=== PATIENT | female | born 1970 | race American Indian/Alaskan Native ===

== ENCOUNTER 2017-12-25 11:50 | Emergency (ER) | payer SELFPAY ==
--- NOTE | 2017-12-25 14:33 | Emergency Department Report ---
Chief Complaint: Extremity Injury, Lower Stated Complaint: BACK PAIN/SWOLLEN ANKLES Time Seen by Provider: 12/25/17 14:18 - HPI History of Present Illness: 47-year-old -[place] female presents to the emergency department with complaint of lower extremity swelling, especially in the feet and ankles, as well as some mid back pain, that has been going on for the past 4-5 days. Patient presents with some elevated blood pressure and says that she has a history of hypertension but has not been taking any medication. The patient says that she is homeless and does not have any primary care physician. She has not taken anything for her symptoms prior to presentation. She denies any problems with bowel or bladder, numbness or paresthesias or any neurological deficits. - ROS Review of Systems: Positive for bilateral lower extremity edema, back pain Negative for numbness, paresthesias, dysuria - Exam Vital Signs: Vital Signs 12/25/17 12:00 Temperature 98.3 F Pulse Rate 87 Respiratory 16 Rate Blood Pressure 176/99 O2 Sat by Pulse 100 Oximetry Physical Exam: There is some mild pitting swelling of the bilateral lower extremities, mostly to the feet, ankles and distal tib-fib. There is some reproducible tenderness to palpation to the left paraspinal mid back but no step-off or deformity. Heart and lungs sounds are normal to auscultation. MSE screening note: Focused history and physical exam performed. Due to findings the following was ordered: I've ordered a CBC, BMP, BNP, urinalysis and urine . X-ray of the thoracic spine. ED Disposition for MSE Condition: Stable Referrals: PRIMARY CARE [Primary Care Provider] - 3-5 Days
[2017-12-25 15:45] LABS: Basophils % (Auto) 0.9 % (0.0-1.8); Eosinophils % (Auto) 0.1 % (0.0-4.3); Lymphocytes % (Auto) 43.2 % (13.4-35.0); Mean Corpuscular HGB Conc 30 % (30-34); Monocytes # (Auto) 0.6 K/mm3 (0.0-0.8); Monocytes % (Auto) 12.3 % (0.0-7.3); Platelet Count 350 K/mm3 (140-440); Red Blood Count 5.06 M/mm3 (3.65-5.03)
[2017-12-25 15:48] LABS: Hematocrit 34.7 % (30.3-42.9); Hemoglobin 10.4 gm/dl (10.1-14.3); Mean Corpuscular Hemoglobin 21 pg (28-32); Mean Corpuscular Volume 69 fl (79-97); Red Cell Distribution Width 21.8 % (13.2-15.2)
[2017-12-25 15:59] LABS: BUN/Creatinine Ratio 16; Blood Urea Nitrogen 11 mg/dL (7-17); Calcium 8.9 mg/dL (8.4-10.2); Hemolysis Index 68
[2017-12-25 17:14] LABS: Amorphous Crystals,Urine 1+; Bilirubin,Urine NEG (Negative); Blood,Urine NEG (Negative); Color,Urine Yellow (Yellow); HCG Qualitative,Urine Negative (Negative); Mucus,Urine FEW /HPF; Protein,Urine <15 mg/dL mg/dL (Negative); Urobilinogen,Urine < 2.0 mg/dL (<2.0)
[2017-12-25 18:15] LABS: WBC,Urine < 1.0 /HPF (0.0-6.0)
--- NOTE | 2017-12-25 19:37 | XRay Report ---
FINAL REPORT EXAM: XR CHEST ROUTINE 2V HISTORY: LE swelling TECHNIQUE: Two view chest PA and lateral PRIORS: None. FINDINGS: Cardiac and mediastinal contours are unremarkable. No focal pulmonary infiltrate is identified. No pleural fluid collection seen. Pulmonary vasculature is unremarkable. IMPRESSION: Negative two-view chest
--- NOTE | 2017-12-25 19:39 | XRay Report ---
FINAL REPORT EXAM: XR SPINE THORACIC 2V HISTORY: back pain TECHNIQUE: Two views thoracic spine PRIORS: None. FINDINGS: The vertebral bodies demonstrate normal height and alignment. The disk spaces are within normal limits. The posterior elements appear intact. Perivertebral soft tissues are unremarkable. IMPRESSION: Negative thoracic spine series
--- NOTE | 2017-12-25 21:00 | Emergency Department Report ---
ED Lower Extremity HPI - General Chief Complaint: Extremity Injury, Lower Stated Complaint: BACK PAIN/SWOLLEN ANKLES Time Seen by Provider: 12/25/17 14:18 Source: patient Mode of arrival: Ambulatory Limitations: No Limitations - History of Present Illness Initial Comments: 47-year-old -[place] female presents with bilateral lower extremity swelling and low back pain for 4-5 days. Patient is homeless with past medical history of hypertension and arthritis. Patient states she is currently off of blood pressure medication at this time. Patient states she noticed swelling to lower extremity, about 5 days ago from ankles to feet. Pain and back his mid section, and nonradiating. Patient denies taking anything for symptom relief prior to presentation. Denies numbness or tingling, chest pain, shortness of breath, wheezing, and fever. MD Complaint: ankle injury (bilateral ankle swelling), foot injury (bilateral feet swelling) Onset/Timin -: days(s) Injury: Ankle: Right, Left, Foot: Right, Left Type of Injury: unknown Place: home Severity: moderate Severity scale (0 -10): 4 Worsens With: nothing Associated Symptoms: swelling, ambulatory. denies: snap/pop sensation, numbness , tingling, unable to bear weight, able to partially bear weight - Related Data Previous Rx's Medication Instructions Recorded Last Taken Type Amoxicillin/K Clav Tab [Augmentin 1 tab PO Q12HR #10 tab 04/10/16 Unknown Rx 875 mg] Benzonatate [Tessalon Perles] 100 mg PO Q8HR #14 capsule 04/10/16 Unknown Rx HYDROcodone/APAP 7.5-325 [[place]] 15 ml PO Q4HR PRN #90 ml 04/10/16 Unknown Rx Ibuprofen [Motrin] 800 mg PO Q8HR PRN #14 tablet 04/10/16 Unknown Rx Hydrochlorothiazide 12.5 mg PO DAILY #14 tablet 12/25/17 Unknown Rx amLODIPine [Norvasc] 5 mg PO DAILY #14 tab 12/25/17 Unknown Rx Allergies Allergy/AdvReac Type Severity Reaction Status Date / Time No Known Allergies Allergy Unverified 04/10/16 07:54 ED Review of Systems ROS: Stated complaint: BACK PAIN/SWOLLEN ANKLES Other details as noted in HPI Constitutional: denies: chills, fever Respiratory: denies: cough, shortness of breath, wheezing Cardiovascular: denies: chest pain, palpitations Gastrointestinal: denies: abdominal pain, nausea, diarrhea Musculoskeletal: back pain (mid-back pain), joint swelling (bilateral lower extremity swelling). denies: arthralgia Skin: denies: rash, lesions Neurological: denies: headache, weakness, paresthesias Psychiatric: denies: anxiety, depression ED Past Medical Hx - Past Medical History Previous Medical History?: Yes Hx Hypertension: Yes Hx Arthritis: Yes - Surgical History Past Surgical History?: Yes Additional Surgical History: x 2. wrist surgery - Social History Smoking Status: Current Some Day Smoker Substance Use Type: None - Medications Home Medications: Home Medications Medication Instructions Recorded Confirmed Last Taken Type Amoxicillin/K Clav Tab [Augmentin 1 tab PO Q12HR #10 tab 04/10/16 Unknown Rx 875 mg] Benzonatate [Tessalon Perles] 100 mg PO Q8HR #14 capsule 04/10/16 Unknown Rx HYDROcodone/APAP 7.5-325 [[place]] 15 ml PO Q4HR PRN #90 ml 04/10/16 Unknown Rx Ibuprofen [Motrin] 800 mg PO Q8HR PRN #14 tablet 04/10/16 Unknown Rx Hydrochlorothiazide 12.5 mg PO DAILY #14 tablet 12/25/17 Unknown Rx amLODIPine [Norvasc] 5 mg PO DAILY #14 tab 12/25/17 Unknown Rx ED Physical Exam - General Limitations: No Limitations General appearance: alert, in no apparent distress - Respiratory Respiratory exam: Present: normal lung sounds bilaterally. Absent: respiratory distress, wheezes, rales, rhonchi, stridor - Cardiovascular Cardiovascular Exam: Present: regular rate, normal rhythm. Absent: systolic murmur, diastolic murmur, rubs, gallop - GI/Abdominal GI/Abdominal exam: Present: soft, normal bowel sounds. Absent: organomegaly, mass - Extremities Exam Extremities exam: Present: full ROM, normal capillary refill, pedal edema (+2 pitting edema bilaterally distal tibial and fibula and feet). Absent: tenderness, calf tenderness - Back Exam Back exam: Present: full ROM, paraspinal tenderness (mid back on the left). Absent: CVA tenderness (R), CVA tenderness (L), rash noted - Neurological Exam Neurological exam: Present: alert, oriented X3 - Psychiatric Psychiatric exam: Present: normal affect, normal mood - Skin Skin exam: Present: warm, dry, intact, normal color. Absent: rash ED Course Vital Signs 12/25/17 12:00 Temperature 98.3 F Pulse Rate 87 Respiratory 16 Rate Blood Pressure 176/99 O2 Sat by Pulse 100 Oximetry ED Lower Extremity MDM - Lab Data Result diagrams: 12/25/17 15:27 12/25/17 15:27 - Radiology Data Radiology results: report reviewed VASCULAR LAB.PRELIMINARY REPORT. BLE VENOUS DUPLEX DONE. NO EVIDENCE OF DVT/SVT IN VESSELS VISUALIZED. SOFT TISSUE CHANGES SEEN IN BOTH KNEES. EXAM: XR CHEST ROUTINE 2V HISTORY: LE swelling TECHNIQUE: Two view chest PA and lateral PRIORS: None. FINDINGS: Cardiac and mediastinal contours are unremarkable. No focal pulmonary infiltrate is identified. No pleural fluid collection seen. Pulmonary vasculature is unremarkable. IMPRESSION: Negative two-view chest. EXAM: XR SPINE THORACIC 2V HISTORY: back pain TECHNIQUE: Two views thoracic spine PRIORS: None. FINDINGS: The vertebral bodies demonstrate normal height and alignment. The disk spaces are within normal limits. The posterior elements appear intact. Perivertebral soft tissues are unremarkable. IMPRESSION: Negative thoracic spine series - Medical Decision Making This is a 47 y.o. female that presents with bilateral lower extremity edema and low back pain for 4-5 days. Patient is stable and was examined by me. History of HTN and arthritis. Patient is homeless and off blood pressure medication. Patient does not have primary care provider to follow-up with. Obtain CBC, CMP , BMP, a urinalysis, urine hCG, duplex Doppler bilateral lower extremities, chest x-ray, and x-ray of thoracic spine. VASCULAR LAB.PRELIMINARY REPORT. BLE VENOUS DUPLEX DONE. NO EVIDENCE OF DVT/SVT IN VESSELS VISUALIZED. SOFT TISSUE CHANGES SEEN IN BOTH KNEES. Negative two-view chest. Negative thoracic spine series. BNP is 2726, all of the labs unremarkable. Given Lasix 20 mg by mouth once in ER. On physical assessment lungs are clear to auscultation. Start amlodipine 5 mg by mouth daily and hydrochlorothiazide 12.5 mg po daily and follow up with PCP in 24-48 hours. Referral to director strategic planning and [facility] for further management. Discussed plan with patient and agreed to plan. No further questions noted by the patient. Discharged in stable condition. Critical care attestation.: If time is entered above; I have spent that time in minutes in the direct care of this critically ill patient, excluding procedure time. ED Disposition Clinical Impression: Bilateral lower extremity edema, Dependent edema Hypertension Qualifiers: Hypertension type: essential hypertension Qualified Code(s): I10 - Essential ( primary) hypertension Disposition: TO HOME OR SELFCARE Is pt being admited?: No Does the pt Need Aspirin: No Condition: Stable Instructions: Leg Edema (ED), Hypertension (ED) Additional Instructions: Encourage stop smoking to reduce cardiovascular risk. Moderate caffeine consumption is acceptable. Begin and maintain aerobic exercise, with a goal of at least 30 minutes of moderate intensity, dynamic aerobic exercise (walking, jogging, cycling, or swimming) 5 days per week to total 150 minutes as tolerated or recommended by a physician. Take medication daily as prescribed. Follow up with Primary Care Provider in 1 week. Prescriptions: amLODIPine [Norvasc] 5 mg PO DAILY #14 tab Hydrochlorothiazide 12.5 mg PO DAILY #14 tablet Referrals: [facility] [Outside] - 3-5 Days [facility] [Outside] - 3-5 Days [facility] [Outside] - 3-5 Days ALEXIA CUEVA MD [Staff Physician] - 3-5 Days Time of Disposition: 21:15 Print Language: SINHALA
[2017-12-25] MEDS ORDERED: LASIX PO ONE (21:11)
[2017-12-25 21:36] VITALS: BP 154/100
--- NOTE | 2017-12-27 13:33 | Vascular Lab Report ---
LOWER EXTREMITY VENOUS DUPLEX: REASON FOR EXAM: Pain and swelling of the lower extremities. COMMENTS ON THE RIGHT: All veins visualized are freely compressible without evidence of internal echogenicity. Flow is spontaneous and phasic throughout. 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 COMMENTS ON THE LEFT: All veins visualized are freely compressible without evidence of internal echogenicity. Flow is spontaneous and phasic throughout. A soft tissue change in the left knee area is consistent with a Briceño's cyst. IMPRESSION: No evidence of acute or chronic deep venous thrombosis in either lower extremity. 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 A soft tissue change in the left knee area is consistent with a Briceño's cyst.
== END 2017-12-25 21:36 | disposition home or self-care (01) ==
LOC: ED 11:50
DX: R60.0 Localized edema (principal); I10 Essential (primary) hypertension; M54.5 Low back pain; M19.90 Unspecified osteoarthritis, unspecified site; F17.200 Nicotine dependence, unspecified, uncomplicated
CPT/HCPCS: 36415; 71046; 72070; 80048; 81001; 81025; 83880; 85025; 93970

== ENCOUNTER 2018-07-21 04:44 | Inpatient (IN) | payer OTHER, SELFPAY ==
[2018-07-21] MEDS ORDERED: ASPIRIN ONE ×2 (05:19→11:05)
[2018-07-21] MEDS ORDERED: ASPIRIN PO ONE (05:22)
[2018-07-21] MEDS ORDERED: NITROSTAT SL ONE (05:34)
[2018-07-21] MEDS: NITROSTAT SL PRN ×3 (05:41→06:14)
[2018-07-21 05:56] LABS: Basophils % (Auto) 0.7 % (0.0-1.8); Eosinophils % (Auto) 0.1 % (0.0-4.3); Hematocrit 33.5 % (30.3-42.9); Hemoglobin 10.2 gm/dl (10.1-14.3); Lymphocytes # (Auto) 1.4 K/mm3 (1.2-5.4); Lymphocytes % (Auto) 35.2 % (13.4-35.0); Mean Corpuscular HGB Conc 31 % (30-34); Mean Corpuscular Volume 74 fl (79-97); Monocytes # (Auto) 0.3 K/mm3 (0.0-0.8); Monocytes % (Auto) 8.1 % (0.0-7.3); Platelet Count 296 K/mm3 (140-440); Red Blood Count 4.56 M/mm3 (3.65-5.03)
[2018-07-21 06:00] LABS: Red Cell Distribution Width 22.5 % (13.2-15.2)
[2018-07-21] MEDS ORDERED: TYLENOL ONE (06:12)
[2018-07-21] MEDS ORDERED: TYLENOL PO ONE (06:17)
[2018-07-21 06:27] LABS: BUN/Creatinine Ratio 21; Blood Urea Nitrogen 17 mg/dL (7-17); Calcium 8.6 mg/dL (8.4-10.2); Hemolysis Index 5
--- NOTE | 2018-07-21 07:35 | Emergency Department Report ---
HPI - General Chief Complaint: Chest Pain Time Seen by Provider: 07/21/18 07:16 - [facility] HPI: Room 1 The patient is a 47-year-old female presented with a chief complaint of chest pain. Patient states she's had intermittent chest pain since yesterday. The patient admits to shortness of breath but denies nausea/vomiting or diaphoresis. The patient appears groggy and requires frequent reawakening to complete the history. Patient states she's never had a stress test or cardiac catheterization Location: Chest Duration: Intermittent since yesterday Quality: Pain Severity: Currently 0/10 Modifying factors: [see above] Context: [see above] Mode of transportation: [not driving] ED Past Medical Hx - Past Medical History Hx Hypertension: Yes Hx Arthritis: Yes Additional medical history: Heart Murmur, Fibroids - Surgical History Past Surgical History?: Yes Additional Surgical History: x 2. wrist surgery - Family History Family history: no significant - Social History Smoking Status: Current Every Day Smoker (1/2 pack per day) Substance Use Type: None (denies illicit drug use) - Medications Home Medications: Home Medications Medication Instructions Recorded Confirmed Last Taken Type Famotidine [Pepcid] 20 mg PO BID #30 tablet 05/06/18 Unknown Rx Lisinopril [Zestril TAB] 10 mg PO QDAY #60 tablet 05/06/18 Unknown Rx amLODIPine [Norvasc] 10 mg PO QDAY #30 tablet 05/06/18 Unknown Rx hydrALAZINE [Apresoline TAB] 25 mg PO Q8HR #90 tab 05/06/18 Unknown Rx ED Review of Systems ROS: Stated complaint: CHEST PAIN Other details as noted in HPI Constitutional: denies: diaphoresis Eyes: denies: eye pain Respiratory: shortness of breath Cardiovascular: chest pain Endocrine: no symptoms reported Gastrointestinal: denies: nausea, vomiting Genitourinary: denies: dysuria Musculoskeletal: denies: back pain Neurological: denies: headache Physical Exam - Physical Exam Vital Signs: Vital Signs 07/21/18 07/21/18 07/21/18 05:04 05:12 05:21 Temperature 97.8 F 98.7 F Pulse Rate 104 H 104 H 91 H Respiratory 18 20 20 Rate Blood Pressure 184/128 172/117 Blood Pressure 172/117 [Left] O2 Sat by Pulse 93 98 100 Oximetry 07/21/18 07/21/18 07/21/18 05:22 05:41 05:50 Temperature Pulse Rate 93 H 93 H 92 H Respiratory 20 18 Rate Blood Pressure 172/117 171/115 Blood Pressure 172/117 155/102 [Left] O2 Sat by Pulse 100 100 Oximetry 07/21/18 06:14 Temperature Pulse Rate 96 H Respiratory Rate Blood Pressure 178/106 Blood Pressure [Left] O2 Sat by Pulse Oximetry Physical Exam: GENERAL: The patient is well-developed well-nourished female sleeping on stretcher not appearing to be in acute distress. [] HEENT: Normocephalic. Atraumatic. Extraocular motions are intact. Patient has moist mucous membranes. NECK: Supple. Trachea midline CHEST/LUNGS: Clear to auscultation. There is no respiratory distress noted. HEART/CARDIOVASCULAR: Regular. There is no tachycardia. There is no gallop rub or murmur. ABDOMEN: Abdomen is soft, nontender. Patient has normal bowel sounds. There is no abdominal distention. SKIN: There is no edema. There is no diaphoresis. NEURO: The patient is sleepy and requires frequent stimulation to complete the history. The patient is cooperative. The patient has no focal neurologic deficits. The patient has normal speech MUSCULOSKELETAL: There is no evidence of acute injury. ED Course Vital Signs 07/21/18 07/21/18 07/21/18 05:04 05:12 05:21 Temperature 97.8 F 98.7 F Pulse Rate 104 H 104 H 91 H Respiratory 18 20 20 Rate Blood Pressure 184/128 172/117 Blood Pressure 172/117 [Left] O2 Sat by Pulse 93 98 100 Oximetry 07/21/18 07/21/18 07/21/18 05:22 05:41 05:50 Temperature Pulse Rate 93 H 93 H 92 H Respiratory 20 18 Rate Blood Pressure 172/117 171/115 Blood Pressure 172/117 155/102 [Left] O2 Sat by Pulse 100 100 Oximetry 07/21/18 06:14 Temperature Pulse Rate 96 H Respiratory Rate Blood Pressure 178/106 Blood Pressure [Left] O2 Sat by Pulse Oximetry ED Medical Decision Making - Lab Data Result diagrams: 07/21/18 05:40 07/21/18 05:40 Laboratory Tests 07/21/18 07/21/18 07/21/18 05:40 05:40 05:40 WBC 4.1 L RBC 4.56 Hgb 10.2 Hct 33.5 MCV 74 L MCH 23 L MCHC 31 RDW 22.5 H Plt Count 296 Lymph % (Auto) 35.2 H [place] % (Auto) 8.1 H Eos % (Auto) 0.1 Baso % (Auto) 0.7 Lymph # 1.4 [place] # 0.3 Eos # 0.0 Baso # 0.0 Seg Neutrophils % 55.9 Seg Neutrophils # 2.3 Sodium 140 Potassium 4.2 Chloride 106.5 Carbon Dioxide 24 Anion Gap 14 BUN 17 Creatinine 0.8 Estimated GFR > 60 BUN/Creatinine Ratio 21 Glucose 99 Calcium 8.6 Total Creatine Kinase CK-MB (CK-2) CK-MB (CK-2) Rel Index Troponin T < 0.010 HCG, Qual Negative 07/21/18 05:40 WBC RBC Hgb Hct MCV MCH MCHC RDW Plt Count Lymph % (Auto) [place] % (Auto) Eos % (Auto) Baso % (Auto) Lymph # Fre[place] # Eos # Baso # Seg Neutrophils % Seg Neutrophils # Sodium Potassium Chloride Carbon Dioxide Anion Gap BUN Creatinine Estimated GFR BUN/Creatinine Ratio Glucose Calcium Total Creatine Kinase 222 H CK-MB (CK-2) 8.1 H CK-MB (CK-2) Rel Index 3.6 Troponin T HCG, Qual - EKG Data -: EKG Interpreted by Me EKG shows normal: sinus rhythm Rate: tachycardia (104 bpm) - EKG Data When compared to previous EKG there are: no significant change Interpretation: unchanged when compared t (05/05/2018) - Radiology Data Radiology results: report reviewed (CT head), image reviewed (CT head, chest x- ray) interpreted by me: Chest x-ray-right hilar fullness. No pneumothorax [facility] [address] [place] [address] Cat Scan Report Signed Patient: KAREN ASTUDILLO MR#: [id number] : 1970 Acct:[id number] Age/Sex: 47 / F ADM Date: 07/21/18 Loc: ED Attending Dr: Ordering Physician: DAMEON PRIETO MD Date of Service: 07/21/18 Procedure(s): CT head/brain wo con Accession Number(s): [id number] cc: DAMEON PRIETO MD FINAL REPORT EXAM: CT HEAD/BRAIN WO CON HISTORY: headache TECHNIQUE: CT imaging acquired through the head without intravenous contrast. Transaxial reformations are provided. PRIORS: None. FINDINGS: The ventricles, cisterns and sulci are normal. No intraparenchymal or extra- axial mass, hemorrhage, or mass effect. Sullivan and white-matter differentiation is normal. Normal spherical shape of the globes. Paranasal sinuses and mastoid air cells are clear. No skull or facial fracture visualized. IMPRESSION: No acute intracranial abnormality. Transcribed By: MB Dictated By: HARIKA PATEL MD Electronically Authenticated By: HARIKA PATEL MD Signed Date/Time: 07/21/18736 DD/ 4 TD/TT: 07/21/18734 - Differential Diagnosis ACS, pericarditis, GERD Critical care attestation.: If time is entered above; I have spent that time in minutes in the direct care of this critically ill patient, excluding procedure time. ED Disposition Clinical Impression: Chest pain Disposition: 09 OP ADMIT IP TO THIS HOSP Is pt being admited?: Yes Does the pt Need Aspirin: Yes Condition: Fair Instructions: Chest Pain (ED) Time of Disposition: 08:21 (hospitalist paged)
--- NOTE | 2018-07-21 07:37 | Cat Scan Report ---
FINAL REPORT EXAM: CT HEAD/BRAIN WO CON HISTORY: headache TECHNIQUE: CT imaging acquired through the head without intravenous contrast. Transaxial reformatio ns are provided. PRIORS: None. FINDINGS: The ventricles, cisterns and sulci are normal. No intraparenchymal or extra-axial mass, hemorrhage, o r mass effect. Sullivan and white-matter differentiation is normal. Normal spherical shape of the globes. Paranasal sinuses and mastoid air cells are clear. No skull or facial fracture visualized. IMPRESSION: No acute intracranial abnormality.
[2018-07-21 07:51] LABS: Creatine Kinase MB 8.1 ng/mL (0.0-4.0)
--- NOTE | 2018-07-21 09:35 | XRay Report ---
AP CHEST: HISTORY: chest pain Moderate cardiomegaly and moderate pulmonary venous congestion are identified which have increased slightly since 05/03/18. The lungs are generally clear. No consolidation, large pleural effusion or pneumothorax is identified. The bony thorax is personally intact. IMPRESSION: Cardiomegaly and pulmonary venous congestion.
--- NOTE | 2018-07-21 10:14 | History and Physical Report ---
History of Present Illness Date of examination: 07/21/18 Date of admission: 07/21/18 08:27 Chief complaint: Chest pains History of present illness: Patient is a 47 yo woman with a history of hypertension, cocaine abuse, CHF, EF 40-45%, NSTEMI in 2017 with normal Coronaries LHC (05/04/2018 LHC: EDP 45mmhg, normal coronary anatomy) most likely from Cocaine induced vasospasm and Echodense circular mass in the area of anterolateral papillary muscle, ?Calcified papillary muscle versus tumor, recommend RIGO for further evaluation; RIGO attempted during the May 2018 admission but unable to pass probe, so Cardiac MRI was recommended who presents with substernal radiating to back moderate intermittent chest pains described as pressure like that started today without aggravating or relieving factors associated with SOB. She is a poor historian, she falls asleep with questioning and doesn't any some questions. She will be admitted for malignant hypertension causing CHF. PMH: as hpi PSH: x 2, wrist surgey SH: +tob/ETOH/crack cocaine FH: Mother of stroke, father had cancer, HTN ROS: Constitutional: denies: fever ENT: denies: throat or neck pain Respiratory: denies: cough, +shortness of breath Cardiovascular: + chest pain Endocrine: denies unexplained weight loss or gain Gastrointestinal: denies: abdominal pain, nausea Genitourinary: denies: dysuria Rectal: denies no incontinence, no bleeding, no itching, no discharge Musculoskeletal: denies swelling, myaglia, muscle weakness Skin: denies: rash Neurological: denies: headache Hematological/Lymphatic: denies: easy bleeding or easy bruising Allergic/Immunologic: no urticaria, no allergic rhinitis, no anaphylaxis Psych: denies sadness or hopelessness, SI/HI Medications and Allergies Allergies Allergy/AdvReac Type Severity Reaction Status Date / Time No Known Allergies Allergy Unverified 04/10/16 07:54 Home Medications Medication Instructions Recorded Confirmed Last Taken Type Famotidine [Pepcid] 20 mg PO BID #30 tablet 05/06/18 Unknown Rx Lisinopril [Zestril TAB] 10 mg PO QDAY #60 tablet 05/06/18 Unknown Rx amLODIPine [Norvasc] 10 mg PO QDAY #30 tablet 05/06/18 Unknown Rx hydrALAZINE [Apresoline TAB] 25 mg PO Q8HR #90 tab 05/06/18 Unknown Rx Active Meds: Active Medications Nitroglycerin (Nitrostat) 0.4 mg SL .Q5MIN PRN PRN Reason: Chest Pain Last Admin: 07/21/18 06:14 Dose: 0.4 mg Documented by: Exam - Physical Exam Narrative exam: Gen: thin, NAD, lethargic, goggy, one word answers and falls back to sleep, Orientated to place though HEENT: NCAT, EOMI, PERRL, OP Clear Neck: supple, no adenopathy, no thyromegaly, equiv JVD CVS/Heart: RRR, normal S1S2, pulses present bilaterally Chest/Lungs: diminished bs bilateral, Symmetrical chest expansion, good air entry bilaterally GI/Abdomen: soft, NTND, good bowel sounds, no guarding or rebound /Bladder: no suprapubic tenderness, no CVA or paraspinal tenderness Extermity/Skin: no c/c/e, no obvious rash MSK: FROM x 4 Neuro: CN 2-12 grossly intact, no new focal deficits Psych: calm - Constitutional Vitals: Temp Pulse Resp BP Pulse Ox 98.7 F 90 18 192/124 95 07/21/18 05:12 07/21/18 08:01 07/21/18 08:01 07/21/18 07:01 07/21/18 08:01 Results - Labs CBC & Chem 7: 07/21/18 05:40 07/21/18 05:40 Labs: Abnormal lab results 07/21/18 07/21/18 Range/Units 05:40 05:40 WBC 4.1 L (4.5-11.0) K/mm3 MCV 74 L (79-97) fl MCH 23 L (28-32) pg RDW 22.5 H (13.2-15.2) % Lymph % (Auto) 35.2 H (13.4-35.0) % [place] % (Auto) 8.1 H (0.0-7.3) % Total Creatine Kinase 222 H (30-135) units/L CK-MB (CK-2) 8.1 H (0.0-4.0) ng/mL Assessment and Plan Patient is a 47 yo woman with a history of hypertension, cocaine abuse, CHF, EF 40-45%, NSTEMI in 2017 with normal Coronaries LHC (05/04/2018 LHC: EDP 45mmhg, normal coronary anatomy) most likely from Cocaine induced vasospasm and Echodense circular mass in the area of anterolateral papillary muscle, ?Calcifie d papillary muscle versus tumor, recommend RIGO for further evaluation; RIGO attempted during the May 2018 admission but unable to pass probe, so Cardiac MRI was recommended who presents with substernal radiating to back moderate intermittent chest pains described as pressure like that started today without aggravating or relieving factors associated with SOB. She is a poor historian, she falls asleep with questioning and doesn't any some questions. She will be admitted for malignant hypertension causing CHF. * pCXR Impression: Cardiomegaly and pulmonary vascular congestion * CT head: no acute findings * UDS and BAL ordered but not done -Chest pains, atypical: treat medically, control bp -Malignant hypertension: treat with iv antihypertensives -Acute on chronic systolic heart failure: consult Cardiology, treat with iv lasix -Left Ventricular Cardiac mass: consult Cardiology to follow -Tobacco dependency: counseling department chair on stopping -H/o cocaine abuse: await uds and BAL -Acute metabolic encephalopathy due to the above
[2018-07-21] MEDS ORDERED: TYLENOL PO PRN (10:32)
[2018-07-21] MEDS ORDERED: APRESOLINE IV PRN (10:32)
[2018-07-21] MEDS ORDERED: NORMODYNE IV PRN (10:32)
[2018-07-21] MEDS ORDERED: NORCO 10/325 PO PRN (10:32)
[2018-07-21] MEDS ORDERED: ZOFRAN IV PRN (10:32)
[2018-07-21] MEDS ORDERED: MORPHINE IV PRN (10:32)
[2018-07-21] MEDS ORDERED: ZESTRIL PO SCH (11:00)
[2018-07-21] MEDS ORDERED: APRESOLINE ONE (11:06)
[2018-07-21] MEDS ORDERED: ZESTRIL ONE (11:06)
[2018-07-21] MEDS ORDERED: HEPARIN ONE (11:06)
[2018-07-21] MEDS: ZESTRIL PO SCH (11:12)
[2018-07-21] MEDS: APRESOLINE PO SCH ×3 (11:12→21:41)
--- NOTE | 2018-07-21 13:31 | Event Note ---
Date: 07/21/18 Patient seen and consult dictated.
--- NOTE | 2018-07-22 00:49 | Consultation ---
ROOM NUMBER: The patient's room 475. CONSULTATION REQUESTED BY: Lucien Obrien MD CONSULTING PHYSICIAN: Sukumar Sloan MD HISTORY OF PRESENT ILLNESS: This is a 47-year-old -Filipino female with hypertension, who now presents in the Emergency Room with complaints of chest pain, which is located over the retrosternal area with radiation to the back of at least moderate intensity. The patient stated that the pain started this morning and she came to the Emergency Room. She described it as a pressure type of pain. Not aggravated by any deep breathing, coughing or movements. She has noticed some shortness of breath with the pain, but no nausea, vomiting, etc. At this time, I am unable to get any history from the patient. She will open her eyes and look at me, but will not answer any of my questions. She falls asleep. So, the history is primarily obtained from the review of records. The patient was recently admitted to [facility] in 05/2018. At that time, the patient was in congestive heart failure. She has history of hypertension and cocaine abuse. The patient then sustained a non-ST elevation myocardial infarction and so underwent cardiac catheterization and coronary arteriography, which revealed normal coronaries with mild LV systolic dysfunction with ejection fraction of 40-45%. The patient at that time was noted to have a circular mass attached to the anterolateral part of the papillary muscle. There was a question of calcified papillary muscle versus tumor. RIGO was attempted, but unsuccessful, as they could not pass the probe. So, the patient was advised to have an MRI of the heart, but has not been done yet. At the time of my admission, the patient was noted to have markedly elevated blood pressure and some suggestion of congestive heart failure. PAST MEDICAL HISTORY: Positive for hypertension, congestive heart failure, cocaine and alcohol abuse. FAMILY HISTORY: Positive for hypertension and cerebrovascular accident. REVIEW OF SYSTEMS: CARDIOVASCULAR: As described above. RESPIRATORY: The patient denied any history of wheezing or asthma. No GI or complaints at the present time. MEDICATIONS: The patient was supposed to be on lisinopril 10 mg once daily, amlodipine 10 mg daily, hydralazine 25 mg 3 times daily, also Pepcid 20 mg. We are not sure whether the patient was taking any of this medication or not. PHYSICAL EXAMINATION: GENERAL: This is a 47-year-old female, well-built, well-nourished, in no acute distress at the present time. The patient is very drowsy and poorly responsive to questions. Appears comfortable. No acute distress. SKIN: Warm and dry. HEENT: Pupils reactive. NECK: Supple. Both carotids well palpable. No definite bruit, no JVD. CHEST: Lungs are clear. HEART: S1, S2 heard with a grade 1/6 systolic murmur noted at the aortic area and left sternal border. No diastolic murmur or gallop. ABDOMEN: Soft and nontender. EXTREMITIES: No edema, no calf tenderness. Good pedal pulses. NEUROLOGIC: Evaluation grossly within normal limits. RECTAL AND PELVIC: Examination was not done at this time. EKG done showed evidence of sinus tachycardia, biatrial enlargement, septal hypertrophy with ST-T abnormalities, abnormal ECG. LABORATORY DATA: Showed a hemoglobin of 10.2, hematocrit 33.5, WBC count also was low at 4100. Platelet count was normal. The patient's BMP was within normal limits. Glucose 99, potassium 4.2, creatinine 0.8. However, the patient's total CK was elevated at 222 with CK-MB of 8.1. IMPRESSION: 1. Chest pain, question cause, probably noncardiac in etiology. 2. Uncontrolled hypertension, on medication. Blood pressure is still elevated, but better than on admission. We will observe the response to further treatment. 3. Acute on chronic systolic heart failure. Probably secondary to uncontrolled hypertension. Currently, the patient is on IV Lasix. We will observe the response. 4. ? left ventricular cardiac mass. Needs further workup as outpatient. 5. Tobacco abuse. 6. History of cocaine abuse. 7. ? metabolic encephalopathy. This is a 47-year-old female with a history of hypertension and tobacco and cocaine abuse, who is now admitted to the hospital with complaints of chest pain. The patient just had cardiac catheterization and coronary arteriography done, which showed no evidence of coronary artery disease. So, this is most likely atypical noncardiac chest pain. May be related to drug abuse. We are awaiting the urinary drug screen and blood alcohol level, etc. The patient is poorly responsive. May be related to her beers. We will monitor this closely. At the present time, from cardiovascular standpoint, she appears stable otherwise. Our goal is to get the blood pressure under control. Monitor for signs of congestive heart failure. Rest of the plan as per orders. Thank you very much for this consultation. We will follow the patient along with you. JOB# [id number] CYNDEE/BIANCA
[2018-07-22 03:35] LABS: Amphetamine Screen,Urine PRESUMPTIVE NEGATIVE; Benzodiazepines Screen,Urine PRESUMPTIVE NEGATIVE; Cannabinoid Screen,Urine PRESUMPTIVE NEGATIVE; Methadone Screen,Urine PRESUMPTIVE NEGATIVE; Opiate Screen,Urine PRESUMPTIVE NEGATIVE
[2018-07-22 03:53] LABS: Cocaine Screen,Urine PRESUMPTIVE POSITIVE
[2018-07-22] MEDS: APRESOLINE PO SCH ×2 (05:28→14:12)
[2018-07-22 07:47] LABS: Hematocrit 30.5 % (30.3-42.9); Hemoglobin 9.4 gm/dl (10.1-14.3); Mean Corpuscular HGB Conc 31 % (30-34); Mean Corpuscular Volume 72 fl (79-97); Platelet Count 286 K/mm3 (140-440); Red Blood Count 4.23 M/mm3 (3.65-5.03)
[2018-07-22 07:52] LABS: Red Cell Distribution Width 22.5 % (13.2-15.2)
[2018-07-22 08:08] LABS: BUN/Creatinine Ratio 17; Blood Urea Nitrogen 12 mg/dL (7-17); Calcium 8.4 mg/dL (8.4-10.2); Hemolysis Index 45
[2018-07-22 08:32] VITALS: BP 147/86
[2018-07-22] MEDS: ZESTRIL PO SCH (09:28)
[2018-07-22] MEDS ORDERED: PROTONIX PO SCH (10:00)
[2018-07-22] MEDS ORDERED: HEPARIN SUB-Q SCH (10:33)
--- NOTE | 2018-07-22 10:54 | Progress Note ---
Assessment and Plan Chest pain currently resolved. AMI ruled out. BPs improved. S/p LHC 05/2018 which showed normal coronaries. Pt with known LV mass, unable to pass RIGO probe in 05/2018 and OP cardiac MR was recommended at that time. This can be arranged in our office. Pt has yet to f/u in our office but states she will follow up after this discharge. Will plan for cardiac MR as OP. Currently stable cardiac status. Pt may discharge from cardiology standpoint. Recommend follow up in our office with Dr. Sloan within 1-2 weeks of hospital discharge ([phone]). Pt verbalizes understanding. The patient has been seen in conjunction with Dr. Sloan who agrees with the assessment and plan of care. - Patient Problems (1) Chest pain Current Visit: Yes Status: Acute (2) Uncontrolled hypertension Current Visit: Yes Status: Acute (3) Mass of left cardiac ventricle Current Visit: Yes Status: Chronic (4) Cocaine abuse Current Visit: Yes Status: Chronic (5) Tobacco use Current Visit: Yes Status: Chronic (6) Noncompliance Current Visit: Yes Status: Chronic Subjective Date of service: 07/22/18 Principal diagnosis: cp; ams Interval history: pt resting in bed, no current cardiac complaints. Objective Last Vital Signs Temp 98.1 F 07/22/18 08:30 Pulse 85 07/22/18 08:30 Resp 18 07/22/18 08:46 BP 147/86 07/22/18 08:30 Pulse Ox 99 07/22/18 08:30 - Physical Examination General: No Apparent Distress HEENT: Positive: PERRL, Normocephaly, Mucus Membranes Moist Neck: Positive: neck supple, trachea midline Cardiac: Positive: Reg Rate and Rhythm, S1/S2 Lungs: Positive: clear to auscultation Neuro: Positive: Grossly Intact Abdomen: Negative: Tender Skin: Negative: Rash, Wound Musculoskeletal: No Pain Extremities: Absent: edema - Labs and Meds CBC 07/22/18 Range/Units 06:32 WBC 3.7 L (4.5-11.0) K/mm3 RBC 4.23 (3.65-5.03) M/mm3 Hgb 9.4 L (10.1-14.3) gm/dl Hct 30.5 (30.3-42.9) % Plt Count 286 (140-440) K/mm3 Comprehensive Metabolic Panel 07/22/18 Range/Units 06:32 Sodium 140 (137-145) mmol/L Potassium 4.5 (3.6-5.0) mmol/L Chloride 104.6 (98-107) mmol/L Carbon Dioxide 23 (22-30) mmol/L BUN 12 (7-17) mg/dL Creatinine 0.7 (0.7-1.2) mg/dL Glucose 86 (65-100) mg/dL Calcium 8.4 (8.4-10.2) mg/dL - Telemetry EKG Rhythm: Sinus Rhythm
--- NOTE | 2018-07-22 14:17 | Discharge Summary ---
Providers - Providers Date of Admission: 07/21/18 08:27 Date of discharge: 07/22/18 Attending physician: CHYNA CURIEL 07/21/18 10:00 Consult to Physician [CONS] Routine Comment: Consulting Provider: CLINT MANE Physician Instructions: Reason For Exam: Chest pains, heart mass, pt known to you 07/21/18 10:29 Consult to Physician [CONS] Routine Comment: Consulting Provider: CLINT MANE Physician Instructions: Reason For Exam: Recurrent CP, pt known to you, LV mass Primary care physician: [facility], MD Hospitalization Reason for admission: chest pain Condition: Fair Pertinent studies: * pCXR Impression: Cardiomegaly and pulmonary vascular congestion * CT head: no acute findings * UDS positive for cocaine Hospital course: Patient is a 47 yo woman with a history of hypertension, cocaine abuse, CHF with EF 40-45%, cardiac cath on 2017 with normal Coronaries [facility] (05/04/2018 [facility]) h/o Echodense circular mass in the area of anterolateral papillary muscle, ?Calcified papillary muscle versus tumor, recommend RIGO for further evaluation; RIGO attempted during the May 2018 admission but unable to pass probe, so Cardiac MRI was recommended as outpt and that is still pending. Patient came in this time with c/p chest pain located substernal radiating to back described as pressure like without aggravating or relieving factors associated with SOB. She also noted to be poor historian, was falling asleep with questioning during admission encounter. Her BP was 184/128 on admission, UDS positive for cocaine. She was admitted for malignant hypertension causing CHF. Cardiology was consulted. Her Chest pain resolved with medical Mx. AMI ruled out by negative troponin. BPs improved after resuming home meds. Patient with known LV mass, unable to pass RIGO probe in 05/2018 and OP cardiac MR was recommended at that time which will be arranged in cardiology office outpt. Per cardiology Currently stable cardiac status and Pt may discharge home from cardiology standpoint. Recommend follow up @ cardiology office with Dr. Sloan within 1-2 weeks of hospital discharge ([phone]). Pt verbalizes understanding. She was discharged home in stable condition. Discharge diagnosis and management: -Chest pains, atypical: likely cocaine induced vasospasm, plan to treat medically, cardiology recommended outpt follow up -Malignant hypertension: likely from noncompliance and drug abuse. BP improved o n discharge and counseled for compliance -Acute on chronic systolic heart failure, Ef 40-45%: consulted Cardiology, recommended to continue current meds and outpt followup -Left Ventricular Cardiac mass: outpt f/u -Tobacco dependency: curriculum counselor on stopping -H/o cocaine abuse: + uds, counseled -Acute metabolic/hypertensive encephalopathy due to uncontrolled HTN and cocaine abuse, resolved Disposition: DC-01 TO HOME OR SELFCARE Time spent for discharge: 34 minutes Core Measure Documentation - Palliative Care Palliative Care/ Comfort Measures: Not Applicable - Core Measures Any of the following diagnoses?: heart failure - Heart Failure Discharge Requirements ARTURO/ARB for LVSD if EF <40%: Yes Beta vernon at discharge: Yes Exam - Constitutional Vitals: Temp Pulse Resp BP Pulse Ox 98.1 F 85 18 147/86 99 07/22/18 08:30 07/22/18 08:30 07/22/18 08:46 07/22/18 08:30 07/22/18 08:30 General appearance: Present: no acute distress, well-nourished - EENT Eyes: Present: PERRL ENT: hearing intact, clear oral mucosa - Neck Neck: Present: supple, normal ROM - Respiratory Respiratory effort: normal Respiratory: bilateral: CTA - Cardiovascular Heart Sounds: Present: S1 & S2. Absent: rub, click - Extremities Extremities: pulses symmetrical, No edema Peripheral Pulses: within normal limits - Abdominal General gastrointestinal: Present: soft, non-tender, non-distended, normal bowel sounds - Integumentary Integumentary: Present: clear, warm, dry - Musculoskeletal Musculoskeletal: gait normal, strength equal bilaterally - Psychiatric Psychiatric: appropriate mood/affect, intact judgment & insight - Neurologic Neurologic: CNII-XII intact, moves all extremities Plan Activity: advance as tolerated Weight Bearing Status: Weight Bear as Tolerated Diet: low fat, low salt, diabetic Additional Instructions: f/u at cardiology office for outpt cardiac MRI Follow up with: SHIRLENE SPARKS MD [Primary Care Provider] - 7 Days
== END 2018-07-22 18:32 | disposition home or self-care (01) | DRG 917 ==
LOC: ED 04:44 → 4A 08:27
PROVIDERS: ADMIT Internal Medicine; ATTEND Internal Medicine
DX: T40.5X1A Poisoning by cocaine, accidental (unintentional), initial encounter (principal); I50.23 Acute on chronic systolic (congestive) heart failure; G93.41 Metabolic encephalopathy; Y92.89 Other specified places as the place of occurrence of the external cause; M19.90 Unspecified osteoarthritis, unspecified site; F17.210 Nicotine dependence, cigarettes, uncomplicated; R07.89 Other chest pain; I25.2 Old myocardial infarction; I11.0 Hypertensive heart disease with heart failure; F14.10 Cocaine abuse, uncomplicated; R09.89 Other specified symptoms and signs involving the circulatory and respiratory systems; Z91.14 Patient's other noncompliance with medication regimen
CPT/HCPCS: 36415; 70450; 71045; 80048; 80307; 80320; 82550; 82553; 84484; 84703; 85025; 85027; 93005; 93010; 99285; G0378; G0480; J1644

== ENCOUNTER 2018-08-04 02:47 | Emergency (ER) | payer OTHER ==
--- NOTE | 2018-08-04 03:47 | XRay Report ---
PROCEDURE: XR CHEST ROUTINE 2V TECHNIQUE: Chest radiograph single view. HISTORY: cp with cough COMPARISONS: None . FINDINGS: Heart: Normal. Mediastinum/Vessels: Normal. Lungs/Pleural space: Mild infiltrate/atelectasis left lower lung. No effusion or pneumothorax. Bony thorax: No acute osseous abnormality. Life support devices: None. IMPRESSION: Mild infiltrate and atelectasis left lower lung. . This document is electronically signed by Val Gonzáles DO., August 04 2018 03:45:07 AM ET
[2018-08-04] MEDS ORDERED: ROCEPHIN/NS 1 GM/50 ML 1 GM/50 ML BAG IV ONE (07:09)
[2018-08-04] MEDS ORDERED: TORADOL IV ONE (07:17)
[2018-08-04] MEDS ORDERED: CATAPRES PO ONE (07:17)
[2018-08-04] MEDS ORDERED: TESSALON PERLES PO ONE ×2 (07:17→11:17)
[2018-08-04 07:25] LABS: Basophils % (Auto) 0.7 % (0.0-1.8); Hematocrit 27.8 % (30.3-42.9); Hemoglobin 8.6 gm/dl (10.1-14.3); Lymphocytes # (Auto) 1.4 K/mm3 (1.2-5.4); Lymphocytes % (Auto) 25.3 % (13.4-35.0); Mean Corpuscular HGB Conc 31 % (30-34); Mean Corpuscular Volume 71 fl (79-97); Monocytes # (Auto) 0.6 K/mm3 (0.0-0.8); Monocytes % (Auto) 10.9 % (0.0-7.3); Platelet Count 324 K/mm3 (140-440); Red Blood Count 3.92 M/mm3 (3.65-5.03)
[2018-08-04 07:40] LABS: INR 0.95 (0.87-1.13); Partial Thromboplastin Time 21.1 Sec. (24.2-36.6)
[2018-08-04 07:42] LABS: Creatine Kinase MB 6.9 ng/mL (0.0-4.0)
[2018-08-04 07:43] LABS: Alanine Aminotransferase 39 units/L (7-56); Albumin 2.9 g/dL (3.9-5); BUN/Creatinine Ratio 17; Blood Urea Nitrogen 10 mg/dL (7-17); Calcium 8.1 mg/dL (8.4-10.2); Hemolysis Index 7
[2018-08-04] MEDS ORDERED: ZITHROMAX 500 MG in NACL 0.9% 250ML 250 ML IV ONE (08:00)
[2018-08-04 08:05] LABS: Red Cell Distribution Width 22.1 % (13.2-15.2)
--- NOTE | 2018-08-04 08:16 | Emergency Department Report ---
- General Chief Complaint: Chest Pain Stated Complaint: HTN/COUGH Time Seen by Provider: 08/04/18 06:48 Source: patient, EMS, old records reviewed Mode of arrival: Ambulatory Limitations: No Limitations - History of Present Illness Initial Comments: 47-year-old female with a past medical history of arthritis, hypertension, cocaine abuse, CHF EF 40%, left ventricular cardiac mass, and medication noncompliance versus the hospital complaining of cough, chest pain, shortness of breath. The last 3-4 days patient has had cough productive of yellow sputum with hot and cold flashes. He did not receive a flu shot this season. She complains of 8/10 squeezing chest pain radiating to the back as worse with palpation, movement, and cough. Patient presents with elevated blood pressure and states she has not taken any blood pressure medications since her discharge in 07/22/2018 due to lack of money. She claims not to have used cocaine since this last discharge. As per previous medical record review patient had a cardiac catheterization May 2018 with normal coronary arteries and had a failed RIGO attempt to characterize cardiac mass. D/c at that time was to follow-up as outpatient for cardiac MRI. Patient was more recently admitted here and discharged in July 22, 2018 for atypical chest pain thought to be secondary to vasospasm and hypertension secondary to medication compliance and cocaine abuse. - Related Data Previous Rx's Medication Instructions Recorded Last Taken Type Aspirin EC [Aspirin Enteric Coated 81 mg PO QDAY #30 tablet. 08/04/18 Unknown Rx TAB] Benzonatate [Tessalon Perles] 100 mg PO Q8HR PRN #20 capsule 08/04/18 Unknown Rx Carvedilol [Coreg] 3.125 mg PO BID #60 tablet 08/04/18 Unknown Rx Lisinopril [Zestril TAB] 20 mg PO QDAY #30 tablet 08/04/18 Unknown Rx Pantoprazole [Protonix TAB] 40 mg PO QDAY #30 tablet 08/04/18 Unknown Rx hydrALAZINE [Apresoline TAB] 25 mg PO Q8HR #90 tablet 08/04/18 Unknown Rx levoFLOXacin [Levaquin] 750 mg PO QDAY #5 tablet 08/04/18 Unknown Rx Allergies Allergy/AdvReac Type Severity Reaction Status Date / Time No Known Allergies Allergy Unverified 04/10/16 07:54 ED Review of Systems ROS: Stated complaint: HTN/COUGH Other details as noted in HPI Comment: All other systems reviewed and negative ED Past Medical Hx - Past Medical History Previous Medical History?: Yes Hx Hypertension: Yes Hx Arthritis: Yes Additional medical history: Heart Murmur, Fibroids. venticular mass. Cocaine abuse - Surgical History Past Surgical History?: Yes Additional Surgical History: x 2. wrist surgery - Social History Smoking Status: Former Smoker Substance Use Type: None - Medications Home Medications: Home Medications Medication Instructions Recorded Confirmed Last Taken Type Aspirin EC [Aspirin Enteric Coated 81 mg PO QDAY #30 tablet.dr 08/04/18 Unknown Rx TAB] Benzonatate [Tessalon Perles] 100 mg PO Q8HR PRN #20 capsule 08/04/18 Unknown Rx Carvedilol [Coreg] 3.125 mg PO BID #60 tablet 08/04/18 Unknown Rx Lisinopril [Zestril TAB] 20 mg PO QDAY #30 tablet 08/04/18 Unknown Rx Pantoprazole [Protonix TAB] 40 mg PO QDAY #30 tablet 08/04/18 Unknown Rx hydrALAZINE [Apresoline TAB] 25 mg PO Q8HR #90 tablet 08/04/18 Unknown Rx levoFLOXacin [Levaquin] 750 mg PO QDAY #5 tablet 08/04/18 Unknown Rx ED Physical Exam - General Limitations: No Limitations - Other Other exam information: General: No limitations, patient is alert in no acute distress Head exam: Atraumatic, normocephalic Eyes exam: Normal appearance, ENT: Moist mucous membrane, normal oropharynx Neck exam: Normal inspection, full range of motion, no meningismus nontender Respiratory exam: Clear to auscultation bilateral, no wheezes, rales, crackles, frequent coughing during examination Cardiovascular: Normal rate and rhythm, normal heart sounds, reproducible sternal chest wall tenderness and mid back tenderness on palpation Abdomen: Soft, nondistended, and nontender, with normal bowel sounds, no rebo und, or guarding Extremity: Full range of motion normal inspection no deformity, no calf tenderness or edema Back: Normal Inspection, full range of motion, no tenderness Neurologic: Alert, oriented x3, cranial nerves intact, no motor or sensory deficit Psychiatric: normal affect, normal mood Skin: Warm ED Course Vital Signs 08/04/18 08/04/18 08/04/18 03:05 05:39 05:43 Temperature 98.6 F Pulse Rate 95 H Respiratory 18 20 Rate Blood Pressure Blood Pressure [Left] O2 Sat by Pulse 99 100 100 Oximetry 08/04/18 08/04/18 08/04/18 05:45 06:00 06:15 Temperature Pulse Rate 89 86 82 Respiratory 23 22 19 Rate Blood Pressure 178/114 181/105 Blood Pressure [Left] O2 Sat by Pulse 99 100 Oximetry 08/04/18 08/04/18 08/04/18 06:30 06:45 07:15 Temperature Pulse Rate 92 H 90 98 H Respiratory 16 20 19 Rate Blood Pressure 174/111 177/119 Blood Pressure [Left] O2 Sat by Pulse 99 100 99 Oximetry 08/04/18 08/04/18 08/04/18 08:00 08:01 08:30 Temperature Pulse Rate 95 H Respiratory Rate Blood Pressure 171/111 174/111 148/100 Blood Pressure [Left] O2 Sat by Pulse 100 91 Oximetry 08/04/18 08/04/18 08/04/18 09:31 10:00 10:30 Temperature Pulse Rate Respiratory Rate Blood Pressure 159/115 Blood Pressure [Left] O2 Sat by Pulse 97 97 94 Oximetry 08/04/18 08/04/18 11:01 11:05 Temperature Pulse Rate 96 H Respiratory 22 Rate Blood Pressure 130/86 Blood Pressure 138/86 [Left] O2 Sat by Pulse 98 Oximetry ED Medical Decision Making - Lab Data Result diagrams: 08/04/18 07:10 08/04/18 07:10 Lab Results 08/04/18 08/04/18 08/04/18 Range/Units 07:10 07:10 07:10 WBC 5.4 (4.5-11.0) K/mm3 RBC 3.92 (3.65-5.03) M/mm3 Hgb 8.6 L (10.1-14.3) gm/dl Hct 27.8 L (30.3-42.9) % MCV 71 L (79-97) fl MCH 22 L (28-32) pg MCHC 31 (30-34) % RDW 22.1 H (13.2-15.2) % Plt Count 324 (140-440) K/mm3 Lymph % (Auto) 25.3 (13.4-35.0) % [place] % (Auto) 10.9 H (0.0-7.3) % Eos % (Auto) 0.0 (0.0-4.3) % Baso % (Auto) 0.7 (0.0-1.8) % Lymph # 1.4 (1.2-5.4) K/mm3 [place] # 0.6 (0.0-0.8) K/mm3 Eos # 0.0 (0.0-0.4) K/mm3 Baso # 0.0 (0.0-0.1) K/mm3 Seg Neutrophils % 63.1 (40.0-70.0) % Seg Neutrophils # 3.4 (1.8-7.7) K/mm3 PT 13.2 (12.2-14.9) Sec. INR 0.95 (0.87-1.13) APTT 21.1 L (24.2-36.6) Sec. Sodium 136 L (137-145) mmol/L Potassium 4.0 (3.6-5.0) mmol/L Chloride 103.7 (98-107) mmol/L Carbon Dioxide 22 (22-30) mmol/L Anion Gap 14 mmol/L BUN 10 (7-17) mg/dL Creatinine 0.6 L (0.7-1.2) mg/dL Estimated GFR > 60 ml/min BUN/Creatinine Ratio 17 % Glucose 96 (65-100) mg/dL Calcium 8.1 L (8.4-10.2) mg/dL Total Bilirubin 0.30 (0.1-1.2) mg/dL AST 37 (5-40) units/L ALT 39 (7-56) units/L Alkaline Phosphatase 100 (35-129) units/L Total Creatine Kinase (30-135) units/L CK-MB (CK-2) (0.0-4.0) ng/mL CK-MB (CK-2) Rel Index (0-4) Troponin T < 0.010 (0.00-0.029) ng/mL NT-Pro-B Natriuret Pep (0-450) pg/mL Total Protein 5.6 L (6.3-8.2) g/dL Albumin 2.9 L (3.9-5) g/dL Albumin/Globulin Ratio 1.1 % HCG, Qual (Negative) Urine Opiates Screen Urine Methadone Screen Ur Barbiturates Screen Ur Phencyclidine Scrn Ur Amphetamines Screen U Benzodiazepines Scrn Urine Cocaine Screen U Marijuana (THC) Screen Drugs of Abuse Note 08/04/18 08/04/18 08/04/18 Range/Units 07:10 07:10 09:54 WBC (4.5-11.0) K/mm3 RBC (3.65-5.03) M/mm3 Hgb (10.1-14.3) gm/dl Hct (30.3-42.9) % MCV (79-97) fl MCH (28-32) pg MCHC (30-34) % RDW (13.2-15.2) % Plt Count (140-440) K/mm3 Lymph % (Auto) (13.4-35.0) % [place] % (Auto) (0.0-7.3) % Eos % (Auto) (0.0-4.3) % Baso % (Auto) (0.0-1.8) % Lymph # (1.2-5.4) K/mm3 [place] # (0.0-0.8) K/mm3 Eos # (0.0-0.4) K/mm3 Baso # (0.0-0.1) K/mm3 Seg Neutrophils % (40.0-70.0) % Seg Neutrophils # (1.8-7.7) K/mm3 PT (12.2-14.9) Sec. INR (0.87-1.13) APTT (24.2-36.6) Sec. Sodium (137-145) mmol/L Potassium (3.6-5.0) mmol/L Chloride (98-107) mmol/L Carbon Dioxide (22-30) mmol/L Anion Gap mmol/L BUN (7-17) mg/dL Creatinine (0.7-1.2) mg/dL Estimated GFR ml/min BUN/Creatinine Ratio % Glucose (65-100) mg/dL Calcium (8.4-10.2) mg/dL Total Bilirubin (0.1-1.2) mg/dL AST (5-40) units/L ALT (7-56) units/L Alkaline Phosphatase (35-129) units/L Total Creatine Kinase 227 H (30-135) units/L CK-MB (CK-2) 6.9 H (0.0-4.0) ng/mL CK-MB (CK-2) Rel Index 3.0 (0-4) Troponin T < 0.010 (0.00-0.029) ng/mL NT-Pro-B Natriuret Pep 6069 H (0-450) pg/mL Total Protein (6.3-8.2) g/dL Albumin (3.9-5) g/dL Albumin/Globulin Ratio % HCG, Qual Negative (Negative) Urine Opiates Screen Urine Methadone Screen Ur Barbiturates Screen Ur Phencyclidine Scrn Ur Amphetamines Screen U Benzodiazepines Scrn Urine Cocaine Screen U Marijuana (THC) Screen Drugs of Abuse Note 08/04/18 Range/Units 11:10 WBC (4.5-11.0) K/mm3 RBC (3.65-5.03) M/mm3 Hgb (10.1-14.3) gm/dl Hct (30.3-42.9) % MCV (79-97) fl MCH (28-32) pg MCHC (30-34) % RDW (13.2-15.2) % Plt Count (140-440) K/mm3 Lymph % (Auto) (13.4-35.0) % [place] % (Auto) (0.0-7.3) % Eos % (Auto) (0.0-4.3) % Baso % (Auto) (0.0-1.8) % Lymph # (1.2-5.4) K/mm3 [place] # (0.0-0.8) K/mm3 Eos # (0.0-0.4) K/mm3 Baso # (0.0-0.1) K/mm3 Seg Neutrophils % (40.0-70.0) % Seg Neutrophils # (1.8-7.7) K/mm3 PT (12.2-14.9) Sec. INR (0.87-1.13) APTT (24.2-36.6) Sec. Sodium (137-145) mmol/L Potassium (3.6-5.0) mmol/L Chloride (98-107) mmol/L Carbon Dioxide (22-30) mmol/L Anion Gap mmol/L BUN (7-17) mg/dL Creatinine (0.7-1.2) mg/dL Estimated GFR ml/min BUN/Creatinine Ratio % Glucose (65-100) mg/dL Calcium (8.4-10.2) mg/dL Total Bilirubin (0.1-1.2) mg/dL AST (5-40) units/L ALT (7-56) units/L Alkaline Phosphatase (35-129) units/L Total Creatine Kinase (30-135) units/L CK-MB (CK-2) (0.0-4.0) ng/mL CK-MB (CK-2) Rel Index (0-4) Troponin T (0.00-0.029) ng/mL NT-Pro-B Natriuret Pep (0-450) pg/mL Total Protein (6.3-8.2) g/dL Albumin (3.9-5) g/dL Albumin/Globulin Ratio % HCG, Qual (Negative) Urine Opiates Screen Presumptive negative Urine Methadone Screen Presumptive negative Ur Barbiturates Screen Presumptive negative Ur Phencyclidine Scrn Presumptive negative Ur Amphetamines Screen Presumptive negative U Benzodiazepines Scrn Presumptive negative Urine Cocaine Screen Presumptive positive U Marijuana (THC) Screen Presumptive negative Drugs of Abuse Note Disclamer - EKG Data -: EKG Interpreted by Sc EKG shows normal: sinus rhythm, axis (qrs 54), QRS complexes (qrsd 103), ST-T waves (lvh, lat t inv, repol) Rate: normal (96) - EKG Data When compared to previous EKG there are: no significant change - Radiology Data Radiology results: report reviewed PROCEDURE: XR CHEST ROUTINE 2V TECHNIQUE: Chest radiograph single view. HISTORY: cp with cough COMPARISONS: None . FINDINGS: Heart: Normal. Mediastinum/Vessels: Normal. Lungs/Pleural space: Mild infiltrate/atelectasis left lower lung. No effusion or pneumothorax. Bony thorax: No acute osseous abnormality. Life support devices: None. IMPRESSION: Mild infiltrate and atelectasis left lower lung. . - Medical Decision Making She presented with infection symptoms and chest pain related to coughing. Patient's EKG is unchanged and she has had 2 negative cardiac enzymes and ED. Pain is reproducible with palpation. Patient had a recent cardiac cath May 2018 with normal coronary arteries. Patient continues to abuse cocaine as evident by positive UDS. No signs of clinical CHF despite elevated BNP and p atient is lying supine in bed without breathing difficulty. X-ray does not show any pulmonary edema as per radiologist reading. She'll be treated with antibiotic for pneumonia. I will refill her last documented medication, patient is unlikely to be compliant. Follow-up will be encouraged. Patient did receive a dose of Rocephin and azithromycin in the ED. Blood pressure improved after clonidine 0.1 mg. Pt will be d/armando on levaquin Patient scores a 0 on a curb 65 and therefore is a candidate for outpatient treatment - Differential Diagnosis OH, costochondritis, pneumonia, CHF, viral syndrome Critical Care Time: No Critical care attestation.: If time is entered above; I have spent that time in minutes in the direct care of this critically ill patient, excluding procedure time. ED Disposition Clinical Impression: Noncompliance, Cocaine abuse, Pneumonia, Uncontrolled hypertension, Anemia Disposition: - TO HOME OR SELFCARE Is pt being admited?: No Does the pt Need Aspirin: No Condition: Stable Instructions: Cocaine Abuse (ED), Bacterial Pneumonia (ED), Hypertension (ED) Additional Instructions: Take the medication as prescribed. Take Motrin or Tylenol as needed for pain. Follow up with your doctor or the clinic/doctor provided. Return if symptoms worsen as indicated by your discharge instructions. Use the good RX Card provided to make your medications more affordable. Prescriptions: Aspirin EC [Aspirin Enteric Coated TAB] 81 mg PO QDAY #30 tablet. Benzonatate [Tessalon Perles] 100 mg PO Q8HR PRN #20 capsule PRN Reason: Cough Carvedilol [Coreg] 3.125 mg PO BID #60 tablet hydrALAZINE [Apresoline TAB] 25 mg PO Q8HR #90 tablet levoFLOXacin [Levaquin] 750 mg PO QDAY #5 tablet Lisinopril [Zestril TAB] 20 mg PO QDAY #30 tablet Pantoprazole [Protonix TAB] 40 mg PO QDAY #30 tablet Referrals: SHIRLENE SPARKS MD [Primary Care Provider] - 3-5 Days Time of Disposition: 12:22
[2018-08-04 11:29] LABS: Amphetamine Screen,Urine PRESUMPTIVE NEGATIVE; Benzodiazepines Screen,Urine PRESUMPTIVE NEGATIVE; Cannabinoid Screen,Urine PRESUMPTIVE NEGATIVE; Methadone Screen,Urine PRESUMPTIVE NEGATIVE; Opiate Screen,Urine PRESUMPTIVE NEGATIVE
[2018-08-04 11:42] LABS: Cocaine Screen,Urine PRESUMPTIVE POSITIVE
[2018-08-04 13:26] VITALS: BP 140/95
== END 2018-08-04 13:25 | disposition home or self-care (01) ==
LOC: ED 02:47
DX: J18.9 Pneumonia, unspecified organism (principal); I10 Essential (primary) hypertension; D64.9 Anemia, unspecified; F14.10 Cocaine abuse, uncomplicated; Z91.19 Patient's noncompliance with other medical treatment and regimen; M19.90 Unspecified osteoarthritis, unspecified site
CPT/HCPCS: 36415; 71046; 80053; 80307; 82550; 82553; 83880; 84484; 84703; 85025; 85610; 85730; 87040; 93005; 93010; 96365; 96366; 96368; 96375; 99285; J0456; J0696; J1885; J7050

== ENCOUNTER 2018-10-12 20:35 | Emergency (ER) | payer OTHER ==
--- NOTE | 2018-10-12 21:24 | Emergency Department Report ---
Chief Complaint: Back Pain/Injury Stated Complaint: BACK PAIN Time Seen by Provider: 10/12/18 21:21 - HPI History of Present Illness: pt presents with middle back pain that began two months ago states she has been seen for this previously no fall or injury denies any numbness or weakness +smoker non drinker denies drug use - Exam Vital Signs: Vital Signs 10/12/18 20:50 Temperature 98.2 F Pulse Rate 87 Respiratory 18 Rate Blood Pressure 170/109 O2 Sat by Pulse 98 Oximetry MSE screening note: Focused history performed. ED Disposition for MSE Condition: Stable
--- NOTE | 2018-10-12 23:14 | Emergency Department Report ---
ED Back Pain/Injury HPI - General Chief Complaint: Back Pain/Injury Stated Complaint: BACK PAIN Time Seen by Provider: 10/12/18 21:21 Source: patient, EMS Limitations: No Limitations - History of Present Illness MD Complaint: back pain -: Gradual, month(s) (2) Similar Symptoms Previously: No Place: home Radiation: none Severity: severe Severity scale (0 -10): 7 Quality: sharp, aching Consistency: constant Improves With: none Worsens With: movement Context: other (Spontaneous) Associated Symptoms: denies other symptoms. denies: confusion, weakness, chest pain, numbness, difficulty walking, cough, difficulty urinating, diaphoresis, incontinence, fever/chills, constipation, headaches, abdominal pain, loss of appetite, nausea/vomiting, rash, seizure, shortness of breath - Related Data Previous Rx's Medication Instructions Recorded Last Taken Type Aspirin EC [Aspirin Enteric Coated 81 mg PO QDAY #30 tablet. 08/04/18 Unknown Rx TAB] Benzonatate [Tessalon Perles] 100 mg PO Q8HR PRN #20 capsule 08/04/18 Unknown Rx Carvedilol [Coreg] 3.125 mg PO BID #60 tablet 08/04/18 Unknown Rx Lisinopril [Zestril TAB] 20 mg PO QDAY #30 tablet 08/04/18 Unknown Rx Pantoprazole [Protonix TAB] 40 mg PO QDAY #30 tablet 08/04/18 Unknown Rx hydrALAZINE [Apresoline TAB] 25 mg PO Q8HR #90 tablet 08/04/18 Unknown Rx levoFLOXacin [Levaquin] 750 mg PO QDAY #5 tablet 08/04/18 Unknown Rx Cyclobenzaprine [Flexeril] 10 mg PO Q8H PRN #21 tablet 10/12/18 Unknown Rx Naproxen 500 mg PO Q12H #20 tablet 10/12/18 Unknown Rx predniSONE [Deltasone] 60 mg PO QDAY #15 tab 10/12/18 Unknown Rx Allergies Allergy/AdvReac Type Severity Reaction Status Date / Time No Known Allergies Allergy Unverified 04/10/16 07:54 ED Review of Systems ROS: Stated complaint: BACK PAIN Other details as noted in HPI Comment: All other systems reviewed and negative Constitutional: no symptoms reported, see HPI. denies: chills, diaphoresis, fever, malaise, weakness Eyes: as per HPI. denies: eye pain, eye discharge, vision change ENT: as per HPI. denies: ear pain, throat pain, dental pain, hearing loss Respiratory: no symptoms reported, see HPI. denies: cough, orthopnea, shortness of breath, SOB with exertion Cardiovascular: as per HPI. denies: chest pain, palpitations, dyspnea on exertion, edema, syncope, paroxysmal nocturnal dyspnea Endocrine: no symptoms reported, see HPI. denies: excessive sweating, flushing, intolerance to cold, intolerance to heat, increased hunger, increased urine, unexplained weight gain Gastrointestinal: as per HPI. denies: abdominal pain, nausea, vomiting, diarrhea, constipation, hematemesis Genitourinary: as per HPI. denies: urgency, dysuria, frequency, hematuria, abnormal menses, dyspareunia Musculoskeletal: as per HPI, back pain (Posterior mid thoracic), arthralgia. denies: joint swelling, myalgia, other Skin: as per HPI. denies: rash, lesions, change in color, change in hair/nails Neurological: as per HPI. denies: headache, weakness, numbness, paresthesias, confusion, abnormal gait, vertigo Psychiatric: as per HPI Hematological/Lymphatic: as per HPI ED Past Medical Hx - Past Medical History Previous Medical History?: Yes Hx Hypertension: Yes Hx Arthritis: Yes Additional medical history: Heart Murmur, Fibroids. venticular mass. Cocaine abuse - Surgical History Past Surgical History?: Yes Additional Surgical History: x 2. wrist surgery - Social History Smoking Status: Current Every Day Smoker Substance Use Type: None - Medications Home Medications: Home Medications Medication Instructions Recorded Confirmed Last Taken Type Aspirin EC [Aspirin Enteric Coated 81 mg PO QDAY #30 tablet. 08/04/18 Unknown Rx TAB] Benzonatate [Tessalon Perles] 100 mg PO Q8HR PRN #20 capsule 08/04/18 Unknown Rx Carvedilol [Coreg] 3.125 mg PO BID #60 tablet 08/04/18 Unknown Rx Lisinopril [Zestril TAB] 20 mg PO QDAY #30 tablet 08/04/18 Unknown Rx Pantoprazole [Protonix TAB] 40 mg PO QDAY #30 tablet 08/04/18 Unknown Rx hydrALAZINE [Apresoline TAB] 25 mg PO Q8HR #90 tablet 08/04/18 Unknown Rx levoFLOXacin [Levaquin] 750 mg PO QDAY #5 tablet 08/04/18 Unknown Rx Cyclobenzaprine [Flexeril] 10 mg PO Q8H PRN #21 tablet 10/12/18 Unknown Rx Naproxen 500 mg PO Q12H #20 tablet 10/12/18 Unknown Rx predniSONE [Deltasone] 60 mg PO QDAY #15 tab 10/12/18 Unknown Rx ED Physical Exam - General Limitations: No Limitations General appearance: alert, in no apparent distress - Head Head exam: Present: atraumatic, normocephalic, normal inspection - Eye Eye exam: Present: normal appearance, PERRL, EOMI. Absent: scleral icterus, conjunctival injection, nystagmus, periorbital swelling, periorbital tenderness Pupils: Present: normal accommodation - ENT ENT exam: Present: normal exam, normal orophraynx, mucous membranes moist, TM's normal bilaterally, normal external ear exam - Neck Neck exam: Present: normal inspection, full ROM. Absent: meningismus, lymphadenopathy, thyromegaly - Respiratory Respiratory exam: Present: normal lung sounds bilaterally. Absent: respiratory distress, wheezes, rales, rhonchi, chest wall tenderness, accessory muscle use, decreased breath sounds, prolonged expiratory - Cardiovascular Cardiovascular Exam: Present: regular rate, normal rhythm, normal heart sounds. Absent: bradycardia, tachycardia, systolic murmur, diastolic murmur - GI/Abdominal GI/Abdominal exam: Present: soft, normal bowel sounds. Absent: distended, tenderness, guarding, rebound, hyperactive bowel sounds, hypoactive bowel sounds, organomegaly - Rectal Rectal exam: Present: deferred - Extremities Exam Extremities exam: Present: normal inspection, full ROM, normal capillary refill - Back Exam Back exam: Present: tenderness (Palpable paraspinal posterior mid thoracic tenderness), muscle spasm, paraspinal tenderness. Absent: vertebral tenderness - Neurological Exam Neurological exam: Present: alert, oriented X3, CN II-XII intact, normal gait, reflexes normal - Psychiatric Psychiatric exam: Present: normal affect, anxious - Skin Skin exam: Present: warm, dry, intact, normal color ED Course Vital Signs 10/12/18 20:50 Temperature 98.2 F Pulse Rate 87 Respiratory 18 Rate Blood Pressure 170/109 O2 Sat by Pulse 98 Oximetry - Reevaluation(s) Reevaluation #1: 10/12/18 23:19 Patient is alert and oriented 3 and is not in distress but anxious. Patient was treated for pain in the ED and discharged home on pain medications and muscle relaxants and advised to follow-up with her primary care physician in 5-7 days for reevaluation. ED Medical Decision Making - Medical Decision Making Patient is alert and oriented 3 and is not in distress. Patient was hypertensive in triage. The vital signs were rechecked prior to discharge. Patient advised to take her blood pressure medicines at home as instructed by her primary care physician. Patient was treated for pain in the ED and be sent home on pain medications and muscle relaxants and advised to follow up with her primary care physician in 5-7 days for reevaluation, or return to the ED immediately if symptoms get worse. - Differential Diagnosis Muscle spasm of back, Chronic osteoarthritis Critical care attestation.: If time is entered above; I have spent that time in minutes in the direct care of this critically ill patient, excluding procedure time. ED Disposition Clinical Impression: Spasm of thoracic back muscle, Chronic osteoarthritis Muscle strain of left upper back Qualifiers: Encounter type: initial encounter Qualified Code(s): S29.012A - Strain of muscle and tendon of back wall of thorax, initial encounter Disposition: DC-01 TO HOME OR SELFCARE Is pt being admited?: No Does the pt Need Aspirin: No Condition: Stable Instructions: Muscle Strain (ED), Muscle Spasm (ED), Back Pain (ED) Additional Instructions: Take medications with food, drink plenty of fluids and follow-up with your primary care physician in 5-7 days for reevaluation. Return to the ED immediately if symptoms get worse. Prescriptions: predniSONE [Deltasone] 60 mg PO QDAY #15 tab Cyclobenzaprine [Flexeril] 10 mg PO Q8H PRN #21 tablet PRN Reason: Spasms Naproxen 500 mg PO Q12H #20 tablet Referrals: [facility] [Outside] - 3-5 Days Time of Disposition: 23:28 Print Language: [id number]
[2018-10-12] MEDS ORDERED: IBUPROFEN PO ONE ×2 (23:36→23:39)
[2018-10-12] MEDS ORDERED: TYLENOL PO ONE (23:36)
[2018-10-12] MEDS ORDERED: TYLENOL ONE (23:39)
[2018-10-12 23:43] VITALS: BP 174/64
== END 2018-10-12 23:59 | disposition home or self-care (01) ==
LOC: ED 20:35
DX: S29.012A Strain of muscle and tendon of back wall of thorax, initial encounter (principal); M19.90 Unspecified osteoarthritis, unspecified site; M62.830 Muscle spasm of back; X58.XXXA Exposure to other specified factors, initial encounter; Y93.89 Activity, other specified; Y92.89 Other specified places as the place of occurrence of the external cause; Y99.8 Other external cause status
CPT/HCPCS: 99283

== ENCOUNTER 2018-12-01 08:49 | Emergency (ER) | payer OTHER ==
[2018-12-01] MEDS ORDERED: NITROSTAT SL PRN (10:24)
[2018-12-01] MEDS ORDERED: TYLENOL PO ONE (10:24)
[2018-12-01] MEDS ORDERED: CARAFATE PO ONE (10:24)
[2018-12-01] MEDS ORDERED: PEPCID IV ONE (10:24)
[2018-12-01] MEDS ORDERED: ZESTRIL PO STA (10:25)
[2018-12-01] MEDS ORDERED: APRESOLINE PO STA (10:25)
--- NOTE | 2018-12-01 10:26 | Emergency Department Report ---
ED General Adult HPI - General Chief complaint: Dyspnea/Respdistress Stated complaint: BODY PAIN Time Seen by Provider: 12/01/18 10:00 Source: patient, RN notes reviewed, old records reviewed Mode of arrival: Ambulatory Limitations: No Limitations - History of Present Illness Initial comments: This is a 48-year-old female. Past medical history includes hypertension, reported congestive heart failure, cocaine, alcohol abuse, stroke. Had a recent cardiac catheterization at this hospital, demonstrating normal coronary arteries, ejection fraction 45%. 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 Patient was advised to have an outpatient MRI of the heart. She has not had this performed. Patient presents to the emergency room today with a complaint of nontraumatic bilateral lower extremity swelling, and nontraumatic midthoracic back pain. She reports both of these symptoms have been present for the past 2-3 hours. The patient states no headache, neck pain, chest pain, abdominal pain or shortness of breath. She is not homicidal or suicidal. She refuses to comment on recent consumption of cocaine. She denies irritative/obstructive urinary symptoms. Of note, patient has been seen at this hospital in the past, for similar symptoms, and is known to have chronic lower extremity edema. -: hour(s) Location: back, left, right Quality: aching Consistency: constant Improves with: none Worsens with: none - Related Data Previous Rx's Medication Instructions Recorded Last Taken Type Aspirin EC 81 mg PO QDAY #30 tablet. 08/04/18 Unknown Rx Benzonatate [Tessalon Perles] 100 mg PO Q8HR PRN #20 capsule 08/04/18 Unknown Rx levoFLOXacin [Levaquin] 750 mg PO QDAY #5 tablet 08/04/18 Unknown Rx Cyclobenzaprine [Flexeril] 10 mg PO Q8H PRN #21 tablet 10/12/18 Unknown Rx Naproxen 500 mg PO Q12H #20 tablet 10/12/18 Unknown Rx predniSONE [Deltasone] 60 mg PO QDAY #15 tab 10/12/18 Unknown Rx Aspirin [Aspirin BABY CHEW TAB] 81 mg PO QDAY #30 tab.chew 12/01/18 Unknown Rx Carvedilol [Coreg] 3.125 mg PO BID #60 tablet 12/01/18 Unknown Rx Lisinopril [Zestril TAB] 20 mg PO QDAY #30 tablet 12/01/18 Unknown Rx Pantoprazole [Protonix TAB] 40 mg PO QDAY #30 tablet 12/01/18 Unknown Rx hydrALAZINE [Apresoline TAB] 25 mg PO Q8HR #90 tablet 12/01/18 Unknown Rx Allergies Allergy/AdvReac Type Severity Reaction Status Date / Time No Known Allergies Allergy Unverified 04/10/16 07:54 ED Review of Systems ROS: Stated complaint: BODY PAIN Other details as noted in HPI Constitutional: denies: fever Eyes: denies: eye discharge ENT: denies: epistaxis Respiratory: denies: cough Cardiovascular: edema. denies: chest pain Gastrointestinal: denies: abdominal pain Genitourinary: denies: dysuria Musculoskeletal: back pain, arthralgia, myalgia Skin: denies: lesions Neurological: denies: headache, weakness Psychiatric: denies: homicidal thoughts, suicidal thoughts ED Past Medical Hx - Past Medical History Previous Medical History?: Yes Hx Hypertension: Yes Hx Arthritis: Yes Additional medical history: Heart Murmur, Fibroids. venticular mass. Cocaine abuse - Surgical History Past Surgical History?: Yes Additional Surgical History: x 2. wrist surgery - Social History Smoking Status: Current Every Day Smoker Substance Use Type: None - Medications Home Medications: Home Medications Medication Instructions Recorded Confirmed Last Taken Type Aspirin EC 81 mg PO QDAY #30 tablet. 08/04/18 Unknown Rx Benzonatate [Tessalon Perles] 100 mg PO Q8HR PRN #20 capsule 08/04/18 Unknown Rx levoFLOXacin [Levaquin] 750 mg PO QDAY #5 tablet 08/04/18 Unknown Rx Cyclobenzaprine [Flexeril] 10 mg PO Q8H PRN #21 tablet 10/12/18 Unknown Rx Naproxen 500 mg PO Q12H #20 tablet 10/12/18 Unknown Rx predniSONE [Deltasone] 60 mg PO QDAY #15 tab 10/12/18 Unknown Rx Aspirin [Aspirin BABY CHEW TAB] 81 mg PO QDAY #30 tab.chew 12/01/18 Unknown Rx Carvedilol [Coreg] 3.125 mg PO BID #60 tablet 12/01/18 Unknown Rx Lisinopril [Zestril TAB] 20 mg PO QDAY #30 tablet 12/01/18 Unknown Rx Pantoprazole [Protonix TAB] 40 mg PO QDAY #30 tablet 12/01/18 Unknown Rx hydrALAZINE [Apresoline TAB] 25 mg PO Q8HR #90 tablet 12/01/18 Unknown Rx ED Physical Exam - General Limitations: No Limitations General appearance: alert, in no apparent distress - Head Head exam: Present: atraumatic, normocephalic - Eye Eye exam: Present: normal appearance, EOMI. Absent: nystagmus - ENT ENT exam: Present: normal exam, normal orophraynx, mucous membranes moist, normal external ear exam - Neck Neck exam: Present: normal inspection, full ROM. Absent: tenderness, meningismus - Respiratory Respiratory exam: Present: normal lung sounds bilaterally. Absent: respiratory distress - Cardiovascular Cardiovascular Exam: Present: regular rate, normal rhythm, normal heart sounds. Absent: bradycardia, tachycardia, irregular rhythm, systolic murmur, diastolic murmur, rubs, gallop - GI/Abdominal GI/Abdominal exam: Present: soft. Absent: distended, tenderness, guarding, rebound, rigid, pulsatile mass - Extremities Exam Extremities exam: Present: normal inspection, full ROM, pedal edema, other (2+ pulses noted in the bilateral upper, lower extremities. Compartments soft. No long bony tenderness. The pelvis is stable.). Absent: calf tenderness - Back Exam Back exam: Present: normal inspection, full ROM. Absent: tenderness, CVA tenderness (R), CVA tenderness (L), paraspinal tenderness, vertebral tenderness - Neurological Exam Neurological exam: Present: alert (sleepy, but subsequently quite arousable), oriented X3, normal gait, other (Extraocular movements intact. Tongue midline. No facial droop. Facial sensation intact to light touch in the V1, V2, V3 distribution bilaterally. 5 and 5 strength in 4 extremities.. Sensation is intact to light touch in 4 extremities.). Absent: motor sensory deficit - Psychiatric Psychiatric exam: Present: anxious - Skin Skin exam: Present: warm ED Course Vital Signs 12/01/18 12/01/18 12/01/18 08:57 10:09 10:54 Temperature 97.5 F L 98.8 F Pulse Rate 92 H 90 90 Respiratory 16 16 Rate Blood Pressure 157/113 178/110 Blood Pressure 181/114 [Left] O2 Sat by Pulse 98 100 Oximetry 12/01/18 12/01/18 12/01/18 11:47 13:00 15:53 Temperature 98 F Pulse Rate 97 H 84 80 Respiratory 16 16 Rate Blood Pressure 182/133 Blood Pressure 164/114 170/99 [Left] O2 Sat by Pulse 96 100 Oximetry - Reevaluation(s) Reevaluation #1: 12/01/18 11:10 Differential diagnosis, including not limited to: Secondary gain, dependent edema, atypical presentation of acute coronary syndrome, pulmonary embolism, aortic disease, homelessness Assessment and plan: 58-year-old female who has indicated that she is undomiciled, with nontraumatic back pain, hypertension, and lower extremity edema. Her history is appreciated, however, her lower extremities appear to have chronic venous stasis changes, and he appeared to be chronically edematous. Patient has been seen at this hospital in the past for edema as well. Initially upon entering the room, patient is sleeping, but the patient does wake up quite nicely. The patient provides verbal consent for treatment to this provider. During the history and physical, nurse Lesia Velez is present. We will continue the patient's outpatient medications, obtain screening laboratory studies, CT scan of the chest, and bilateral lower extremity DVT study. Patient saturating well on room air, does not have crackles or rales, and does not have significant JVD. She walks without significant difficulty. Case management consult is obtained to assist with outpatient resources, as I do not suspect the patient will meet criteria for hospitalization. The patient is not homicidal or suicidal, she is clinically sober at this time, and she does not meet 1013 criteria. Reevaluation #2: 12/01/18 12:54 Repeat EKG unchanged from prior. DVT study negative. Objective laboratory testing unremarkable so far. Patient seen by case management. As per verbal report from case management, patient indicated that she really didn't want to talk. Nevertheless, patient was given outpatient resources. Reevaluation #3: 12/01/18 15:31 CT scan of the chest negative for acute disease. Patient resting comfortably in stretcher, sleeping, and in no acute distress. Vital signs improved. ED Medical Decision Making - Lab Data Result diagrams: 12/01/18 12:46 12/01/18 10:30 Vital Signs 12/01/18 12/01/18 12/01/18 08:57 10:09 10:54 Temperature 97.5 F L 98.8 F Pulse Rate 92 H 90 90 Respiratory 16 16 Rate Blood Pressure 157/113 178/110 Blood Pressure 181/114 [Left] O2 Sat by Pulse 98 100 Oximetry - EKG Data -: EKG Interpreted by Nm EKG shows normal: sinus rhythm Rate: normal - EKG Data 12/01/18 11:13 This is a normal sinus rhythm, 87 bpm, left axis deviation, atrial enlargement, left ventricular hypertrophy, lateral T wave inversions, this is an abnormal E KG, the EKG is not consistent with ST elevation myocardial infarction, it is unchanged from prior EKG from 08/04/2018. - Radiology Data Radiology results: pending Critical care attestation.: If time is entered above; I have spent that time in minutes in the direct care of this critically ill patient, excluding procedure time. ED Disposition Clinical Impression: Lower extremity edema, Homelessness, Elevated blood pressure reading Disposition: TO HOME OR SELFCARE Is pt being admited?: No Does the pt Need Aspirin: No Condition: Stable Additional Instructions: Continue outpatient medications. Take the prescribed blood pressure medications and other prescribed medications as needed/directed. Patient may take [id number] Tylenol and Motrin for her back pain. Please follow up with her suit attendant within the next week. Follow up with the primary care doctor within the next 4-6 weeks. Patient found to have elevated blood pressure in the emergency room. Long-term complications of hypertension and elevated blood pressure include stroke, heart attack, disability, permanent loss of quality of life. Recommended abstinence from recreational substances, including methamphetamines, crack and cocaine. Consumption of these substances may predis pose an increase lifetime risk of stroke, heart attack, disability, . Please return to the emergency room right away with new, worsening or different symptoms not present on initial emergency room evaluation. Prescriptions: hydrALAZINE [Apresoline TAB] 25 mg PO Q8HR #90 tablet Aspirin [Aspirin BABY CHEW TAB] 81 mg PO QDAY #30 tab.chew Carvedilol [Coreg] 3.125 mg PO BID #60 tablet Pantoprazole [Protonix TAB] 40 mg PO QDAY #30 tablet Lisinopril [Zestril TAB] 20 mg PO QDAY #30 tablet Referrals: PRIMARY CARE, [Referring] - 3-5 Days ANASTACIO CHIN MD [Staff Physician] - 3-5 Days [facility]VEL Ling [Provider Group] - 3-5 Days
[2018-12-01] MEDS ORDERED: COREG PO SCH (11:00)
[2018-12-01 11:22] LABS: INR 1.04 (0.87-1.13)
[2018-12-01 11:23] LABS: Partial Thromboplastin Time 24.9 Sec. (24.2-36.6)
[2018-12-01 11:25] LABS: Alanine Aminotransferase 24 units/L (7-56); BUN/Creatinine Ratio 20; Blood Urea Nitrogen 16 mg/dL (7-17); Calcium 8.4 mg/dL (8.4-10.2); Hemolysis Index 56
--- NOTE | 2018-12-01 11:37 | Vascular Lab Report ---
DUPLEX DOPPLER LOWER EXTREMITY VEINS, BILATERAL INDICATION: Shortness of Breath R/O DVT. TECHNIQUE: Duplex doppler imaging was performed through the veins of both lower extremities using venous chaparro carlitos and other maneuvers. COMPARISON: No relevant prior imaging study available. FINDINGS: Right Common femoral vein: Negative. Right Superficial femoral vein: Negative. Right Popliteal vein: Negative. Right Calf veins: Negative. Left Common femoral vein: Negative. Left Superficial femoral vein: Negative. Left Popliteal vein: Negative. Left Calf veins: Negative. Additional findings: A 1.8 x 1.0 cm cystic structure is identified in the left popliteal fossa consis tent with a popliteal cyst. IMPRESSION: 1. No sonographic evidence for DVT in either lower extremity. 2. Left popliteal cyst. Signer Name: Abram Burnett Jr, MD Signed: 12/01/2018 12:33 PM Workstation Name: [id number]
--- NOTE | 2018-12-01 12:33 | XRay Report ---
[facility] [address] [place] [address] XRay Report Signed Patient: KAREN ASTUDILLO MR#: [id number] : 1970 Acct:[id number] Age/Sex: 48 / F ADM Date: 12/01/18 Loc: ED Attending Dr: Ordering Physician: HARIKA CEDENO MD Date of Service: 12/01/18 Procedure(s): XR chest routine 2V Accession Number(s): [id number] cc: HARIKA CEDENO MD Fluoro Time In Minutes: CHEST 2 VIEWS INDICATION / CLINICAL INFORMATION: Dyspnea. COMPARISON: Chest x-ray on 08/04/2018. FINDINGS: SUPPORT DEVICES: None. HEART / MEDIASTINUM: Stable moderate cardiomegaly. LUNGS / PLEURA: Stable bilateral chronic appearing mid and lower lung predominant reticular interstitial opacification. No acute focal consolidation or pleural effusion. No pneumothorax. ADDITIONAL FINDINGS: No significant additional findings. IMPRESSION: 1. No acute findings. Stable chronic interstitial opacification and moderate cardiomegaly. Signer Name: Eldon Manzo MD Signed: 12/01/2018 12:29 PM Workstation Name: [id number] Transcribed By: REF Dictated By: CAILIN KHANNA MD Electronically Authenticated By: CAILIN KHANNA MD Signed Date/Time: 12/01/18 1129 DD/ 1128 TD/TT:
[2018-12-01 13:26] LABS: Mean Corpuscular HGB Conc 30 % (30-34); Platelet Count 279 K/mm3 (140-440); Red Blood Count 4.66 M/mm3 (3.65-5.03)
[2018-12-01 13:30] LABS: Hematocrit 30.9 % (30.3-42.9); Hemoglobin 9.2 gm/dl (10.1-14.3); Mean Corpuscular Volume 66 fl (79-97); Red Cell Distribution Width 24.6 % (13.2-15.2)
[2018-12-01 14:27] LABS: Basophils % (Manual) 0 % (0.0-1.8); Total Cells Counted 100
[2018-12-01 14:28] LABS: Anisocytosis 1+; Giant Platelets Few; Hypochromasia 2+; Platelet Estimate Consistent w Auto; Poikilocytosis 1+
--- NOTE | 2018-12-01 14:55 | Cat Scan Report ---
CTA CHEST WITH IV CONTRAST INDICATION: back pain htn, pe protocol. TECHNIQUE: Axial CT images were obtained through the chest after injection of 100 cc IV contrast. 3 plane MIP re constructions were produced. All CT scans at this location are performed using CT dose reduction for ALARA by means of automated exposure control. COMPARISON: CTA chest report 05/04/2018. Images not available on female PACS for comparison. FINDINGS: PULMONARY ARTERIES: No pulmonary emboli. THORACIC AORTA: No acute abnormality. HEART: Remains moderately enlarged CORONARY ARTERIES: No significant calcification. PLEURA: Small right pleural effusion. No pneumothorax. LYMPH NODES: No significant adenopathy. LUNGS: Moderate interstitial pulmonary edema with increased interstitial markings and septal thickeni ng and groundglass pulmonary opacities characteristic for CHF. ADDITIONAL FINDINGS: None. UPPER ABDOMEN: No acute findings. SKELETAL STRUCTURES: Mild thoracic scoliosis and moderate degenerative changes right shoulder. IMPRESSION: 1. No CT evidence for pulmonary embolism. 2. Moderate CHF. Signer Name: Michael Ryan MD Signed: 12/01/2018 2:51 PM Workstation Name: [id number]
[2018-12-01 15:53] VITALS: BP 170/99
== END 2018-12-01 15:53 | disposition home or self-care (01) ==
LOC: ED 08:49
DX: R60.0 Localized edema (principal); I10 Essential (primary) hypertension; M19.90 Unspecified osteoarthritis, unspecified site; R01.1 Cardiac murmur, unspecified; D21.9 Benign neoplasm of connective and other soft tissue, unspecified; F14.10 Cocaine abuse, uncomplicated; F17.200 Nicotine dependence, unspecified, uncomplicated; Z59.0 Homelessness; Z79.82 Long term (current) use of aspirin; Z79.899 Other long term (current) drug therapy; Z98.890 Other specified postprocedural states
CPT/HCPCS: 36415; 71046; 71275; 80053; 82550; 83735; 84484; 84702; 85007; 85025; 85379; 85610; 85730; 93005; 93010; 93970; 96374; 99285; G0480; Q9967; 80320

== ENCOUNTER 2018-12-12 10:52 | Emergency (ER) | payer OTHER ==
[2018-12-12] MEDS ORDERED: CATAPRES PO ONE (11:23)
[2018-12-12] MEDS ORDERED: LASIX IV ONE (11:23)
--- NOTE | 2018-12-12 11:24 | Emergency Department Report ---
ED Extremity Problem HPI - General Chief complaint: Headache Stated complaint: EDEMA Time Seen by Provider: 12/12/18 11:13 Source: patient Mode of arrival: Ambulatory Limitations: No Limitations - History of Present Illness Initial comments: 48-year-old homeless female with a past medical history of hypertension, ventricular mass, CHF, and cocaine abuse presents to the hospital with a complaint of leg edema and pain since yesterday. Patient was seen here December 01 for leg edema and had a complaint of leg pain and midthoracic back pain. Patient has bilateral Dopplers of the lower extremities that was negative for DVT positive for left popliteal cyst. She had a CTA of the chest that showed moderate CHF but was negative for dissection or pulmonary embolism. He was prescribed multiple by a pressure medication during her last visit. Patient was unable to fill and take any other prescribed meds because she is homeless and does not have the money. She is not forthcoming with her last cocaine use. Does not complain of chest pain or significant shortness of breath at this time. Pt does not complain of headache during my exam. - Related Data Previous Rx's Medication Instructions Recorded Last Taken Type Furosemide [Lasix TAB] 40 mg PO QDAY #14 tablet 12/12/18 Unknown Rx Lisinopril [Zestril TAB] 20 mg PO QDAY #30 tablet 12/12/18 Unknown Rx Potassium Chloride [K-Dur] 20 meq PO QDAY #14 tablet 12/12/18 Unknown Rx hydrALAZINE [Apresoline TAB] 25 mg PO Q8HR #90 tablet 12/12/18 Unknown Rx Allergies Allergy/AdvReac Type Severity Reaction Status Date / Time No Known Allergies Allergy Verified 12/12/18 12:41 ED Review of Systems ROS: Stated complaint: EDEMA Other details as noted in HPI Comment: All other systems reviewed and negative ED Past Medical Hx - Past Medical History Previous Medical History?: Yes Hx Hypertension: Yes Hx Congestive Heart Failure: Yes (EF 45%) Hx Arthritis: Yes Additional medical history: Heart Murmur, Fibroids. venticular mass. Cocaine abuse - Surgical History Past Surgical History?: Yes Additional Surgical History: x 2. wrist surgery - Social History Smoking Status: Current Every Day Smoker Substance Use Type: Alcohol - Medications Home Medications: Home Medications Medication Instructions Recorded Confirmed Last Taken Type Furosemide [Lasix TAB] 40 mg PO QDAY #14 tablet 12/12/18 Unknown Rx Lisinopril [Zestril TAB] 20 mg PO QDAY #30 tablet 12/12/18 Unknown Rx Potassium Chloride [K-Dur] 20 meq PO QDAY #14 tablet 12/12/18 Unknown Rx hydrALAZINE [Apresoline TAB] 25 mg PO Q8HR #90 tablet 12/12/18 Unknown Rx ED Physical Exam - General Limitations: No Limitations - Other Other exam information: General: No limitations, patient is alert in no acute distress Head exam: Atraumatic, normocephalic Eyes exam: Normal appearance, pupils equal reactive to light, extraocular movements intact ENT: Moist mucous membrane Neck exam: Normal inspection, full range of motion, no meningismus nontender Respiratory exam: Clear to auscultation bilateral, no wheezes, rales, crackles Cardiovascular: Normal rate and rhythm, normal heart sounds Abdomen: Soft, nondistended, and nontender, with normal bowel sounds, no rebound, or guarding Extremity: Full range of motion, 1-2+ pitting edema to the lower extremities that are tender. Legs are symmetric. 2+ bilateral DP pulses. No warmth or erythema. Back: Normal Inspection, full range of motion, no tenderness Neurologic: Alert, oriented x3, cranial nerves intact, no motor or sensory deficit Psychiatric: normal affect, normal mood Skin: Generalized black circular skin lesions ED Course Vital Signs 12/12/18 12/12/18 12/12/18 11:26 11:38 12:31 Temperature 98 F Pulse Rate 84 88 81 Respiratory 16 16 Rate Blood Pressure 170/103 Blood Pressure 170/103 173/107 [Left] O2 Sat by Pulse 96 96 Oximetry 12/12/18 14:07 Temperature Pulse Rate 79 Respiratory 16 Rate Blood Pressure Blood Pressure 152/107 [Left] O2 Sat by Pulse 96 Oximetry - Consultations Consultation #1: 12/12/18 15:06 I attempted case management consult. Case management is very made with the patient and when he tried to interview she was belligerent and not completely cooperative ED Medical Decision Making - Lab Data Result diagrams: 12/12/18 11:30 12/12/18 11:30 Lab Results 12/12/18 12/12/18 12/12/18 Range/Units 11:30 11:30 11:30 WBC 4.1 L (4.5-11.0) K/mm3 RBC 4.62 (3.65-5.03) M/mm3 Hgb 9.0 L (10.1-14.3) gm/dl Hct 30.9 (30.3-42.9) % MCV 67 L (79-97) fl MCH 20 L (28-32) pg MCHC 29 L (30-34) % RDW 24.7 H (13.2-15.2) % Plt Count 327 (140-440) K/mm3 Add Manual Diff Complete Total Counted 100 Seg Neuts % (Manual) 61.0 (40.0-70.0) % Band Neutrophils % 0 % Lymphocytes % (Manual) 28.0 (13.4-35.0) % Reactive Lymphs % (Man) 2.0 % Monocytes % (Manual) 9.0 H (0.0-7.3) % Eosinophils % (Manual) 0 (0.0-4.3) % Basophils % (Manual) 0 (0.0-1.8) % Metamyelocytes % 0 % Myelocytes % 0 % Promyelocytes % 0 % Blast Cells % 0 % Nucleated RBC % Not Reportable Seg Neutrophils # Man 2.5 (1.8-7.7) K/mm3 Band Neutrophils # 0.0 K/mm3 Lymphocytes # (Manual) 1.1 L (1.2-5.4) K/mm3 Abs React Lymphs (Man) 0.1 K/mm3 Monocytes # (Manual) 0.4 (0.0-0.8) K/mm3 Eosinophils # (Manual) 0.0 (0.0-0.4) K/mm3 Basophils # (Manual) 0.0 (0.0-0.1) K/mm3 Metamyelocytes # 0.0 K/mm3 Myelocytes # 0.0 K/mm3 Promyelocytes # 0.0 K/mm3 Blast Cells # 0.0 K/mm3 WBC Morphology Not Reportable Hypersegmented Neuts Not Reportable Hyposegmented Neuts Not Reportable Hypogranular Neuts Not Reportable Smudge Cells Not Reportable Toxic Granulation Not Reportable Toxic Vacuolation Not Reportable Dohle Bodies Not Reportable Pelger-Huet Anomaly Not Reportable Ramses Rods Not Reportable Platelet Estimate Consistent w auto Clumped Platelets Not Reportable Plt Clumps, EDTA Not Reportable Large Platelets Not Reportable Giant Platelets Not Reportable Platelet Satelliting Not Reportable Plt Morphology Comment Not Reportable RBC Morphology Not Reportable Dimorphic RBCs Not Reportable Polychromasia Not Reportable Hypochromasia 2+ Poikilocytosis 1+ Anisocytosis 2+ Microcytosis 1+ Macrocytosis Not Reportable Spherocytes Not Reportable Pappenheimer Bodies Not Reportable Sickle Cells Not Reportable Target Cells 1+ Tear Drop Cells Not Reportable Ovalocytes Few Helmet Cells Not Reportable Plata-Lehr Bodies Not Reportable [place] Rings Not Reportable Lamoni Cells Not Reportable Bite Cells Not Reportable Crenated Cell Not Reportable Elliptocytes Few Acanthocytes (Spur) Not Reportable Rouleaux Not Reportable Hemoglobin C Crystals Not Reportable Schistocytes Not Reportable Malaria parasites Not Reportable Laith Bodies Not Reportable Hem Pathologist Commnt No Sodium 140 (137-145) mmol/L Potassium 4.4 (3.6-5.0) mmol/L Chloride 107.2 H (98-107) mmol/L Carbon Dioxide 25 (22-30) mmol/L Anion Gap 12 mmol/L BUN 14 (7-17) mg/dL Creatinine 0.8 (0.7-1.2) mg/dL Estimated GFR > 60 ml/min BUN/Creatinine Ratio 18 % Glucose 103 H (65-100) mg/dL Calcium 8.7 (8.4-10.2) mg/dL Total Bilirubin 0.50 (0.1-1.2) mg/dL AST 37 (5-40) units/L ALT 31 (7-56) units/L Alkaline Phosphatase 93 (35-129) units/L Total Protein 5.9 L (6.3-8.2) g/dL Albumin 3.2 L (3.9-5) g/dL Albumin/Globulin Ratio 1.2 % HCG, Qual Negative (Negative) Urine Color (Yellow) Urine Turbidity (Clear) Urine pH (5.0-7.0) Ur Specific [place] (1.003-1.030) Urine Protein (Negative) mg/dL Urine Glucose (UA) (Negative) mg/dL Urine Ketones (Negative) mg/dL Urine Blood (Negative) Urine Nitrite (Negative) Urine Bilirubin (Negative) Urine Urobilinogen (<2.0) mg/dL Ur Leukocyte Esterase (Negative) Urine WBC (Auto) (0.0-6.0) /HPF Urine RBC (Auto) (0.0-6.0) /HPF U Epithel Cells (Auto) (0-13.0) /HPF Urine Mucus /HPF Urine Opiates Screen Urine Methadone Screen Ur Barbiturates Screen Ur Phencyclidine Scrn Ur Amphetamines Screen U Benzodiazepines Scrn Urine Cocaine Screen U Marijuana (THC) Screen Drugs of Abuse Note 12/12/18 12/12/18 Range/Units 11:55 11:55 WBC (4.5-11.0) K/mm3 RBC (3.65-5.03) M/mm3 Hgb (10.1-14.3) gm/dl Hct (30.3-42.9) % MCV (79-97) fl MCH (28-32) pg MCHC (30-34) % RDW (13.2-15.2) % Plt Count (140-440) K/mm3 Add Manual Diff Total Counted Seg Neuts % (Manual) (40.0-70.0) % Band Neutrophils % % Lymphocytes % (Manual) (13.4-35.0) % Reactive Lymphs % (Man) % Monocytes % (Manual) (0.0-7.3) % Eosinophils % (Manual) (0.0-4.3) % Basophils % (Manual) (0.0-1.8) % Metamyelocytes % % Myelocytes % % Promyelocytes % % Blast Cells % % Nucleated RBC % Seg Neutrophils # Man (1.8-7.7) K/mm3 Band Neutrophils # K/mm3 Lymphocytes # (Manual) (1.2-5.4) K/mm3 Abs React Lymphs (Man) K/mm3 Monocytes # (Manual) (0.0-0.8) K/mm3 Eosinophils # (Manual) (0.0-0.4) K/mm3 Basophils # (Manual) (0.0-0.1) K/mm3 Metamyelocytes # K/mm3 Myelocytes # K/mm3 Promyelocytes # K/mm3 Blast Cells # K/mm3 WBC Morphology Hypersegmented Neuts Hyposegmented Neuts Hypogranular Neuts Smudge Cells Toxic Granulation Toxic Vacuolation Dohle Bodies Pelger-Huet Anomaly Ramses Rods Platelet Estimate Clumped Platelets Plt Clumps, EDTA Large Platelets Giant Platelets Platelet Satelliting Plt Morphology Comment RBC Morphology Dimorphic RBCs Polychromasia Hypochromasia Poikilocytosis Anisocytosis Microcytosis Macrocytosis Spherocytes Pappenheimer Bodies Sickle Cells Target Cells Tear Drop Cells Ovalocytes Helmet Cells Plata-Lehr Bodies [place] Rings [place] Cells Bite Cells Crenated Cell Elliptocytes Acanthocytes (Spur) Rouleaux Hemoglobin C Crystals Schistocytes Malaria parasites Laith Bodies Hem Pathologist Commnt Sodium (137-145) mmol/L Potassium (3.6-5.0) mmol/L Chloride (98-107) mmol/L Carbon Dioxide (22-30) mmol/L Anion Gap mmol/L BUN (7-17) mg/dL Creatinine (0.7-1.2) mg/dL Estimated GFR ml/min BUN/Creatinine Ratio % Glucose (65-100) mg/dL Calcium (8.4-10.2) mg/dL Total Bilirubin (0.1-1.2) mg/dL AST (5-40) units/L ALT (7-56) units/L Alkaline Phosphatase (35-129) units/L Total Protein (6.3-8.2) g/dL Albumin (3.9-5) g/dL Albumin/Globulin Ratio % HCG, Qual (Negative) Urine Color Yellow (Yellow) Urine Turbidity Clear (Clear) Urine pH 6.0 (5.0-7.0) Ur Specific [place] 1.023 (1.003-1.030) Urine Protein 30 mg/dl (Negative) mg/dL Urine Glucose (UA) Neg (Negative) mg/dL Urine Ketones Neg (Negative) mg/dL Urine Blood Neg (Negative) Urine Nitrite Neg (Negative) Urine Bilirubin Neg (Negative) Urine Urobilinogen < 2.0 (<2.0) mg/dL Ur Leukocyte Esterase Neg (Negative) Urine WBC (Auto) 1.0 (0.0-6.0) /HPF Urine RBC (Auto) 1.0 (0.0-6.0) /HPF U Epithel Cells (Auto) 3.0 (0-13.0) /HPF Urine Mucus Few /HPF Urine Opiates Screen Presumptive negative Urine Methadone Screen Presumptive negative Ur Barbiturates Screen Presumptive negative Ur Phencyclidine Scrn Presumptive negative Ur Amphetamines Screen Presumptive negative U Benzodiazepines Scrn Presumptive negative Urine Cocaine Screen Presumptive positive U Marijuana (THC) Screen Presumptive negative Drugs of Abuse Note Disclamer - EKG Data -: EKG Interpreted by Me EKG shows normal: sinus rhythm, axis (qrs 8), QRS complexes (qrsd 95), ST-T waves (lvh, lat t wave inv) Rate: normal - EKG Data When compared to previous EKG there are: no significant change - Radiology Data Radiology results: report reviewed CHEST 2 VIEWS INDICATION: edema. COMPARISON: 12/01/2018 FINDINGS: Support devices: None. Heart: Moderate cardiomegaly is stable. Lungs/pleura: Pulmonary venous congestion has resolved. The lungs are generally clear. No evidence for infiltrate or pleural effusion. No pneumothorax. Additional findings: None. IMPRESSION: Cardiomegaly. Lungs clear. - Medical Decision Making Other differential, hypertensive emergency pt bp improved with clonidine 0.1 mg Patient is chronic leg edema received 1 dose of IV Lasix in the ED Patient does not have any symptoms of hypertensive emergency Patient has chronic medication noncompliance with continued cocaine abuse Case management consult attempted the patient was resistant and did not think she needed any help for substance abuse treatment as well.. She was provided a fpc list by case management I will be prescribed recently prescribed medication in addition to a diuretic. She will be provided a good Rxcard but it is unlikely that patient will attempt to obtain her needed medication. She was warned that her symptoms and condition will worsen if she continues to abuse drugs and not take her medication. - Differential Diagnosis heart failure, renal failure, liver failure drug abuse, noncompliance Critical Care Time: No Critical care attestation.: If time is entered above; I have spent that time in minutes in the direct care of this critically ill patient, excluding procedure time. ED Disposition Clinical Impression: Uncontrolled hypertension, Noncompliance with medications, Lower extremity edema, Cocaine abuse, Homelessness Disposition: DC-01 TO HOME OR SELFCARE Is pt being admited?: No Does the pt Need Aspirin: No Condition: Stable Instructions: Leg Edema (ED), Hypertension (ED), Cocaine Abuse (ED) Additional Instructions: Take the medication as prescribed. Follow up with your doctor or the clinic/doctor provided. Return if symptoms worsen as indicated by your discharge instructions Prescriptions: hydrALAZINE [Apresoline TAB] 25 mg PO Q8HR #90 tablet Potassium Chloride [K-Dur] 20 meq PO QDAY #14 tablet Furosemide [Lasix TAB] 40 mg PO QDAY #14 tablet Lisinopril [Zestril TAB] 20 mg PO QDAY #30 tablet Referrals: SHIRLENE SPARKS MD [Primary Care Provider] - 3-5 Days Time of Disposition: 16:02
[2018-12-12 11:51] LABS: Mean Corpuscular HGB Conc 29 % (30-34); Platelet Count 327 K/mm3 (140-440); Red Blood Count 4.62 M/mm3 (3.65-5.03)
[2018-12-12 11:55] LABS: Hematocrit 30.9 % (30.3-42.9); Mean Corpuscular Volume 67 fl (79-97); Red Cell Distribution Width 24.7 % (13.2-15.2)
[2018-12-12 12:08] LABS: Alanine Aminotransferase 31 units/L (7-56); Albumin 3.2 g/dL (3.9-5); BUN/Creatinine Ratio 18; Blood Urea Nitrogen 14 mg/dL (7-17); Calcium 8.7 mg/dL (8.4-10.2); Hemolysis Index 3
[2018-12-12 12:19] LABS: Bilirubin,Urine NEG (Negative); Blood,Urine NEG (Negative); Color,Urine Yellow (Yellow); Mucus,Urine FEW /HPF; Urobilinogen,Urine < 2.0 mg/dL (<2.0)
[2018-12-12 12:46] LABS: Amphetamine Screen,Urine PRESUMPTIVE NEGATIVE; Benzodiazepines Screen,Urine PRESUMPTIVE NEGATIVE; Cannabinoid Screen,Urine PRESUMPTIVE NEGATIVE; Methadone Screen,Urine PRESUMPTIVE NEGATIVE; Opiate Screen,Urine PRESUMPTIVE NEGATIVE
[2018-12-12 13:10] LABS: Cocaine Screen,Urine PRESUMPTIVE POSITIVE
[2018-12-12 13:24] LABS: Anisocytosis 2+; Basophils % (Manual) 0 % (0.0-1.8); Eosinophils % (Manual) 0 % (0.0-4.3); Hypochromasia 2+; Total Cells Counted 100
[2018-12-12 13:25] LABS: Ovalocytes Few; Platelet Estimate Consistent w Auto; Poikilocytosis 1+; Target Cells 1+
[2018-12-12 14:11] VITALS: BP 152/107
--- NOTE | 2018-12-12 15:58 | XRay Report ---
CHEST 2 VIEWS INDICATION: edema. COMPARISON: 12/01/2018 FINDINGS: Support devices: None. Heart: Moderate cardiomegaly is stable. Lungs/pleura: Pulmonary venous congestion has resolved. The lungs are generally clear. No evidence fo r infiltrate or pleural effusion. No pneumothorax. Additional findings: None. IMPRESSION: Cardiomegaly. Lungs clear. Signer Name: Abram Burnett Jr, MD Signed: 12/12/2018 3:53 PM Workstation Name: [id number]
== END 2018-12-12 16:48 | disposition home or self-care (01) ==
LOC: ED 10:52
DX: I10 Essential (primary) hypertension (principal); Z91.14 Patient's other noncompliance with medication regimen; R60.9 Edema, unspecified; F14.10 Cocaine abuse, uncomplicated; Z59.0 Homelessness; I11.0 Hypertensive heart disease with heart failure; I50.9 Heart failure, unspecified; M19.90 Unspecified osteoarthritis, unspecified site; F17.200 Nicotine dependence, unspecified, uncomplicated
CPT/HCPCS: 36415; 71046; 80053; 80307; 81001; 84703; 85007; 85025; 93005; 93010; 96374; 99284; J1940

== ENCOUNTER 2019-08-30 19:22 | Emergency (ER) | payer SELFPAY ==
[2019-08-30] MEDS ORDERED: ASPIRIN 325 MG TAB PO ONE (19:27)
[2019-08-30 19:47] LABS: Basophils % (Auto) 0.4 % (0.0-1.8); Eosinophils % (Auto) 0.1 % (0.0-4.3); Hemoglobin 12.3 gm/dl (10.1-14.3); Lymphocytes # (Auto) 1.8 K/mm3 (1.2-5.4); Lymphocytes % (Auto) 26.6 % (13.4-35.0); Mean Corpuscular HGB Conc 32 % (30-34); Mean Corpuscular Volume 82 fl (79-97); Monocytes # (Auto) 0.7 K/mm3 (0.0-0.8); Monocytes % (Auto) 10.2 % (0.0-7.3); Platelet Count 296 K/mm3 (140-440); Red Blood Count 4.61 M/mm3 (3.65-5.03); Red Cell Distribution Width 17.1 % (13.2-15.2)
[2019-08-30 20:00] VITALS: BP 170/98
--- NOTE | 2019-08-30 20:02 | XRay Report ---
CHEST 2 VIEWS INDICATION / CLINICAL INFORMATION: Chest Pain. COMPARISON: 12/12/2018 FINDINGS: SUPPORT DEVICES: None. HEART / MEDIASTINUM: Cardiomegaly LUNGS / PLEURA: No significant pulmonary or pleural abnormality. No pneumothorax. ADDITIONAL FINDINGS: No significant additional findings. IMPRESSION: Cardiomegaly unchanged from 12/12/2018. No acute disease or interval change from the prior study Signer Name: Chance Bangura MD FACR Signed: 08/30/2019 7:58 PM Workstation Name: [id number]
[2019-08-30 20:07] LABS: Calcium 9.3 mg/dL (8.4-10.2)
[2019-08-30 20:28] LABS: Chol/HDL Ratio 2.66 %
[2019-08-30] MEDS ORDERED: ACETAMINOPHEN 325 MG TAB PO ONE (20:33)
[2019-08-30] MEDS ORDERED: NITROGLYCERIN 0.4 MG TAB SUBL SL PRN (20:33)
[2019-08-30 21:06] LABS: INR 1.06 (0.87-1.13)
[2019-08-30 21:09] LABS: Partial Thromboplastin Time 28.4 Sec. (24.2-36.6)
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
== END 2019-08-30 22:46 | disposition home or self-care (01) ==
LOC: ED 19:22
DX: I21.29 ST elevation (STEMI) myocardial infarction involving other sites (principal); F14.10 Cocaine abuse, uncomplicated; I20.8 Other forms of angina pectoris; I10 Essential (primary) hypertension; M19.90 Unspecified osteoarthritis, unspecified site; F17.200 Nicotine dependence, unspecified, uncomplicated
CPT/HCPCS: 36415; 71046; 80048; 80061; 84484; 85025; 85610; 85730; 93005; 93010

== ENCOUNTER 2019-10-21 23:16 | Emergency (ER) | payer SELFPAY ==
[2019-10-21] MEDS ORDERED: ASPIRIN 325 MG TAB PO ONE (23:54)
--- NOTE | 2019-10-22 00:12 | Emergency Department Report ---
ED Chest Pain HPI - General Chief Complaint: Chest Pain Stated Complaint: CHEST PAIN, COUGH PUI?: No Time Seen by Provider: 10/22/19 00:06 Source: patient Mode of arrival: Ambulatory Limitations: No Limitations - History of Present Illness Initial Comments: Patient is a 49-year-old female that presents emergency room with complaints of right-sided chest pain and right shoulder pain and cough. Patient states her shoulder pain and chest pain been going on for 1 week. Patient states her cough is been going on for 4 weeks. Patient states that she uses crack every day. Patient dates been using crack since she was 15 years old. Patient states she smoked crack 1 hour prior to arrival. Patient states she also smokes 5 ciga rettes/day. Patient states her chest pain is worse with movement and palpation of her chest wall. Patient states her chest pain is better with rest. Patient states her chest pain is unchanged with exertion. Patient states that her right shoulder pain is better with rest and worse with movement. Patient states her cough is dry and nonproductive. Patient denies fever and chills. Patient state s she has a past medical history of CHF and hypertension. MD Complaint: chest pain -: Sudden, week(s) Onset: during rest, associated with drug use Pain Location: right chest Pain Radiation: none Severity: severe Severity scale (0 -10): 7 Quality: sharp Consistency: constant Improves With: rest Worsens With: palpation, movement re: denies: nausea, vomting, diaphoresis, dyspnea, sense of impending doom Other Symptoms: cough. denies: rash, acid taste in mouth, leg swelling, palpitations, burping Treatments Prior to Arrival: none Aspirin use within the Past 7 Days: (0) No - Related Data On Oral Contraceptives: No Previous Rx's Medication Instructions Recorded Last Taken Type Furosemide [Lasix TAB] 40 mg PO QDAY #14 tablet 12/12/18 Unknown Rx Potassium Chloride [K-Dur] 20 meq PO QDAY #14 tablet 12/12/18 Unknown Rx hydrALAZINE [Apresoline TAB] 25 mg PO Q8HR #90 tablet 12/12/18 Unknown Rx lisinopriL [Zestril TAB] 20 mg PO QDAY #30 tablet 12/12/18 Unknown Rx Apixaban [Eliquis starter pack] 5 mg PO BID #60 tab.ds.pk 08/30/19 Unknown Rx Nitroglycerin (Nf) [Nitrostat] 0.3 mg SL Q5MIN #20 tablet 08/30/19 Unknown Rx Doxycycline Hyclate [Doxycycline 100 mg PO Q12HR 10 Days #20 tab 10/22/19 Unknown Rx Hyclate TAB] Allergies Allergy/AdvReac Type Severity Reaction Status Date / Time No Known Allergies Allergy Verified 08/30/19 19:55 Heart Score - HEART Score History: Slightly suspicious EKG: Non-specific Age: 45-65 Risk factors: 1-2 risk factors Troponin: < normal limit HEART Score: 3 ED Review of Systems ROS: Stated complaint: CHEST PAIN, COUGH Other details as noted in HPI Constitutional: denies: chills, fever Eyes: denies: eye pain, eye discharge, vision change ENT: denies: ear pain, throat pain Respiratory: cough. denies: shortness of breath, wheezing Cardiovascular: chest pain. denies: palpitations Endocrine: no symptoms reported Gastrointestinal: denies: abdominal pain, nausea, diarrhea Genitourinary: denies: urgency, dysuria, discharge Musculoskeletal: denies: back pain, joint swelling, arthralgia Skin: denies: rash, lesions Neurological: denies: headache, weakness, paresthesias Psychiatric: denies: anxiety, depression Hematological/Lymphatic: denies: easy bleeding, easy bruising ED Past Medical Hx - Past Medical History Previous Medical History?: Yes Hx Hypertension: Yes Hx Congestive Heart Failure: Yes Hx Arthritis: Yes Additional medical history: Heart Murmur, Fibroids. venticular mass. Cocaine abuse - Surgical History Past Surgical History?: Yes Additional Surgical History: x 2. wrist surgery - Family History Family history: no significant - Social History Smoking Status: Current Every Day Smoker Substance Use Type: Alcohol, Cocaine - Medications Home Medications: Home Medications Medication Instructions Recorded Confirmed Last Taken Type Furosemide [Lasix TAB] 40 mg PO QDAY #14 tablet 12/12/18 Unknown Rx Potassium Chloride [K-Dur] 20 meq PO QDAY #14 tablet 12/12/18 Unknown Rx hydrALAZINE [Apresoline TAB] 25 mg PO Q8HR #90 tablet 12/12/18 Unknown Rx lisinopriL [Zestril TAB] 20 mg PO QDAY #30 tablet 12/12/18 Unknown Rx Apixaban [Eliquis starter pack] 5 mg PO BID #60 tab.ds.pk 08/30/19 Unknown Rx Nitroglycerin (Nf) [Nitrostat] 0.3 mg SL Q5MIN #20 tablet 08/30/19 Unknown Rx Doxycycline Hyclate [Doxycycline 100 mg PO Q12HR 10 Days #20 tab 10/22/19 Unknown Rx Hyclate TAB] ED Physical Exam - General Limitations: No Limitations General appearance: alert, in no apparent distress - Head Head exam: Present: atraumatic, normocephalic - Eye Eye exam: Present: normal appearance - ENT ENT exam: Present: mucous membranes moist - Neck Neck exam: Present: normal inspection - Respiratory Respiratory exam: Present: rhonchi, chest wall tenderness (Palpation of the right chest reproduces symptoms.). Absent: respiratory distress - Cardiovascular Cardiovascular Exam: Present: regular rate, normal rhythm. Absent: systolic murmur, diastolic murmur, rubs, gallop - GI/Abdominal GI/Abdominal exam: Present: soft, normal bowel sounds. Absent: distended, tenderness, guarding - Rectal Rectal exam: Present: deferred - Extremities Exam Extremities exam: Present: normal inspection - Back Exam Back exam: Present: normal inspection - Neurological Exam Neurological exam: Present: alert, oriented X3 - Psychiatric Psychiatric exam: Present: normal affect, normal mood - Skin Skin exam: Present: warm, dry, intact, normal color. Absent: rash ED Course Vital Signs 10/22/19 10/22/19 10/22/19 00:45 01:07 01:29 Pulse Rate 94 H 89 98 H Respiratory 17 19 Rate Blood Pressure 184/136 Blood Pressure 195/133 180/110 [Right] O2 Sat by Pulse 95 96 Oximetry 10/22/19 10/22/19 10/22/19 02:23 02:33 03:06 Pulse Rate 105 H 102 H 96 H Respiratory 90 H Rate Blood Pressure 193/135 Blood Pressure 178/124 170/91 [Right] O2 Sat by Pulse 96 Oximetry 10/22/19 03:34 Pulse Rate 94 H Respiratory Rate Blood Pressure Blood Pressure 157/84 [Right] O2 Sat by Pulse Oximetry - Reevaluation(s) Reevaluation #1: Patient's blood pressure has been elevated and will be given hydralazine 20 mg IV. 10/22/19 01:17 Reevaluation #2: Patient blood pressure elevated patient will be given 0.2 mg of clonidine. Patient denies changes in her symptoms. Patient will complaining of pain 10/22/19 02:18 Reevaluation #3: Patient resting in bed. Patient states her pain is better. 10/22/19 03:18 Reevaluation #4: Patient states her pain has resolved. Patient's blood pressure has improved. Patient given resources for substance abuse programs in the area. Encouraged to stop smoking and stop using cocaine. Patient's information also faxed over to our local [facility], [facility] for further evaluation and treatment of her chest pain. I discussed all results and clinical findings with patient. I discussed plan of care with patient. Patient agrees with plan of care. Patient is stable for discharge. Patient will be discharged home. Patient given discharge instructions. Patient voiced understanding of discharge instructions. 10/22/19 03:45 BARRETT score - Barrett Score Age > 65: (0) No Aspirin use within the Past 7 Days: (0) No 3 or more CAD Risk Factors: (0) No 2 or more Angina events in past 24 hrs: (1) Yes Known CAD with more than 50% Stenosis: (0) No Elevated Cardiac Markers: (1) Yes ST Deviation Greater than 0.5mm: (0) No BARRETT Score: 2 ED Medical Decision Making - Lab Data Result diagrams: 10/22/19 00:23 10/22/19 00:23 - EKG Data -: EKG Interpreted by Mi EKG shows normal: sinus rhythm, axis, intervals, QRS complexes, ST-T waves Rate: normal - EKG Data When compared to previous EKG there are: no significant change Interpretation: no acute changes, other (ST segment depression in lateral leads. LVH,) - Radiology Data Radiology results: report reviewed CHEST 1 VIEW INDICATION / CLINICAL INFORMATION: Chest Pain. COMPARISON: 08/30/2019 FINDINGS: SUPPORT DEVICES: None. HEART / MEDIASTINUM: There is enlargement of the cardiac silhouette LUNGS / PLEURA: No significant pulmonary or pleural abnormality.. No pneumothorax. ADDITIONAL FINDINGS: No significant additional findings. IMPRESSION: 1. No significant change. - Medical Decision Making Patient is a 49-year-old female that presents emergency room for multiple weeks of chest pain. Patient chest pain on the right side. Patient chest pain was reproducible on palpation of her chest wall. Patient's labs were done. Patient's labs were essentially unremarkable. Patient's troponin within normal limits the first time around and recheck in it was even lower. Patient's blood pressure was significant elevated on initial evaluation patient was given hydralazine and clonidine and her blood pressure responded well. Patient states she has adequate supply of all of her medications. Patient encouraged to take her medications. Patient encouraged to stop smoking and using cocaine. Patient's chest x-ray was negative for acute findings. Patient's EKG was unchanged from previous EKGs. Previous EKGs reviewed. Patient does not require further evaluation as an inpatient. Patient's information was faxed over to [facility] for further evaluation of her chest pain. Patient encouraged to follow-up with her primary care and [facility] within 2 to 3 days. Patient stable for discharge. Patient discharged home. Patient clinical findings are consistent with bronchitis, right-sided chest pain, cough. Patient was discharged with doxycycline. - Differential Diagnosis Cocaine abuse, chest wall pain, bronchitis, shoulder pain, arthritis Critical Care Time: Yes Critical care time in (mins) excluding proc time.: 35 Critical care attestation.: If time is entered above; I have spent that time in minutes in the direct care of this critically ill patient, excluding procedure time. Critical Care Time: 35 minutes ED Disposition Clinical Impression: Tobacco use, Cocaine abuse, Hypertensive emergency, Noncompliance, Smoking, Bronchitis, Right-sided chest pain Chest pain Qualifiers: Chest pain type: unspecified Qualified Code(s): R07.9 - Chest pain, unspecified Disposition: DC-01 TO HOME OR SELFCARE Is pt being admited?: No Does the pt Need Aspirin: No Condition: Stable Instructions: Chest Pain (ED), How to Stop Smoking (ED), Cocaine Abuse (ED), Acute Bronchitis (ED), Hypertension (ED), Anxiety (ED) Additional Instructions: Patient to follow-up with primary care in 2 to 3 days. Patient to follow-up with [facility] in 2 to 3 days. Patient to rest. Patient to increase water. Patient to avoid strenuous exercise or heavy lifting until cleared by [facility] leaf [facility]. Patient to take Tylenol or ibuprofen as needed for pain. Patient to restart blood pressure medications. Patient to monitor blood pressure at home. Patient to keep a blood pressure log. Patient to take blood pressure log to follow-up appointments. Patient to stop smoking. Patient to stop using cocaine. patient to take meds as directed. Patient to return to the ER if condition worsens, changes or new symptoms arise. Prescriptions: Doxycycline Hyclate [Doxycycline Hyclate TAB] 100 mg PO Q12HR 10 Days #20 tab Referrals: PRIMARY CARE, [Primary Care Provider] - 2-3 Days Time of Disposition: 03:45
--- NOTE | 2019-10-22 00:26 | XRay Report ---
CHEST 1 VIEW INDICATION / CLINICAL INFORMATION: Chest Pain. COMPARISON: 08/30/2019 FINDINGS: SUPPORT DEVICES: None. HEART / MEDIASTINUM: There is enlargement of the cardiac silhouette LUNGS / PLEURA: No significant pulmonary or pleural abnormality.. No pneumothorax. ADDITIONAL FINDINGS: No significant additional findings. IMPRESSION: 1. No significant change. Signer Name: Zuhair Bosch MD Signed: 10/22/2019 12:22 AM Workstation Name: [id number]
[2019-10-22] MEDS ORDERED: hydrALAZINE 20 MG/1 ML INJ ONE (00:58)
[2019-10-22] MEDS ORDERED: hydrALAZINE 20 MG/1 ML INJ IV ONE (01:06)
[2019-10-22 01:13] LABS: Basophils % (Auto) 0.4 % (0.0-1.8); Hematocrit 35.8 % (30.3-42.9); Hemoglobin 11.3 gm/dl (10.1-14.3); Lymphocytes # (Auto) 1.3 K/mm3 (1.2-5.4); Lymphocytes % (Auto) 17.9 % (13.4-35.0); Mean Corpuscular HGB Conc 32 % (30-34); Mean Corpuscular Volume 78 fl (79-97); Monocytes # (Auto) 0.5 K/mm3 (0.0-0.8); Monocytes % (Auto) 7.3 % (0.0-7.3); Platelet Count 328 K/mm3 (140-440); Red Blood Count 4.58 M/mm3 (3.65-5.03)
[2019-10-22 01:14] LABS: Red Cell Distribution Width 20.1 % (13.2-15.2)
[2019-10-22 01:31] LABS: BUN/Creatinine Ratio 22; Blood Urea Nitrogen 22 mg/dL (7-17); Calcium 8.8 mg/dL (8.4-10.2); Hemolysis Index 5
[2019-10-22] MEDS ORDERED: cloNIDine 0.1 MG TAB ONE (02:19)
[2019-10-22] MEDS ORDERED: cloNIDine 0.2 MG TAB ONE (02:20)
[2019-10-22] MEDS ORDERED: cloNIDine 0.2 MG TAB PO ONE (02:22)
[2019-10-22 04:00] VITALS: BP 140/74
== END 2019-10-22 04:00 | disposition home or self-care (01) ==
LOC: ED 23:16
DX: J40 Bronchitis, not specified as acute or chronic (principal); I16.1 Hypertensive emergency; I11.0 Hypertensive heart disease with heart failure; I50.9 Heart failure, unspecified; M13.88 Other specified arthritis, other site; F17.200 Nicotine dependence, unspecified, uncomplicated; F14.10 Cocaine abuse, uncomplicated; Z98.890 Other specified postprocedural states; Z79.899 Other long term (current) drug therapy
CPT/HCPCS: 36415; 71045; 80048; 84484; 85025; 93005; 96374; 99284; J0360

== ENCOUNTER 2019-10-26 03:53 | Inpatient (IN) | payer OTHER ==
[2019-10-26 05:47] LABS: Basophils % (Auto) 0.6 % (0.0-1.8); Eosinophils % (Auto) 0.2 % (0.0-4.3); Hematocrit 36.5 % (30.3-42.9); Hemoglobin 11.2 gm/dl (10.1-14.3); Lymphocytes # (Auto) 1.5 K/mm3 (1.2-5.4); Lymphocytes % (Auto) 35.1 % (13.4-35.0); Mean Corpuscular HGB Conc 31 % (30-34); Mean Corpuscular Volume 79 fl (79-97); Monocytes # (Auto) 0.4 K/mm3 (0.0-0.8); Monocytes % (Auto) 9.4 % (0.0-7.3); Platelet Count 316 K/mm3 (140-440); Red Blood Count 4.62 M/mm3 (3.65-5.03); Red Cell Distribution Width 19.8 % (13.2-15.2)
--- NOTE | 2019-10-26 05:50 | XRay Report ---
CHEST 1 VIEW, 10/26/2019 5:27 AM CLINICAL INFORMATION/INDICATION: Chest pain COMPARISON: Chest radiograph, 10/21/2019 at 1159 FINDINGS: SUPPORT DEVICES: None. HEART: There is stable moderate enlargement of the cardiac silhouette. LUNGS/PLEURA: Bilateral perihilar opacities have increased since the previous study. No large pleural effusion is identified. ADDITIONAL FINDINGS: No additional acute findings. IMPRESSION: 1. Increasing perihilar opacities most likely representing increasing pulmonary edema. 2. Stable enlargement of the cardiac silhouette. Signer Name: Macey Yun MD Signed: 10/26/2019 5:46 AM Workstation Name: [id number]
[2019-10-26 05:59] LABS: INR 1.03 (0.87-1.13)
[2019-10-26 06:00] LABS: Partial Thromboplastin Time 24.6 Sec. (24.2-36.6)
[2019-10-26 06:07] LABS: BUN/Creatinine Ratio 21; Blood Urea Nitrogen 17 mg/dL (7-17); Calcium 8.4 mg/dL (8.4-10.2); Hemolysis Index 5
--- NOTE | 2019-10-26 06:56 | Emergency Department Report ---
ED Chest Pain HPI - General Chief Complaint: Chest Pain Stated Complaint: CHEST PAIN Time Seen by Provider: 10/26/19 06:14 Source: patient, EMS Mode of arrival: Stretcher Limitations: No Limitations - History of Present Illness Initial Comments: 49-year-old -[place] female presents to the emergency department with complaint of midsternal chest pain that is been going on for the past 24 hours. She also presented with elevated blood pressure. Patient came in by EMS and was given a sublingual nitro, Zofran and a full dose aspirin prior to arrival. She has a past medical history that includes CHF, hypertension, a ventricular mass, and previous cocaine abuse. The patient does admit to some recent cocaine use. She also admits to medication noncompliance. She denies having a primary care physician or logging engineer. No recent travel or sick contacts at home. She denies any fever, vomiting, diaphoresis, abdominal pain. Severity scale (0 -10): 6 - Related Data Previous Rx's Medication Instructions Recorded Last Taken Type Furosemide [Lasix TAB] 40 mg PO QDAY #14 tablet 12/12/18 Unknown Rx Potassium Chloride [K-Dur] 20 meq PO QDAY #14 tablet 12/12/18 Unknown Rx hydrALAZINE [Apresoline TAB] 25 mg PO Q8HR #90 tablet 12/12/18 Unknown Rx lisinopriL [Zestril TAB] 20 mg PO QDAY #30 tablet 12/12/18 Unknown Rx Apixaban [Eliquis starter pack] 5 mg PO BID #60 tab.ds.pk 08/30/19 Unknown Rx Nitroglycerin (Nf) [Nitrostat] 0.3 mg SL Q5MIN #20 tablet 08/30/19 Unknown Rx Doxycycline Hyclate [Doxycycline 100 mg PO Q12HR 10 Days #20 tab 10/22/19 Unknown Rx Hyclate TAB] Allergies Allergy/AdvReac Type Severity Reaction Status Date / Time No Known Allergies Allergy Verified 08/30/19 19:55 Heart Score - HEART Score History: Moderately suspicious EKG: Normal Age: 45-65 Risk factors: 1-2 risk factors Troponin: 1-3x normal limit HEART Score: 4 - Critical Actions Critical Actions: 4-6 pts:12-16.6% risk of adverse cardiac event. Should be admitted ED Review of Systems ROS: Stated complaint: CHEST PAIN Other details as noted in HPI Comment: All other systems reviewed and negative Constitutional: denies: chills, fever Eyes: denies: eye pain, vision change ENT: denies: ear pain, throat pain Respiratory: cough. denies: wheezing Cardiovascular: chest pain. denies: palpitations Gastrointestinal: denies: abdominal pain, vomiting Genitourinary: denies: dysuria, discharge Musculoskeletal: denies: back pain, arthralgia Skin: denies: rash, lesions Neurological: denies: headache, weakness ED Past Medical Hx - Past Medical History Hx Hypertension: Yes Hx Congestive Heart Failure: Yes Hx Arthritis: Yes Additional medical history: Heart Murmur, Fibroids. venticular mass. Cocaine abuse - Surgical History Additional Surgical History: x 2. wrist surgery - Social History Smoking Status: Never Smoker Substance Use Type: None - Medications Home Medications: Home Medications Medication Instructions Recorded Confirmed Last Taken Type Furosemide [Lasix TAB] 40 mg PO QDAY #14 tablet 12/12/18 Unknown Rx Potassium Chloride [K-Dur] 20 meq PO QDAY #14 tablet 12/12/18 Unknown Rx hydrALAZINE [Apresoline TAB] 25 mg PO Q8HR #90 tablet 12/12/18 Unknown Rx lisinopriL [Zestril TAB] 20 mg PO QDAY #30 tablet 12/12/18 Unknown Rx Apixaban [Eliquis starter pack] 5 mg PO BID #60 tab.ds.pk 08/30/19 Unknown Rx Nitroglycerin (Nf) [Nitrostat] 0.3 mg SL Q5MIN #20 tablet 08/30/19 Unknown Rx Doxycycline Hyclate [Doxycycline 100 mg PO Q12HR 10 Days #20 tab 10/22/19 Unknown Rx Hyclate TAB] ED Physical Exam - General Limitations: No Limitations - Other Other exam information: GENERAL: The patient is well-developed well-nourished. HENT: Normocephalic. Atraumatic. Patient has moist mucous membranes. EYES: Extraocular motions are intact. NECK: Supple. Trachea is midline. CHEST/LUNGS: Coarse breath sounds. Mild tachypnea but no accessory muscle use.. There is no respiratory distress noted. HEART/CARDIOVASCULAR: Regular. There is no tachycardia. There is no murmur. ABDOMEN: Abdomen is soft, nontender. Patient has normal bowel sounds. SKIN: Skin is warm and dry. NEURO: The patient is awake, alert, and cooperative. The patient has no focal neurologic deficits. Normal speech. MUSCULOSKELETAL: There is no tenderness or deformity. There is no evidence of acute injury. ED Course Vital Signs 10/26/19 10/26/19 10/26/19 04:01 04:06 04:15 Temperature 98.5 F Pulse Rate 90 88 Pulse Rate [ Bilateral Upper Lobe] Respiratory 20 19 Rate Respiratory Rate [Bilateral Upper Lobe] Blood Pressure Blood Pressure 174/126 [Left] O2 Sat by Pulse 96 97 90 Oximetry 10/26/19 10/26/19 10/26/19 04:30 04:45 05:00 Temperature Pulse Rate 97 H 97 H 93 H Pulse Rate [ Bilateral Upper Lobe] Respiratory 17 21 16 Rate Respiratory Rate [Bilateral Upper Lobe] Blood Pressure 169/122 169/122 173/123 Blood Pressure [Left] O2 Sat by Pulse 95 90 89 Oximetry 10/26/19 10/26/19 10/26/19 05:15 05:30 05:45 Temperature Pulse Rate 89 94 H 95 H Pulse Rate [ Bilateral Upper Lobe] Respiratory 18 16 19 Rate Respiratory Rate [Bilateral Upper Lobe] Blood Pressure 169/122 170/128 170/128 Blood Pressure [Left] O2 Sat by Pulse 100 100 96 Oximetry 10/26/19 10/26/19 10/26/19 06:00 06:15 06:31 Temperature Pulse Rate 90 90 92 H Pulse Rate [ Bilateral Upper Lobe] Respiratory 20 19 18 Rate Respiratory Rate [Bilateral Upper Lobe] Blood Pressure 165/120 165/120 174/127 Blood Pressure [Left] O2 Sat by Pulse 96 99 100 Oximetry 10/26/19 10/26/19 10/26/19 06:45 07:00 07:15 Temperature Pulse Rate 90 94 H Pulse Rate [ Bilateral Upper Lobe] Respiratory 18 20 20 Rate Respiratory Rate [Bilateral Upper Lobe] Blood Pressure 174/127 182/130 182/130 Blood Pressure [Left] O2 Sat by Pulse 95 99 89 Oximetry 10/26/19 10/26/19 07:30 10:41 Temperature Pulse Rate 102 H Pulse Rate [ 84 Bilateral Upper Lobe] Respiratory 17 Rate Respiratory 18 Rate [Bilateral Upper Lobe] Blood Pressure 186/126 Blood Pressure [Left] O2 Sat by Pulse 94 Oximetry BARRETT score - Barrett Score Age > 65: (0) No Aspirin use within the Past 7 Days: (0) No 3 or more CAD Risk Factors: (0) No 2 or more Angina events in past 24 hrs: (1) Yes Known CAD with more than 50% Stenosis: (0) No Elevated Cardiac Markers: (1) Yes ST Deviation Greater than 0.5mm: (0) No BARRETT Score: 2 ED Medical Decision Making - Lab Data Result diagrams: 10/26/19 05:33 10/26/19 05:33 - EKG Data -: EKG Interpreted by Me EKG shows normal: sinus rhythm (Biatrial enlargement), axis (Left axis deviation), intervals (Slight prolongation of QTC), QRS complexes (LVH), ST-T waves Rate: normal - EKG Data When compared to previous EKG there are: no significant change Interpretation: unchanged when compared t (10/23/19) - Radiology Data Radiology results: report reviewed, image reviewed interpreted by me: Chest x-ray shows some pulmonary vascular congestion and some interstitial e cameron. CT angio chest INDICATION / CLINICAL INFORMATION: MAIN: CP SOB, elevated dimer PT uncooperative will not follow verbal commands 100 ml Omni 350. TECHNIQUE: Axial CT images were obtained after injection of 100 cc of Omnipaque 350 IV contrast using CTA protocol. 3 plane MIP / 3D reconstructions were produced. All CT scans at this location are performed using CT dose reduction for [employer] by [employer] by means of automated exposure control. COMPARISON: 12/01/2018 FINDINGS: Following the administration of intravenous contrast, no filling defects are seen in the main pulmonary arteries or their branches. Small bilateral pleural effusions are present with interstitial prominence in both lungs. Cardiomegaly is also seen. No enlarged mediastinal or hilar lymph nodes are identified. No significant skeletal abnormality is seen. IMPRESSION: 1. No evidence of pulmonary embolus 2. Small bilateral pleural effusions, cardiomegaly and interstitial prominence suggesting the possibility of congestive heart failure - Medical Decision Making This patient presents to the emergency department with a complaint of some chest pain and shortness of breath that has been going on for the past few days. The patient admits to some recent cocaine abuse and she is a tobacco smoker. EKG did not show any signs of ST elevation [place]. Chest x-ray showed some pulmonary vascular congestion and mild interstitial edema. First troponin was within the normal range but the second 1 trended up slightly to just above normal at 0.032. Patient also had an elevated d-dimer level for which she had a CT angiography of the chest completed that shows some signs of CHF but no evidence of pulmonary embolus. Patient's proBNP was greater than 8500. She has been given some IV Lasix to start diuresis and will be admitted to the hospital for further evaluation and treatment. She has been accepted for admission by the hospitalist service. Critical Care Time: Yes Critical care time in (mins) excluding proc time.: 31 Critical care attestation.: If time is entered above; I have spent that time in minutes in the direct care of this critically ill patient, excluding procedure time. Due to the immediate potential for life-threatening deterioration due to underlying cardiac condition, I spent 31 minutes of critical care time with the patient. Critical Care Time: 31 minutes ED Disposition Clinical Impression: Uncontrolled hypertension, Tobacco use, Noncompliance, Acute chest pain, Elevated troponin Acute exacerbation of CHF (congestive heart failure) Qualifiers: Heart failure type: unspecified Qualified Code(s): I50.9 - Heart failure, unspecified Disposition: -09 OP ADMIT IP TO THIS HOSP Is pt being admited?: Yes Condition: Serious Instructions: Chest Pain (ED), Hypertension (ED) Referrals: PRIMARY CARE, [Primary Care Provider] - 3-5 Days Time of Disposition: 09:25
[2019-10-26] MEDS ORDERED: FUROSEMIDE 40 MG/4 ML INJ IV ONE (08:26)
[2019-10-26 09:03] LABS: Chol/HDL Ratio 3.5 %
--- NOTE | 2019-10-26 09:07 | Cat Scan Report ---
CT angio chest INDICATION / CLINICAL INFORMATION: MAIN: CP SOB, elevated dimer PT uncooperative will not follow verbal commands 100 ml Omni 350. TECHNIQUE: Axial CT images were obtained after injection of 100 cc of Omnipaque 350 IV contrast using CTA protoc ol. 3 plane MIP / 3D reconstructions were produced. All CT scans at this location are performed using CT dose reduction for ALARA by means of automated exposure control. COMPARISON: 12/01/2018 FINDINGS: Following the administration of intravenous contrast, no filling defects are seen in the main pulmona ry arteries or their branches. Small bilateral pleural effusions are present with interstitial promin ence in both lungs. Cardiomegaly is also seen. No enlarged mediastinal or hilar lymph nodes are ident ified. No significant skeletal abnormality is seen. IMPRESSION: 1. No evidence of pulmonary embolus 2. Small bilateral pleural effusions, cardiomegaly and interstitial prominence suggesting the possibi lity of congestive heart failure Signer Name: Chance Bangura MD FACRicky Signed: 10/26/2019 9:03 AM Workstation Name: [id number]
[2019-10-26] MEDS ORDERED: IPRATROPIUM/ALBUTEROL SULFATE 3 ML AMPUL.NEB IH ONE (09:18)
[2019-10-26] MEDS ORDERED: hydrALAZINE 20 MG/1 ML INJ IV ONE (09:26)
--- NOTE | 2019-10-26 12:31 | History and Physical Report ---
History of Present Illness Date of examination: 10/26/19 Date of admission: 10/26/19 09:26 Chief complaint: Chest pain History of present illness: 49-year-old -[place] female patient with significant past medical history of hypertension, congestive heart failure, ventricular mass and cocaine abuse Medical noncompliance, multiple social issues presented to the emergency room with left-sided chest pain of 1 day duration Patient was also noted to have very high blood pressures, received sublingual nitro and Zofran full dose of aspirin given by EMS Patient has history of cocaine abuse, admits to recent use. Patient does not follow with any physicians and reports that she is homeless Grades her pain between 5-6 over 10 at its peak, associated with mild nausea no vomiting Denies shortness of breath or cough, no fever Past History Past Medical History: arthritis, hypertension Past Surgical History: , Other (Wrist surgery) Social history: lives with family. denies: smoking, alcohol abuse, prescription drug abuse Family history: hypertension Medications and Allergies Allergies Allergy/AdvReac Type Severity Reaction Status Date / Time No Known Allergies Allergy Verified 08/30/19 19:55 Home Medications Medication Instructions Recorded Confirmed Last Taken Type Furosemide [Lasix TAB] 40 mg PO QDAY #14 tablet 12/12/18 10/26/19 Unknown Rx Potassium Chloride [K-Dur] 20 meq PO QDAY #14 tablet 12/12/18 10/26/19 Unknown Rx hydrALAZINE [Apresoline TAB] 25 mg PO Q8HR #90 tablet 12/12/18 10/26/19 Unknown Rx lisinopriL [Zestril TAB] 20 mg PO QDAY #30 tablet 12/12/18 10/26/19 Unknown Rx Doxycycline Hyclate [Doxycycline 100 mg PO Q12HR 10 Days #20 tab 10/22/19 10/26/19 Unknown Rx Hyclate TAB] Review of Systems Constitutional: weakness, no weight loss, no weight gain, no fever, no chills Ears, nose, mouth and throat: no nasal congestion, no nasal discharge Cardiovascular: chest pain, no orthopnea, no palpitations, no lightheadedness, no shortness of breath Respiratory: no cough, no shortness of breath Gastrointestinal: nausea, no abdominal pain, no vomiting, no diarrhea Genitourinary Female: no pelvic pain, no dysuria Musculoskeletal: no myalgias, no arthritis Integumentary: no rash, no lesions Neurological: weakness, no seizures, no syncope Psychiatric: no anxiety, no depression Endocrine: no cold intolerance, no heat intolerance, no polydipsia, no polyuria Hematologic/Lymphatic: no easy bruising, no easy bleeding Allergic/Immunologic: no urticaria, no allergic rhinitis Exam - Constitutional Vitals: Temp Pulse Resp BP Pulse Ox 98.5 F 85 18 168/97 97 10/26/19 04:01 10/26/19 11:34 10/26/19 11:34 10/26/19 11:34 10/26/19 11:34 General appearance: Present: mild distress, well-nourished - EENT Eyes: Present: PERRL, EOM intact - Neck Neck: Present: supple, normal ROM - Respiratory Respiratory effort: normal Respiratory: bilateral: diminished, rales, negative: rhonchi, wheezing - Cardiovascular Rhythm: regular Heart Sounds: Present: S1 & S2 - Extremities Extremities: no ischemia, No edema - Abdominal General gastrointestinal: Present: soft, non-tender, non-distended, normal bowel sounds - Integumentary Integumentary: Present: clear, warm - Musculoskeletal Musculoskeletal: strength equal bilaterally, generalized weakness - Psychiatric Psychiatric: appropriate mood/affect, cooperative - Neurologic Neurologic: moves all extremities HEART Score - HEART Score EKG: Normal Age: 45-65 Risk factors: 1-2 risk factors Troponin: Troponin T 0.032 ng/mL (0.00-0.029) H D 10/26/19 07:34 Troponin: 1-3x normal limit - Critical Actions Critical Actions: 4-6 pts:12-16.6% risk of adverse cardiac event. Should be admitted Results - Labs CBC & Chem 7: 10/26/19 05:33 10/26/19 05:33 Labs: Abnormal lab results 10/26/19 10/26/19 10/26/19 Range/Units 05:33 05:33 07:07 WBC 4.4 L (4.5-11.0) K/mm3 MCH 24 L (28-32) pg RDW 19.8 H (13.2-15.2) % Lymph % (Auto) 35.1 H (13.4-35.0) % [place] % (Auto) 9.4 H (0.0-7.3) % D-Dimer 445.92 H (0-234) ng/mlDDU Glucose 114 H (65-100) mg/dL Total Creatine Kinase 205 H (30-135) units/L CK-MB (CK-2) 9.0 H (0.0-4.0) ng/mL CK-MB (CK-2) Rel Index 4.3 H (0-4) Troponin T (0.00-0.029) ng/mL NT-Pro-B Natriuret Pep (0-900) pg/mL HDL Cholesterol (40-59) mg/dL 10/25/10/26/19 Range/Units 07:07 07:34 WBC (4.5-11.0) K/mm3 MCH (28-32) pg RDW (13.2-15.2) % Lymph % (Auto) (13.4-35.0) % [place] % (Auto) (0.0-7.3) % D-Dimer (0-234) ng/mlDDU Glucose (65-100) mg/dL Total Creatine Kinase (30-135) units/L CK-MB (CK-2) (0.0-4.0) ng/mL CK-MB (CK-2) Rel Index (0-4) Troponin T 0.032 H D (0.00-0.029) ng/mL NT-Pro-B Natriuret Pep 8687 H (0-900) pg/mL HDL Cholesterol 38 L (40-59) mg/dL Assessment and Plan --Acute on chronic systolic congestive heart failure; EF 40% Diuretics, beta-blockers, ARTURO inhibitors, nitrates Input output monitoring, low-sodium diet, fluid restriction Cardiology consult if needed --Medical noncompliance; patient strongly advised to comply with medications Diet, follow-up visits, patient verbalized understanding -CTA chest no PE, small bilateral pleural effusions cardiomegaly possibility of CHF -Chest x-ray; increasing perihilar opacities representing increased pulmonary edema Stable enlargement of cardiac silhouette acute on chronic --Hypertension; Moderate control, continue current antihypertensives PRN medications --History of cocaine use; Counseling done advised to quit recreational drug use --DVT prophylaxis;Lovenox Monitor closely and adjust the management as needed Plan of care reviewed with the patient and her nurse Disposition; follow cardiology evaluation recommendations DC planning per case management, discharge when stable
[2019-10-26] MEDS ORDERED: ACETAMINOPHEN 325 MG TAB PO PRN (17:56)
[2019-10-26] MEDS ORDERED: ZOLPIDEM 5 MG TAB PO PRN (17:57)
[2019-10-26] MEDS ORDERED: hydrALAZINE 20 MG/1 ML INJ IV PRN (17:57)
[2019-10-26] MEDS ORDERED: DOCUSATE SODIUM 100 MG CAP PO PRN (17:57)
[2019-10-26] MEDS ORDERED: KETOROLAC 30 MG/1 ML INJ IV PRN (17:57)
[2019-10-26] MEDS: hydrALAZINE 25 MG TAB PO SCH (22:12)
[2019-10-26] MEDS: carvediloL 6.25 MG TAB PO SCH (22:13)
[2019-10-27] MEDS: FUROSEMIDE 40 MG/4 ML INJ IV SCH (05:52)
[2019-10-27] MEDS: hydrALAZINE 25 MG TAB PO SCH ×3 (05:53→21:57)
[2019-10-27] MEDS: LISINOPRIL 20 MG TAB PO SCH (09:26)
[2019-10-27] MEDS: PANTOPRAZOLE 40 MG TAB PO SCH (09:27)
[2019-10-27] MEDS: POTASSIUM CHLORIDE ER 20 MEQ TAB PO SCH (09:27)
[2019-10-27] MEDS: carvediloL 6.25 MG TAB PO SCH ×2 (09:27→21:56)
[2019-10-27] MEDS ORDERED: FUROSEMIDE 40 MG TAB PO SCH (10:00)
--- NOTE | 2019-10-27 10:39 | Consultation ---
History of Present Illness Consult date: 10/27/19 Requesting physician: AMBER LEROY Consult reason: chest pain, congestive heart failure History of present illness: The pt is a 49 YO female with a past medical history of HTN, HFrEF, normal coronaries, LV mass, cocaine abuse, medical noncompliance, homelessness. She has been seen by our practice on prior hospitalizations, noncompliant with OP follow up. She presented with c/o intermittent chest pain and SOB for "a long time". She is a rather poor historian and does not provide any additional details. She says she is sleepy and does not want to talk any more. She admits to recent cocaine use but does not say exactly when her last drug use was. LHC done 05/2018 showed normal coronaries. TTE done 05/2018 showed EF 40-45%, mod LVH, LA severely dilated, small pericardial effusion, echo dense circular mass in area of anterolateral papillary muscle area - ? calcified papillary muscle v. tumor. F/u RIGO attempted - unable to pass RIGO probe in 05/2018 and OP cardiac MR was recommended at that time. Pt did not follow-up. Past History Past Medical History: hypertension, other (as per HPI) Past Surgical History: , Other (Wrist surgery) Social history: lives with family, alcohol abuse, other (cocaine abuse). denies: smoking, prescription drug abuse Family history: hypertension Medications and Allergies Allergies Allergy/AdvReac Type Severity Reaction Status Date / Time No Known Allergies Allergy Verified 08/30/19 19:55 Home Medications Medication Instructions Recorded Confirmed Last Taken Type Furosemide [Lasix TAB] 40 mg PO QDAY #14 tablet 12/12/18 10/26/19 Unknown Rx Potassium Chloride [K-Dur] 20 meq PO QDAY #14 tablet 12/12/18 10/26/19 Unknown Rx hydrALAZINE [Apresoline TAB] 25 mg PO Q8HR #90 tablet 12/12/18 10/26/19 Unknown Rx lisinopriL [Zestril TAB] 20 mg PO QDAY #30 tablet 12/12/18 10/26/19 Unknown Rx Doxycycline Hyclate [Doxycycline 100 mg PO Q12HR 10 Days #20 tab 10/22/19 10/26/19 Unknown Rx Hyclate TAB] Active Meds: Active Medications Acetaminophen (Tylenol) 650 mg PO Q4H PRN PRN Reason: Pain, Mild (1-3) Last Admin: 10/26/19 18:15 Dose: 650 mg Documented by: Aspirin (Aspirin) 325 mg PO QDAY [facility] Atorvastatin Calcium (Lipitor) 40 mg PO QHS [facility] Carvedilol (Coreg) 6.25 mg PO BID [facility] Last Admin: 10/27/19 09:27 Dose: 6.25 mg Documented by: Docusate Sodium (Colace) 100 mg PO BID PRN PRN Reason: Constipation Furosemide (Lasix) 40 mg IV DAILY@0600 [facility] Last Admin: 10/27/19 05:52 Dose: 40 mg Documented by: Hydralazine HCl (Apresoline) 25 mg PO Q8HR [facility] Last Admin: 10/27/19 05:53 Dose: 25 mg Documented by: Hydralazine HCl (Apresoline) 10 mg IV Q4HR PRN PRN Reason: HTN >150/90 Ketorolac Tromethamine (Toradol) 15 mg IV Q6H PRN PRN Reason: Pain, Mild (1-3) Stop: 10/31/19 17:56 Lisinopril (Zestril) 20 mg PO QDAY [facility] Last Admin: 10/27/19 09:26 Dose: 20 mg Documented by: Pantoprazole Sodium (Protonix) 40 mg PO QDAY [facility] Last Admin: 10/27/19 09:27 Dose: 40 mg Documented by: Potassium Chloride (K-Dur) 20 meq PO QDAY [facility] Last Admin: 10/27/19 09:27 Dose: 20 meq Documented by: Zolpidem Tartrate (Ambien) 5 mg PO QHS PRN PRN Reason: Sleep Review of Systems Constitutional: no weight loss, no weight gain, no fever, no chills, no sweats Ears, nose, mouth and throat: no ear pain, no nose pain, no sinus pressure, no sinus pain Cardiovascular: chest pain, shortness of breath, dyspnea on exertion, high blood pressure Respiratory: shortness of breath, dyspnea on exertion, no cough, no congestion, no wheezing, no pain on inspiration Gastrointestinal: no abdominal pain, no nausea, no vomiting, no diarrhea, no constipation, no change in bowel habits Genitourinary Female: no pelvic pain, no flank pain, no dysuria, no urinary frequency, no urgency Musculoskeletal: no neck stiffness, no neck pain Integumentary: no rash, no pruritis, no redness, no sores, no wounds Neurological: no head injury, no paralysis, no weakness, no parathesias, no numbness, no tingling, no seizures, no syncope Psychiatric: no anxiety Endocrine: no cold intolerance, no heat intolerance Hematologic/Lymphatic: no easy bruising Allergic/Immunologic: no urticaria Physical Examination Vital Signs Temp Pulse Resp BP Pulse Ox 98.5 F 90 20 174/126 96 10/26/19 04:01 10/26/19 04:01 10/26/19 04:01 10/26/19 04:01 10/26/19 04:01 General appearance: no acute distress HEENT: Positive: PERRL, Normocephaly, Mucus Membranes Moist Neck: Positive: neck supple, trachea midline Cardiac: Positive: Reg Rate and Rhythm, S1/S2 Lungs: Positive: Decreased Breath Sounds Neuro: Positive: Grossly Intact Abdomen: Negative: Tender Skin: Negative: Rash Musculoskeletal: No Pain Extremities: Absent: edema Results 10/26/19 05:33 10/26/19 05:33 Cardiac Enzymes 10/27/19 Range/Units 04:36 CK-MB (CK-2) 6.0 H (0.0-4.0) ng/mL - Imaging and Cardiology Echo: report reviewed (TTE done 05/2018 showed EF 40-45%, mod LVH, LA severely dilated, small pericardial effusion, echo dense circular mass in area of anterolateral papillary muscle area - ? calcified papillary muscle v. tumor.F/u RIGO attempted - unable to pass RIGO probe in 05/2018 and OP cardiac MR was mukund mmended at that time. Pt did not follow-up. ) EKG: report reviewed, image reviewed EKG interpretations - Telemetry EKG Rhythm: Sinus Rhythm - EKG Sinus rhythms and dysrhythmias: sinus rhythm Chamber hypertrophy or enlargement: left ventricular hypertro Assessment and Plan Chest CTA negative for PE, showed bilateral pleural effusions, cardiomegaly. Agree with GDMT and IV lasix BID as tolerated. F/u echo. CE elevation appears nonspecific at this time in setting of uncontrolled HTN, HF, cocaine abuse, etc. Plan for lexiscan MPI stress test in AM. NPO after MN. The patient has been seen in conjunction with Dr. Sloan who agrees with the assessment and plan of care. - Patient Problems (1) Acute HFrEF (heart failure with reduced ejection fraction) Current Visit: Yes Status: Acute (2) Chest pain Current Visit: Yes Status: Acute Qualifiers: Chest pain type: unspecified Qualified Code(s): R07.9 - Chest pain, unspecified (3) Uncontrolled hypertension Current Visit: Yes Status: Chronic (4) Mass of left cardiac ventricle Current Visit: Yes Status: Chronic (5) Elevated troponin Current Visit: Yes Status: Acute (6) Cocaine abuse Current Visit: Yes Status: Chronic (7) Tobacco use Current Visit: Yes Status: Chronic (8) Noncompliance Current Visit: Yes Status: Chronic
[2019-10-27] MEDS: ASPIRIN 325 MG TAB PO SCH (11:54)
--- NOTE | 2019-10-27 15:59 | Progress Note ---
Assessment and Plan /Acute on chronic systolic congestive heart failure; EF 25-30% cont Diuretics, beta-blockers, ARTURO inhibitors, nitrates Input output monitoring, low-sodium diet, fluid restriction follow cardiology recommendation, -CTA chest no PE, small bilateral pleural effusions cardiomegaly possibility of CHF -Chest x-ray; increasing perihilar opacities representing increased pulmonary edema. Stable enlargement of cardiac silhouette acute on chronic - 2d echo with 25-30% EF /Non-ST elevation AR type 2/elevated cardiac enzymes Probably nonspecific, however patient has risk factors Cardiology consulted, stress test tomorrow /Medical noncompliance; patient strongly advised to comply with medications Diet, follow-up visits, patient verbalized understanding /Hypertension; Moderate control, continue current antihypertensives PRN iv hydrazine /History of cocaine use; Counseling done advised to quit recreational drug use /DVT prophylaxis;Lovenox Monitor closely and adjust the management as needed. Plan of care reviewed with the patient and her nurse Disposition; follow cardiology evaluation recommendations. plan for stress test tomorrow. d/c when clears by cardiology. Physical exam: General appearance: Present: mild distress, well-nourished - EENT Eyes: Present: PERRL, EOM intact - Neck Neck: Present: supple, normal ROM - Respiratory Respiratory effort: normal Respiratory: bilateral: diminished, rales, negative: rhonchi, wheezing - Cardiovascular Rhythm: regular Heart Sounds: Present: S1 & S2 - Extremities Extremities: no ischemia, No edema - Abdominal General gastrointestinal: Present: soft, non-tender, non-distended, normal bowel sounds - Integumentary Integumentary: Present: clear, warm - Musculoskeletal Musculoskeletal: strength equal bilaterally, generalized weakness - Psychiatric Psychiatric: appropriate mood/affect, cooperative - Neurologic Neurologic: moves all extremities Subjective Date of service: 10/27/19 Interval history: Patient seen and examined. Medical records and medication list reviewed. No acute event overnight noted by the RN. Patient c/o chest pain or difficulty breathing. Patient is tolerating diet. Discussed plan of care at bedside with patient. Objective - Constitutional Vitals: Vital Signs - 12hr 10/27/19 10/27/19 10/27/19 04:00 05:53 08:00 Temperature Pulse Rate 99 H 97 H Pulse Rate [ Apical] Pulse Rate [ Left Radial] Pulse Rate [ Right Radial] Respiratory Rate Blood Pressure 159/89 O2 Sat by Pulse 96 Oximetry 10/27/19 10/27/19 10/27/19 09:25 09:26 09:27 Temperature Pulse Rate 82 83 83 Pulse Rate [ Apical] Pulse Rate [ Left Radial] Pulse Rate [ Right Radial] Respiratory Rate Blood Pressure 174/96 174/96 174/96 O2 Sat by Pulse 96 Oximetry 10/27/19 10/27/19 10/27/19 11:58 12:00 12:47 Temperature 97.2 F L Pulse Rate 86 95 H 76 Pulse Rate [ Apical] Pulse Rate [ Left Radial] Pulse Rate [ Right Radial] Respiratory 20 Rate Blood Pressure 170/96 152/88 O2 Sat by Pulse 95 Oximetry 10/27/19 10/27/19 13:47 14:00 Temperature Pulse Rate 81 Pulse Rate [ 97 H Apical] Pulse Rate [ 97 H Left Radial] Pulse Rate [ 97 H Right Radial] Respiratory 21 Rate Blood Pressure 143/95 O2 Sat by Pulse 96 Oximetry - Labs CBC & Chem 7: 10/26/19 05:33 10/26/19 05:33 Labs: Abnormal lab results 10/27/19 Range/Units 04:36 Total Creatine Kinase 139 H (30-135) units/L CK-MB (CK-2) 6.0 H (0.0-4.0) ng/mL CK-MB (CK-2) Rel Index 4.3 H (0-4) HEART Score - HEART Score EKG: Normal Age: 45-65 Risk factors: 1-2 risk factors Troponin: Troponin T 0.024 ng/mL (0.00-0.029) 10/27/19 04:36 Troponin: 1-3x normal limit - Critical Actions Critical Actions: 4-6 pts:12-16.6% risk of adverse cardiac event. Should be a dmitted
[2019-10-27 18:16] LABS: Amphetamine Screen,Urine PRESUMPTIVE NEGATIVE; Benzodiazepines Screen,Urine PRESUMPTIVE NEGATIVE; Cannabinoid Screen,Urine PRESUMPTIVE NEGATIVE; Methadone Screen,Urine PRESUMPTIVE NEGATIVE; Opiate Screen,Urine PRESUMPTIVE NEGATIVE
[2019-10-27 18:31] LABS: Cocaine Screen,Urine PRESUMPTIVE POSITIVE
[2019-10-28] MEDS: FUROSEMIDE 40 MG/4 ML INJ IV SCH (05:48)
[2019-10-28] MEDS: hydrALAZINE 25 MG TAB PO SCH ×2 (05:48→14:07)
[2019-10-28] MEDS ORDERED: REGADENOSON 0.4 MG/5 ML INJ IV ONE ×2 (08:17→09:00)
[2019-10-28 10:53] VITALS: BP 162/109
--- NOTE | 2019-10-28 11:24 | Progress Note ---
Assessment and Plan Chest CTA negative for PE, showed bilateral pleural effusions, cardiomegaly. Pt appears to be nearing/at euvolemia. Convert IV lasix to PO lasix. F/u BMP. tte reviewed - EF ~25-30%. S/p lexiscan MPI stress test this AM which was negative for ischemia, EF 25%. Cont coreg and lisinopril. Currently stable cardiac status. Pt may discharge from cardiology standpoint. Recommend follow up in our office with Dr. Schroeder within 1-2 weeks of discharge ([phone]). The patient has been seen in conjunction with Dr. Schroeder who agrees with the assessment and plan of care. - Patient Problems (1) Acute HFrEF (heart failure with reduced ejection fraction) Current Visit: Yes Status: Acute (2) Cardiomyopathy Current Visit: Yes Status: Chronic (3) Chest pain Current Visit: Yes Status: Acute Qualifiers: Chest pain type: unspecified Qualified Code(s): R07.9 - Chest pain, unspecified (4) Uncontrolled hypertension Current Visit: Yes Status: Chronic (5) Mass of left cardiac ventricle Current Visit: Yes Status: Chronic (6) Elevated troponin Current Visit: Yes Status: Acute (7) Cocaine abuse Current Visit: Yes Status: Chronic (8) Tobacco use Current Visit: Yes Status: Chronic (9) Noncompliance Current Visit: Yes Status: Chronic Subjective Date of service: 10/28/19 Principal diagnosis: cp; hf Interval history: pt for stress test today, no current complaints. lying flat comfortably. in SR on tele. Objective Last Vital Signs Temp 98.9 F 10/28/19 04:21 Pulse 91 H 10/28/19 04:21 Resp 18 10/28/19 04:21 BP 162/109 10/28/19 10:11 Pulse Ox 95 10/28/19 04:21 - Physical Examination General: No Apparent Distress HEENT: Positive: PERRL, Normocephaly, Mucus Membranes Moist Neck: Positive: neck supple, trachea midline Cardiac: Positive: Reg Rate and Rhythm, S1/S2 Lungs: Positive: Decreased Breath Sounds Neuro: Positive: Grossly Intact Abdomen: Negative: Tender Skin: Negative: Rash Musculoskeletal: No Pain Extremities: Absent: edema - Imaging and Cardiology EKG: report reviewed, image reviewed Echo: report reviewed (TTE done 05/2018 showed EF 40-45%, mod LVH, LA severely dilated, small pericardial effusion, echo dense circular mass in area of anterolateral papillary muscle area - ? calcified papillary muscle v. tumor.F/u RIGO attempted - unable to pass RIGO probe in 05/2018 and OP cardiac MR was recommended at that time. Pt did not follow-up. ) - Telemetry EKG Rhythm: Sinus Rhythm - EKG Sinus rhythms and dysrhythmias: sinus rhythm Chamber hypertrophy or enlargement: left ventricular hypertro
[2019-10-28] MEDS: POTASSIUM CHLORIDE ER 20 MEQ TAB PO SCH (14:07)
[2019-10-28] MEDS: ASPIRIN 325 MG TAB PO SCH (14:07)
[2019-10-28] MEDS: LISINOPRIL 20 MG TAB PO SCH (14:07)
[2019-10-28] MEDS: carvediloL 6.25 MG TAB PO SCH (14:07)
[2019-10-28] MEDS: PANTOPRAZOLE 40 MG TAB PO SCH (14:07)
--- NOTE | 2019-10-28 14:39 | Treadmill Report ---
CARDIAC NUCLEAR PERFUSION STUDY REASON FOR STUDY: Abnormal troponin and shortness of breath. IMAGING PROTOCOL: The patient received 10 mCi of Technetium 99m Tetrofosmin for resting image and 28 mCi of Technetium 99m Tetrofosmin for stress imaging. The imaging for the whole procedure was completed 30-90 minutes following the initial injection of Technetium 99m Tetrofosmin. The SPECT imaging in the 180 degree arc was performed in the right anterior oblique projection. Computerized reconstruction of the images was performed for analysis. IMAGING RESULTS: Cavity is dilated on both stress and rest. Distribution is normal in the anterior, inferior, septal, and apical regions. Gated SPECT, severe LV dysfunction, EF 10%. The patient infused Lexiscan with no EKG changes. SUMMARY: 1. Negative Lexiscan EKG. 2. No significant stress ischemia. Dilated LV seen on both stress and rest with normal myocardial perfusion suggestive of nonischemic cardiomyopathy. EF is 10% on Gated SPECT. Would suggest an echocardiogram for quantification. JOB# [id number] VIDA/BIANCA
[2019-10-28 14:57] LABS: BUN/Creatinine Ratio 17; Blood Urea Nitrogen 17 mg/dL (7-17); Calcium 9.3 mg/dL (8.4-10.2); Hemolysis Index 31
--- NOTE | 2019-10-28 15:07 | Discharge Summary ---
Providers - Providers Date of Admission: 10/26/19 09:26 Date of discharge: 10/28/19 Attending physician: CHYNA CURIEL 10/26/19 18:39 Consult to Physician [CONS] Routine Comment: Consulting Provider: ANASTACIO CHIN Physician Instructions: Reason For Exam: Acute on chronic systolic congestive heart failure Primary care physician: CONSUMER [employer]AN OFFICER Hospitalization Condition: Serious Pertinent studies: Chest x-ray, chest CTA, 2D echo, exercise stress test Hospital course: The pt is a 49 YO female with a past medical history of HTN, HFrEF, normal coronaries, ? LV mass, cocaine abuse, social issues noncompliant with OP follow up and medications presented with c/o intermittent chest pain and SOB for "a long time". She is a rather poor historian and does not provide any additional details. She admits to recent cocaine use but does not say exactly when her last drug use was. Patient was admitted to telemetry floor with scheduled iv diuretics. Monitored with serial CE, EKG. Cardiology consulted, 2d echo obtained which showed EF 25 to 30% and no intraventricular mass. Provided cardiac diet, daily weights, monitored in's and O's. Patients symptom improved with medical management. Exercise stress test did not reveal any reversible ischemia. Patient was counseled extensively for medication compliance and to comply with outpatient follow-up. She was also counseled to quit cocaine abuse. She verbalized understanding. Patient was then discharged home in stable condition with outpt f/u and 2 weeks of medication. Discharge diagnosis and mx: /Acute on chronic systolic congestive heart failure; EF 25-30% Placed on iv Diuretics, beta-blockers, ARTURO inhibitors, nitrates Monitored input output, placed on low-sodium diet and fluid restriction Cardiology was consulted, LHC done 05/2018 showed normal coronaries. Strongly advised outpatient follow-up and to be compliant with the medications Changed Lasix to p.o. on discharge. -CTA chest no PE, small bilateral pleural effusions cardiomegaly possibility of CHF -Chest x-ray; increasing perihilar opacities representing increased pulmonary edema. Stable enlargement of cardiac silhouette acute on chronic - 2d echo with 25-30% EF -Exercise stress test showed no stress-induced ischemia /Non-ST elevation MT type 2/elevated cardiac enzymes Probably nonspecific, however patient has risk factors Cardiology consulted, status post exercise stress test without any reversible ischemia /Medical noncompliance; patient strongly advised to comply with medications, Diet, follow-up visits, patient verbalized understanding She was given 2 weeks of medications on discharge /Cardiac mass: Ruled out TTE done 05/2018 showed EF 40-45%, mod LVH, LA severely dilated, small pericardial effusion, echo dense circular mass in area of anterolateral papillary muscle area - ? calcified papillary muscle v. tumor. F/u RIGO attempted - unable to pass RIGO probe in 05/2018 and OP cardiac MR was recommended at that time. Pt did not follow-up. Repeat TTE this admission showed EF 25 to 30% and no mass visualized /Hypertension; Moderate control, continue current antihypertensives Placed on PRN iv hydrazine /History of cocaine use; Counseling done advised to quit recreational drug use /DVT prophylaxis; Lovenox Disposition; with self-care. Physical exam: General appearance: Present: mild distress, well-nourished - EENT Eyes: Present: PERRL, EOM intact - Neck Neck: Present: supple, normal ROM - Respiratory Respiratory effort: normal Respiratory: bilateral: diminished, rales, negative: rhonchi, wheezing - Cardiovascular Rhythm: regular Heart Sounds: Present: S1 & S2 - Extremities Extremities: no ischemia, No edema - Abdominal General gastrointestinal: Present: soft, non-tender, non-distended, normal bowel sounds - Integumentary Integumentary: Present: clear, warm - Musculoskeletal Musculoskeletal: strength equal bilaterally, generalized weakness - Psychiatric Psychiatric: appropriate mood/affect, cooperative - Neurologic Neurologic: moves all extremities Disposition: DC-01 TO HOME OR SELFCARE Time spent for discharge: 34 minutes Core Measure Documentation - Palliative Care Palliative Care/ Comfort Measures: Not Applicable - Core Measures Any of the following diagnoses?: heart failure - Heart Failure Discharge Requirements ARTURO/ARB for LVSD if EF <40%: Yes Beta vernon at discharge: Yes Exam - Constitutional Vitals: Temp Pulse Resp BP Pulse Ox 98.9 F 91 H 18 162/109 95 10/28/19 04:21 10/28/19 04:21 10/28/19 04:21 10/28/19 10:11 10/28/19 04:21 Plan Activity: advance as tolerated Weight Bearing Status: Non-Weight Bearing Diet: low fat, low salt Special Instructions: restrict fluid intake to (1.2L per day), other (Abstinence from cocaine) Follow up with: PRIMARY CARE, [Primary Care Provider] - 3-5 Days ANDERS BAEZA MD [Staff Physician] - 7 Days CLINT MANE MD [Staff Physician] - 7 Days Prescriptions: AtorvaSTATin [Lipitor] 40 mg PO QHS #30 tablet hydrALAZINE [Apresoline TAB] 25 mg PO Q8HR #90 tablet Aspirin [Aspirin BABY CHEW TAB] 81 mg PO QDAY #30 tab.chew carvediloL [Coreg] 6.25 mg PO BID #60 tablet Potassium Chloride [K-Dur] 20 meq PO QDAY #14 tablet Furosemide [Lasix TAB] 40 mg PO DAILY #30 tablet lisinopriL [Zestril TAB] 20 mg PO QDAY #30 tablet
[2019-10-28 16:15] LABS: BUN/Creatinine Ratio 17; Blood Urea Nitrogen 17 mg/dL (7-17); Hemolysis Index 6
[2019-10-29] MEDS ORDERED: FUROSEMIDE 40 MG TAB PO SCH ×2 (10:00)
[2019-10-29] MEDS ORDERED: FUROSEMIDE 20 MG TAB PO SCH ×2 (10:00)
== END 2019-10-28 16:50 | disposition home or self-care (01) | DRG 280 ==
LOC: ED 03:53 → 4A 09:26
PROVIDERS: ADMIT Internal Medicine; ATTEND Internal Medicine
DX: I21.A1 Myocardial infarction type 2 (principal); I50.23 Acute on chronic systolic (congestive) heart failure; I42.9 Cardiomyopathy, unspecified; R07.9 Chest pain, unspecified; I50.9 Heart failure, unspecified; F14.10 Cocaine abuse, uncomplicated; Z72.0 Tobacco use; I11.0 Hypertensive heart disease with heart failure; Z91.14 Patient's other noncompliance with medication regimen; M19.90 Unspecified osteoarthritis, unspecified site; Z82.49 Family history of ischemic heart disease and other diseases of the circulatory system
CPT/HCPCS: 36415; 71045; 71275; 78452; 80048; 80061; 80307; 82550; 82553; 82962; 83880; 84484; 85025; 85379; 85610; 85730; 93005; 93017; 93306; 94644; G0378; A9270-GY; A9502; J0360; J1885; J1940; J2785; Q9967

== ENCOUNTER 2019-11-07 07:16 | Observation (INO) | payer OTHER, SELFPAY ==
[2019-11-07 09:36] LABS: Basophils % (Auto) 0.5 % (0.0-1.8); Eosinophils % (Auto) 0.1 % (0.0-4.3); Hematocrit 38.2 % (30.3-42.9); Hemoglobin 11.9 gm/dl (10.1-14.3); Lymphocytes # (Auto) 1.6 K/mm3 (1.2-5.4); Lymphocytes % (Auto) 30.5 % (13.4-35.0); Mean Corpuscular HGB Conc 31 % (30-34); Mean Corpuscular Volume 79 fl (79-97); Monocytes # (Auto) 0.6 K/mm3 (0.0-0.8); Monocytes % (Auto) 10.6 % (0.0-7.3); Platelet Count 300 K/mm3 (140-440); Red Blood Count 4.82 M/mm3 (3.65-5.03)
[2019-11-07 09:49] LABS: Red Cell Distribution Width 20.6 % (13.2-15.2)
[2019-11-07 09:57] LABS: Creatine Kinase MB 5.2 ng/mL (0.0-4.0)
[2019-11-07 09:59] LABS: BUN/Creatinine Ratio 16; Blood Urea Nitrogen 14 mg/dL (7-17); Calcium 9.2 mg/dL (8.4-10.2); Hemolysis Index 5
[2019-11-09 08:32] LABS: Eosinophils % (Auto) 0.1 % (0.0-4.3); Monocytes # (Auto) 0.4 K/mm3 (0.0-0.8)
[2019-11-09 08:54] LABS: Alanine Aminotransferase 24 units/L (7-56); Albumin 3.4 g/dL (3.9-5); BUN/Creatinine Ratio 16; Blood Urea Nitrogen 16 mg/dL (7-17); Calcium 9.3 mg/dL (8.4-10.2); Hemolysis Index 1
[2019-11-09 09:04] LABS: Basophils % (Auto) 0.1 % (0.0-1.8); Hematocrit 39.8 % (30.3-42.9); Hemoglobin 12.5 gm/dl (10.1-14.3); Lymphocytes # (Auto) 1.6 K/mm3 (1.2-5.4); Mean Corpuscular HGB Conc 31 % (30-34); Mean Corpuscular Volume 78 fl (79-97); Platelet Count 310 K/mm3 (140-440); Red Cell Distribution Width 20.6 % (13.2-15.2)
[2019-11-09 15:01] LABS: Hepatitis B Surface Antigen Non-Reactive (Negative); Hepatitis C Virus Antibody Non-Reactive (NonReactive)
[2019-11-10 13:20] VITALS: BP 140/78
== END 2019-11-10 14:00 | disposition home or self-care (01) ==
LOC: ED 07:16 → 3A 10:08
PROVIDERS: ADMIT Internal Medicine; ATTEND Internal Medicine
DX: I21.4 Non-ST elevation (NSTEMI) myocardial infarction (principal); Z20.828 Contact with and (suspected) exposure to other viral communicable diseases; R11.2 Nausea with vomiting, unspecified; R06.02 Shortness of breath; I11.0 Hypertensive heart disease with heart failure; I50.20 Unspecified systolic (congestive) heart failure; F14.10 Cocaine abuse, uncomplicated; I51.89 Other ill-defined heart diseases; R79.89 Other specified abnormal findings of blood chemistry; F41.9 Anxiety disorder, unspecified; I25.10 Atherosclerotic heart disease of native coronary artery without angina pectoris; E78.5 Hyperlipidemia, unspecified; M19.90 Unspecified osteoarthritis, unspecified site; F17.200 Nicotine dependence, unspecified, uncomplicated; Z91.19 Patient's noncompliance with other medical treatment and regimen; Z79.82 Long term (current) use of aspirin; Z79.899 Other long term (current) drug therapy
CPT/HCPCS: 36415; 71045; 80048; 80053; 80074; 82550; 82553; 83880; 84484; 85025; 86592; 86689; 87040; 87517; 87641; 93005; 96361; 96365; 96366; 96372; 96375; 96376; 99285; A9270; G0378; J0456; J1650; J1940; J7030; J7050; U0003

== ENCOUNTER 2020-01-08 15:56 | Inpatient (IN) | payer OTHER ==
[2020-01-08] MEDS ORDERED: ONDANSETRON 4 MG/2 ML INJ IV ONE (16:38)
[2020-01-08] MEDS ORDERED: SODIUM CHLORIDE 0.9% 1000 ML 1,000 ML IV ONE (16:38)
--- NOTE | 2020-01-08 16:40 | Emergency Department Report ---
ED GI Bleed HPI - General Chief complaint: GI Bleed Stated complaint: abd pain Time Seen by Provider: 01/08/20 16:16 Source: patient, EMS Mode of arrival: Stretcher Limitations: No Limitations - History of Present Illness Initial comments: Patient is a 49-year-old female that presents emergency room with abdominal pain, GI bleed. Patient states she is having melena and bright red blood per rectum. Patient states her symptoms started today at 1 PM. Patient states her abdominal pain is generalized. Patient states her abdominal pain is a 6 out of 10. Patient states her abdominal pain is better with rest and worse with movement. Patient states that she is also having nausea and vomiting. Patient states that she has brown vomitus at times. Patient denies alcohol use. Patient denies NSAID use. Patient denies drug use. Patient denies smoking. MD complaint: coffee ground emesis, melena, gross hematochezia -: Sudden Location: diffuse Radiation: none Severity scale (0 -10): 10 Quality: sharp Consistency: constant Improves with: rest Worsens with: movement Associated Symptoms: abdominal pain, nausea, vomiting. denies: epistaxis, fever/chills, headaches, loss of appetite, malaise, easy bruising, rash, other bleeding, shortness of breath, syncope, weakness Treatments Prior to Arrival: none - Related Data Previous Rx's Medication Instructions Recorded Last Taken Type Aspirin [Aspirin BABY CHEW TAB] 81 mg PO QDAY #30 tab.chew 12/07/19 Unknown Rx AtorvaSTATin [Lipitor] 40 mg PO QHS #30 tablet 12/07/19 Unknown Rx Furosemide [Lasix TAB] 40 mg PO DAILY #30 tablet 12/07/19 Unknown Rx Potassium Chloride 10 meq PO DAILY #30 tablet.er 12/07/19 Unknown Rx carvediloL [Coreg] 6.25 mg PO BID #60 tablet 12/07/19 Unknown Rx hydrALAZINE [Apresoline TAB] 25 mg PO Q8HR #90 tablet 12/07/19 Unknown Rx lisinopriL [Zestril TAB] 20 mg PO QDAY #30 tablet 12/07/19 Unknown Rx Allergies Allergy/AdvReac Type Severity Reaction Status Date / Time No Known Allergies Allergy Verified 11/07/19 07:55 ED Review of Systems ROS: Stated complaint: AMS Other details as noted in HPI Constitutional: denies: chills, fever Eyes: denies: eye pain, eye discharge, vision change ENT: denies: ear pain, throat pain Respiratory: denies: cough, shortness of breath, wheezing Cardiovascular: denies: chest pain, palpitations Endocrine: no symptoms reported Gastrointestinal: abdominal pain, nausea, vomiting, melena, hematochezia. denies: diarrhea, constipation, hematemesis Genitourinary: denies: urgency, dysuria, discharge Musculoskeletal: denies: back pain, joint swelling, arthralgia Skin: denies: rash, lesions Neurological: denies: headache, weakness, paresthesias Psychiatric: denies: anxiety, depression Hematological/Lymphatic: denies: easy bleeding, easy bruising ED Past Medical Hx - Past Medical History Previous Medical History?: Yes Hx Hypertension: Yes Hx Congestive Heart Failure: Yes Hx Diabetes: No Hx Renal Disease: No Hx Arthritis: Yes Hx Asthma: (unknown) Additional medical history: Heart Murmur, Fibroids. venticular mass. Cocaine abuse - Surgical History Past Surgical History?: Yes Additional Surgical History: x 2. wrist surgery - Family History Family history: no significant - Social History Smoking Status: Current Some Day Smoker Substance Use Type: None - Medications Home Medications: Home Medications Medication Instructions Recorded Confirmed Last Taken Type Aspirin [Aspirin BABY CHEW TAB] 81 mg PO QDAY #30 tab.chew 12/07/19 01/03/20 Unknown Rx AtorvaSTATin [Lipitor] 40 mg PO QHS #30 tablet 12/07/19 01/03/20 Unknown Rx Furosemide [Lasix TAB] 40 mg PO DAILY #30 tablet 12/07/19 01/03/20 Unknown Rx Potassium Chloride 10 meq PO DAILY #30 tablet.er 12/07/19 01/03/20 Unknown Rx carvediloL [Coreg] 6.25 mg PO BID #60 tablet 12/07/19 01/03/20 Unknown Rx hydrALAZINE [Apresoline TAB] 25 mg PO Q8HR #90 tablet 12/07/19 01/03/20 Unknown Rx lisinopriL [Zestril TAB] 20 mg PO QDAY #30 tablet 12/07/19 01/03/20 Unknown Rx ED Physical Exam - General Limitations: No Limitations General appearance: alert, in no apparent distress - Head Head exam: Present: atraumatic, normocephalic - Eye Eye exam: Present: normal appearance, PERRL Pupils: Present: normal accommodation - ENT ENT exam: Present: mucous membranes dry - Neck Neck exam: Present: normal inspection - Respiratory Respiratory exam: Present: normal lung sounds bilaterally. Absent: respiratory distress - Cardiovascular Cardiovascular Exam: Present: regular rate, normal rhythm. Absent: systolic mur mur, diastolic murmur, rubs, gallop - GI/Abdominal GI/Abdominal exam: Present: soft, tenderness, normal bowel sounds - Rectal Rectal exam: Present: heme (+) stool - Extremities Exam Extremities exam: Present: normal inspection - Back Exam Back exam: Present: normal inspection - Neurological Exam Neurological exam: Present: alert, oriented X3 - Psychiatric Psychiatric exam: Present: normal affect, normal mood - Skin Skin exam: Present: warm, dry, intact, normal color. Absent: rash ED Course Vital Signs 01/08/20 01/08/20 01/08/20 16:17 16:31 16:45 Pulse Rate 84 86 Respiratory 31 H 21 20 Rate Blood Pressure 105/71 105/71 O2 Sat by Pulse 100 86 Oximetry 01/08/20 01/08/20 01/08/20 17:00 17:03 17:15 Pulse Rate 81 75 Respiratory 18 21 21 Rate Blood Pressure 105/71 105/71 O2 Sat by Pulse 96 100 Oximetry 01/08/20 01/08/20 01/08/20 17:31 17:45 18:00 Pulse Rate 83 82 82 Respiratory 20 19 23 Rate Blood Pressure 105/71 128/70 108/69 O2 Sat by Pulse 95 94 Oximetry 01/08/20 01/08/20 01/08/20 18:15 18:31 18:41 Pulse Rate 88 86 Respiratory 18 20 18 Rate Blood Pressure 108/69 108/69 110/64 O2 Sat by Pulse 94 96 95 Oximetry 01/08/20 01/08/20 01/08/20 18:45 19:00 19:15 Pulse Rate 87 90 91 H Respiratory 22 21 21 Rate Blood Pressure 108/69 88/52 88/52 O2 Sat by Pulse 96 96 96 Oximetry 01/08/20 01/08/20 01/08/20 19:31 19:45 20:00 Pulse Rate 86 92 H 87 Respiratory 19 19 19 Rate Blood Pressure 88/52 88/52 102/59 O2 Sat by Pulse 93 95 96 Oximetry - Reevaluation(s) Reevaluation #1: Initial evaluation done. Patient actively vomiting during this evaluation. Patient was given fluids and Zofran. Patient appears to have sirs or sepsis but we will give her fluids slowly due to her history of CHF. 01/08/20 16:40 Reevaluation #2: Patient's labs reviewed from 01/04/2020 and her creatinine was 0.7. Patient will be given a hyperkalemia cocktail, to include insulin, dextrose, calcium. 01/08/20 17:41 Reevaluation #3: Patient is having hypotension and will require a pressor and the hospitalist is asked me to place a central line. Patient has a central line in the right neck. See procedure note. 01/09/20 01:22 01/09/20 01:24 Reevaluation #4: Patient stable with line. Patient chest x-ray shows good placement of right central venous line. Nurse given clearance to use line. 01/09/20 02:07 - Consultations Consultation #1: I discussed case with Dr. Crockett, general surgery. Dr. Crockett agrees with NG and admission and n.p.o. 01/08/20 17:44 Consultation #2: I discussed case with Dr. Jewell, GI. GI agrees with Protonix twice daily and they will see see the patient 01/08/20 18:10 Consultation #3: Hospitalist consulted for admission. Hospitalist to admit patient. 01/08/20 18:41 - Central Line Placement Right IJ Consent Obtained: verbal consent, emergent situation Time Out Performed: Yes Patient Placed on Monitor/Pulse Ox: Yes MD Prep: mask, gown, gloves Central Line Prep: Chlorhexidine scrub, sterile drapes applied Local Anesthesia Used: Lidocaine 1% Ultrasound Used for Placement: Yes Central Line Lumen Inserted: triple Bloods Obtained for Lab: Yes Central Line Position: good blood return, all ports aspirated, flus, sutured in place with 2-0 Dressing Applied: Tegaderm Post Procedure X-Ray: tip of catheter in good p, pneumothorax seen Patient Tolerated Procedure: well, no complications Complications: none Additional Comments: Central line placed in the right IJ without difficulties. Seldinger technique used. ED Medical Decision Making - Lab Data Result diagrams: 01/08/20 17:05 01/08/20 17:05 - Radiology Data Radiology results: report reviewed, image reviewed interpreted by me: CHEST 1 VIEW INDICATION / CLINICAL INFORMATION: cvl placement. COMPARISON: 12/05/2019 FINDINGS: SUPPORT DEVICES: Right central venous line HEART / MEDIASTINUM: No significant abnormality. LUNGS / PLEURA: No significant pulmonary or pleural abnormality. No pneumothorax. ADDITIONAL FINDINGS: No significant additional findings. IMPRESSION: Right central venous line has been placed with the tip superimposed over the expected position of the atriocaval junction. No evidence of a right-sided pneumothorax CT ABDOMEN AND PELVIS WITH CONTRAST INDICATION / CLINICAL INFORMATION: GI bleed. TECHNIQUE: Axial CT images were obtained through the abdomen and pelvis after 100 cc Omnipaque [address] scans at this location are performed using CT dose reduction for ALARA by means of automated exposure control. COMPARISON: CTA abdomen and pelvis from 01/02/2020. FINDINGS: LOWER CHEST: Cardiomegaly has improved. The lung bases are clear. LIVER: No significant abnormality. GALLBLADDER: No significant abnormality. BILE DUCTS: No significant abnormality. PANCREAS: No significant abnormality. SPLEEN: No significant abnormality. ADRENALS: No significant abnormality. RIGHT KIDNEY / URETER: Numerous right renal cysts are noted without an additional significant abnormality. LEFT KIDNEY / URETER: No significant abnormality. STOMACH / SMALL BOWEL: No significant abnormality of the stomach. Moderate g eneralized small bowel dilatation has developed in the interval without a distinct transition point. COLON: No significant abnormality. APPENDIX: No significant abnormality. PERITONEUM: Trace amount of free fluid along the pelvis is nonspecific. No free air. No fluid collection. LYMPH NODES: No significant adenopathy. AORTA / ARTERIES: No significant abnormality. IVC / VEINS: No significant abnormality. URINARY BLADDER: Partially collapsed without a distinct abnormality. REPRODUCTIVE ORGANS: The uterus is similarly enlarged and contains multiple probable fibroids. No additional significant abnormality. ADDITIONAL FINDINGS: None. SKELETAL SYSTEM: No acute abnormality or significant change. IMPRESSION: 1. Interval development of a suspected small bowel obstruction without a distinct transition point. 2. Interval improvement of cardiomegaly. 3. Additional findings as above. - Medical Decision Making Patient is a 49-year-old female that presents emergency room with complaints of abdominal pain and GI bleed. Patient complained of dark stools and bright red blood per rectum. Patient had a guaiac which was positive. Patient had labs done which positive for acute renal failure. Patient had a chemistry done on 01/04/2020 and her creatinine was 0.7. Patient also found to have hyperkalemia. Patient had a CT done which showed a small bowel obstruction. General surgery consulted. GI consulted. Patient admitted to the hospitalist service. - Differential Diagnosis Abdominal pain, GI bleed, obstruction, appendicitis, Critical Care Time: Yes Critical care time in (mins) excluding proc time.: 35 Critical care attestation.: If time is entered above; I have spent that time in minutes in the direct care of this critically ill patient, excluding procedure time. Critical Care Time: 35 minutes ED Disposition Clinical Impression: SBO (small bowel obstruction), Hyperkalemia, BRBPR (bright red blood per rectum), SIRS (systemic inflammatory response syndrome) Abdominal pain Qualifiers: Abdominal location: generalized Qualified Code(s): R10.84 - Generalized abdominal pain GI bleed Qualifiers: GI bleed type/associated pathology: melena Qualified Code(s): K92.1 - Melena Disposition: DC-09 OP ADMIT IP TO THIS HOSP Is pt being admited?: Yes Does the pt Need Aspirin: No Condition: Critical Time of Disposition: 18:45
[2020-01-08 17:19] LABS: Mean Corpuscular HGB Conc 31 % (30-34); Mean Corpuscular Volume 80 fl (79-97); Red Blood Count 4.75 M/mm3 (3.65-5.03)
[2020-01-08 17:21] LABS: Hemoglobin 11.6 gm/dl (10.1-14.3); Red Cell Distribution Width 22.1 % (13.2-15.2)
--- NOTE | 2020-01-08 17:22 | Cat Scan Report ---
CT ABDOMEN AND PELVIS WITH CONTRAST INDICATION / CLINICAL INFORMATION: GI bleed. TECHNIQUE: Axial CT images were obtained through the abdomen and pelvis after 100 cc Omnipaque [address] scans at this location are performed using CT dose reduction for ALARA by means of automated exposure control. COMPARISON: CTA abdomen and pelvis from 01/02/2020. FINDINGS: LOWER CHEST: Cardiomegaly has improved. The lung bases are clear. LIVER: No significant abnormality. GALLBLADDER: No significant abnormality. BILE DUCTS: No significant abnormality. PANCREAS: No significant abnormality. SPLEEN: No significant abnormality. ADRENALS: No significant abnormality. RIGHT KIDNEY / URETER: Numerous right renal cysts are noted without an additional significant abnorma lity. LEFT KIDNEY / URETER: No significant abnormality. STOMACH / SMALL BOWEL: No significant abnormality of the stomach. Moderate generalized small bowel di latation has developed in the interval without a distinct transition point. COLON: No significant abnormality. APPENDIX: No significant abnormality. PERITONEUM: Trace amount of free fluid along the pelvis is nonspecific. No free air. No fluid collect ion. LYMPH NODES: No significant adenopathy. AORTA / ARTERIES: No significant abnormality. IVC / VEINS: No significant abnormality. URINARY BLADDER: Partially collapsed without a distinct abnormality. REPRODUCTIVE ORGANS: The uterus is similarly enlarged and contains multiple probable fibroids. No add itional significant abnormality. ADDITIONAL FINDINGS: None. SKELETAL SYSTEM: No acute abnormality or significant change. IMPRESSION: 1. Interval development of a suspected small bowel obstruction without a distinct transition point. 2. Interval improvement of cardiomegaly. 3. Additional findings as above. Signer Name: Bj Hardy MD Signed: 01/08/2020 5:17 PM Workstation Name: [id number]
[2020-01-08 17:33] LABS: Albumin 2.1 g/dL (3.9-5); Calcium 8.1 mg/dL (8.4-10.2)
[2020-01-08] MEDS ORDERED: CALCIUM CHLORIDE 1,000 MG/10 ML SDV IVP ONE (17:39)
[2020-01-08] MEDS ORDERED: INSULIN REGULAR, HUMAN 100 UNIT/ML 3ML VIAL IV ONE (17:39)
[2020-01-08] MEDS ORDERED: DEXTROSE 50% IN WATER (25GM) 50 ML SYRINGE IV ONE (17:39)
[2020-01-08 17:50] LABS: Anisocytosis 1+; Basophils % (Manual) 0 % (0.0-1.8); Eosinophils % (Manual) 0 % (0.0-4.3); Hypochromasia 1+; Platelet Clumps 1+; Total Cells Counted 100
[2020-01-08] MEDS ORDERED: CALCIUM CHLORIDE 1,000 MG in SODIUM CHLORIDE 0.9% 100 ML IV ONE (18:00)
[2020-01-08] MEDS ORDERED: PANTOPRAZOLE 80 MG in SODIUM CHLORIDE 0.9% 100 ML IV SCH (18:00)
[2020-01-08] MEDS ORDERED: PANTOPRAZOLE 40 MG INJ IV ONE (18:01)
[2020-01-08 18:10] LABS: Platelet Count 162 K/mm3 (140-440)
[2020-01-08] MEDS ORDERED: PIPERACIL-TAZO 2.25 GM/50 ML 2.25 GM/50 ML BAG IV ONE (18:44)
--- NOTE | 2020-01-08 18:45 | History and Physical Report ---
History of Present Illness Chief complaint: I started bleeding and my stomach hurts History of present illness: 49 YO Female with CHF,HTN, HLD, OA, Severe Malnutrition, Homelessness, Cocaine Dependence, Nicotine Dependence presents to ED for evaluation. Patient states that she experienced a sudden onset of rectal bleeding that began today around 1300 hrs. Patient also reports generalized abdominal pain. Patient states that pain is 6/10, constant, worsened with movement, and relieved with rest. Patient also acknowledges nausea, and 4 episodes of vomiting. EMS notified and upon arrival the patient was found to be in distress and subsequently transported to [facility] for further care and evaluation of the aforementioned symptoms. Patient seen and evaluated in the emergency department. Lab and imaging studies r devaughnwed. Patient found to have clinical evidence of sepsis, as well as acute kidney injury, and CT scan of the abdomen and pelvis which revealed partial small bowel obstruction, as well as GI bleed. Patient admitted to [facility] and initiated on GI bleed protocol. Surgery team consulted in ED. Patient denies fever, chills, chest pain, palpitation, productive cough, trauma, known ill contacts. All medication listed at time of admission has been reconciled. Past History Past Medical History: arthritis, heart failure, hypertension, hyperlipidemia, other (See HPI) Past Surgical History: , Other (Wrist surgery) Social history: , smoking, other (Cocaine dependence) Family history: diabetes, hypertension Medications and Allergies Allergies Allergy/AdvReac Type Severity Reaction Status Date / Time No Known Allergies Allergy Verified 11/07/19 07:55 Home Medications Medication Instructions Recorded Confirmed Last Taken Type Aspirin [Aspirin BABY CHEW TAB] 81 mg PO QDAY #30 tab.chew 12/07/19 01/03/20 Unknown Rx AtorvaSTATin [Lipitor] 40 mg PO QHS #30 tablet 12/07/19 01/03/20 Unknown Rx Furosemide [Lasix TAB] 40 mg PO DAILY #30 tablet 12/07/19 01/03/20 Unknown Rx Potassium Chloride 10 meq PO DAILY #30 tablet.er 12/07/19 01/03/20 Unknown Rx carvediloL [Coreg] 6.25 mg PO BID #60 tablet 12/07/19 01/03/20 Unknown Rx hydrALAZINE [Apresoline TAB] 25 mg PO Q8HR #90 tablet 12/07/19 01/03/20 Unknown Rx lisinopriL [Zestril TAB] 20 mg PO QDAY #30 tablet 12/07/19 01/03/20 Unknown Rx Active Meds: Active Medications Piperacillin Sod/Tazobactam Sod (Zosyn/Ns 2.25 Gm/50ml) 2.25 gm in 50 mls @ 100 mls/hr IV ONCE ONE; Protocol Stop: 01/08/20 19:13 Review of Systems Constitutional: no weight loss, no weight gain, no fever, no chills Ears, nose, mouth and throat: no ear pain, no ear discharge, no tinnitis, no decreased hearing, no nose pain Breasts: no change in shape, no swelling, no mass Cardiovascular: no chest pain, no orthopnea, no syncope, no lightheadedness Respiratory: no cough, no excessive sputum, no shortness of breath Gastrointestinal: abdominal pain, nausea, vomiting, BRBPR, melena, no hematemesis Genitourinary Female: no pelvic pain, no flank pain, no menorrhagia, no dysuria, no urinary frequency, no urgency (Hospitalist) Rectal: no pain, no incontinence, no bleeding Musculoskeletal: no neck stiffness, no shooting arm pain, no arm numbness/tingling, no low back pain Integumentary: no deferred, no pruritis, no wounds, no boils Neurological: no head injury, no transient paralysis, no paralysis Psychiatric: no anxiety, no memory loss, no sleep disturbances, no insomnia, no change in libido Endocrine: no cold intolerance, no polyphagia, no polyuria, no nocturia Hematologic/Lymphatic: no easy bruising, no easy bleeding, no lymphadenopathy Allergic/Immunologic: no urticaria, no allergic rhinitis, no persistent infect ions Exam - Constitutional Vitals: Temp Pulse Resp BP Pulse Ox 86 18 110/64 95 01/08/20 18:31 01/08/20 18:41 01/08/20 18:41 01/08/20 18:41 General appearance: Present: mild distress, cachectic, disheveled, malodorous - EENT Eyes: Present: PERRL ENT: hearing intact, clear oral mucosa - Neck Neck: Present: supple, normal ROM - Respiratory Respiratory effort: normal Respiratory: bilateral: CTA - Cardiovascular Heart Sounds: Present: S1 & S2. Absent: rub, click - Extremities Extremities: pulses symmetrical, No edema Peripheral Pulses: within normal limits - Abdominal General gastrointestinal: Present: soft, tender, non-distended, normal bowel sounds Female genitourinary: Present: normal - Integumentary Integumentary: Present: clear, warm, dry - Musculoskeletal Musculoskeletal: gait normal, strength equal bilaterally - Psychiatric Psychiatric: appropriate mood/affect, intact judgment & insight - Neurologic Neurologic: CNII-XII intact, moves all extremities Results - Labs CBC & Chem 7: 01/08/20 17:05 01/08/20 17:05 Labs: Abnormal lab results 01/08/20 01/08/20 Range/Units 17:05 17:05 WBC 21.5 H (4.5-11.0) K/mm3 MCH 24 L (28-32) pg RDW 22.1 H (13.2-15.2) % Seg Neuts % (Manual) 83.0 H (40.0-70.0) % Lymphocytes % (Manual) 5.0 L (13.4-35.0) % Monocytes % (Manual) 12.0 H (0.0-7.3) % Seg Neutrophils # Man 17.8 H (1.8-7.7) K/mm3 Lymphocytes # (Manual) 1.1 L (1.2-5.4) K/mm3 Monocytes # (Manual) 2.6 H (0.0-0.8) K/mm3 Sodium 133 L (137-145) mmol/L Potassium 6.0 H D (3.6-5.0) mmol/L Chloride 95.1 L (98-107) mmol/L BUN 46 H (7-17) mg/dL Creatinine 2.9 H D (0.6-1.2) mg/dL Calcium 8.1 L (8.4-10.2) mg/dL AST 159 H (5-40) units/L ALT 147 H (7-56) units/L Total Protein 4.6 L D (6.3-8.2) g/dL Albumin 2.1 L (3.9-5) g/dL Assessment and Plan - Patient Problems (1) Sepsis Current Visit: Yes Status: Acute Plan to address problem: Sepsis protocol: Admit to IMCU, CBC, CMP, chest x-ray, urinalysis, IV antibiotic therapy, monitor urine output every shift, IV fluid resuscitation therapy, maintain mean arterial blood pressure greater than 65. Serial lactic acid levels. (2) Small bowel obstruction Current Visit: Yes Status: Acute Plan to address problem: CT scan abdomen and pelvis, surgery team consulted, serial abdominal exam, s upportive care, bowel rest. (3) GI bleed Current Visit: Yes Status: Acute Qualifiers: GI bleed type/associated pathology: melena Qualified Code(s): K92.1 - Melena Plan to address problem: Bowel rest, IV PPI therapy, serial CBC, stool for occult blood, surgical team consulted. (4) Elevated liver function tests Current Visit: Yes Status: Acute Plan to address problem: Supportive care, IV fluid resuscitation therapy, repeat liver function test in a .m. (5) Hyponatremia Current Visit: Yes Status: Acute Plan to address problem: IV fluid resuscitation therapy, monitor urine output every shift, repeat BMP in a.m. (6) Cocaine abuse Current Visit: No Status: Chronic Plan to address problem: Supportive care, outpatient substance abuse/dependence follow-up. (7) HLD (hyperlipidemia) Current Visit: No Status: Chronic Qualifiers: Hyperlipidemia type: unspecified Qualified Code(s): E78.5 - Hyperlipidemia, unspecified Plan to address problem: Supportive care, statin therapy as clinically indicated, risk factor reduction therapy. (8) Uncontrolled hypertension Current Visit: No Status: Chronic Plan to address problem: Monitor blood pressure every shift, continue medical management. (9) Acute kidney injury (AVE) with acute tubular necrosis (ATN) Current Visit: Yes Status: Acute Plan to address problem: IV fluid resuscitation therapy, monitor urine output every shift, BMP, repeat BMP in a.m. to monitor serum creatinine. (10) DVT prophylaxis Current Visit: No Status: Acute Plan to address problem: SCD to bilateral lower extremities while in bed, hold anticoagulation due to GI bleed.
[2020-01-08] MEDS ORDERED: INSULIN REGULAR, HUMAN 100 UNITS/1 ML ONE (19:00)
[2020-01-08] MEDS ORDERED: WATER FOR INJ Sterile (PF) 10 ML ONE (19:11)
[2020-01-08] MEDS ORDERED: ACETAMINOPHEN 325 MG TAB PO PRN (20:00)
[2020-01-08] MEDS ORDERED: SODIUM CHLORIDE 0.9% 1000 ML IV SOLN IV ONE (20:00)
[2020-01-08] MEDS ORDERED: SODIUM CHLORIDE 0.9% 1000 ML 2,000 ML ONE (20:27)
[2020-01-08] MEDS ORDERED: LIDOCAINE VISCOUS 2% 15 ML ORAL LIQD ONE (20:55)
[2020-01-08] MEDS ORDERED: HYDROmorphone 1 MG/1 ML INJ ONE ×2 (21:32→23:55)
[2020-01-08] MEDS: HYDROmorphone 1 MG/1 ML INJ IV PRN (21:34)
[2020-01-08] MEDS ORDERED: CEFEPIME/NS 2 GM/100 ML 2 GM/100 ML BAG IV SCH (22:00)
[2020-01-08] MEDS ORDERED: CEFEPIME/NS 1 GM/100 ML 1 GM/100 ML BAG IV SCH (22:00)
[2020-01-08] MEDS: hydrALAZINE 25 MG TAB PO SCH (22:37)
[2020-01-08] MEDS: carvediloL 6.25 MG TAB PO SCH (22:38)
[2020-01-08] MEDS ORDERED: CEFEPIME/NS 1 GM/100 ML 1 GM/100 ML BAG IV ONE (22:41)
[2020-01-08] MEDS ORDERED: SODIUM CHLORIDE 0.9% 1000 ML 1,000 ML ONE (22:41)
[2020-01-08] MEDS: PANTOPRAZOLE 40 MG INJ IV SCH (23:02)
[2020-01-08] MEDS ORDERED: SODIUM CHLORIDE 0.9% 250ML 250 ML ONE (23:52)
[2020-01-08] MEDS ORDERED: ONDANSETRON 4 MG/2 ML INJ ONE (23:55)
[2020-01-08] MEDS ORDERED: NORepinephrine/NS 4 MG-250 ML 4 MG/250 ML BAG IV ONE (23:56)
[2020-01-09] MEDS: NORepinephrine/NS 4 MG-250 ML 4 MG/250 ML BAG IV SCH ×5 (00:10→18:33)
[2020-01-09] MEDS: HYDROmorphone 1 MG/1 ML INJ IV PRN ×7 (00:32→21:08)
--- NOTE | 2020-01-09 00:36 | XRay Report ---
ABDOMEN 2 VIEWS INDICATION / CLINICAL INFORMATION: Abdominal pain. COMPARISON: None available. FINDINGS: Multiple dilated loops of small bowel are seen with air-fluid levels. Very little air is seen in the colon. These findings could represent at least early partial small bowel obstruction. Signer Name: Chance Bangura MD FACRicky Signed: 01/09/2020 12:32 AM Workstation Name: [id number]
--- NOTE | 2020-01-09 01:46 | XRay Report ---
CHEST 1 VIEW INDICATION / CLINICAL INFORMATION: cvl placement. COMPARISON: 12/05/2019 FINDINGS: SUPPORT DEVICES: Right central venous line HEART / MEDIASTINUM: No significant abnormality. LUNGS / PLEURA: No significant pulmonary or pleural abnormality. No pneumothorax. ADDITIONAL FINDINGS: No significant additional findings. IMPRESSION: Right central venous line has been placed with the tip superimposed over the expected position of the atriocaval junction. No evidence of a right-sided pneumothorax Signer Name: Chance Bangura MD FACR Signed: 01/09/2020 1:42 AM Workstation Name: [id number]
[2020-01-09] MEDS ORDERED: NORepinephrine/NS 4 MG-250 ML 4 MG/250 ML BAG IV ONE ×3 (05:23→15:06)
[2020-01-09] MEDS: hydrALAZINE 25 MG TAB PO SCH ×3 (05:55→21:50)
[2020-01-09] MEDS ORDERED: FUROSEMIDE 40 MG TAB PO SCH (06:00)
[2020-01-09] MEDS ORDERED: HYDROmorphone 1 MG/1 ML INJ ONE ×4 (06:19→15:51)
[2020-01-09] MEDS ORDERED: ASPIRIN 81 MG TAB CHEW PO SCH (10:00)
[2020-01-09] MEDS ORDERED: NON-FORMULARY EACH (Potassium Chloride [Potassium Chloride] 10 MEQ) PO SCH (10:00)
[2020-01-09] MEDS ORDERED: PANTOPRAZOLE 40 MG INJ IV ONE (10:24)
[2020-01-09] MEDS: carvediloL 6.25 MG TAB PO SCH ×2 (10:25→21:50)
[2020-01-09] MEDS: PANTOPRAZOLE 40 MG INJ IV SCH ×2 (10:25→22:17)
[2020-01-09] MEDS ORDERED: WATER FOR INJ Sterile (PF) 10 ML ONE (10:25)
[2020-01-09] MEDS: LISINOPRIL 20 MG TAB PO SCH (10:27)
[2020-01-09] MEDS ORDERED: SODIUM CHLORIDE 0.9% 1000 ML 1,000 ML IV SCH (11:45)
--- NOTE | 2020-01-09 13:08 | Consultation ---
History of Present Illness Consult date: 01/09/20 Reason for consult: abdominal pain Requesting physician: HAYDEE OMER III Chief complaint: blood per rectum and abdominal pain - History of present illness History of present illness: 49 YO Female with CHF,HTN, HLD, OA, Severe Malnutrition, Homelessness, Cocaine Dependence, Nicotine Dependence presents to ED for evaluation. Patient states that she experienced a sudden onset of rectal bleeding that began yesterday around 1300 hrs. Patient also reports generalized abdominal pain. Patient states that pain is 6/10, constant, worsened with movement, and relieved with re st. Patient also acknowledges nausea, and 4 episodes of vomiting. EMS notified and upon arrival the patient was found to be in distress and subsequently transported to [facility] for further care and evaluation of the aforementioned symptoms. CT scan showed signs suggestive of partial small bowel obstruction. General surgery was consulted. Most of the history was obtained from the chart. History was difficult to obtain from the patient as she spoke very little. She does indicate that her pain is better today. She does not feel nauseous. She would like something to drink. She has not been passing any flatus. She does feel bloated. The nurse reports that there is only been spots of blood from the rectum on the bed sheet. She has not had anything like this before. Past History Past Medical History: arthritis, heart failure, hypertension, hyperlipidemia, other (See HPI) Past Surgical History: , Other (Wrist surgery) Social history: , smoking, other (Cocaine dependence) Family history: diabetes, hypertension Medications and Allergies Allergies Allergy/AdvReac Type Severity Reaction Status Date / Time No Known Allergies Allergy Verified 11/07/19 07:55 Home Medications Medication Instructions Recorded Confirmed Last Taken Type Aspirin [Aspirin BABY CHEW TAB] 81 mg PO QDAY #30 tab.chew 12/07/19 01/09/20 Unknown Rx AtorvaSTATin [Lipitor] 40 mg PO QHS #30 tablet 12/07/19 01/09/20 Unknown Rx Furosemide [Lasix TAB] 40 mg PO DAILY #30 tablet 12/07/19 01/09/20 Unknown Rx Potassium Chloride 10 meq PO DAILY #30 tablet.er 12/07/19 01/09/20 Unknown Rx carvediloL [Coreg] 6.25 mg PO BID #60 tablet 12/07/19 01/09/20 Unknown Rx hydrALAZINE [Apresoline TAB] 25 mg PO Q8HR #90 tablet 12/07/19 01/09/20 Unknown Rx lisinopriL [Zestril TAB] 20 mg PO QDAY #30 tablet 12/07/19 01/09/20 Unknown Rx Active Meds: Active Medications Acetaminophen (Tylenol) 650 mg PO Q4H PRN PRN Reason: Pain MILD(1-3)/Fever >100.5/LOPEZ Aspirin (Baby Aspirin) 81 mg PO QDAY [facility] Atorvastatin Calcium (Lipitor) 40 mg PO QHS [facility] Last Admin: 01/08/20 22:38 Dose: Not Given Documented by: Carvedilol (Coreg) 6.25 mg PO BID [facility] Last Admin: 01/09/20 10:25 Dose: Not Given Documented by: Furosemide (Lasix) 40 mg PO DAILY@0600 [facility] Last Admin: 01/09/20 05:55 Dose: Not Given Documented by: Hydralazine HCl (Apresoline) 25 mg PO Q8HR [facility] Last Admin: 01/09/20 05:55 Dose: Not Given Documented by: Hydromorphone HCl (Dilaudid) 1 mg IV Q2H PRN PRN Reason: Pain , Severe (7-10) Last Admin: 01/09/20 11:10 Dose: 1 mg Documented by: Norepinephrine (Levophed Drip 4 Mg/Ns 250 Ml) 4 mg in 250 mls @ 7.5 mls/hr IV TITR [facility]; Protocol Last Titration: 01/09/20 12:40 Dose: 14 mcg/min, 52.5 mls/hr Documented by: Cefepime HCl (Cefepime/Ns 1 Gm/100 Ml) 1 gm in 100 mls @ 200 mls/hr IV Q24H [facility] Sodium Chloride (Nacl 0.9% 1000 Ml) 1,000 mls @ 0 mls/hr IV ONCE [facility] Stop: 01/10/20 11:46 Sodium Chloride (Nacl 0.9% 1000 Ml) 1,000 mls @ 150 mls/hr IV DIRECT TRI Lisinopril (Zestril) 20 mg PO QDAY [facility] Last Admin: 01/09/20 10:27 Dose: Not Given Documented by: Ondansetron HCl (Zofran) 4 mg IV Q8H PRN PRN Reason: Nausea And Vomiting Pantoprazole Sodium (Protonix) 40 mg IV BID [facility] Last Admin: 01/09/20 10:25 Dose: 40 mg Documented by: Sodium Chloride (Sodium Chloride Flush Syringe 10 Ml) 10 ml IV BID TRI Last Admin: 01/09/20 10:26 Dose: 10 ml Documented by: Sodium Chloride (Sodium Chloride Flush Syringe 10 Ml) 10 ml IV PRN PRN PRN Reason: LINE FLUSH Review of Systems - Constitutional weakness, no fever, no chills - Cardiovascular no chest pain, no shortness of breath - Respiratory no cough - Gastrointestinal abdominal pain, nausea, vomiting, BRBPR, dyspepsia/bloating - Muskuloskeletal no low back pain - Integumentary no sores, no wounds Exam Vital Signs Resp Pulse Ox 31 H 100 01/08/20 16:17 01/08/20 16:17 - General physical appearance Positive: no distress, no pain, other (Thin, poorly kept woman. Pleasant. Difficult to understand her speech. Only says a few words at a time.). Negative: well nourished - Eyes Positive: normal occular movement - Respiratory Positive: normal expansion, normal respiratory effort - Cardiovascular Rhythm: regular - Abdomen Abdomen: Present: soft, tender (mild), bowel sounds hypoactive, distended, surgical scars (well healed lower midline incision). Absent: guarding, rigid, wound - Integumentary no rash, no growths, no abnormal pigmentation - Neurologic Neurologic: alert and oriented to time, place and person - Psychiatric Psychiatric: cooperative, depressed Results - Labs 01/08/20 17:05 01/08/20 17:05 Abnormal lab results 01/08/20 01/08/20 01/08/20 Range/Units 17:05 17:05 20:10 WBC 21.5 H (4.5-11.0) K/mm3 MCH 24 L (28-32) pg RDW 22.1 H (13.2-15.2) % Seg Neuts % (Manual) 83.0 H (40.0-70.0) % Lymphocytes % (Manual) 5.0 L (13.4-35.0) % Monocytes % (Manual) 12.0 H (0.0-7.3) % Seg Neutrophils # Man 17.8 H (1.8-7.7) K/mm3 Lymphocytes # (Manual) 1.1 L (1.2-5.4) K/mm3 Monocytes # (Manual) 2.6 H (0.0-0.8) K/mm3 Sodium 133 L (137-145) mmol/L Potassium 6.0 H D (3.6-5.0) mmol/L Chloride 95.1 L (98-107) mmol/L BUN 46 H (7-17) mg/dL Creatinine 2.9 H D (0.6-1.2) mg/dL Lactic Acid 2.20 H* (0.7-2.0) mmol/L Calcium 8.1 L (8.4-10.2) mg/dL AST 159 H (5-40) units/L ALT 147 H (7-56) units/L Total Protein 4.6 L D (6.3-8.2) g/dL Albumin 2.1 L (3.9-5) g/dL Diabetes panel 01/08/20 Range/Units 17:05 Sodium 133 L (137-145) mmol/L Potassium 6.0 H D (3.6-5.0) mmol/L Chloride 95.1 L (98-107) mmol/L Carbon Dioxide 22 (22-30) mmol/L BUN 46 H (7-17) mg/dL Creatinine 2.9 H D (0.6-1.2) mg/dL Glucose 98 (65-100) mg/dL Calcium 8.1 L (8.4-10.2) mg/dL AST 159 H (5-40) units/L ALT 147 H (7-56) units/L Alkaline Phosphatase 91 (35-129) units/L Total Protein 4.6 L D (6.3-8.2) g/dL Albumin 2.1 L (3.9-5) g/dL Calcium panel 01/08/20 Range/Units 17:05 Calcium 8.1 L (8.4-10.2) mg/dL Albumin 2.1 L (3.9-5) g/dL Pituitary panel 01/08/20 Range/Units 17:05 Sodium 133 L (137-145) mmol/L Potassium 6.0 H D (3.6-5.0) mmol/L Chloride 95.1 L (98-107) mmol/L Carbon Dioxide 22 (22-30) mmol/L BUN 46 H (7-17) mg/dL Creatinine 2.9 H D (0.6-1.2) mg/dL Glucose 98 (65-100) mg/dL Calcium 8.1 L (8.4-10.2) mg/dL Adrenal panel 01/08/20 Range/Units 17:05 Sodium 133 L (137-145) mmol/L Potassium 6.0 H D (3.6-5.0) mmol/L Chloride 95.1 L (98-107) mmol/L Carbon Dioxide 22 (22-30) mmol/L BUN 46 H (7-17) mg/dL Creatinine 2.9 H D (0.6-1.2) mg/dL Glucose 98 (65-100) mg/dL Calcium 8.1 L (8.4-10.2) mg/dL Total Bilirubin 0.70 (0.1-1.2) mg/dL AST 159 H (5-40) units/L ALT 147 H (7-56) units/L Alkaline Phosphatase 91 (35-129) units/L Total Protein 4.6 L D (6.3-8.2) g/dL Albumin 2.1 L (3.9-5) g/dL - Imaging Abdominal x-ray: report reviewed, image reviewed CT scan - abdomen: report reviewed, image reviewed CT scan - pelvis: report reviewed, image reviewed Assessment and Plan - Patient Problems (1) Small bowel obstruction Current Visit: Yes Status: Acute Plan to address problem: Patient not very symptomatic at this time. There is no NG tube present at this time. We will keep n.p.o. and allow ice chips sparingly. Would manage conservatively as we did not see a clear-cut transition point on CT scan. If the nausea or vomiting recurs, would place an NG tube. Needs an aggressive resuscitation. GI bleed to be evaluated and managed by gastroenterology. We will follow along. Please call with any questions. Time=30min
--- NOTE | 2020-01-09 13:27 | Progress Note ---
Assessment and Plan - Patient Problems (1) Sepsis Current Visit: Yes Status: Acute Plan to address problem: Sepsis protocol: Admit to IMCU, CBC, CMP, chest x-ray, urinalysis, IV antibiotic therapy, monitor urine output every shift, IV fluid resuscitation therapy, maintain mean arterial blood pressure greater than 65. Serial lactic acid levels. (2) Small bowel obstruction Current Visit: Yes Status: Acute Plan to address problem: CT scan abdomen and pelvis, surgery team consulted, serial abdominal exam, supportive care, bowel rest. (3) GI bleed Current Visit: Yes Status: Acute Qualifiers: GI bleed type/associated pathology: melena Qualified Code(s): K92.1 - Melena Plan to address problem: Bowel rest, IV PPI therapy, serial CBC, stool for occult blood, surgical team consulted. (4) Elevated liver function tests Current Visit: Yes Status: Acute Plan to address problem: Supportive care, IV fluid resuscitation therapy, repeat liver function test in a.m. (5) Hyponatremia Current Visit: Yes Status: Acute Plan to address problem: IV fluid resuscitation therapy, monitor urine output every shift, repeat BMP in a.m. (6) Cocaine abuse Current Visit: No Status: Chronic Plan to address problem: Supportive care, outpatient substance abuse/dependence follow-up. (7) HLD (hyperlipidemia) Current Visit: No Status: Chronic Qualifiers: Hyperlipidemia type: unspecified Qualified Code(s): E78.5 - Hyperlipidemia, unspecified Plan to address problem: Supportive care, statin therapy as clinically indicated, risk factor reduction therapy. (8) Uncontrolled hypertension Current Visit: No Status: Chronic Plan to address problem: Monitor blood pressure every shift, continue medical management. (9) Acute kidney injury (AVE) with acute tubular necrosis (ATN) Current Visit: Yes Status: Acute Plan to address problem: IV fluid resuscitation therapy, monitor urine output every shift, BMP, repeat BMP in a.m. to monitor serum creatinine. (10) DVT prophylaxis Current Visit: No Status: Acute Plan to address problem: SCD to bilateral lower extremities while in bed, hold anticoagulation due to GI bleed. History Interval history: 49 YO Female with HD #2 with Sepsis currently on pressor support, GI Bleed,SBO, AVE, Severe Malnutrition, Homelessness, Cocaine Dependence, Nicotine Dependence. Pt lying in bed, No reported nursing events. No significant improvement overnight. Hospitalist Physical - Constitutional Vitals: Temp Pulse Resp BP Pulse Ox 84 18 104/60 97 01/09/20 13:02 01/09/20 13:02 01/09/20 13:02 01/09/20 13:02 General appearance: Present: mild distress, cachectic, disheveled, malodorous - EENT Eyes: Present: PERRL, EOM intact - Neck Neck: Present: supple - Respiratory Respiratory: bilateral: CTA - Cardiovascular Rhythm: regular Heart Sounds: Present: S1 & S2 - Extremities Extremities: no ischemia Peripheral Pulses: abnormal (capillary refill greater than 3.5 seconds) - Abdominal General gastrointestinal: soft, non-tender, non-distended, normal bowel sounds - Integumentary Integumentary: Present: clear, dry - Psychiatric Psychiatric: cooperative - Neurologic Neurologic: CNII-XII intact Results - Labs CBC & Chem 7: 01/08/20 17:05 01/08/20 17:05 Labs: Laboratory Last Values WBC 21.5 K/mm3 (4.5-11.0) H 01/08/20 17:05 RBC 4.75 M/mm3 (3.65-5.03) 01/08/20 17:05 Hgb 11.6 gm/dl (10.1-14.3) 01/08/20 17:05 Hct 38.0 % (30.3-42.9) 01/08/20 17:05 MCV 80 fl (79-97) 01/08/20 17:05 MCH 24 pg (28-32) L 01/08/20 17:05 MCHC 31 % (30-34) 01/08/20 17:05 RDW 22.1 % (13.2-15.2) H 01/08/20 17:05 Plt Count 162 K/mm3 (140-440) 01/08/20 17:05 Add Manual Diff Complete 01/08/20 17:05 Total Counted 100 01/08/20 17:05 Seg Neuts % (Manual) 83.0 % (40.0-70.0) H 01/08/20 17:05 Band Neutrophils % 0 % 01/08/20 17:05 Lymphocytes % (Manual) 5.0 % (13.4-35.0) L 01/08/20 17:05 Reactive Lymphs % (Man) 0 % 01/08/20 17:05 Monocytes % (Manual) 12.0 % (0.0-7.3) H 01/08/20 17:05 Eosinophils % (Manual) 0 % (0.0-4.3) 01/08/20 17:05 Basophils % (Manual) 0 % (0.0-1.8) 01/08/20 17:05 Metamyelocytes % 0 % 01/08/20 17:05 Myelocytes % 0 % 01/08/20 17:05 Promyelocytes % 0 % 01/08/20 17:05 Blast Cells % 0 % 01/08/20 17:05 Nucleated RBC % Not Reportable 01/08/20 17:05 Seg Neutrophils # Man 17.8 K/mm3 (1.8-7.7) H 01/08/20 17:05 Band Neutrophils # 0.0 K/mm3 01/08/20 17:05 Lymphocytes # (Manual) 1.1 K/mm3 (1.2-5.4) L 01/08/20 17:05 Abs React Lymphs (Man) 0.0 K/mm3 01/08/20 17:05 Monocytes # (Manual) 2.6 K/mm3 (0.0-0.8) H 01/08/20 17:05 Eosinophils # (Manual) 0.0 K/mm3 (0.0-0.4) 01/08/20 17:05 Basophils # (Manual) 0.0 K/mm3 (0.0-0.1) 01/08/20 17:05 Metamyelocytes # 0.0 K/mm3 01/08/20 17:05 Myelocytes # 0.0 K/mm3 01/08/20 17:05 Promyelocytes # 0.0 K/mm3 01/08/20 17:05 Blast Cells # 0.0 K/mm3 01/08/20 17:05 WBC Morphology Not Reportable 01/08/20 17:05 Hypersegmented Neuts Not Reportable 01/08/20 17:05 Hyposegmented Neuts Not Reportable 01/08/20 17:05 Hypogranular Neuts Not Reportable 01/08/20 17:05 Smudge Cells Not Reportable 01/08/20 17:05 Toxic Granulation Not Reportable 01/08/20 17:05 Toxic Vacuolation Not Reportable 01/08/20 17:05 Dohle Bodies Not Reportable 01/08/20 17:05 Pelger-Huet Anomaly Not Reportable 01/08/20 17:05 Ramses Rods Not Reportable 01/08/20 17:05 Platelet Estimate Not Reportable 01/08/20 17:05 Clumped Platelets 1+ 01/08/20 17:05 Plt Clumps, EDTA Not Reportable 01/08/20 17:05 Large Platelets Not Reportable 01/08/20 17:05 Giant Platelets Not Reportable 01/08/20 17:05 Platelet Satelliting Not Reportable 01/08/20 17:05 Plt Morphology Comment Not Reportable 01/08/20 17:05 RBC Morphology Not Reportable 01/08/20 17:05 Dimorphic RBCs Not Reportable 01/08/20 17:05 Polychromasia Not Reportable 01/08/20 17:05 Hypochromasia 1+ 01/08/20 17:05 Poikilocytosis Not Reportable 01/08/20 17:05 Anisocytosis 1+ 01/08/20 17:05 Microcytosis Few 01/08/20 17:05 Macrocytosis Not Reportable 01/08/20 17:05 Spherocytes Not Reportable 01/08/20 17:05 Pappenheimer Bodies Not Reportable 01/08/20 17:05 Sickle Cells Not Reportable 01/08/20 17:05 Target Cells Not Reportable 01/08/20 17:05 Tear Drop Cells Not Reportable 01/08/20 17:05 Ovalocytes Not Reportable 01/08/20 17:05 Helmet Cells Not Reportable 01/08/20 17:05 Plata-Stanchfield Bodies Not Reportable 01/08/20 17:05 [place] Rings Not Reportable 01/08/20 17:05 [place] Cells Not Reportable 01/08/20 17:05 Bite Cells Not Reportable 01/08/20 17:05 Crenated Cell Not Reportable 01/08/20 17:05 Elliptocytes Not Reportable 01/08/20 17:05 Acanthocytes (Spur) Not Reportable 01/08/20 17:05 Rouleaux Not Reportable 01/08/20 17:05 Hemoglobin C Crystals Not Reportable 01/08/20 17:05 Schistocytes Not Reportable 01/08/20 17:05 Malaria parasites Not Reportable 01/08/20 17:05 Laith Bodies Not Reportable 01/08/20 17:05 Hem Pathologist Commnt No 01/08/20 17:05 Sodium 133 mmol/L (137-145) L 01/08/20 17:05 Potassium 6.0 mmol/L (3.6-5.0) H D 01/08/20 17:05 Chloride 95.1 mmol/L (98-107) L 01/08/20 17:05 Carbon Dioxide 22 mmol/L (22-30) 01/08/20 17:05 Anion Gap 22 mmol/L 01/08/20 17:05 BUN 46 mg/dL (7-17) H 01/08/20 17:05 Creatinine 2.9 mg/dL (0.6-1.2) H D 01/08/20 17:05 Estimated GFR 21 ml/min 01/08/20 17:05 BUN/Creatinine Ratio 16 % 01/08/20 17:05 Glucose 98 mg/dL (65-100) 01/08/20 17:05 Lactic Acid 1.00 mmol/L (0.7-2.0) 01/09/20 05:30 Calcium 8.1 mg/dL (8.4-10.2) L 01/08/20 17:05 Total Bilirubin 0.70 mg/dL (0.1-1.2) 01/08/20 17:05 AST 159 units/L (5-40) H 01/08/20 17:05 ALT 147 units/L (7-56) H 01/08/20 17:05 Alkaline Phosphatase 91 units/L (35-129) 01/08/20 17:05 Total Protein 4.6 g/dL (6.3-8.2) L D 01/08/20 17:05 Albumin 2.1 g/dL (3.9-5) L 01/08/20 17:05 Albumin/Globulin Ratio 0.8 % 01/08/20 17:05 Microbiology: Microbiology 01/08/20 20:24 Peripheral/Venous Blood Culture - Preliminary Culture in Progress 01/08/20 20:10 Peripheral/Venous Blood Culture - Preliminary Culture in Progress Active Medications - Current Medications Current Medications: Generic Name Dose Route Start Last Admin Trade Name Freq PRN Reason Stop Dose Admin Acetaminophen 650 mg 01/08/20 20:00 Tylenol PO Q4H PRN Pain MILD(1-3)/Fever >100.5/LOPEZ Aspirin 81 mg 01/09/20 10:00 Baby Aspirin PO QDAY [facility] Atorvastatin Calcium 40 mg 01/08/20 22:00 01/08/20 22:38 Lipitor PO Not Given QHS [facility] Carvedilol 6.25 mg 01/08/20 22:00 01/09/20 10:25 Coreg PO Not Given BID [facility] Furosemide 40 mg 01/09/20 06:00 01/09/20 05:55 Lasix PO Not Given DAILY@0600 [facility] Hydralazine HCl 25 mg 01/08/20 22:00 01/09/20 05:55 Apresoline PO Not Given Q8HR [facility] Hydromorphone HCl 1 mg 01/08/20 21:26 01/09/20 11:10 Dilaudid IV 1 mg Q2H PRN Administration Pain , Severe (7-10) Norepinephrine 4 mg in 250 mls @ 7.5 mls/hr 01/08/20 23:45 01/09/20 12:40 Levophed Drip 4 Mg/Ns 250 Ml IV 14 mcg/min TITR TRI 52.5 mls/hr Titration Protocol 2 MCG/MIN Cefepime HCl 1 gm in 100 mls @ 200 mls/hr 01/09/20 22:00 Cefepime/Ns 1 Gm/100 Ml IV Q24H [facility] Sodium Chloride 1,000 mls @ 0 mls/hr 01/09/20 11:45 Nacl 0.9% 1000 Ml IV 01/10/20 11:46 ONCE [facility] As Directed Sodium Chloride 1,000 mls @ 150 mls/hr 01/09/20 11:45 Nacl 0.9% 1000 Ml IV DIRECT [facility] Lisinopril 20 mg 01/09/20 10:00 01/09/20 10:27 Zestril PO Not Given QDAY [facility] Ondansetron HCl 4 mg 01/08/20 20:00 Zofran IV Q8H PRN Nausea And Vomiting Pantoprazole Sodium 40 mg 01/08/20 22:00 01/09/20 10:25 Protonix IV 40 mg BID TRI Administration Sodium Chloride 10 ml 01/08/20 22:00 01/09/20 10:26 Sodium Chloride Flush Syringe 10 Ml IV 10 ml BID [facility] Administration Sodium Chloride 10 ml 01/08/20 20:00 Sodium Chloride Flush Syringe 10 Ml IV PRN PRN LINE FLUSH
--- NOTE | 2020-01-09 15:36 | Event Note ---
Date: 01/09/[address] Celeste. Discussed with him. Please call if needed.
[2020-01-09 16:23] LABS: Amphetamine Screen,Urine PRESUMPTIVE NEGATIVE; Benzodiazepines Screen,Urine PRESUMPTIVE NEGATIVE; Cannabinoid Screen,Urine PRESUMPTIVE NEGATIVE; Cocaine Screen,Urine PRESUMPTIVE POSITIVE; Methadone Screen,Urine PRESUMPTIVE NEGATIVE; Opiate Screen,Urine PRESUMPTIVE NEGATIVE
[2020-01-09 16:35] LABS: Bilirubin,Urine NEG (Negative); Blood,Urine NEG (Negative); Color,Urine Amber (Yellow); Granular Casts,Urine 7 /LPF; Mucus,Urine FEW /HPF; Urobilinogen,Urine < 2.0 mg/dL (<2.0)
[2020-01-09 18:14] LABS: Mean Corpuscular HGB Conc 30 % (30-34); Mean Corpuscular Volume 78 fl (79-97); Platelet Count 205 K/mm3 (140-440); Red Blood Count 5.32 M/mm3 (3.65-5.03)
[2020-01-09 18:15] LABS: Hematocrit 41.7 % (30.3-42.9); Hemoglobin 12.6 gm/dl (10.1-14.3)
[2020-01-09] MEDS: ONDANSETRON 4 MG/2 ML INJ IV PRN ×2 (18:30→21:10)
[2020-01-09 18:39] LABS: BUN/Creatinine Ratio 21
[2020-01-09 18:46] LABS: Alanine Aminotransferase 145 units/L (7-56); Albumin 2.2 g/dL (3.9-5); Blood Urea Nitrogen 59 mg/dL (7-17); Calcium 8.3 mg/dL (8.4-10.2)
[2020-01-09 18:51] LABS: Band Neutrophils # (Manual) 0.6 K/mm3; Basophils % (Manual) 0 % (0.0-1.8); Eosinophils % (Manual) 0 % (0.0-4.3); Total Cells Counted 100
[2020-01-09 18:52] LABS: Anisocytosis 1+; Burr Cells 2+; Hypochromasia 1+; Platelet Estimate Consistent w Auto; Poikilocytosis 2+; Toxic Vacuolation 1+
--- NOTE | 2020-01-09 22:10 | XRay Report ---
ABDOMEN 1 VIEW(S) INDICATION / CLINICAL INFORMATION: NGT PLACEMWNT. COMPARISON: None available. FINDINGS: TUBES / LINES: NG tube in satisfactory position. BOWEL GAS PATTERN: Persistent bowel distention typical of small bowel obstruction. ADDITIONAL FINDINGS: No significant additional findings. Signer Name: Douglas Casiano MD Signed: 01/09/2020 10:05 PM Workstation Name: [id number]
[2020-01-09] MEDS: CEFEPIME/NS 1 GM/100 ML 1 GM/100 ML BAG IV SCH (22:18)
[2020-01-09] MEDS: SODIUM CHLORIDE 0.9% 1000 ML 1,000 ML IV SCH (22:19)
[2020-01-10] MEDS: NORepinephrine/NS 4 MG-250 ML 4 MG/250 ML BAG IV SCH ×2 (00:57→19:10)
[2020-01-10] MEDS: HYDROmorphone 1 MG/1 ML INJ IV PRN ×6 (03:52→22:54)
[2020-01-10] MEDS: ONDANSETRON 4 MG/2 ML INJ IV PRN ×3 (03:52→19:53)
[2020-01-10] MEDS: SODIUM CHLORIDE 0.9% 1000 ML 1,000 ML IV SCH ×3 (05:00→19:10)
[2020-01-10] MEDS: FUROSEMIDE 40 MG/4 ML INJ IV SCH (05:30)
[2020-01-10] MEDS: hydrALAZINE 25 MG TAB PO SCH ×3 (05:31→21:43)
[2020-01-10] MEDS: PANTOPRAZOLE 40 MG INJ IV SCH ×2 (09:14→21:42)
[2020-01-10] MEDS: LISINOPRIL 20 MG TAB PO SCH (09:14)
[2020-01-10] MEDS: carvediloL 6.25 MG TAB PO SCH ×2 (09:14→21:43)
[2020-01-10 11:14] LABS: Calcium 8.9 mg/dL (8.4-10.2)
--- NOTE | 2020-01-10 13:37 | Consultation ---
History of Present Illness Consult date: 01/10/20 Requesting physician: VERONA SMALLWOOD Reason for consult: other (Small Bowel Obstruction; Sepsis) History of present illness: PULMONARY/CCM CONSULT NOTE (Full dictation # [id number]) Please see dictated notes for full details Past History Past Medical History: arthritis, heart failure, hypertension, hyperlipidemia, other (See HPI) Past Surgical History: , Other (Wrist surgery) Social history: , smoking, other (Cocaine dependence) Family history: diabetes, hypertension Medications and Allergies Allergies Allergy/AdvReac Type Severity Reaction Status Date / Time No Known Allergies Allergy Verified 11/07/19 07:55 Home Medications Medication Instructions Recorded Confirmed Last Taken Type Aspirin [Aspirin BABY CHEW TAB] 81 mg PO QDAY #30 tab.chew 12/07/19 01/09/20 Unknown Rx AtorvaSTATin [Lipitor] 40 mg PO QHS #30 tablet 12/07/19 01/09/20 Unknown Rx Furosemide [Lasix TAB] 40 mg PO DAILY #30 tablet 12/07/19 01/09/20 Unknown Rx Potassium Chloride 10 meq PO DAILY #30 tablet.er 12/07/19 01/09/20 Unknown Rx carvediloL [Coreg] 6.25 mg PO BID #60 tablet 12/07/19 01/09/20 Unknown Rx hydrALAZINE [Apresoline TAB] 25 mg PO Q8HR #90 tablet 12/07/19 01/09/20 Unknown Rx lisinopriL [Zestril TAB] 20 mg PO QDAY #30 tablet 12/07/19 01/09/20 Unknown Rx Active Meds: Active Medications Acetaminophen (Tylenol) 650 mg PO Q4H PRN PRN Reason: Pain MILD(1-3)/Fever >100.5/LOPEZ Aspirin (Baby Aspirin) 81 mg PO QDAY [facility] Atorvastatin Calcium (Lipitor) 40 mg PO QHS [facility] Last Admin: 01/09/20 21:50 Dose: Not Given Documented by: Carvedilol (Coreg) 6.25 mg PO BID [facility] Last Admin: 01/10/20 09:14 Dose: Not Given Documented by: Furosemide (Lasix) 40 mg IV QDAY@0600 [facility] Last Admin: 01/10/20 05:30 Dose: 40 mg Documented by: Hydralazine HCl (Apresoline) 25 mg PO Q8HR [facility] Last Admin: 01/10/20 13:17 Dose: Not Given Documented by: Hydromorphone HCl (Dilaudid) 1 mg IV Q2H PRN PRN Reason: Pain , Severe (7-10) Last Admin: 01/10/20 09:13 Dose: 1 mg Documented by: Norepinephrine (Levophed Drip 4 Mg/Ns 250 Ml) 4 mg in 250 mls @ 7.5 mls/hr IV TITR [facility]; Protocol Last Titration: 01/10/20 09:39 Dose: 2 mcg/min, 7.5 mls/hr Documented by: Cefepime HCl (Cefepime/Ns 1 Gm/100 Ml) 1 gm in 100 mls @ 200 mls/hr IV Q24H [facility] Last Admin: 01/09/20 22:18 Dose: 200 mls/hr Documented by: Sodium Chloride (Nacl 0.9% 1000 Ml) 1,000 mls @ 150 mls/hr IV DIRECT [facility] Last Admin: 01/10/20 11:48 Dose: 150 mls/hr Documented by: Lisinopril (Zestril) 20 mg PO QDAY [facility] Last Admin: 01/10/20 09:14 Dose: Not Given Documented by: Ondansetron HCl (Zofran) 4 mg IV Q8H PRN PRN Reason: Nausea And Vomiting Last Admin: 01/10/20 06:13 Dose: 4 mg Documented by: Pantoprazole Sodium (Protonix) 40 mg IV BID [facility] Last Admin: 01/10/20 09:14 Dose: 40 mg Documented by: Sodium Chloride (Sodium Chloride Flush Syringe 10 Ml) 10 ml IV BID [facility] Last Admin: 01/10/20 09:14 Dose: 10 ml Documented by: Sodium Chloride (Sodium Chloride Flush Syringe 10 Ml) 10 ml IV PRN PRN PRN Reason: LINE FLUSH Physical Examination Vital signs: Vital Signs Resp Pulse Ox 31 H 100 01/08/20 16:17 01/08/20 16:17 Results - Laboratory Findings CBC and BMP: 01/09/20 16:59 01/10/20 10:26 Abnormal lab findings: Abnormal Labs 01/08/20 01/08/20 01/08/20 17:05 17:05 20:10 WBC 21.5 H RBC MCV MCH 24 L RDW 22.1 H Seg Neuts % (Manual) 83.0 H Lymphocytes % (Manual) 5.0 L Monocytes % (Manual) 12.0 H Seg Neutrophils # Man 17.8 H Lymphocytes # (Manual) 1.1 L Monocytes # (Manual) 2.6 H Sodium 133 L Potassium 6.0 H D Chloride 95.1 L Carbon Dioxide BUN 46 H Creatinine 2.9 H D Lactic Acid 2.20 H* Calcium 8.1 L AST 159 H ALT 147 H Alkaline Phosphatase Total Protein 4.6 L D Albumin 2.1 L Ur Specific [place] 01/09/20 01/09/20 01/09/20 15:30 16:59 16:59 WBC 28.5 H RBC 5.32 H MCV 78 L MCH 24 L RDW 22.0 H Seg Neuts % (Manual) 94.0 H Lymphocytes % (Manual) 0 L Monocytes % (Manual) Seg Neutrophils # Man 26.8 H Lymphocytes # (Manual) 0.0 L Monocytes # (Manual) 1.1 H Sodium 132 L Potassium 5.8 H Chloride 96.1 L Carbon Dioxide 14 L D BUN 59 H Creatinine 2.8 H Lactic Acid Calcium 8.3 L AST 151 H ALT 145 H Alkaline Phosphatase 153 H Total Protein 5.9 L D Albumin 2.2 L Ur Specific [place] 1.033 H 01/10/20 10:26 WBC RBC MCV MCH RDW Seg Neuts % (Manual) Lymphocytes % (Manual) Monocytes % (Manual) Seg Neutrophils # Man Lymphocytes # (Manual) Monocytes # (Manual) Sodium Potassium 5.1 H Chloride Carbon Dioxide BUN 69 H Creatinine 2.9 H Lactic Acid Calcium AST ALT Alkaline Phosphatase Total Protein Albumin Ur Specific [place]
--- NOTE | 2020-01-10 15:40 | Progress Note ---
Assessment and Plan - Patient Problems (1) Small bowel obstruction Current Visit: Yes Status: Acute Plan to address problem: Patient not very symptomatic at this time. Would continue with NG tube decompression. Acidosis appears better on the chemistry panel. Would continue with resuscitation for now. Abdominal exam is benign. Not sure why she is not interactive when she was earlier today. I wonder if this is as a result of all the drugs coming out of her system. We will follow along. Please call with any questions. Time=10min Subjective Date of service: 01/10/20 Patient Reports: Positive: no new complaints, other (nurse reports that patient was more talkative this morning. Pressor has been weaned down from 16 to 2. ) Objective Vital Signs - 12hr 01/10/20 01/10/20 01/10/20 03:45 04:00 04:15 Temperature 98.8 F Pulse Rate 87 86 88 Respiratory 20 15 13 Rate Blood Pressure 117/64 128/66 112/63 O2 Sat by Pulse 90 48 L Oximetry 01/10/20 01/10/20 01/10/20 04:19 04:30 04:45 Temperature Pulse Rate 85 88 88 Respiratory 14 18 Rate Blood Pressure 119/61 121/54 O2 Sat by Pulse 96 Oximetry 01/10/20 01/10/20 01/10/20 05:00 05:15 05:31 Temperature Pulse Rate 87 88 88 Respiratory 14 15 16 Rate Blood Pressure 122/59 118/64 114/55 O2 Sat by Pulse 95 95 95 Oximetry 01/10/20 01/10/20 01/10/20 05:45 06:00 06:15 Temperature Pulse Rate 91 H 92 H 94 H Respiratory 17 21 22 Rate Blood Pressure 114/55 100/61 100/61 O2 Sat by Pulse 94 Oximetry 01/10/20 01/10/20 01/10/20 06:30 06:45 07:01 Temperature Pulse Rate 92 H 99 H 93 H Respiratory 16 20 13 Rate Blood Pressure 98/53 98/53 106/50 O2 Sat by Pulse 100 97 97 Oximetry 01/10/20 01/10/20 01/10/20 07:15 07:31 07:45 Temperature Pulse Rate 96 H 96 H 89 Respiratory 23 20 14 Rate Blood Pressure 106/50 100/60 103/69 O2 Sat by Pulse 94 77 L Oximetry 01/10/20 01/10/20 01/10/20 08:00 08:15 08:30 Temperature 98.7 F Pulse Rate 94 H 91 H 92 H Respiratory 22 17 13 Rate Blood Pressure 99/62 100/63 109/66 O2 Sat by Pulse 97 Oximetry 01/10/20 01/10/20 01/10/20 08:45 09:00 09:01 Temperature Pulse Rate 93 H 90 Respiratory 15 19 Rate Blood Pressure 109/66 96/58 O2 Sat by Pulse 97 95 94 Oximetry 01/10/20 01/10/20 01/10/20 09:13 09:15 09:30 Temperature Pulse Rate 89 92 H Respiratory 23 16 13 Rate Blood Pressure 89/53 95/59 O2 Sat by Pulse 95 93 Oximetry 01/10/20 01/10/20 01/10/20 09:45 10:00 10:15 Temperature Pulse Rate 91 H 93 H 91 H Respiratory 11 L 11 L 11 L Rate Blood Pressure 97/53 97/58 99/54 O2 Sat by Pulse 94 93 91 Oximetry 01/10/20 01/10/20 01/10/20 10:31 10:45 11:00 Temperature Pulse Rate 93 H 92 H 93 H Respiratory 12 13 12 Rate Blood Pressure 80/64 90/62 101/62 O2 Sat by Pulse 93 93 92 Oximetry 01/10/20 01/10/20 01/10/20 11:15 11:30 11:45 Temperature Pulse Rate 95 H 94 H 96 H Respiratory 11 L 11 L 13 Rate Blood Pressure 95/62 92/59 94/67 O2 Sat by Pulse 94 95 Oximetry 01/10/20 01/10/20 01/10/20 12:00 12:15 12:30 Temperature 97.9 F Pulse Rate 97 H 95 H 99 H Respiratory 12 12 18 Rate Blood Pressure 101/62 94/61 105/67 O2 Sat by Pulse 93 92 100 Oximetry 01/10/20 01/10/20 01/10/20 12:45 13:00 13:15 Temperature Pulse Rate 95 H 95 H 96 H Respiratory 11 L 13 13 Rate Blood Pressure 96/59 96/59 92/59 O2 Sat by Pulse 94 93 93 Oximetry 01/10/20 01/10/20 01/10/20 13:30 13:45 14:00 Temperature Pulse Rate 96 H 95 H 95 H Respiratory 16 13 15 Rate Blood Pressure 101/62 94/57 91/60 O2 Sat by Pulse 94 93 93 Oximetry 01/10/20 14:15 Temperature Pulse Rate 95 H Respiratory 24 Rate Blood Pressure 94/60 O2 Sat by Pulse 91 Oximetry - General physical appearance no distress, no pain, other (does not appear to be engaged with surroundings. responds to my voice, but does not speak or follow commands) - Respiratory normal expansion, normal respiratory effort - Abdomen soft, not tender, bowel sounds hypoactive, distended, not guarding, not rigid - Integumentary no rash, no growths, no abnormal pigmentation - Labs 01/09/20 16:59 01/10/20 10:26 Diabetes panel 01/09/20 01/10/20 Range/Units 16:59 10:26 Sodium 132 L 139 D (137-145) mmol/L Potassium 5.8 H 5.1 H (3.6-5.0) mmol/L Chloride 96.1 L 102.8 (98-107) mmol/L Carbon Dioxide 14 L D 22 D (22-30) mmol/L BUN 59 H 69 H (7-17) mg/dL Creatinine 2.8 H 2.9 H (0.6-1.2) mg/dL Glucose 71 74 (65-100) mg/dL Calcium 8.3 L 8.9 (8.4-10.2) mg/dL AST 151 H (5-40) units/L ALT 145 H (7-56) units/L Alkaline Phosphatase 153 H (35-129) units/L Total Protein 5.9 L D (6.3-8.2) g/dL Albumin 2.2 L (3.9-5) g/dL Calcium panel 01/09/20 01/10/20 Range/Units 16:59 10:26 Calcium 8.3 L 8.9 (8.4-10.2) mg/dL Albumin 2.2 L (3.9-5) g/dL Pituitary panel 01/09/20 01/10/20 Range/Units 16:59 10:26 Sodium 132 L 139 D (137-145) mmol/L Potassium 5.8 H 5.1 H (3.6-5.0) mmol/L Chloride 96.1 L 102.8 (98-107) mmol/L Carbon Dioxide 14 L D 22 D (22-30) mmol/L BUN 59 H 69 H (7-17) mg/dL Creatinine 2.8 H 2.9 H (0.6-1.2) mg/dL Glucose 71 74 (65-100) mg/dL Calcium 8.3 L 8.9 (8.4-10.2) mg/dL Adrenal panel 01/09/20 01/10/20 Range/Units 16:59 10:26 Sodium 132 L 139 D (137-145) mmol/L Potassium 5.8 H 5.1 H (3.6-5.0) mmol/L Chloride 96.1 L 102.8 (98-107) mmol/L Carbon Dioxide 14 L D 22 D (22-30) mmol/L BUN 59 H 69 H (7-17) mg/dL Creatinine 2.8 H 2.9 H (0.6-1.2) mg/dL Glucose 71 74 (65-100) mg/dL Calcium 8.3 L 8.9 (8.4-10.2) mg/dL Total Bilirubin 0.70 (0.1-1.2) mg/dL AST 151 H (5-40) units/L ALT 145 H (7-56) units/L Alkaline Phosphatase 153 H (35-129) units/L Total Protein 5.9 L D (6.3-8.2) g/dL Albumin 2.2 L (3.9-5) g/dL
--- NOTE | 2020-01-10 15:54 | Consultation ---
PULMONARY CRITICAL CARE CONSULTATION NOTE CONSULTING PHYSICIAN: Dr. Celeste. REASON FOR CONSULTATION: Bowel obstruction, severe sepsis with hypotension. CHIEF COMPLAINT AND HISTORY OF PRESENT ILLNESS: As follows: The patient is a 49-year-old -[place] female with past medical history significant amongst other things for being homeless, history of cocaine dependence and congestive heart failure, presented in the Emergency Room with sudden onset of rectal bleeding, also complained of generalized abdominal pain, 6/10, worse with movement, constant, relieved with rest. She complained of nausea and vomiting. Denied overt aspiration. In the ER, she looked like she was septic. She had an acute kidney injury and then a CT of the abdomen and pelvis revealed a partial small-bowel obstruction as well as possible GI bleeding. She was admitted initially to the IMCU. However, she became hypotensive and required vasopressors and an ICU admission was requested. When I stopped by to see her, she was resting in bed. She remained on Levophed drip, I believe going about 4 mcg per minute, still complained of some lower abdominal pain and was somnolent, but arousable. Denied chest pain, nausea was better. Denied any recent vomiting. She does have a 10+ pack year tobacco smoking history and continues to smoke. She denied any trauma to her abdomen. She denied any previous symptoms similar to this. She denies a history of significant alcohol use also. This really is as much of the history of presentation as I have. PAST MEDICAL HISTORY: Osteoarthritis, congestive heart failure, hypertension, hyperlipidemia, malnutrition, homelessness, cocaine dependence, tobacco use disorder. PAST SURGICAL HISTORY: She has had a and wrist surgery. MEDICATIONS: She was on at the time I stopped by to see her were reviewed. Pertinent medications included the following; according to the medication administration record, Tylenol 650 mg p.o. q. 4 hours p.r.n. mild pain or fevers, aspirin 81 mg p.o. daily, Lipitor 40 mg p.o. at bedtime, Coreg 6.25 mg p.o. b.i.d., cefepime 1 gram IV daily, Lasix 40 mg IV daily, hydralazine 25 mg p.o. q. 8 hours, Dilaudid 1 mg IV q. 2 hours p.r.n. severe pain, lisinopril 20 mg p.o. daily, Levophed drip was going at 4 mcg per minute, Zofran 4 mg IV q. 8 hours p.r.n. nausea and vomiting, Protonix 40 mg IV b.i.d. ALLERGIES: No known drug allergies. DIET: Thin lady. Denies significant weight loss or gain in the preceding few weeks to months. FAMILY AND SOCIAL HISTORY: She is apparently homeless. She has a history of tobacco use. She has a history of cocaine use. She denies alcohol use. There is a family history of diabetes and hypertension. REVIEW OF SYSTEMS: No overt loss of consciousness. No new onset seizures. No new onset focal weakness. She had the reported gross hematochezia. Denies melena. Denies hematemesis. Denies hemoptysis. She did have emesis. She denies heat or cold intolerance. Denied polydipsia, polyuria. She complained of the abdominal pain. She denied any new rash on her body. Complete 13-system review of systems obtained. Pertinent positives and/or negatives as in body of history above, otherwise noncontributory. PHYSICAL EXAMINATION: VITAL SIGNS: On examination at presentation in the Emergency Room really since she has remained afebrile. The first temperature I have recorded here is 98.8 degrees Fahrenheit, her pulse at presentation was 84, respiratory rate 31, blood pressure 105/71, O2 sats were 86%, inspired oxygen concentration at that time was not recorded. When I saw her, her O2 sats were 93% on room air. GENERAL: She is an elderly looking, but middle-aged -[place] female, normocephalic, atraumatic, talking to me with mildly increased respiratory effort at rest. HEAD, EYES, EARS, NOSE, AND HEENT: Anicteric. No conjunctival erythema. Oropharynx was dry. Mallampati #2 oropharynx. No gross jugular venous distention, no thyromegaly. She had a right IJ central line. She had some supraclavicular wasting. NECK: Grossly, there were no palpable lymph nodes in the supraclavicular or submandibular lymph node chains. LUNGS: Auscultation of both lung aguirre revealed only faint bibasilar deep inspiratory crackles, no wheezing. HEART: Heart sounds 1 and 2 are heard at the time of my evaluation, regular rate and rhythm without overt rubs or murmurs. ABDOMEN: Soft, full, protuberant. Bowel sounds are positive, but hypoactive. She has mild left lower quadrant and really lower quadrant tenderness, right, left and infraumbilical region. No palpable hepatosplenomegaly. EXTREMITIES: Without overt digital clubbing, no cyanosis, no pedal edema. Pedal pulses are 2+ bilaterally. NEUROLOGIC: Pupils are equal, round, about 4 mm, reactive to light. Extraocular muscle movements were intact. She moved all 4 extremities spontaneously. She was somnolent to lethargic at times. SKIN: Poor turgor without overt cellulitis. She had some healed punctate maculopapular type rashes to various parts of her upper and lower extremities. No gross cellulitis in the areas that I examined. Please see the wound care nurse's notes for full description of her skin. PSYCHIATRIC: Mood was not appropriate. Affect was normal. LABORATORY DATA: From my review as follows: Admission white cell count 21,500, hemoglobin 11.6, hematocrit 38.0, platelet count 162. No band forms were reported. Serum sodium was 133, potassium 6.0, chloride 95, bicarbonate 22, BUN 46, creatinine 2.9, glucose was 98. Lactic acid level within normal limits. AST was up at 159, ALT was up at 147. Albumin low at 2.1. Urinalysis was negative for nitrites and leukocyte esterase. Urine drug screen was presumptive positive for cocaine. Today, BUN is 69, creatinine is 2.9. Potassium is down to 5.1. Two sets of blood cultures, no growth to date. A CT of the abdomen and pelvis was done. It reports interval development of a suspected small-bowel obstruction without a distinct transition point. Interval improvement of cardiomegaly. Lung bases are clear. Chest x-ray was done. It does show gross cardiomegaly, slightly increased interstitial markings, at worst mild interstitial edema. Right IJ central line tip is in the distal SVC/right atrial junction. ASSESSMENT: 1. Severe sepsis with shock. 2. Partial small-bowel obstruction. 3. Leukocytosis. 4. Reported gastrointestinal bleed. 5. Elevated serum transaminases. 6. Hyponatremia. 7. Cocaine abuse. 8. History of hyperlipidemia. 9. History of hypertension. 10. Acute kidney injury. 11. Hyperkalemia. 12. History of congestive heart failure. PLAN: We will keep her in the Intensive Care Unit. Volume resuscitation will continue. We will wean off vasopressors as long as we are keeping mean arterial pressures greater than or equal to about 65 mmHg. She is currently on normal saline at 150 mL per hour. We will continue that. Nephrology evaluation will be of benefit in this lady with acute kidney injury that has not shown significant improvement. Oxygen will be supplemented as necessary to keep sats greater than or equal to about 90%. Aspiration precautions will be maintained. Her current antibiotic therapy probably needs to be broadened for some anaerobic coverage assuming that the GI tract might be a source of infection. She will also benefit from an Infectious Disease consult. I will go ahead and place one. In the meantime, I am going to order CRP level, procalcitonin level to help clinical decision making. Lactic acid level will be repeated. Chronic outpatient disease medications will be introduced per the attending. Again, vasopressors will be weaned for target MAP greater than or equal to about 65 mmHg. I will also get a CPK level to evaluate for possible rhabdomyolysis as a cause of this kidney injury. She is appropriately on GI prophylaxis. She will be put on DVT prophylaxis with heparin. Flu and pneumonia vaccination will be addressed per protocol. Thank you very much for the consult. We will follow along and make further recommendations as picture progresses/becomes clearer. She is critically ill on life-sustaining interventions including vasopressor support with Levophed at high risk of from cardiopulmonary and GI system decompensation. I should mention a GI consult has been placed. I will defer to them. Again, thank you very much for the consult. I spent about 35-40 minutes of critical care time without overlap and excluding any procedural time that may be necessary. JOB# [id number] DACIA/BIANCA EDWARDS
[2020-01-10] MEDS: metroNIDAZOLE/NS 500 MG/100 ML 500 MG/100 ML BAG IV SCH ×2 (16:16→22:32)
[2020-01-10] MEDS: CEFEPIME/NS 1 GM/100 ML 1 GM/100 ML BAG IV SCH (21:42)
[2020-01-10] MEDS: HEPARIN 5,000 UNIT/1 ML VIAL SUB-Q SCH (21:42)
[2020-01-11] MEDS: SODIUM CHLORIDE 0.9% 1000 ML 1,000 ML IV SCH ×3 (03:12→20:56)
[2020-01-11] MEDS: hydrALAZINE 25 MG TAB PO SCH ×4 (05:11→21:59)
[2020-01-11] MEDS: FUROSEMIDE 40 MG/4 ML INJ IV SCH (05:23)
[2020-01-11] MEDS: metroNIDAZOLE/NS 500 MG/100 ML 500 MG/100 ML BAG IV SCH ×2 (08:05→15:08)
[2020-01-11] MEDS: HYDROmorphone 1 MG/1 ML INJ IV PRN (08:19)
--- NOTE | 2020-01-11 09:18 | Progress Note ---
Assessment and Plan - Patient Problems (1) Small bowel obstruction Current Visit: Yes Status: Acute Plan to address problem: Patient not very symptomatic at this time. Discussed with nurse about replacing NG tube. We will do contrast study to see if there is a point of transition in the small bowel. Labs are pending for today. Exam was not impressive while she was sleeping. We will follow along. Please call with any questions. Time=10min Subjective Date of service: 01/11/20 Patient Reports: Positive: no new complaints, no bowel movement, other (Nurse reports that patient just received pain medicine. Therefore, she is not very interactive. No other events overnight. Patient pulled out her NG tube.) Objective Vital Signs - 12hr 01/10/20 01/10/20 01/10/20 21:15 21:30 21:45 Temperature Pulse Rate 95 H 94 H 95 H Respiratory 20 13 15 Rate Blood Pressure 83/42 90/47 99/45 O2 Sat by Pulse 92 96 98 Oximetry 01/10/20 01/10/20 01/10/20 22:00 22:15 22:25 Temperature Pulse Rate 96 H 106 H Respiratory 14 15 Rate Blood Pressure 108/45 99/45 O2 Sat by Pulse 93 86 94 Oximetry 01/10/20 01/10/20 01/10/20 22:31 22:45 23:00 Temperature Pulse Rate 95 H 94 H 95 H Respiratory 12 12 12 Rate Blood Pressure 115/57 113/53 97/49 O2 Sat by Pulse 94 93 93 Oximetry 01/10/20 01/10/20 01/10/20 23:15 23:30 23:31 Temperature Pulse Rate 97 H 96 H 101 H Respiratory 10 L 15 14 Rate Blood Pressure 98/52 85/58 85/58 O2 Sat by Pulse 91 91 91 Oximetry 01/10/20 01/11/20 01/11/20 23:45 00:00 00:04 Temperature 98.5 F Pulse Rate 96 H 96 H 97 H Respiratory 10 L 10 L Rate Blood Pressure 92/59 93/61 O2 Sat by Pulse 92 92 Oximetry 01/11/20 01/11/20 01/11/20 00:07 00:15 00:30 Temperature Pulse Rate 96 H 96 H 95 H Respiratory 11 L 12 12 Rate Blood Pressure 93/61 94/60 97/56 O2 Sat by Pulse 91 94 93 Oximetry 01/11/20 01/11/2020 00:31 00:45 01:00 Temperature 95.5 F L Pulse Rate 95 H 94 H Respiratory 13 11 L Rate Blood Pressure 100/48 102/49 O2 Sat by Pulse 94 93 Oximetry 01/11/20 01/11/20 01/11/20 01:15 01:30 01:45 Temperature Pulse Rate 94 H 93 H 92 H Respiratory 11 L 11 L 11 L Rate Blood Pressure 94/46 91/48 94/46 O2 Sat by Pulse 92 94 93 Oximetry 01/11/20 01/11/20 01/11/20 02:00 02:15 02:30 Temperature Pulse Rate 90 94 H 92 H Respiratory 12 13 13 Rate Blood Pressure 98/48 103/53 O2 Sat by Pulse 95 93 94 Oximetry 01/11/20 01/11/20 01/11/20 02:45 03:00 03:15 Temperature Pulse Rate 93 H 93 H 92 H Respiratory 13 14 13 Rate Blood Pressure 93/44 93/58 85/58 O2 Sat by Pulse 94 94 93 Oximetry 01/11/20 01/11/20 01/11/20 03:30 03:45 04:00 Temperature 97.4 F L Pulse Rate 92 H 91 H 99 H Respiratory 13 12 20 Rate Blood Pressure 98/59 107/55 107/55 O2 Sat by Pulse 94 94 72 L Oximetry 01/11/20 01/11/20 01/11/20 04:04 04:16 04:30 Temperature 97.4 F L Pulse Rate 101 H 98 H Respiratory 22 27 H Rate Blood Pressure 127/79 128/73 O2 Sat by Pulse 74 L 93 Oximetry 01/11/20 01/11/20 01/11/20 04:45 05:00 05:16 Temperature Pulse Rate 100 H 102 H 101 H Respiratory 19 25 H 20 Rate Blood Pressure 134/78 140/68 114/63 O2 Sat by Pulse 94 91 93 Oximetry 01/11/20 01/11/20 01/11/20 05:30 05:45 06:00 Temperature Pulse Rate 105 H 100 H 100 H Respiratory 24 14 14 Rate Blood Pressure 122/60 106/52 105/52 O2 Sat by Pulse 94 93 93 Oximetry 01/11/20 01/11/20 01/11/20 06:15 06:30 08:00 Temperature 97.4 F L Pulse Rate 99 H 103 H Respiratory 13 25 H Rate Blood Pressure 108/54 94/61 O2 Sat by Pulse 92 85 Oximetry - General physical appearance no distress, no pain, other (sleeping. Very drowsy) - Respiratory normal expansion, normal respiratory effort - Abdomen soft, tender (minimal), bowel sounds hypoactive, distended (mild), guarding (voluntary), not rigid - Integumentary no rash, no growths, no abnormal pigmentation - Labs 01/09/20 16:59 01/10/20 10:26 Diabetes panel 01/10/20 Range/Units 10:26 Sodium 139 D (137-145) mmol/L Potassium 5.1 H (3.6-5.0) mmol/L Chloride 102.8 (98-107) mmol/L Carbon Dioxide 22 D (22-30) mmol/L BUN 69 H (7-17) mg/dL Creatinine 2.9 H (0.6-1.2) mg/dL Glucose 74 (65-100) mg/dL Calcium 8.9 (8.4-10.2) mg/dL Calcium panel 01/10/20 Range/Units 10:26 Calcium 8.9 (8.4-10.2) mg/dL Pituitary panel 01/10/20 Range/Units 10:26 Sodium 139 D (137-145) mmol/L Potassium 5.1 H (3.6-5.0) mmol/L Chloride 102.8 (98-107) mmol/L Carbon Dioxide 22 D (22-30) mmol/L BUN 69 H (7-17) mg/dL Creatinine 2.9 H (0.6-1.2) mg/dL Glucose 74 (65-100) mg/dL Calcium 8.9 (8.4-10.2) mg/dL Adrenal panel 01/10/20 Range/Units 10:26 Sodium 139 D (137-145) mmol/L Potassium 5.1 H (3.6-5.0) mmol/L Chloride 102.8 (98-107) mmol/L Carbon Dioxide 22 D (22-30) mmol/L BUN 69 H (7-17) mg/dL Creatinine 2.9 H (0.6-1.2) mg/dL Glucose 74 (65-100) mg/dL Calcium 8.9 (8.4-10.2) mg/dL
[2020-01-11] MEDS: HEPARIN 5,000 UNIT/1 ML VIAL SUB-Q SCH ×2 (09:22→22:00)
[2020-01-11] MEDS: PANTOPRAZOLE 40 MG INJ IV SCH (09:22)
--- NOTE | 2020-01-11 09:28 | XRay Report ---
ABDOMEN 1 VIEW(S) INDICATION / CLINICAL INFORMATION: Nasogastric tube placement. COMPARISON: 01/09/2020 FINDINGS: TUBES / LINES: The nasogastric tube has been replaced or advanced to the distal stomach terminating n ear the pylorus. BOWEL GAS PATTERN: No significant abnormality. FREE AIR / EXTRALUMINAL GAS: None seen. ADDITIONAL FINDINGS: No significant additional findings. IMPRESSION: Adequate nasogastric tube placement. Signer Name: Abram Burnett Jr, MD Signed: 01/11/2020 9:23 AM Workstation Name: [id number]
--- NOTE | 2020-01-11 10:36 | Consultation ---
History of Present Illness - Reason for Consult Consult date: 01/11/20 Leukocytosis Requesting physician: WALE RAO - History of Present Illness 49 years old female with history of hypertension, hyperlipidemia, osteoarthritis, CHF, homelessness, cocaine dependence, nicotine dependence, admitted on 01/09/2020 due to 24 hour history of acute rectal bleeding associated with generalized abdominal pain. Abdominal pain is diffuse, 6 out of 10, constant. Patient also noted nausea, vomiting x4. On arrival, temperature 98.8, HR 84, RR 31, O2 sat 100, BP 105/71. Initial WBC 21,000. Platelets 126. Creatinine 2.4. AST 159. ALT 147. Lactate 2.2. Urinalysis negative. Urine drug screen positive for cocaine. CRP 41. Blood culture 01/09/[address] abdomen shows small bowel obstruction. Patient admitted to the ICU on pressors, noted urinary retention overnight, status post Taylor placement. Review of Systems: unable to obtain due to somnolence Past History Past Medical History: arthritis, heart failure, hypertension, hyperlipidemia, other (See HPI) Past Surgical History: , Other (Wrist surgery) Social history: , smoking, other (Cocaine dependence) Family history: diabetes, hypertension Medications and Allergies Allergies Allergy/AdvReac Type Severity Reaction Status Date / Time No Known Allergies Allergy Verified 11/07/19 07:55 Home Medications Medication Instructions Recorded Confirmed Last Taken Type Aspirin [Aspirin BABY CHEW TAB] 81 mg PO QDAY #30 tab.chew 12/07/19 01/09/20 Unknown Rx AtorvaSTATin [Lipitor] 40 mg PO QHS #30 tablet 12/07/19 01/09/20 Unknown Rx Furosemide [Lasix TAB] 40 mg PO DAILY #30 tablet 12/07/19 01/09/20 Unknown Rx Potassium Chloride 10 meq PO DAILY #30 tablet.er 12/07/19 01/09/20 Unknown Rx carvediloL [Coreg] 6.25 mg PO BID #60 tablet 12/07/19 01/09/20 Unknown Rx hydrALAZINE [Apresoline TAB] 25 mg PO Q8HR #90 tablet 12/07/19 01/09/20 Unknown Rx lisinopriL [Zestril TAB] 20 mg PO QDAY #30 tablet 12/07/19 01/09/20 Unknown Rx Active Meds: Active Medications Acetaminophen (Tylenol) 650 mg PO Q4H PRN PRN Reason: Pain MILD(1-3)/Fever >100.5/LOPEZ Aspirin (Baby Aspirin) 81 mg PO QDAY [facility] Atorvastatin Calcium (Lipitor) 40 mg PO QHS [facility] Last Admin: 01/10/20 21:42 Dose: Not Given Documented by: Carvedilol (Coreg) 6.25 mg PO BID [facility] Last Admin: 01/10/20 21:43 Dose: Not Given Documented by: Furosemide (Lasix) 40 mg IV QDAY@0600 [facility] Last Admin: 01/11/20 05:23 Dose: 40 mg Documented by: Heparin Sodium (Porcine) (Heparin) 5,000 unit SUB-Q Q12HR [facility] Last Admin: 01/11/20 09:22 Dose: 5,000 unit Documented by: Hydralazine HCl (Apresoline) 25 mg PO Q8HR [facility] Last Admin: 01/11/20 05:11 Dose: Not Given Documented by: Hydromorphone HCl (Dilaudid) 1 mg IV Q2H PRN PRN Reason: Pain , Severe (7-10) Last Admin: 01/11/20 08:19 Dose: 1 mg Documented by: Norepinephrine (Levophed Drip 4 Mg/Ns 250 Ml) 4 mg in 250 mls @ 7.5 mls/hr IV TITR [facility]; Protocol Last Titration: 01/11/20 09:27 Dose: 0 mcg/min, 0 mls/hr Documented by: Cefepime HCl (Cefepime/Ns 1 Gm/100 Ml) 1 gm in 100 mls @ 200 mls/hr IV Q24H [facility] Last Admin: 01/10/20 21:42 Dose: 200 mls/hr Documented by: Sodium Chloride (Nacl 0.9% 1000 Ml) 1,000 mls @ 150 mls/hr IV DIRECT [facility] Last Admin: 01/11/20 03:12 Dose: 150 mls/hr Documented by: Metronidazole (Flagyl 500 Mg/100 Ml) 500 mg in 100 mls @ 100 mls/hr IV Q8H [facility]; Protocol Last Admin: 01/11/20 08:05 Dose: 100 mls/hr Documented by: Lisinopril (Zestril) 20 mg PO QDAY [facility] Last Admin: 01/10/20 09:14 Dose: Not Given Documented by: Ondansetron HCl (Zofran) 4 mg IV Q8H PRN PRN Reason: Nausea And Vomiting Last Admin: 01/10/20 19:53 Dose: 4 mg Documented by: Pantoprazole Sodium (Protonix) 40 mg IV BID [facility] Last Admin: 01/11/20 09:22 Dose: 40 mg Documented by: Sodium Chloride (Sodium Chloride Flush Syringe 10 Ml) 10 ml IV BID [facility] Last Admin: 01/11/20 09:23 Dose: 10 ml Documented by: Sodium Chloride (Sodium Chloride Flush Syringe 10 Ml) 10 ml IV PRN PRN PRN Reason: LINE FLUSH Physical Examination - Physical Exam Narrative exam: General appearance: somnolent in NAD Eyes: anicteric sclerae, moist conjunctivae; no lid-lag; PERRLA HENT: Atraumatic; oropharynx clear with moist mucous membranes and no oral thrush; normal hard and soft palate. Lungs: CTA CV: RRR no murmur Abdomen: Soft, tense, tender diffusely old sug scars Extremities: no edema, no cyanosis Skin: No rash. Psych: somnolent Neuro: somnolent - Constitutional Vitals: Vital Signs Temp Pulse Resp BP Pulse Ox 97.4 F L 102 H 12 101/53 91 01/11/20 08:00 01/11/20 10:00 01/11/20 10:00 01/11/20 10:00 01/11/20 10:00 Temperature -Last 24 Hours Temperature 97.4 F Temperature 97.4 F Temperature 97.4 F Temperature 95.5 F Temperature 98.5 F Temperature 98.0 F Temperature 98.0 F Temperature 97.7 F Temperature 97.9 F Results - Labs CBC & Chem 7: 01/09/20 16:59 01/10/20 10:26 Labs: Abnormal lab results 01/10/20 01/10/20 Range/Units 10:26 16:43 Potassium 5.1 H (3.6-5.0) mmol/L BUN 69 H (7-17) mg/dL Creatinine 2.9 H (0.6-1.2) mg/dL C-Reactive Protein 41.00 H (0.00-1.30) mg/dL Assessment and Plan Cultures: Blood culture 01/09/2020 no growth today Assessment: 49 years old female with history of hypertension, hyperlipidemia, osteoarthritis, CHF, homelessness, cocaine dependence, nicotine dependence, admitted on 01/09/2020 due to 24 hour history of acute rectal bleeding associated with generalized abdominal pain, nausea and vomiting: #Severe sepsis with septic shock: present on admission with fever, tachycardia, hypotension, elevated lactate; source secondary to small bowel obstruction. #Small bowel obstruction: No evidence of perforation or collection on CT. S urgery on board. NG tube placed. ?ischemia from cocaine #Urinary retention: Status post Taylor placement #Elevated LFTs: Possibly due to sepsis ? Viral hepatitis #Acute kidney injury: Likely due to sepsis. #Cocaine dependence: Urine drug screen positive Recommendations: -Surgery planning exlap, I agree -Continue cefepime renally adjusted -Continue Flagyl 500 g IV every 8 hours -Monitor LFTs and creatinine -Obtain viral hepatitis panel and HIV testing Will follow. Bertha Junior MD Infectious Diseases Licensed Life And Health Agent [facility] ([facility]) M [phone] O [phone]
[2020-01-11] MEDS: carvediloL 6.25 MG TAB PO SCH ×2 (10:40→22:00)
[2020-01-11] MEDS: LISINOPRIL 20 MG TAB PO SCH (10:41)
--- NOTE | 2020-01-11 10:55 | Progress Note ---
Assessment and Plan -Severe sepsis with septic shock: present on admission with fever, tachycardia, hypotension, elevated lactate; source secondary to small bowel obstruction. -Pneumatosis intestinalis for ex lap today Urinary retention Elevated LFTs Acute kidney injury:Vasomotor nephropathy Acute toxic-metabolic encephalopathy Substance abuse- UDS positive for cocaine -Volume resuscitate -wean vasopressor support fro MAP >65 (was on Levophed) -Broad spectrum antibiotics-Cefepime and Flagyl, ID on consult -To OR this afternoon -OGT to LIS, keep NPO - Accuchecks q6h while NPO, avoid hypoglycemia - Avoid benzodiazepines, reduce the possibility of delirium - prn analgesia per CPOT score - Maintenance of sleep-wake cycle, avoid delirium -Avoid nephrotoxins, closely monitor renal function -Aspiration precautions - Therapeutic PPI in view of GI bleeding -Mobility protocol, off loading and skin assessment for pressure ulcer prevention -Taylor catheter-critically ill with unstable hemodynamics requiring accurate intake and output, and for urinary retention -Supportive transfusions as indicated to keep HgB >7g/dL -Chronic home medications as clinically indicated -continue other care per attending / other consultants Discussed with the ICU team-RT,RN, general surgeon Life threatening condition- Severe sepsis with septic shock; Acute renal failure; Pneumatosis intestinalis probable ischemic gut Mortality/Morbidity- High Complexity of medical decision making- High CONDITION: CRITICAL PROGNOSIS: GUARDED CODE STATUS: FULL CODE The high probability of a clinically significant, sudden or life-threatening deterioration of the [cardiovascular,neurology, GI ] system(s) required my full and direct attention, intervention and personal management. The aggregate critical care time was [35] minutes without overlap. Time includes spent on; [x] Data Review and interpretation [x] Patient assessment and monitoring of vital signs [x] Documentation Subjective Date of service: 01/11/20 Interval history: Patient is seen today for: Severe sepsis with septic shock; Pneumatosis intestinalis- ischemic gut; Cocaine abuse disorder; Acute renal failure; acute toxic-metabolic encephalopathy Seen and examined at bedside; 24hour events reviewed; nursing and respiratory care staff consulted; no adverse overnight events reported to me; resting peacefully in bed ; CT of abdomen and pelvis shows pneumatosis intestinalis, getting ready for ex lap by surgery. On vasopressor support, minimal doses of Norepinephrine and weaning Of note, family is not willing to participate in her care, discussions were held with with Dr. Crockett (Surgeon )and we did a two-physician consent. Objective - Exam Narrative Exam: Vitals reviewed General appearance: Present: mild distress, cachectic, disheveled, malodorous Appears older than her stated age - EENT Eyes: Present: PERRL ENT: hearing intact, clear oral mucosa - Neck Neck: Present: supple, normal ROM - Respiratory Respiratory effort: normal Respiratory: bilateral: CTA - Cardiovascular Heart Sounds: Present: S1 & S2. Absent: rub, click - Extremities Extremities: pulses symmetrical, No edema Peripheral Pulses: within normal limits - Abdominal General gastrointestinal: Present: soft, tender, non-distended, normal bowel sounds Female genitourinary: Present: normal - Integumentary Integumentary: Present: clear, warm, dry - Psychiatric Psychiatric: Somnolent, encephalopathic - Neurologic Neurologic: Moves all extremities, not obeying commands Vital Signs - 12hr 01/10/20 01/10/20 01/10/20 23:00 23:15 23:30 Temperature Pulse Rate 95 H 97 H 96 H Respiratory 12 10 L 15 Rate Blood Pressure 97/49 98/52 85/58 O2 Sat by Pulse 93 91 91 Oximetry 01/10/20 01/10/20 01/11/20 23:31 23:45 00:00 Temperature 98.5 F Pulse Rate 101 H 96 H 96 H Respiratory 14 10 L 10 L Rate Blood Pressure 85/58 92/59 93/61 O2 Sat by Pulse 91 92 92 Oximetry 01/11/20 01/11/20 01/11/20 00:04 00:07 00:15 Temperature Pulse Rate 97 H 96 H 96 H Respiratory 11 L 12 Rate Blood Pressure 93/61 94/60 O2 Sat by Pulse 91 94 Oximetry 01/11/20 01/11/20 01/11/20 00:30 00:31 00:45 Temperature 95.5 F L Pulse Rate 95 H 95 H Respiratory 12 13 Rate Blood Pressure 97/56 100/48 O2 Sat by Pulse 93 94 Oximetry 01/11/20 01/11/20 01/11/20 01:00 01:15 01:30 Temperature Pulse Rate 94 H 94 H 93 H Respiratory 11 L 11 L 11 L Rate Blood Pressure 102/49 94/46 91/48 O2 Sat by Pulse 93 92 94 Oximetry 01/11/20 01/11/20 01/11/20 01:45 02:00 02:15 Temperature Pulse Rate 92 H 90 94 H Respiratory 11 L 12 13 Rate Blood Pressure 94/46 98/48 O2 Sat by Pulse 93 95 93 Oximetry 01/11/20 01/11/20 01/11/20 02:30 02:45 03:00 Temperature Pulse Rate 92 H 93 H 93 H Respiratory 13 13 14 Rate Blood Pressure 103/53 93/44 93/58 O2 Sat by Pulse 94 94 94 Oximetry 01/11/20 01/11/20 01/11/20 03:15 03:30 03:45 Temperature Pulse Rate 92 H 92 H 91 H Respiratory 13 13 12 Rate Blood Pressure 85/58 98/59 107/55 O2 Sat by Pulse 93 94 94 Oximetry 01/11/20 01/11/20 01/11/20 04:00 04:04 04:16 Temperature 97.4 F L 97.4 F L Pulse Rate 99 H 101 H Respiratory 20 22 Rate Blood Pressure 107/55 127/79 O2 Sat by Pulse 72 L 74 L Oximetry 01/11/20 01/11/20 01/11/20 04:30 04:45 05:00 Temperature Pulse Rate 98 H 100 H 102 H Respiratory 27 H 19 25 H Rate Blood Pressure 128/73 134/78 140/68 O2 Sat by Pulse 93 94 91 Oximetry 01/11/20 01/11/20 01/11/20 05:16 05:30 05:45 Temperature Pulse Rate 101 H 105 H 100 H Respiratory 20 24 14 Rate Blood Pressure 114/63 122/60 106/52 O2 Sat by Pulse 93 94 93 Oximetry 01/11/20 01/11/20 01/11/20 06:00 06:15 06:30 Temperature Pulse Rate 100 H 99 H 103 H Respiratory 14 13 25 H Rate Blood Pressure 105/52 108/54 94/61 O2 Sat by Pulse 93 92 85 Oximetry 01/11/20 01/11/20 01/11/20 06:45 07:00 07:15 Temperature Pulse Rate 98 H 98 H 101 H Respiratory 14 13 18 Rate Blood Pressure 104/52 98/59 90/48 O2 Sat by Pulse 91 92 91 Oximetry 01/11/20 01/11/20 01/11/20 07:30 07:45 08:00 Temperature 97.4 F L Pulse Rate 99 H 98 H 99 H Respiratory 14 13 19 Rate Blood Pressure 100/56 96/59 86/38 O2 Sat by Pulse 40 L 82 L 93 Oximetry 01/11/20 01/11/20 01/11/20 08:16 08:30 08:45 Temperature Pulse Rate 101 H 99 H 104 H Respiratory 18 16 21 Rate Blood Pressure 124/58 104/58 140/69 O2 Sat by Pulse 92 88 88 Oximetry 01/11/20 01/11/20 01/11/20 09:00 09:16 09:30 Temperature Pulse Rate 115 H 110 H 105 H Respiratory 35 H 29 H 15 Rate Blood Pressure 140/69 162/78 130/48 O2 Sat by Pulse 83 L 89 91 Oximetry 01/11/20 01/11/20 09:45 10:00 Temperature Pulse Rate 103 H 102 H Respiratory 13 12 Rate Blood Pressure 116/51 101/53 O2 Sat by Pulse 92 91 Oximetry CBC and BMP: 01/09/20 16:59 01/11/20 15:43 Abnormal lab findings: Abnormal Labs 01/08/20 01/08/20 01/08/20 17:05 17:05 20:10 WBC 21.5 H RBC MCV MCH 24 L RDW 22.1 H Seg Neuts % (Manual) 83.0 H Lymphocytes % (Manual) 5.0 L Monocytes % (Manual) 12.0 H Seg Neutrophils # Man 17.8 H Lymphocytes # (Manual) 1.1 L Monocytes # (Manual) 2.6 H Sodium 133 L Potassium 6.0 H D Chloride 95.1 L Carbon Dioxide BUN 46 H Creatinine 2.9 H D Lactic Acid 2.20 H* Calcium 8.1 L AST 159 H ALT 147 H Alkaline Phosphatase C-Reactive Protein Total Protein 4.6 L D Albumin 2.1 L Ur Specific [place] 01/09/20 01/09/20 01/09/20 15:30 16:59 16:59 WBC 28.5 H RBC 5.32 H MCV 78 L MCH 24 L RDW 22.0 H Seg Neuts % (Manual) 94.0 H Lymphocytes % (Manual) 0 L Monocytes % (Manual) Seg Neutrophils # Man 26.8 H Lymphocytes # (Manual) 0.0 L Monocytes # (Manual) 1.1 H Sodium 132 L Potassium 5.8 H Chloride 96.1 L Carbon Dioxide 14 L D BUN 59 H Creatinine 2.8 H Lactic Acid Calcium 8.3 L AST 151 H ALT 145 H Alkaline Phosphatase 153 H C-Reactive Protein Total Protein 5.9 L D Albumin 2.2 L Ur Specific [place] 1.033 H 01/10/20 01/10/20 10:26 16:43 WBC RBC MCV MCH RDW Seg Neuts % (Manual) Lymphocytes % (Manual) Monocytes % (Manual) Seg Neutrophils # Man Lymphocytes # (Manual) Monocytes # (Manual) Sodium Potassium 5.1 H Chloride Carbon Dioxide BUN 69 H Creatinine 2.9 H Lactic Acid Calcium AST ALT Alkaline Phosphatase C-Reactive Protein 41.00 H Total Protein Albumin Ur Specific [place] Chest x-ray: image reviewed Allied health notes reviewed: nursing
[2020-01-11] MEDS ORDERED: LORazepam 2 MG/ML VIAL IV ONE (12:00)
--- NOTE | 2020-01-11 13:38 | Cat Scan Report ---
CT ABDOMEN AND PELVIS WITHOUT CONTRAST HISTORY: evaluate SBO and point of obstruction. Small bowel obstruction. Abdominal distention. COMPARISON: 01/08/2020 TECHNIQUE: Helical CT images of the abdomen and pelvis were obtained without administration of intrav enous contrast. Oral contrast was administered. Sagittal and coronal reformatted images were reviewed . All CT scans at this location are performed using CT dose reduction for ALARA by means of automated exposure control. FINDINGS: Abdomen/pelvis: Oral contrast is present in the stomach and approximately the first half of the smal l bowel. Proximal small bowel loops are mildly dilated up to 4-5 cm in diameter. Pneumatosis has deve loped in multiple loops of jejunum in the right abdomen and lower abdomen. Mild perihepatic and pelvi c free fluid has developed. At least one small [place] of free air is identified anterior to the liver on image 149, series 3. No large free air. No discrete abscess. The transition point is not clearly e vident but appears to be in the mid to distal small bowel. The colon is unremarkable. The liver, biliary system, pancreas, spleen and adrenal glands are unremarkable. The kidneys are norm al size and position. Subtle perfusion defects in the right kidney are again suggested on noncontrast CT. This could represent cystic disease. No hydronephrosis. Uterine fibroid disease is unchanged. The bladder is empty and contains a Taylor catheter. No adnexal cyst or mass. Lungs/bones: Stable cardiomegaly. Atelectatic changes have developed at the right lung base. IMPRESSION: Pneumatosis has developed in multiple jejunal bowel loops concerning for ischemic bowel. There is new free fluid in the abdomen and trace free air as described. These findings were discussed with Dr. Chloe mercado at 1333 hours. Signer Name: bAram Burnett Jr, MD Signed: 01/11/2020 1:34 PM Workstation Name: [id number]
--- NOTE | 2020-01-11 14:03 | Progress Note ---
Assessment and Plan - Patient Problems (1) Sepsis Current Visit: Yes Status: Acute Plan to address problem: Sepsis protocol: Admit to IMCU, CBC, CMP, chest x-ray, urinalysis, IV antibiotic therapy, monitor urine output every shift, IV fluid resuscitation therapy, maintain mean arterial blood pressure greater than 65. Serial lactic acid levels. (2) Small bowel obstruction Current Visit: Yes Status: Acute Plan to address problem: CT scan abdomen and pelvis, surgery team consulted, serial abdominal exam, supportive care, bowel rest. (3) GI bleed Current Visit: Yes Status: Acute Qualifiers: GI bleed type/associated pathology: melena Qualified Code(s): K92.1 - Melena Plan to address problem: Bowel rest, IV PPI therapy, serial CBC, stool for occult blood, surgical team consulted. (4) Elevated liver function tests Current Visit: Yes Status: Acute Plan to address problem: Supportive care, IV fluid resuscitation therapy, repeat liver function test in a.m. (5) Hyponatremia Current Visit: Yes Status: Acute Plan to address problem: IV fluid resuscitation therapy, monitor urine output every shift, repeat BMP in a.m. (6) Cocaine abuse Current Visit: No Status: Chronic Plan to address problem: Supportive care, outpatient substance abuse/dependence follow-up. (7) HLD (hyperlipidemia) Current Visit: No Status: Chronic Qualifiers: Hyperlipidemia type: unspecified Qualified Code(s): E78.5 - Hyperlipidemia, unspecified Plan to address problem: Supportive care, statin therapy as clinically indicated, risk factor reduction therapy. (8) Uncontrolled hypertension Current Visit: No Status: Chronic Plan to address problem: Monitor blood pressure every shift, continue medical management. (9) Acute kidney injury (AVE) with acute tubular necrosis (ATN) Current Visit: Yes Status: Acute Plan to address problem: IV fluid resuscitation therapy, monitor urine output every shift, BMP, repeat BMP in a.m. to monitor serum creatinine. (10) DVT prophylaxis Current Visit: No Status: Acute Plan to address problem: SCD to bilateral lower extremities while in bed, hold anticoagulation due to GI bleed. History Interval history: 49 YO Female with HD #3 with Sepsis currently on pressor support, GI Bleed,SBO, AVE, Severe Malnutrition, Homelessness, Cocaine Dependence, Nicotine Dependence. Pt lying in bed, No reported nursing events. No significant improvement overnight. Patient remains critically ill. Hospitalist Physical - Constitutional Vitals: Temp Pulse Resp BP Pulse Ox 97.4 F L 104 H 16 107/59 94 01/11/20 08:00 01/11/20 12:45 01/11/20 12:45 01/11/20 12:45 01/11/20 12:45 General appearance: Present: mild distress, cachectic, disheveled, malodorous - EENT Eyes: Present: PERRL ENT: hearing intact - Neck Neck: Present: supple - Respiratory Respiratory effort: normal Respiratory: bilateral: CTA - Cardiovascular Rhythm: regular Heart Sounds: Present: S1 & S2 - Extremities Extremities: no ischemia Peripheral Pulses: within normal limits - Abdominal General gastrointestinal: soft, non-distended - Integumentary Integumentary: Present: clear, dry - Psychiatric Psychiatric: cooperative - Neurologic Neurologic: CNII-XII intact Results - Labs CBC & Chem 7: 01/09/20 16:59 01/10/20 10:26 Labs: Laboratory Last Values WBC 28.5 K/mm3 (4.5-11.0) H 01/09/20 16:59 RBC 5.32 M/mm3 (3.65-5.03) H 01/09/20 16:59 Hgb 12.6 gm/dl (10.1-14.3) 01/09/20 16:59 Hct 41.7 % (30.3-42.9) 01/09/20 16:59 MCV 78 fl (79-97) L 01/09/20 16:59 MCH 24 pg (28-32) L 01/09/20 16:59 MCHC 30 % (30-34) 01/09/20 16:59 RDW 22.0 % (13.2-15.2) H 01/09/20 16:59 Plt Count 205 K/mm3 (140-440) 01/09/20 16:59 Add Manual Diff Complete 01/09/20 16:59 Total Counted 100 01/09/20 16:59 Seg Neutrophils % [place] [employer] Supervisor 01/09/20 16:59 Seg Neuts % (Manual) 94.0 % (40.0-70.0) H 01/09/20 16:59 Band Neutrophils % 2.0 % 01/09/20 16:59 Lymphocytes % (Manual) 0 % (13.4-35.0) L 01/09/20 16:59 Reactive Lymphs % (Man) 0 % 01/09/20 16:59 Monocytes % (Manual) 4.0 % (0.0-7.3) 01/09/20 16:59 Eosinophils % (Manual) 0 % (0.0-4.3) 01/09/20 16:59 Basophils % (Manual) 0 % (0.0-1.8) 01/09/20 16:59 Metamyelocytes % 0 % 01/09/20 16:59 Myelocytes % 0 % 01/09/20 16:59 Promyelocytes % 0 % 01/09/20 16:59 Blast Cells % 0 % 01/09/20 16:59 Nucleated RBC % Not Reportable 01/09/20 16:59 Seg Neutrophils # Man 26.8 K/mm3 (1.8-7.7) H 01/09/20 16:59 Band Neutrophils # 0.6 K/mm3 01/09/20 16:59 Lymphocytes # (Manual) 0.0 K/mm3 (1.2-5.4) L 01/09/20 16:59 Abs React Lymphs (Man) 0.0 K/mm3 01/09/20 16:59 Monocytes # (Manual) 1.1 K/mm3 (0.0-0.8) H 01/09/20 16:59 Eosinophils # (Manual) 0.0 K/mm3 (0.0-0.4) 01/09/20 16:59 Basophils # (Manual) 0.0 K/mm3 (0.0-0.1) 01/09/20 16:59 Metamyelocytes # 0.0 K/mm3 01/09/20 16:59 Myelocytes # 0.0 K/mm3 01/09/20 16:59 Promyelocytes # 0.0 K/mm3 01/09/20 16:59 Blast Cells # 0.0 K/mm3 01/09/20 16:59 WBC Morphology Not Reportable 01/09/20 16:59 Hypersegmented Neuts Not Reportable 01/09/20 16:59 Hyposegmented Neuts Not Reportable 01/09/20 16:59 Hypogranular Neuts Not Reportable 01/09/20 16:59 Smudge Cells Not Reportable 01/09/20 16:59 Toxic Granulation Not Reportable 01/09/20 16:59 Toxic Vacuolation 1+ 01/09/20 16:59 Dohle Bodies Not Reportable 01/09/20 16:59 Pelger-Huet Anomaly Not Reportable 01/09/20 16:59 Ramses Rods Not Reportable 01/09/20 16:59 Platelet Estimate Consistent w auto 01/09/20 16:59 Clumped Platelets Not Reportable 01/09/20 16:59 Plt Clumps, EDTA Not Reportable 01/09/20 16:59 Large Platelets Not Reportable 01/09/20 16:59 Giant Platelets Not Reportable 01/09/20 16:59 Platelet Satelliting Not Reportable 01/09/20 16:59 Plt Morphology Comment Not Reportable 01/09/20 16:59 RBC Morphology Not Reportable 01/09/20 16:59 Dimorphic RBCs Not Reportable 01/09/20 16:59 Polychromasia Not Reportable 01/09/20 16:59 Hypochromasia 1+ 01/09/20 16:59 Poikilocytosis 2+ 01/09/20 16:59 Anisocytosis 1+ 01/09/20 16:59 Microcytosis Not Reportable 01/09/20 16:59 Macrocytosis Not Reportable 01/09/20 16:59 Spherocytes Not Reportable 01/09/20 16:59 Pappenheimer Bodies Not Reportable 01/09/20 16:59 Sickle Cells Not Reportable 01/09/20 16:59 Target Cells Not Reportable 01/09/20 16:59 Tear Drop Cells Not Reportable 01/09/20 16:59 Ovalocytes Not Reportable 01/09/20 16:59 Helmet Cells Not Reportable 01/09/20 16:59 Plata-[place] Bodies Not Reportable 01/09/20 16:59 [place] Rings Not Reportable 01/09/20 16:59 L[place]un Cells 2+ 01/09/20 16:59 Bite Cells Not Reportable 01/09/20 16:59 Crenated Cell Not Reportable 01/09/20 16:59 Elliptocytes Not Reportable 01/09/20 16:59 Acanthocytes (Spur) Not Reportable 01/09/20 16:59 Rouleaux Not Reportable 01/09/20 16:59 Hemoglobin C Crystals Not Reportable 01/09/20 16:59 Schistocytes Not Reportable 01/09/20 16:59 Malaria parasites Not Reportable 01/09/20 16:59 Laith Bodies Not Reportable 01/09/20 16:59 Hem Pathologist Commnt No 01/09/20 16:59 Sodium 139 mmol/L (137-145) D 01/10/20 10:26 Potassium 5.1 mmol/L (3.6-5.0) H 01/10/20 10:26 Chloride 102.8 mmol/L (98-107) 01/10/20 10:26 Carbon Dioxide 22 mmol/L (22-30) D 01/10/20 10:26 Anion Gap 19 mmol/L 01/10/20 10:26 BUN 69 mg/dL (7-17) H 01/10/20 10:26 Creatinine 2.9 mg/dL (0.6-1.2) H 01/10/20 10:26 Estimated GFR 21 ml/min 01/10/20 10:26 BUN/Creatinine Ratio 24 % 01/10/20 10:26 Glucose 74 mg/dL (65-100) 01/10/20 10:26 Lactic Acid 1.50 mmol/L (0.7-2.0) 01/10/20 16:43 Calcium 8.9 mg/dL (8.4-10.2) 01/10/20 10:26 Total Bilirubin 0.70 mg/dL (0.1-1.2) 01/09/20 16:59 AST 151 units/L (5-40) H 01/09/20 16:59 ALT 145 units/L (7-56) H 01/09/20 16:59 Alkaline Phosphatase 153 units/L (35-129) H 01/09/20 16:59 C-Reactive Protein 41.00 mg/dL (0.00-1.30) H 01/10/20 16:43 Total Protein 5.9 g/dL (6.3-8.2) L D 01/09/20 16:59 Albumin 2.2 g/dL (3.9-5) L 01/09/20 16:59 Albumin/Globulin Ratio 0.6 % 01/09/20 16:59 Procalcitonin 46.50 ng/mL (<0.15) 01/10/20 16:43 Urine Color Sheryl (Yellow) 01/09/20 15:30 Urine Turbidity Slightly-cloudy (Clear) 01/09/20 15:30 Urine pH 5.0 (5.0-7.0) 01/09/20 15:30 Ur Specific [place] 1.033 (1.003-1.030) H 01/09/20 15:30 Urine Protein 30 mg/dl mg/dL (Negative) 01/09/20 15:30 Urine Glucose (UA) Neg mg/dL (Negative) 01/09/20 15:30 Urine Ketones Neg mg/dL (Negative) 01/09/20 15:30 Urine Blood Neg (Negative) 01/09/20 15:30 Urine Nitrite Neg (Negative) 01/09/20 15:30 Urine Bilirubin Neg (Negative) 01/09/20 15:30 Urine Urobilinogen < 2.0 mg/dL (<2.0) 01/09/20 15:30 Ur Leukocyte Esterase Neg (Negative) 01/09/20 15:30 Urine WBC (Auto) 6.0 /HPF (0.0-6.0) 01/09/20 15:30 Urine RBC (Auto) 6.0 /HPF (0.0-6.0) 01/09/20 15:30 U Epithel Cells (Auto) 2.0 /HPF (0-13.0) 01/09/20 15:30 Granular Casts 7 /LPF 01/09/20 15:30 Urine Mucus Few /HPF 01/09/20 15:30 Urine Opiates Screen Presumptive negative 01/09/20 15:30 Urine Methadone Screen Presumptive negative 01/09/20 15:30 Ur Barbiturates Screen Presumptive negative 01/09/20 15:30 Ur Phencyclidine Scrn Presumptive negative 01/09/20 15:30 Ur Amphetamines Screen Presumptive negative 01/09/20 15:30 U Benzodiazepines Scrn Presumptive negative 01/09/20 15:30 Urine Cocaine Screen Presumptive positive 01/09/20 15:30 U Marijuana (THC) Screen Presumptive negative 01/09/20 15:30 Drugs of Abuse Note Disclamer 01/09/20 15:30 Microbiology: Microbiology 01/08/20 20:24 Peripheral/Venous Blood Culture - Preliminary NO GROWTH AFTER 48 HOURS 01/08/20 20:10 Peripheral/Venous Blood Culture - Preliminary NO GROWTH AFTER 48 HOURS Taylor/IV: Voiding Method Indwelling Catheter IV Catheter Type [Right Triple Lumen Cath Internal Jugular] IV Catheter Type [Right INT / Saline Lock Forearm] Active Medications - Current Medications Current Medications: Generic Name Dose Route Start Last Admin Trade Name Freq PRN Reason Stop Dose Admin Acetaminophen 650 mg 01/08/20 20:00 Tylenol PO Q4H PRN Pain MILD(1-3)/Fever >100.5/LOPEZ Aspirin 81 mg 01/09/20 10:00 Baby Aspirin PO QDAY [facility] Atorvastatin Calcium 40 mg 01/08/20 22:00 01/10/20 21:42 Lipitor PO Not Given QHS TRI Carvedilol 6.25 mg 01/08/20 22:00 01/11/20 10:40 Coreg PO Not Given BID [facility] Heparin Sodium (Porcine) 5,000 unit 01/10/20 22:00 01/11/20 09:22 Heparin SUB-Q 5,000 unit Q12HR TRI Administration Hydralazine HCl 25 mg 01/08/20 22:00 01/11/20 05:11 Apresoline PO Not Given Q8HR [facility] Hydromorphone HCl 1 mg 01/08/20 21:26 01/11/20 08:19 Dilaudid IV 1 mg Q2H PRN Administration Pain , Severe (7-10) Norepinephrine 4 mg in 250 mls @ 7.5 mls/hr 01/08/20 23:45 01/11/20 09:27 Levophed Drip 4 Mg/Ns 250 Ml IV 0 mcg/min TITR TRI 0 mls/hr Titration Protocol 2 MCG/MIN Cefepime HCl 1 gm in 100 mls @ 200 mls/hr 01/09/20 22:00 01/10/20 21:42 Cefepime/Ns 1 Gm/100 Ml IV 200 mls/hr Q24H TRI Administration Sodium Chloride 1,000 mls @ 150 mls/hr 01/09/20 11:45 01/11/20 11:05 Nacl 0.9% 1000 Ml IV 150 mls/hr DIRECT TRI Administration Metronidazole 500 mg in 100 mls @ 100 mls/hr 01/10/20 15:00 01/11/20 08:05 Flagyl 500 Mg/100 Ml IV 100 mls/hr Q8H TRI Administration Protocol Lisinopril 20 mg 01/09/20 10:00 01/11/20 10:41 Zestril PO Not Given QDAY TRI Ondansetron HCl 4 mg 01/08/20 20:00 01/10/20 19:53 Zofran IV 4 mg Q8H PRN Administration Nausea And Vomiting Sodium Chloride 10 ml 01/08/20 22:00 01/11/20 09:23 Sodium Chloride Flush Syringe 10 Ml IV 10 ml BID TRI Administration Sodium Chloride 10 ml 01/08/20 20:00 Sodium Chloride Flush Syringe 10 Ml IV PRN PRN LINE FLUSH
--- NOTE | 2020-01-11 14:23 | Event Note ---
Date: 01/11/20 I discussed the repeat CT scan with Dr. Burnett (radiology). He and I agreed that the bowel has findings suggestive of pneumatosis. This is most likely related to her recent cocaine use. As the family is not willing to participate in her care, I have discussed with Dr. Coleman (cnc manufacturing engineer) that we need to proceed with an exploratory laparotomy. We did a two-physician consent. Patient is on the schedule for this afternoon.
[2020-01-11] MEDS ORDERED: PHENYLEPHRINE/NS 1,000 MCG/10 ML SYRINGE (OR USE) IV ONE (15:30)
[2020-01-11] MEDS ORDERED: dexAMETHasone 20 MG/5 ML VIAL ONE (15:30)
[2020-01-11] MEDS ORDERED: ONDANSETRON 4 MG/2 ML INJ ONE (15:30)
[2020-01-11] MEDS ORDERED: SUCCINYLCHOLINE CHLORIDE 200 MG/10 ML INJ MDV ONE (15:39)
[2020-01-11] MEDS ORDERED: ROCURONIUM 50 MG/5 ML INJ IV ONE (15:39)
[2020-01-11] MEDS ORDERED: LIDOCAINE MPF (2%) 20 MG/1 ML VIAL 5 ML ONE (15:39)
[2020-01-11] MEDS ORDERED: ETOMIDATE 20 MG/10 ML INJ IV ONE (15:39)
[2020-01-11] MEDS ORDERED: MIDAZOLAM 2 MG/2 ML INJ ONE (16:07)
[2020-01-11] MEDS ORDERED: fentaNYL 100 MCG/2 ML INJ ONE (16:10)
--- NOTE | 2020-01-11 16:43 | Anesthesia Consultation ---
Anesthesia Consult and Med Hx Date of service: 01/11/20 - Airway Intubation Access Assessment: Possibly Difficult (not cooperative with airway exam) - Pre-Operative Health Status ASA Pre-Surgery Classification: ASA4, Emergency Proposed Anesthetic Plan: General - Pulmonary Hx Smoking: Yes - Cardiovascular System Hx Hypertension: Yes Hx Coronary Artery Disease: No (neg ST 10/2019; NICM EF 15-20%) Hx Percutaneous Transluminal Coronary Angioplasty (PTCA): No Hx Cardia Arrhythmia: No Hx Pacemaker: No Hx Internal Defibrillator: No - Central Nervous System CVA: No - Endocrine Hx Renal Disease: Yes (AVE) Hx Liver Disease: No Hx Insulin Dependent Diabetes: No Hx Non-Insulin Dependent Diabetes: No - Hematic Hx Anemia: Yes - Other Systems Hx Substance Use: Yes (UDS pos for cocaine) Hx Obesity: No - Additional Comments Anesthesia Medical History Comments: Presented with bowel obstruction now with worsening altered mental status and concern for ischemic bowel scheduled for urgent ex-lap. Previously on pressors but off since 01/10/20. Plan GETA, possible post op mechanical ventilation pending intraop course.
[2020-01-11] MEDS ORDERED: SODIUM CHLORIDE 0.9% IRR 1,500 ML BOTTLE IR ONE (16:51)
--- NOTE | 2020-01-11 17:05 | Anesthesia Day of Surgery ---
Anesthesia Day of Surgery - Day of Surgery Patient Examined: Yes Patient H&P Reviewed: Yes Patient is NPO: Yes
--- NOTE | 2020-01-11 17:21 | Post Operative Note ---
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 No SMA pulse. Procedure: ex lap Anesthesia: GETA Surgeon: JARRETT GALE Account Support Specialist: BELKIS FRANCIS Estimated blood loss: minimal Pathology: none Condition: critical Disposition: PACU
[2020-01-11 18:27] LABS: ABG Base Excess -9.1 mmol/L (-2.0-3.0); ABG HCO3 19.4 mmol/L (20.0-26.0); ABG Methemoglobin 0.6 % (0.0-1.5); ABG Oxygen Saturation 87.7 % (95.0-99.0); ABG PCO2 55.5 mm Hg; ABG PO2 72.8 mm Hg (80.0-90.0)
[2020-01-11 18:30] LABS: ABG PH 7.162 pH Units (7.350-7.450)
--- NOTE | 2020-01-11 18:42 | Post Anesthesia Evaluation ---
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 Report given to DRAIN TILE MACHINE OPERATOR. Placed on vent by RT.
--- NOTE | 2020-01-11 19:38 | Progress Note ---
Assessment and Plan - Patient Problems (1) Sepsis Current Visit: Yes Status: Acute Plan to address problem: Sepsis protocol: Admit to IMCU, CBC, CMP, chest x-ray, urinalysis, IV antibiotic therapy, monitor urine output every shift, IV fluid resuscitation therapy, maintain mean arterial blood pressure greater than 65. Serial lactic acid levels. (2) Small bowel obstruction Current Visit: Yes Status: Acute Plan to address problem: CT scan abdomen and pelvis, surgery team consulted, serial abdominal exam, supportive care, bowel rest. (3) GI bleed Current Visit: Yes Status: Acute Qualifiers: GI bleed type/associated pathology: melena Qualified Code(s): K92.1 - Melena Plan to address problem: Bowel rest, IV PPI therapy, serial CBC, stool for occult blood, surgical team consulted. (4) Elevated liver function tests Current Visit: Yes Status: Acute Plan to address problem: Supportive care, IV fluid resuscitation therapy, repeat liver function test in a.m. (5) Hyponatremia Current Visit: Yes Status: Acute Plan to address problem: IV fluid resuscitation therapy, monitor urine output every shift, repeat BMP in a.m. (6) Cocaine abuse Current Visit: No Status: Chronic Plan to address problem: Supportive care, outpatient substance abuse/dependence follow-up. (7) HLD (hyperlipidemia) Current Visit: No Status: Chronic Qualifiers: Hyperlipidemia type: unspecified Qualified Code(s): E78.5 - Hyperlipidemia, unspecified Plan to address problem: Supportive care, statin therapy as clinically indicated, risk factor reduction therapy. (8) Uncontrolled hypertension Current Visit: No Status: Chronic Plan to address problem: Monitor blood pressure every shift, continue medical management. (9) Acute kidney injury (AVE) with acute tubular necrosis (ATN) Current Visit: Yes Status: Acute Plan to address problem: IV fluid resuscitation therapy, monitor urine output every shift, BMP, repeat BMP in a.m. to monitor serum creatinine. (10) DVT prophylaxis Current Visit: No Status: Acute Plan to address problem: SCD to bilateral lower extremities while in bed, hold anticoagulation due to GI bleed. History Interval history: 49 YO Female with HD #4 with Sepsis currently on pressor support, GI Bleed,SBO, AVE, Severe Malnutrition, Homelessness, Acidosis, Cocaine Dependence, Nicotine Dependence. Pt lying in bed, No reported nursing events. No significant improvement overnight. Patient remains critically ill. Patient found to have persistent sepsis suspected secondary to necrotic bowel. Patient to be taken to the OR for reexploration as per surgical team today. Hospitalist Physical - Constitutional Vitals: Temp Pulse Resp BP Pulse Ox 97.5 F L 94 H 21 149/68 100 01/11/20 12:00 01/11/20 18:16 01/11/20 18:16 01/11/20 18:16 01/11/20 18:16 General appearance: Present: mild distress, cachectic, disheveled, malodorous - Neck Neck: Present: supple - Respiratory Respiratory: bilateral: diminished - Cardiovascular Rhythm: regular Heart Sounds: Present: S1 & S2 - Extremities Extremities: no ischemia Peripheral Pulses: within normal limits - Abdominal General gastrointestinal: soft, tender, non-distended - Integumentary Integumentary: Present: clear, dry - Psychiatric Psychiatric: cooperative - Neurologic Neurologic: CNII-XII intact Results - Labs CBC & Chem 7: 01/09/20 16:59 01/11/20 15:43 Labs: Laboratory Last Values WBC 28.5 K/mm3 (4.5-11.0) H 01/09/20 16:59 RBC 5.32 M/mm3 (3.65-5.03) H 01/09/20 16:59 Hgb 12.6 gm/dl (10.1-14.3) 01/09/20 16:59 Hct 41.7 % (30.3-42.9) 01/09/20 16:59 MCV 78 fl (79-97) L 01/09/20 16:59 MCH 24 pg (28-32) L 01/09/20 16:59 MCHC 30 % (30-34) 01/09/20 16:59 RDW 22.0 % (13.2-15.2) H 01/09/20 16:59 Plt Count 205 K/mm3 (140-440) 01/09/20 16:59 Add Manual Diff Complete 01/09/20 16:59 Total Counted 100 01/09/20 16:59 Seg Neutrophils % Tennis Director 01/09/20 16:59 Seg Neuts % (Manual) 94.0 % (40.0-70.0) H 01/09/20 16:59 Band Neutrophils % 2.0 % 01/09/20 16:59 Lymphocytes % (Manual) 0 % (13.4-35.0) L 01/09/20 16:59 Reactive Lymphs % (Man) 0 % 01/09/20 16:59 Monocytes % (Manual) 4.0 % (0.0-7.3) 01/09/20 16:59 Eosinophils % (Manual) 0 % (0.0-4.3) 01/09/20 16:59 Basophils % (Manual) 0 % (0.0-1.8) 01/09/20 16:59 Metamyelocytes % 0 % 01/09/20 16:59 Myelocytes % 0 % 01/09/20 16:59 Promyelocytes % 0 % 01/09/20 16:59 Blast Cells % 0 % 01/09/20 16:59 Nucleated RBC % Not Reportable 01/09/20 16:59 Seg Neutrophils # Man 26.8 K/mm3 (1.8-7.7) H 01/09/20 16:59 Band Neutrophils # 0.6 K/mm3 01/09/20 16:59 Lymphocytes # (Manual) 0.0 K/mm3 (1.2-5.4) L 01/09/20 16:59 Abs React Lymphs (Man) 0.0 K/mm3 01/09/20 16:59 Monocytes # (Manual) 1.1 K/mm3 (0.0-0.8) H 01/09/20 16:59 Eosinophils # (Manual) 0.0 K/mm3 (0.0-0.4) 01/09/20 16:59 Basophils # (Manual) 0.0 K/mm3 (0.0-0.1) 01/09/20 16:59 Metamyelocytes # 0.0 K/mm3 01/09/20 16:59 Myelocytes # 0.0 K/mm3 01/09/20 16:59 Promyelocytes # 0.0 K/mm3 01/09/20 16:59 Blast Cells # 0.0 K/mm3 01/09/20 16:59 WBC Morphology Not Reportable 01/09/20 16:59 Hypersegmented Neuts Not Reportable 01/09/20 16:59 Hyposegmented Neuts Not Reportable 01/09/20 16:59 Hypogranular Neuts Not Reportable 01/09/20 16:59 Smudge Cells Not Reportable 01/09/20 16:59 Toxic Granulation Not Reportable 01/09/20 16:59 Toxic Vacuolation 1+ 01/09/20 16:59 Dohle Bodies Not Reportable 01/09/20 16:59 Pelger-Huet Anomaly Not Reportable 01/09/20 16:59 Ramses Rods Not Reportable 01/09/20 16:59 Platelet Estimate Consistent w auto 01/09/20 16:59 Clumped Platelets Not Reportable 01/09/20 16:59 Plt Clumps, EDTA Not Reportable 01/09/20 16:59 Large Platelets Not Reportable 01/09/20 16:59 Giant Platelets Not Reportable 01/09/20 16:59 Platelet Satelliting Not Reportable 01/09/20 16:59 Plt Morphology Comment Not Reportable 01/09/20 16:59 RBC Morphology Not Reportable 01/09/20 16:59 Dimorphic RBCs Not Reportable 01/09/20 16:59 Polychromasia Not Reportable 01/09/20 16:59 Hypochromasia 1+ 01/09/20 16:59 Poikilocytosis 2+ 01/09/20 16:59 Anisocytosis 1+ 01/09/20 16:59 Microcytosis Not Reportable 01/09/20 16:59 Macrocytosis Not Reportable 01/09/20 16:59 Spherocytes Not Reportable 01/09/20 16:59 Pappenheimer Bodies Not Reportable 01/09/20 16:59 Sickle Cells Not Reportable 01/09/20 16:59 Target Cells Not Reportable 01/09/20 16:59 Tear Drop Cells Not Reportable 01/09/20 16:59 Ovalocytes Not Reportable 01/09/20 16:59 Helmet Cells Not Reportable 01/09/20 16:59 [place] Bodies Not Reportable 01/09/20 16:59 [place] Rings Not Reportable 01/09/20 16:59 L[place] Cells 2+ 01/09/20 16:59 Bite Cells Not Reportable 01/09/20 16:59 Crenated Cell Not Reportable 01/09/20 16:59 Elliptocytes Not Reportable 01/09/20 16:59 Acanthocytes (Spur) Not Reportable 01/09/20 16:59 Rouleaux Not Reportable 01/09/20 16:59 Hemoglobin C Crystals Not Reportable 01/09/20 16:59 Schistocytes Not Reportable 01/09/20 16:59 Malaria parasites Not Reportable 01/09/20 16:59 Laith Bodies Not Reportable 01/09/20 16:59 Hem Pathologist Commnt No 01/09/20 16:59 ABG pH 7.162 pH Units (7.350-7.450) L* 01/11/20 18:12 ABG pCO2 55.5 mm Hg 01/11/20 18:12 ABG pO2 72.8 mm Hg (80.0-90.0) L 01/11/20 18:12 ABG HCO3 19.4 mmol/L (20.0-26.0) L 01/11/20 18:12 ABG O2 Saturation 87.7 % (95.0-99.0) L 01/11/20 18:12 ABG O2 Content 11.8 (0.0-44) 01/11/20 18:12 ABG Base Excess -9.1 mmol/L (-2.0-3.0) L 01/11/20 18:12 ABG Hemoglobin 9.8 gm/dl (12.0-16.0) L 01/11/20 18:12 ABG Carboxyhemoglobin 2.1 % (0.0-5.0) 01/11/20 18:12 ABG Methemoglobin 0.6 % (0.0-1.5) 01/11/20 18:12 Oxyhemoglobin 85.3 % (95.0-99.0) L 01/11/20 18:12 FiO2 100 % 01/11/20 18:12 Sodium 142 mmol/L (137-145) 01/11/20 15:43 Potassium 5.0 mmol/L (3.6-5.0) 01/11/20 15:43 Chloride 108.9 mmol/L (98-107) H 01/11/20 15:43 Carbon Dioxide 17 mmol/L (22-30) L 01/11/20 15:43 Anion Gap 21 mmol/L 01/11/20 15:43 BUN 86 mg/dL (7-17) H 01/11/20 15:43 Creatinine 3.4 mg/dL (0.6-1.2) H 01/11/20 15:43 Estimated GFR 17 ml/min 01/11/20 15:43 BUN/Creatinine Ratio 25 % 01/11/20 15:43 Glucose 81 mg/dL (65-100) 01/11/20 15:43 Lactic Acid 1.50 mmol/L (0.7-2.0) 01/10/20 16:43 Calcium 8.0 mg/dL (8.4-10.2) L 01/11/20 15:43 Total Bilirubin 0.70 mg/dL (0.1-1.2) 01/09/20 16:59 AST 151 units/L (5-40) H 01/09/20 16:59 ALT 145 units/L (7-56) H 01/09/20 16:59 Alkaline Phosphatase 153 units/L (35-129) H 01/09/20 16:59 C-Reactive Protein 41.00 mg/dL (0.00-1.30) H 01/10/20 16:43 Total Protein 5.9 g/dL (6.3-8.2) L D 01/09/20 16:59 Albumin 2.2 g/dL (3.9-5) L 01/09/20 16:59 Albumin/Globulin Ratio 0.6 % 01/09/20 16:59 Procalcitonin 46.50 ng/mL (<0.15) 01/10/20 16:43 HCG, Qual Negative (Negative) 01/11/20 15:43 Urine Color Sheryl (Yellow) 01/09/20 15:30 Urine Turbidity Slightly-cloudy (Clear) 01/09/20 15:30 Urine pH 5.0 (5.0-7.0) 01/09/20 15:30 Ur Specific Donaldson 1.033 (1.003-1.030) H 01/09/20 15:30 Urine Protein 30 mg/dl mg/dL (Negative) 01/09/20 15:30 Urine Glucose (UA) Neg mg/dL (Negative) 01/09/20 15:30 Urine Ketones Neg mg/dL (Negative) 01/09/20 15:30 Urine Blood Neg (Negative) 01/09/20 15:30 Urine Nitrite Neg (Negative) 01/09/20 15:30 Urine Bilirubin Neg (Negative) 01/09/20 15:30 Urine Urobilinogen < 2.0 mg/dL (<2.0) 01/09/20 15:30 Ur Leukocyte Esterase Neg (Negative) 01/09/20 15:30 Urine WBC (Auto) 6.0 /HPF (0.0-6.0) 01/09/20 15:30 Urine RBC (Auto) 6.0 /HPF (0.0-6.0) 01/09/20 15:30 U Epithel Cells (Auto) 2.0 /HPF (0-13.0) 01/09/20 15:30 Granular Casts 7 /LPF 01/09/20 15:30 Urine Mucus Few /HPF 01/09/20 15:30 Urine Opiates Screen Presumptive negative 01/09/20 15:30 Urine Methadone Screen Presumptive negative 01/09/20 15:30 Ur Barbiturates Screen Presumptive negative 01/09/20 15:30 Ur Phencyclidine Scrn Presumptive negative 01/09/20 15:30 Ur Amphetamines Screen Presumptive negative 01/09/20 15:30 U Benzodiazepines Scrn Presumptive negative 01/09/20 15:30 Urine Cocaine Screen Presumptive positive 01/09/20 15:30 U Marijuana (THC) Screen Presumptive negative 01/09/20 15:30 Drugs of Abuse Note Disclamer 01/09/20 15:30 Blood Type O POSITIVE 01/11/20 15:00 Antibody Screen Negative 01/11/20 15:00 Microbiology: Microbiology 01/08/20 20:24 Peripheral/Venous Blood Culture - Preliminary NO GROWTH AFTER 48 HOURS 01/08/20 20:10 Peripheral/Venous Blood Culture - Preliminary NO GROWTH AFTER 48 HOURS Taylor/IV: Voiding Method Indwelling Catheter IV Catheter Type [Right Triple Lumen Cath Internal Jugular] IV Catheter Type [Right INT / Saline Lock Forearm] Active Medications - Current Medications Current Medications: Generic Name Dose Route Start Last Admin Trade Name Freq PRN Reason Stop Dose Admin Acetaminophen 650 mg 01/08/20 20:00 Tylenol PO Q4H PRN Pain MILD(1-3)/Fever >100.5/LOPEZ Aspirin 81 mg 01/09/20 10:00 Baby Aspirin PO QDAY [facility] Atorvastatin Calcium 40 mg 01/08/20 22:00 01/10/20 21:42 Lipitor PO Not Given QHS [facility] Carvedilol 6.25 mg 01/08/20 22:00 01/11/20 10:40 Coreg PO Not Given BID TRI Heparin Sodium (Porcine) 5,000 unit 01/10/20 22:00 01/11/20 09:22 Heparin SUB-Q 5,000 unit Q12HR TRI Administration Hydralazine HCl 25 mg 01/08/20 22:00 01/11/20 15:15 Apresoline PO Not Given Q8HR TRI Hydromorphone HCl 1 mg 01/08/20 21:26 01/11/20 08:19 Dilaudid IV 1 mg Q2H PRN Administration Pain , Severe (7-10) Norepinephrine 4 mg in 250 mls @ 7.5 mls/hr 01/08/20 23:45 01/11/20 09:27 Levophed Drip 4 Mg/Ns 250 Ml IV 0 mcg/min TITR TRI 0 mls/hr Titration Protocol 2 MCG/MIN Cefepime HCl 1 gm in 100 mls @ 200 mls/hr 01/09/20 22:00 01/10/20 21:42 Cefepime/Ns 1 Gm/100 Ml IV 200 mls/hr Q24H TRI Administration Sodium Chloride 1,000 mls @ 150 mls/hr 01/09/20 11:45 01/11/20 11:05 Nacl 0.9% 1000 Ml IV 150 mls/hr DIRECT TRI Administration Metronidazole 500 mg in 100 mls @ 100 mls/hr 01/10/20 15:00 01/11/20 15:08 Flagyl 500 Mg/100 Ml IV 100 mls/hr Q8H TRI Administration Protocol Lisinopril 20 mg 01/09/20 10:00 01/11/20 10:41 Zestril PO Not Given QDAY TRI Ondansetron HCl 4 mg 01/08/20 20:00 01/10/20 19:53 Zofran IV 4 mg Q8H PRN Administration Nausea And Vomiting Sodium Chloride 10 ml 01/08/20 22:00 01/11/20 09:23 Sodium Chloride Flush Syringe 10 Ml IV 10 ml BID TRI Administration Sodium Chloride 10 ml 01/08/20 20:00 Sodium Chloride Flush Syringe 10 Ml IV PRN PRN LINE FLUSH
--- NOTE | 2020-01-11 20:05 | Operative Report ---
PREOPERATIVE DIAGNOSIS: Pneumatosis intestinalis. POSTOPERATIVE DIAGNOSIS: Jefferson-necrosis of bowel. PROCEDURE PERFORMED: Exploratory laparotomy. ATTENDING PHYSICIAN: Rosalind Crockett MD SALT WASHER: Dr. Pacheco. ANESTHESIA: General. ESTIMATED BLOOD LOSS: Minimal. FINDINGS: Extensive necrosis of the small and most of the large bowel in the distribution of the SMA, large amount of free fluid that was foul smelling. There was no evidence of a bowel obstruction. SPECIMENS: None. DRAINS: None. COMPLICATIONS: None. INDICATIONS: This is a 49-year-old female with a history of drug abuse, who is homeless, that presented with multiple medical problems to the Emergency Room most severe of which was GI bleed. The patient was evaluated. On CT scan, there was a suggestion of possible bowel obstruction. Therefore, General Surgery was consulted. The patient did not appear to have a clearcut bowel obstruction, but the patient was observed. Mental status declined shortly after her admission. Followup CT scan showed evidence of pneumatosis intestinalis. Therefore with 2-physician consent, the patient was scheduled for an exploratory laparotomy. Of note, there was a daughter that was listed as a contact. However, she told the trimming caser that she did not want to be involved in her mother's care. OPERATIVE NOTE: The patient was brought to the operating room and placed on the table in supine position. After adequate general anesthesia was established, the patient was prepped and draped in the usual sterile fashion. Antibiotics have been given. SCDs were in place. Time-out was called. I began by making an upper midline incision. I entered the peritoneal cavity safely and I opened up the rest of the incision. I then checked the lower portion where she had had a previous incision. There were no significant adhesions in that area. I then opened that area up with my hand inside to protect the underlying bowel. Soon after opening, we immediately identified a foul smelling fluid. We found necrotic bowel. We were able to trace signs of necrosis of the small bowel all the way to the ligament of Treitz. The transverse colon was also showing signs of breakdown in that slight touching of the bowel led to a serosal tear. It appeared as though the sigmoid colon was spared, but the rest of the bowel was all involved in the necrosis. She did not have enough that would be compatible with life. Therefore at this point, I decided that there was no utility in excising any bowel. We would not be able to reanastomose the bowel. We simply washed the abdomen and then closed with #1 PDS sutures. Skin was closed with maude. There were no complications. The patient was taken back to the ICU. All counts were correct at the end of the case. JOB# [id number] VINCE/BIANCA EDWARDS
[2020-01-11 21:40] LABS: ABG HCO3 17.3 mmol/L (20.0-26.0); ABG Methemoglobin 0.6 % (0.0-1.5); ABG Oxygen Saturation 99.4 % (95.0-99.0); ABG PCO2 38.7 mm Hg; ABG PH 7.267 pH Units (7.350-7.450)
[2020-01-11 21:42] LABS: ABG PO2 280.6 mm Hg (80.0-90.0)
[2020-01-11] MEDS: CEFEPIME/NS 1 GM/100 ML 1 GM/100 ML BAG IV SCH (22:00)
[2020-01-12] MEDS: metroNIDAZOLE/NS 500 MG/100 ML 500 MG/100 ML BAG IV SCH ×4 (00:10→23:08)
[2020-01-12 06:10] LABS: ABG Base Excess -9.5 mmol/L (-2.0-3.0); ABG HCO3 15.7 mmol/L (20.0-26.0); ABG Methemoglobin 0.6 % (0.0-1.5); ABG Oxygen Saturation 98.4 % (95.0-99.0); ABG PCO2 31.1 mm Hg; ABG PH 7.32 pH Units (7.350-7.450); ABG PO2 128.6 mm Hg (80.0-90.0)
[2020-01-12] MEDS: SODIUM CHLORIDE 0.9% 1000 ML 1,000 ML IV SCH ×3 (06:35→20:57)
[2020-01-12] MEDS: fentaNYL DRIP Premix 2,000 MCG/100 ML BAG IV SCH ×3 (08:04→21:01)
--- NOTE | 2020-01-12 08:04 | Progress Note ---
Assessment and Plan Cultures: Blood culture 01/09/2020 no growth today Assessment: 49 years old female with history of hypertension, hyperlipidemia, osteoarthritis, CHF, homelessness, cocaine dependence, nicotine dependence, admitted on 01/09/2020 due to 24 hour history of acute rectal bleeding associated with generalized abdominal pain, nausea and vomiting: #Severe sepsis with septic shock: present on admission with fever, tachycardia, hypotension, elevated lactate; source secondary to small bowel obstruction. #Small bowel ischemia/pneumotosis intestinalis: No evidence of perforation or collection on CT. S/p exlab findings graham- SMA distribution necrosis. 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 CRP=41. Procal 46. #Urinary retention: Status post Taylor placement #Elevated LFTs: Possibly due to sepsis ? Viral hepatitis #Acute kidney injury: Likely due to sepsis. Worsening #Cocaine dependence: Urine drug screen positive Recommendations: -pneumatosis intestinalis per surgery -Continue cefepime renally adjusted -Continue Flagyl 500 g IV every 8 hours -Monitor LFTs and creatinine Poor prognosis Will follow. Bertha Junior MD Infectious Diseases Audiometric Technician [facility] ([facility]) M [phone] O [phone] Subjective Date of service: 01/12/20 Principal diagnosis: Sepsis Interval history: Patient is now intubated, no pressors Objective - Exam Narrative Exam: General appearance: intubated in NAD Eyes: anicteric sclerae, moist conjunctivae; no lid-lag; PERRLA HENT: Atraumatic; oropharynx +ETT, +NGT Lungs: CTA CV: RRR no murmur Abdomen: soft midline surgical wound with dressinghs Extremities: no edema, no cyanosis Skin: No rash. Psych: sedated Neuro: sedated - Constitutional Vitals: Vital Signs Temp Pulse Resp BP Pulse Ox 97.6 F 95 H 22 117/67 76 L 01/12/20 06:00 01/12/20 06:30 01/12/20 06:30 01/12/20 06:30 01/12/20 06:30 Temperature -Last 24 Hours Temperature 97.6 F Temperature 97.4 F Temperature 97.6 F Temperature 97.5 F Temperature 97.4 F - Labs CBC & Chem 7: 01/09/20 16:59 01/11/20 15:43 Labs: Abnormal lab results 01/11/20 01/11/2020 Range/Units 15:43 18:12 21:00 ABG pH 7.162 L* 7.267 L (7.350-7.450) pH Units ABG pO2 72.8 L 280.6 H (80.0-90.0) mm Hg ABG HCO3 19.4 L 17.3 L (20.0-26.0) mmol/L ABG O2 Saturation 87.7 L 99.4 H (95.0-99.0) % ABG Base Excess -9.1 L -9.0 L (-2.0-3.0) mmol/L ABG Hemoglobin 9.8 L 9.7 L (12.0-16.0) gm/dl Oxyhemoglobin 85.3 L (95.0-99.0) % Chloride 108.9 H (98-107) mmol/L Carbon Dioxide 17 L (22-30) mmol/L BUN 86 H (7-17) mg/dL Creatinine 3.4 H (0.6-1.2) mg/dL Calcium 8.0 L (8.4-10.2) mg/dL 01/12/20 Range/Units 05:35 ABG pH 7.320 L (7.350-7.450) pH Units ABG pO2 128.6 H (80.0-90.0) mm Hg ABG HCO3 15.7 L (20.0-26.0) mmol/L ABG O2 Saturation (95.0-99.0) % ABG Base Excess -9.5 L (-2.0-3.0) mmol/L ABG Hemoglobin 8.2 L (12.0-16.0) gm/dl Oxyhemoglobin (95.0-99.0) % Chloride (98-107) mmol/L Carbon Dioxide (22-30) mmol/L BUN (7-17) mg/dL Creatinine (0.6-1.2) mg/dL Calcium (8.4-10.2) mg/dL
[2020-01-12] MEDS: hydrALAZINE 25 MG TAB PO SCH ×3 (08:36→21:14)
[2020-01-12] MEDS: FAMOTIDINE 20 MG/2 ML INJ IV SCH (09:46)
[2020-01-12] MEDS: HEPARIN 5,000 UNIT/1 ML VIAL SUB-Q SCH (09:46)
[2020-01-12] MEDS: carvediloL 6.25 MG TAB PO SCH ×2 (09:49→21:14)
[2020-01-12] MEDS: LISINOPRIL 20 MG TAB PO SCH (09:50)
--- NOTE | 2020-01-12 11:58 | Progress Note ---
Assessment and Plan -Severe sepsis with septic shock: present on admission with fever, tachycardia, hypotension, elevated lactate; source secondary to small bowel obstruction. -Pneumatosis intestinalis s/p ex lap- graham-necrosis of bowel seen Urinary retention Elevated LFTs Acute kidney injury:Vasomotor nephropathy Acute toxic-metabolic encephalopathy Substance abuse- UDS positive for cocaine - VAP bundle addressed - Lung protective strategies - Bronchodilators with pulmonary hygiene per RT -ABG, CXR in am -OGT to LIS, keep NPO - Wean supplemental oxygen for target O2 sats > 94% - higher pAO2 to help perfuse the bowel - Daily SAT and SBT assessment as tolerated - Wean per pulmonary driven protocols - Accuchecks q6h while NPO, avoid hypoglycemia -Discussed with RD- may need the initiation of TPN - Avoid benzodiazepines, reduce the possibility of delirium - prn analgesia per CPOT score - Maintenance of sleep-wake cycle, avoid delirium -Avoid nephrotoxins, closely monitor renal function -Aspiration precautions, HOB >40 - Stress ulcer & VTE prophylaxis ( Heparin and Famotidine) -Mobility protocol, off loading and skin assessment for pressure ulcer prevention -Supportive transfusions as indicated to keep HgB >7g/dL -Taylor catheter-critically ill with unstable hemodynamics requiring accurate intake and output, and for urinary retention -Recommend renal consult if there is no improvement in her renal function Discussed with the ICU team-RT,RN, general surgeon Life threatening condition- Severe sepsis with septic shock; Acute renal failure; Pneumatosis intestinalis ischemic gut Mortality/Morbidity- High Complexity of medical decision making- High CONDITION: CRITICAL PROGNOSIS: GUARDED-GRAVE CODE STATUS: FULL CODE The high probability of a clinically significant, sudden or life-threatening deterioration of the [cardiovascular,neurology, GI ] system(s) required my full and direct attention, intervention and personal management. The aggregate critical care time was [33] minutes without overlap. Time includes spent on; [x] Data Review and interpretation [x] Patient assessment and monitoring of vital signs [x] Documentation Subjective Date of service: 01/12/20 Principal diagnosis: Sepsis Interval history: Patient is seen today for: Severe sepsis with septic shock; Pneumatosis intestinalis- ischemic gut; Cocaine abuse disorder; Acute renal failure; acute toxic-metabolic encephalopathy Seen and examined at bedside; 24hour events reviewed; nursing and respiratory care staff consulted; no adverse overnight events reported to me; resting peacefully in bed ; CT of abdomen and pelvis shows pneumatosis intestinalis, Orally intubated, sedated on Propofol and Fentanyl Nsaline at 150ml/hour Objective - Exam Narrative Exam: Vitals reviewed General appearance: Present: mild distress, cachectic, disheveled, Not in any distress Appears older than her stated age, orally intubated, ETT to MVS No patient ventilator dys-synchrony ETT at 22 cm at the lip - EENT Eyes: Present: PERRL ENT: RIJ CVC catheter NGT to LIS - Neck Neck: Present: supple, normal ROM - Respiratory Respiratory effort: normal Respiratory: bilateral: CTA - Cardiovascular Heart Sounds: Present: S1 & S2. Absent: rub, click - Extremities Extremities: pulses symmetrical, No edema Peripheral Pulses: within normal limits - Abdominal General gastrointestinal: Present: soft, tender, non-distended, hypoactive BS Midline surgial wond with dry dressing Female genitourinary: Present: normal Taylor catheter - Integumentary Integumentary: Present: clear, warm, dry - Psychiatric Psychiatric: Sedated - Neurologic Neurologic:Sedated Vital Signs - 12hr 01/12/20 01/12/20 01/12/20 00:00 00:16 00:30 Temperature 97.4 F L Pulse Rate 96 H 95 H 96 H Respiratory 26 H 19 23 Rate Blood Pressure 121/59 114/64 106/59 O2 Sat by Pulse 97 97 95 Oximetry 01/12/20 01/12/20 01/12/20 00:46 01:00 01:16 Temperature Pulse Rate 92 H 89 87 Respiratory 19 19 18 Rate Blood Pressure 104/59 101/59 102/59 O2 Sat by Pulse 100 Oximetry 01/12/20 01/12/20 01/12/20 01:30 01:46 02:00 Temperature Pulse Rate 87 97 H 97 H Respiratory 17 21 20 Rate Blood Pressure 120/63 103/67 112/62 O2 Sat by Pulse Oximetry 01/12/20 01/12/20 01/12/20 02:15 02:30 02:45 Temperature Pulse Rate 97 H 93 H 99 H Respiratory 19 21 21 Rate Blood Pressure 117/66 117/66 119/66 O2 Sat by Pulse Oximetry 01/12/20 01/12/20 01/12/20 03:00 03:15 03:30 Temperature Pulse Rate 93 H 96 H 98 H Respiratory 19 21 22 Rate Blood Pressure 99/60 102/63 104/56 O2 Sat by Pulse Oximetry 01/12/20 01/12/20 01/12/20 03:45 04:00 04:15 Temperature Pulse Rate 90 96 H 89 Respiratory 18 21 18 Rate Blood Pressure 102/57 103/61 111/56 O2 Sat by Pulse Oximetry 01/12/20 01/12/20 01/12/20 04:30 04:45 05:00 Temperature Pulse Rate 92 H 93 H 95 H Respiratory 20 19 18 Rate Blood Pressure 102/63 109/58 103/64 O2 Sat by Pulse Oximetry 01/12/20 01/12/20 01/12/20 05:14 05:15 05:30 Temperature Pulse Rate 96 H 93 H 91 H Respiratory 18 18 Rate Blood Pressure 107/62 107/62 103/59 O2 Sat by Pulse 100 Oximetry 01/12/20 01/12/20 01/12/20 05:45 06:00 06:15 Temperature 97.6 F Pulse Rate 91 H 97 H 88 Respiratory 20 23 18 Rate Blood Pressure 107/56 115/64 102/54 O2 Sat by Pulse Oximetry 01/12/20 01/12/20 01/12/20 06:30 06:45 07:00 Temperature Pulse Rate 95 H 98 H 99 H Respiratory 22 21 26 H Rate Blood Pressure 117/67 113/70 102/59 O2 Sat by Pulse 76 L 96 97 Oximetry 01/12/20 01/12/20 01/12/20 07:15 07:30 07:45 Temperature Pulse Rate 96 H 93 H 99 H Respiratory 24 18 23 Rate Blood Pressure 113/65 109/48 104/60 O2 Sat by Pulse 99 98 98 Oximetry 01/12/20 01/12/20 01/12/20 08:00 08:15 08:30 Temperature 97.5 F L Pulse Rate 93 H 95 H 93 H Respiratory 29 H 20 19 Rate Blood Pressure 96/66 98/59 107/60 O2 Sat by Pulse 100 99 99 Oximetry 01/12/20 01/12/20 01/12/20 08:34 08:45 09:00 Temperature Pulse Rate 95 H 93 H 94 H Respiratory 21 20 Rate Blood Pressure 107/60 116/64 110/63 O2 Sat by Pulse 98 98 99 Oximetry 01/12/20 11:24 Temperature Pulse Rate 96 H Respiratory Rate Blood Pressure 104/59 O2 Sat by Pulse 100 Oximetry CBC and BMP: 08/08/20 16:59 01/11/20 15:43 ABG, PT/INR, D-dimer: ABG ABG pH 7.320 pH Units (7.350-7.450) L 01/12/20 05:35 ABG pCO2 31.1 mm Hg 01/12/20 05:35 ABG pO2 128.6 mm Hg (80.0-90.0) H 01/12/20 05:35 ABG O2 Saturation 98.4 % (95.0-99.0) 01/12/20 05:35 Abnormal lab findings: Abnormal Labs 01/08/20 01/08/20 01/08/20 17:05 17:05 20:10 WBC 21.5 H RBC MCV MCH 24 L RDW 22.1 H Seg Neuts % (Manual) 83.0 H Lymphocytes % (Manual) 5.0 L Monocytes % (Manual) 12.0 H Seg Neutrophils # Man 17.8 H Lymphocytes # (Manual) 1.1 L Monocytes # (Manual) 2.6 H ABG pH ABG pO2 ABG HCO3 ABG O2 Saturation ABG Base Excess ABG Hemoglobin Oxyhemoglobin Sodium 133 L Potassium 6.0 H D Chloride 95.1 L Carbon Dioxide BUN 46 H Creatinine 2.9 H D Lactic Acid 2.20 H* Calcium 8.1 L AST 159 H ALT 147 H Alkaline Phosphatase C-Reactive Protein Total Protein 4.6 L D Albumin 2.[address] [place] 01/09/20 01/09/20 01/09/20 15:30 16:59 16:59 WBC 28.5 H RBC 5.32 H MCV 78 L MCH 24 L RDW 22.0 H Seg Neuts % (Manual) 94.0 H Lymphocytes % (Manual) 0 L Monocytes % (Manual) Seg Neutrophils # Man 26.8 H Lymphocytes # (Manual) 0.0 L Monocytes # (Manual) 1.1 H ABG pH ABG pO2 ABG HCO3 ABG O2 Saturation ABG Base Excess ABG Hemoglobin Oxyhemoglobin Sodium 132 L Potassium 5.8 H Chloride 96.1 L Carbon Dioxide 14 L D BUN 59 H Creatinine 2.8 H Lactic Acid Calcium 8.3 L AST 151 H ALT 145 H Alkaline Phosphatase 153 H C-Reactive Protein Total Protein 5.9 L D Albumin 2.[address] [place] [address] [place] 1.033 H 01/10/20 01/10/20 01/11/20 10:26 16:43 15:43 WBC RBC MCV MCH RDW Seg Neuts % (Manual) Lymphocytes % (Manual) Monocytes % (Manual) Seg Neutrophils # Man Lymphocytes # (Manual) Monocytes # (Manual) ABG pH ABG pO2 ABG HCO3 ABG O2 Saturation ABG Base Excess ABG Hemoglobin Oxyhemoglobin Sodium Potassium 5.1 H Chloride 108.9 H Carbon Dioxide 17 L BUN 69 H 86 H Creatinine 2.9 H 3.4 H Lactic Acid Calcium 8.0 L AST ALT Alkaline Phosphatase C-Reactive Protein 41.00 H Total Protein Albumin Ur Specific [place] 01/11/20 01/11/20 01/12/20 18:12 21:00 05:35 WBC RBC MCV MCH RDW Seg Neuts % (Manual) Lymphocytes % (Manual) Monocytes % (Manual) Seg Neutrophils # Man Lymphocytes # (Manual) Monocytes # (Manual) ABG pH 7.162 L* 7.267 L 7.320 L ABG pO2 72.8 L 280.6 H 128.6 H ABG HCO3 19.4 L 17.3 L 15.7 L ABG O2 Saturation 87.7 L 99.4 H ABG Base Excess -9.1 L -9.0 L -9.5 L ABG Hemoglobin 9.8 L 9.7 L 8.2 L Oxyhemoglobin 85.3 L Sodium Potassium Chloride Carbon Dioxide BUN Creatinine Lactic Acid Calcium AST ALT Alkaline Phosphatase C-Reactive Protein Total Protein Albumin Ur Specific [place] [address] [place] Chest x-ray: image reviewed Allied health notes reviewed: RT
[2020-01-12 12:42] LABS: Hematocrit 28.3 % (30.3-42.9); Hemoglobin 8.6 gm/dl (10.1-14.3); Mean Corpuscular HGB Conc 31 % (30-34); Mean Corpuscular Volume 77 fl (79-97); Platelet Count 151 K/mm3 (140-440); Red Blood Count 3.66 M/mm3 (3.65-5.03)
[2020-01-12 12:45] LABS: Red Cell Distribution Width 21.7 % (13.2-15.2)
[2020-01-12 12:56] LABS: Calcium 8.8 mg/dL (8.4-10.2)
--- NOTE | 2020-01-12 13:24 | Progress Note ---
Assessment and Plan - Patient Problems (1) Acute bowel infarction Current Visit: Yes Status: Acute Plan to address problem: Pt in critical condition. Unfortunately, patient was found not to have a small bowel obstruction, but instead had near complete infarction of the intestine from the ligament of Treitz to the sigmoid colon. Almost the entire length of intestine was unsalvageable. There was no pulse in the superior mesenteric artery which was probably the cause of this problem. No resection was done. Patient has a nonsurvivable condition. Comfort care measures should be instituted. Please call with any questions. Subjective Date of service: 01/12/20 Patient Reports: Positive: other (no events o/n) Objective Vital Signs - 12hr 01/12/20 01/12/20 01/12/20 01:30 01:46 02:00 Temperature Pulse Rate 87 97 H 97 H Respiratory 17 21 20 Rate Blood Pressure 120/63 103/67 112/62 O2 Sat by Pulse Oximetry 01/12/20 01/12/20 01/12/20 02:15 02:30 02:45 Temperature Pulse Rate 97 H 93 H 99 H Respiratory 19 21 21 Rate Blood Pressure 117/66 117/66 119/66 O2 Sat by Pulse Oximetry 01/12/20 01/12/20 01/12/20 03:00 03:15 03:30 Temperature Pulse Rate 93 H 96 H 98 H Respiratory 19 21 22 Rate Blood Pressure 99/60 102/63 104/56 O2 Sat by Pulse Oximetry 01/12/20 01/12/20 01/12/20 03:45 04:00 04:15 Temperature Pulse Rate 90 96 H 89 Respiratory 18 21 18 Rate Blood Pressure 102/57 103/61 111/56 O2 Sat by Pulse Oximetry 01/12/20 01/12/20 01/12/20 04:30 04:45 05:00 Temperature Pulse Rate 92 H 93 H 95 H Respiratory 20 19 18 Rate Blood Pressure 102/63 109/58 103/64 O2 Sat by Pulse Oximetry 01/12/20 01/12/20 01/12/20 05:14 05:15 05:30 Temperature Pulse Rate 96 H 93 H 91 H Respiratory 18 18 Rate Blood Pressure 107/62 107/62 103/59 O2 Sat by Pulse 100 Oximetry 01/12/20 01/12/20 01/12/20 05:45 06:00 06:15 Temperature 97.6 F Pulse Rate 91 H 97 H 88 Respiratory 20 23 18 Rate Blood Pressure 107/56 115/64 102/54 O2 Sat by Pulse Oximetry 01/12/20 01/12/20 01/12/20 06:30 06:45 07:00 Temperature Pulse Rate 95 H 98 H 99 H Respiratory 22 21 26 H Rate Blood Pressure 117/67 113/70 102/59 O2 Sat by Pulse 76 L 96 97 Oximetry 01/12/20 01/12/20 01/12/20 07:15 07:30 07:45 Temperature Pulse Rate 96 H 93 H 99 H Respiratory 24 18 23 Rate Blood Pressure 113/65 109/48 104/60 O2 Sat by Pulse 99 98 98 Oximetry 01/12/20 01/12/20 01/12/20 08:00 08:15 08:30 Temperature 97.5 F L Pulse Rate 93 H 95 H 93 H Respiratory 29 H 20 19 Rate Blood Pressure 96/66 98/59 107/60 O2 Sat by Pulse 100 99 99 Oximetry 01/12/20 01/12/20 01/12/20 08:34 08:45 09:00 Temperature Pulse Rate 95 H 93 H 94 H Respiratory 21 20 Rate Blood Pressure 107/60 116/64 110/63 O2 Sat by Pulse 98 98 99 Oximetry 01/12/20 01/12/20 01/12/20 09:15 09:30 09:45 Temperature Pulse Rate 97 H 97 H 100 H Respiratory 19 19 18 Rate Blood Pressure 106/64 110/62 111/61 O2 Sat by Pulse 98 98 99 Oximetry 01/12/20 01/12/20 01/12/20 10:00 10:15 10:30 Temperature Pulse Rate 96 H 96 H 93 H Respiratory 20 20 20 Rate Blood Pressure 121/69 111/66 106/58 O2 Sat by Pulse 100 100 100 Oximetry 01/12/20 01/12/20 01/12/20 10:45 11:00 11:15 Temperature Pulse Rate 94 H 94 H 94 H Respiratory 14 14 13 Rate Blood Pressure 103/57 102/57 104/59 O2 Sat by Pulse 100 100 100 Oximetry 01/12/20 01/12/20 01/12/20 11:24 11:30 11:45 Temperature Pulse Rate 96 H 95 H 95 H Respiratory 13 13 Rate Blood Pressure 104/59 95/56 96/55 O2 Sat by Pulse 100 100 99 Oximetry 01/12/20 01/12/20 01/12/20 12:00 12:15 12:30 Temperature 96 F L Pulse Rate 96 H 93 H 95 H Respiratory 12 13 11 L Rate Blood Pressure 96/56 96/55 95/54 O2 Sat by Pulse 99 99 99 Oximetry 01/12/20 01/12/20 12:45 13:00 Temperature Pulse Rate 93 H 93 H Respiratory 11 L 13 Rate Blood Pressure 99/54 91/54 O2 Sat by Pulse 99 99 Oximetry - General physical appearance no distress, no pain - Respiratory normal expansion, normal respiratory effort - Abdomen soft, other (NGT with brownish drainage) - Labs 01/12/20 10:18 01/12/20 11:55 Diabetes panel 01/11/20 01/12/20 Range/Units 15:43 11:55 Sodium 142 138 (137-145) mmol/L Potassium 5.0 5.3 H (3.6-5.0) mmol/L Chloride 108.9 H 107.0 (98-107) mmol/L Carbon Dioxide 17 L 17 L (22-30) mmol/L BUN 86 H 105 H (7-17) mg/dL Creatinine 3.4 H 3.7 H (0.6-1.2) mg/dL Glucose 81 111 H (65-100) mg/dL Calcium 8.0 L 8.8 (8.4-10.2) mg/dL Calcium panel 01/11/20 01/12/20 Range/Units 15:43 11:55 Calcium 8.0 L 8.8 (8.4-10.2) mg/dL Pituitary panel 01/11/20 01/12/20 Range/Units 15:43 11:55 Sodium 142 138 (137-145) mmol/L Potassium 5.0 5.3 H (3.6-5.0) mmol/L Chloride 108.9 H 107.0 (98-107) mmol/L Carbon Dioxide 17 L 17 L (22-30) mmol/L BUN 86 H 105 H (7-17) mg/dL Creatinine 3.4 H 3.7 H (0.6-1.2) mg/dL Glucose 81 111 H (65-100) mg/dL Calcium 8.0 L 8.8 (8.4-10.2) mg/dL Adrenal panel 01/11/20 01/12/20 Range/Units 15:43 11:55 Sodium 142 138 (137-145) mmol/L Potassium 5.0 5.3 H (3.6-5.0) mmol/L Chloride 108.9 H 107.0 (98-107) mmol/L Carbon Dioxide 17 L 17 L (22-30) mmol/L BUN 86 H 105 H (7-17) mg/dL Creatinine 3.4 H 3.7 H (0.6-1.2) mg/dL Glucose 81 111 H (65-100) mg/dL Calcium 8.0 L 8.8 (8.4-10.2) mg/dL
[2020-01-12] MEDS ORDERED: INSULIN REGULAR, HUMAN 100 UNIT/ML 3ML VIAL IV ONE (14:00)
[2020-01-12] MEDS ORDERED: DEXTROSE 50% IN WATER (25GM) 50 ML SYRINGE IV ONE (14:00)
[2020-01-12] MEDS ORDERED: SODIUM BICARB 8.4% 50 MEQ/50 ML SYRINGE IV ONE (14:00)
--- NOTE | 2020-01-12 15:47 | Consultation ---
History of Present Illness - Reason for Consult Consult date: 01/12/20 acute renal failure - History of Present Illness This is a 49 year old woman with CHF,HTN, HLD, OA, Severe Malnutrition, Macey elessness, Cocaine Dependence, Nicotine Dependence who presented to ED with rectal bleeding, abdominal pain on 01/09. Nephrology consulted for AVE. At time of consult, patient is critically ill in ICU, intubated on pressors. Per chart review, there was concern for SBO, but infarct of small bowel was noted on ex- lap by surgery. Creatinine has worsened from 2.9->3.7 as of today, ~500cc urine daily noted. . Past History Past Medical History: arthritis, heart failure, hypertension, hyperlipidemia, other (See HPI) Past Surgical History: , Other (Wrist surgery) Social history: , smoking, other (Cocaine dependence) Family history: diabetes, hypertension Medications and Allergies Allergies Allergy/AdvReac Type Severity Reaction Status Date / Time No Known Allergies Allergy Verified 11/07/19 07:55 Home Medications Medication Instructions Recorded Confirmed Last Taken Type Aspirin [Aspirin BABY CHEW TAB] 81 mg PO QDAY #30 tab.chew 12/07/19 01/09/20 Unknown Rx AtorvaSTATin [Lipitor] 40 mg PO QHS #30 tablet 12/07/19 01/09/20 Unknown Rx Furosemide [Lasix TAB] 40 mg PO DAILY #30 tablet 12/07/19 01/09/20 Unknown Rx Potassium Chloride 10 meq PO DAILY #30 tablet.er 12/07/19 01/09/20 Unknown Rx carvediloL [Coreg] 6.25 mg PO BID #60 tablet 12/07/19 01/09/20 Unknown Rx hydrALAZINE [Apresoline TAB] 25 mg PO Q8HR #90 tablet 12/07/19 01/09/20 Unknown Rx lisinopriL [Zestril TAB] 20 mg PO QDAY #30 tablet 12/07/19 01/09/20 Unknown Rx Active Meds: Active Medications Acetaminophen (Tylenol) 650 mg PO Q4H PRN PRN Reason: Pain MILD(1-3)/Fever >100.5/LOPEZ Aspirin (Baby Aspirin) 81 mg PO QDAY TRI Atorvastatin Calcium (Lipitor) 40 mg PO QHS TRI Last Admin: 01/11/20 22:00 Dose: Not Given Documented by: Carvedilol (Coreg) 6.25 mg PO BID [facility] Last Admin: 01/12/20 09:49 Dose: Not Given Documented by: Famotidine (Pepcid) 20 mg IV DAILY [facility] Last Admin: 01/12/20 09:46 Dose: 20 mg Documented by: Heparin Sodium (Porcine) (Heparin) 5,000 unit SUB-Q Q12HR TRI Last Admin: 01/12/20 09:46 Dose: 5,000 unit Documented by: Hydralazine HCl (Apresoline) 25 mg PO Q8HR TRI Last Admin: 01/12/20 15:05 Dose: Not Given Documented by: Hydromorphone HCl (Dilaudid) 1 mg IV Q2H PRN PRN Reason: Pain , Severe (7-10) Last Admin: 01/11/20 08:19 Dose: 1 mg Documented by: Norepinephrine (Levophed Drip 4 Mg/Ns 250 Ml) 4 mg in 250 mls @ 7.5 mls/hr IV TITR TRI; Protocol Last Titration: 01/11/20 09:27 Dose: 0 mcg/min, 0 mls/hr Documented by: Cefepime HCl (Cefepime/Ns 1 Gm/100 Ml) 1 gm in 100 mls @ 200 mls/hr IV Q24H TRI Last Admin: 01/11/20 22:00 Dose: 200 mls/hr Documented by: Sodium Chloride (Nacl 0.9% 1000 Ml) 1,000 mls @ 150 mls/hr IV DIRECT TRI Last Admin: 01/12/20 14:39 Dose: 150 mls/hr Documented by: Metronidazole (Flagyl 500 Mg/100 Ml) 500 mg in 100 mls @ 100 mls/hr IV Q8H TRI; Protocol Last Admin: 01/12/20 14:37 Dose: 100 mls/hr Documented by: Propofol (Diprivan 10 Mg/Ml) 1,000 mg in 100 mls @ 1.837 mls/hr IV TITR TRI; Protocol Last Admin: 01/12/20 14:41 Dose: 20 mcg/kg/min, 7.348 mls/hr Documented by: Fentanyl Citrate (Fentanyl Drip Premix) 2,000 mcg in 100 mls @ 3.062 mls/hr IV TITR TRI; Protocol Last Admin: 01/12/20 15:03 Dose: 4 mcg/kg/hr, 12.247 mls/hr Documented by: Lisinopril (Zestril) 20 mg PO QDAY [facility] Last Admin: 01/12/20 09:50 Dose: Not Given Documented by: Ondansetron HCl (Zofran) 4 mg IV Q8H PRN PRN Reason: Nausea And Vomiting Last Admin: 01/10/20 19:53 Dose: 4 mg Documented by: Sodium Chloride (Sodium Chloride Flush Syringe 10 Ml) 10 ml IV BID [facility] Last Admin: 01/12/20 09:51 Dose: 10 ml Documented by: Sodium Chloride (Sodium Chloride Flush Syringe 10 Ml) 10 ml IV PRN PRN PRN Reason: LINE FLUSH Review of Systems ROS unobtainable: due to endotracheal tube, due to mental status Exam - Vital Signs Vital signs: Vital Signs Resp Pulse Ox 31 H 100 01/08/20 16:17 01/08/20 16:17 - Physical Exam Narrative exam: General appearance: intubated, sedated, ill appearing Eyes: anicteric sclerae HENT: ET tube in place, NG tube noted Lungs: mechanical breath sounds CV: tachycardic Abdomen: dressing noted Extremities: no edema, no cyanosis Skin: No rash noted Psych: sedated Neuro: sedated Results - Lab Results 01/12/20 10:18 01/12/20 11:55 Most recent lab results ABG pH 7.320 pH Units (7.350-7.450) L 01/12/20 05:35 ABG pCO2 31.1 mm Hg 01/12/20 05:35 ABG pO2 128.6 mm Hg (80.0-90.0) H 01/12/20 05:35 ABG HCO3 15.7 mmol/L (20.0-26.0) L 01/12/20 05:35 ABG O2 Saturation 98.4 % (95.0-99.0) 01/12/20 05:35 Calcium 8.8 mg/dL (8.4-10.2) 01/12/20 11:55 Assessment and Plan # Acute Kidney Injury, Non-Oliguric: suspect AVE in setting of tubular injury from sepsis, hypotension, bowel infarct. No immediate renal replacement indications with normal K, reasonable urine output, but suspect that renal function will worsen given clinical setting. Reviewed surgical notes and likely no benefit to renal replacement therapy given severity of bowel infarct, and would not offer at this time unless goals of care change drastically. Currently, patient would not be stable for renal replacement therapy given hypotension, tachycardia - continue supportive measures as able, agree with goals of care discussion and potential comfort care measures - avoid nephrotoxins - IVF, pressors prn # Acidosis: Likely from AVE, lactic acidosis. IVF as able # Bowel Infarction: appreciate surgical input # Sepsis: appreciate ID input # Hypotension: pressors prn # Tachycardia Thank you for involving us in the care of this critically ill patient. Please do not hesitate to reach out to our team with any questions or concerns.
[2020-01-12] MEDS: NORepinephrine/NS 4 MG-250 ML 4 MG/250 ML BAG IV SCH ×2 (16:20→23:08)
--- NOTE | 2020-01-12 18:19 | Progress Note ---
Assessment and Plan Assessment and plan: 49 YO Female with with Sepsis currently on pressor support, GI Bleed,SBO, AVE, Severe Malnutrition, Homelessness, Acidosis, Cocaine Dependence, Nicotine Dependence. Pt lying in bed, No reported nursing events. No significant improvement overnight. Patient remains critically ill. Patient found to have p ersistent sepsis suspected secondary to necrotic bowel. Patient to be taken to the OR for reexploration as per surgical team today. Patient underwent surgical invtervention and was found near to complete infarction of the intestine, per surgery from the ligament of Treitz to the sigmoid colon. Almost the entire length of intestine was unsalvageable. There was no pulse in the superior mesenteric artery No resection was done. Patient has a nonsurvivable condition. Comfort care measures should be instituted. Paraoxysmal Atrial Fibrillation.- Will start on Heparin drip Anoxic Metabolic Encephalopathy - Patient Problems (1) Acute bowel infarction Current Visit: Yes Status: Acute Plan to address problem: Pt in critical condition. Unfortunately, patient was found not to have a small bowel obstruction, but instead had near complete infarction of the intestine from which was probably the cause of this problem. - Patient Problems (1) Sepsis Current Visit: Yes Status: Acute Plan to address problem: Sepsis protocol: Admit to IMCU, CBC, CMP, chest x-ray, urinalysis, IV antibiotic therapy, monitor urine output every shift, IV fluid resuscitation therapy, maintain mean arterial blood pressure greater than 65. Serial lactic acid levels. 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 (4) Elevated liver function tests Current Visit: Yes Status: Acute Plan to address problem: Supportive care, IV fluid resuscitation therapy, repeat liver function test in a.m. (5) Hyponatremia Current Visit: Yes Status: Acute Plan to address problem: IV fluid resuscitation therapy, monitor urine output every shift, repeat BMP in a.m. (6) Cocaine abuse Current Visit: No Status: Chronic Plan to address problem: Supportive care, outpatient substance abuse/dependence follow-up. (7) HLD (hyperlipidemia) Current Visit: No Status: Chronic Qualifiers: Hyperlipidemia type: unspecified Qualified Code(s): E78.5 - Hyperlipidemia, unspecified Plan to address problem: Supportive care, statin therapy as clinically indicated, risk factor reduction therapy. (8) Uncontrolled hypertension Current Visit: No Status: Chronic Plan to address problem: Monitor blood pressure every shift, continue medical management. (9) Acute kidney injury (AVE) with acute tubular necrosis (ATN) Current Visit: Yes Status: Acute Plan to address problem: IV fluid resuscitation therapy, monitor urine output every shift, BMP, repeat BMP in a.m. to monitor serum creatinine. (10) DVT prophylaxis Current Visit: No Status: Acute Plan to address problem: SCD to bilateral lower extremities while in bed, hold anticoagulation due to GI bleed. case managment trying to see if there is any other family as daughter is not willing to get involved in the care. Will also refer to Ethics team based on Surgery concern The high probability of a clinically significant, sudden or life threatening deterioration of the [GI] system(s) required my full and direct attention, intervention and personal management. The aggregate critical care time was [45] minutes. This time is in addition to time spent performing reported procedures but includes the following: [x] Data Review and interpretation [x] Patient assessment and monitoring of vital signs [x] Documentation [x] Medication orders and management History Interval history: Patient seen and examined, unfortunately remains on the vent, no new changes, except for intermittent rhythm changes Hospitalist Physical - Physical exam Narrative exam: General appearance: Present: mild distress, cachectic, disheveled, malodorous - Neck Neck: Present: supple - Respiratory Respiratory: bilateral: diminished - Cardiovascular Rhythm: regular Heart Sounds: Present: S1 & S2 - Extremities Extremities: no ischemia Peripheral Pulses: within normal limits - Abdominal General gastrointestinal: dressing in place, - Integumentary Integumentary: Present: clear, dry - Psychiatric Psychiatric: unresponsive - Neurologic Neurologic: CNII-XII intact - Constitutional Vitals: Temp Pulse Resp BP Pulse Ox 97.6 F 121 H 13 71/41 98 01/12/20 16:00 01/12/20 17:15 01/12/20 17:15 01/12/20 17:15 01/12/20 17:15 General appearance: Present: mild distress, cachectic, disheveled, malodorous Results - Labs CBC & Chem 7: 08/11/20 10:18 01/12/20 11:55 Labs: Laboratory Last Values WBC 22.9 K/mm3 (4.5-11.0) H 01/12/20 10:18 RBC 3.66 M/mm3 (3.65-5.03) 01/12/20 10:18 Hgb 8.6 gm/dl (10.1-14.3) L D 01/12/20 10:18 Hct 28.3 % (30.3-42.9) L D 01/12/20 10:18 MCV 77 fl (79-97) L 01/12/20 10:18 MCH 24 pg (28-32) L 01/12/20 10:18 MCHC 31 % (30-34) 01/12/20 10:18 RDW 21.7 % (13.2-15.2) H 01/12/20 10:18 Plt Count 151 K/mm3 (140-440) 01/12/20 10:18 Add Manual Diff Complete 01/09/20 16:59 Total Counted 100 01/09/20 16:59 Seg Neutrophils % Shot Man 01/09/20 16:59 Seg Neuts % (Manual) 94.0 % (40.0-70.0) H 01/09/20 16:59 Band Neutrophils % 2.0 % 01/09/20 16:59 Lymphocytes % (Manual) 0 % (13.4-35.0) L 01/09/20 16:59 Reactive Lymphs % (Man) 0 % 01/09/20 16:59 Monocytes % (Manual) 4.0 % (0.0-7.3) 01/09/20 16:59 Eosinophils % (Manual) 0 % (0.0-4.3) 01/09/20 16:59 Basophils % (Manual) 0 % (0.0-1.8) 01/09/20 16:59 Metamyelocytes % 0 % 01/09/20 16:59 Myelocytes % 0 % 01/09/20 16:59 Promyelocytes % 0 % 01/09/20 16:59 Blast Cells % 0 % 01/09/20 16:59 Nucleated RBC % Not Reportable 01/09/20 16:59 Seg Neutrophils # Man 26.8 K/mm3 (1.8-7.7) H 01/09/20 16:59 Band Neutrophils # 0.6 K/mm3 01/09/20 16:59 Lymphocytes # (Manual) 0.0 K/mm3 (1.2-5.4) L 01/09/20 16:59 Abs React Lymphs (Man) 0.0 K/mm3 01/09/20 16:59 Monocytes # (Manual) 1.1 K/mm3 (0.0-0.8) H 01/09/20 16:59 Eosinophils # (Manual) 0.0 K/mm3 (0.0-0.4) 01/09/20 16:59 Basophils # (Manual) 0.0 K/mm3 (0.0-0.1) 01/09/20 16:59 Metamyelocytes # 0.0 K/mm3 01/09/20 16:59 Myelocytes # 0.0 K/mm3 01/09/20 16:59 Promyelocytes # 0.0 K/mm3 01/09/20 16:59 Blast Cells # 0.0 K/mm3 01/09/20 16:59 WBC Morphology Not Reportable 01/09/20 16:59 Hypersegmented Neuts Not Reportable 01/09/20 16:59 Hyposegmented Neuts Not Reportable 01/09/20 16:59 Hypogranular Neuts Not Reportable 01/09/20 16:59 Smudge Cells Not Reportable 01/09/20 16:59 Toxic Granulation Not Reportable 01/09/20 16:59 Toxic Vacuolation 1+ 01/09/20 16:59 Dohle Bodies Not Reportable 01/09/20 16:59 Pelger-Huet Anomaly Not Reportable 01/09/20 16:59 Ramses Rods Not Reportable 01/09/20 16:59 Platelet Estimate Consistent w auto 01/09/20 16:59 Clumped Platelets Not Reportable 01/09/20 16:59 Plt Clumps, EDTA Not Reportable 01/09/20 16:59 Large Platelets Not Reportable 01/09/20 16:59 Giant Platelets Not Reportable 01/09/20 16:59 Platelet Satelliting Not Reportable 01/09/20 16:59 Plt Morphology Comment Not Reportable 01/09/20 16:59 RBC Morphology Not Reportable 01/09/20 16:59 Dimorphic RBCs Not Reportable 01/09/20 16:59 Polychromasia Not Reportable 01/09/20 16:59 Hypochromasia 1+ 01/09/20 16:59 Poikilocytosis 2+ 01/09/20 16:59 Anisocytosis 1+ 01/09/20 16:59 Microcytosis Not Reportable 01/09/20 16:59 Macrocytosis Not Reportable 01/09/20 16:59 Spherocytes Not Reportable 01/09/20 16:59 Pappenheimer Bodies Not Reportable 01/09/20 16:59 Sickle Cells Not Reportable 01/09/20 16:59 Target Cells Not Reportable 01/09/20 16:59 Tear Drop Cells Not Reportable 01/09/20 16:59 Ovalocytes Not Reportable 01/09/20 16:59 Helmet Cells Not Reportable 01/09/20 16:59 Plata-[place] Bodies Not Reportable 01/09/20 16:59 [place] Rings Not Reportable 01/09/20 16:59 Flushing Cells 2+ 01/09/20 16:59 Bite Cells Not Reportable 01/09/20 16:59 Crenated Cell Not Reportable 01/09/20 16:59 Elliptocytes Not Reportable 01/09/20 16:59 Acanthocytes (Spur) Not Reportable 01/09/20 16:59 Rouleaux Not Reportable 01/09/20 16:59 Hemoglobin C Crystals Not Reportable 01/09/20 16:59 Schistocytes Not Reportable 01/09/20 16:59 Malaria parasites Not Reportable 01/09/20 16:59 Laith Bodies Not Reportable 01/09/20 16:59 Hem Pathologist Commnt No 01/09/20 16:59 ABG pH 7.320 pH Units (7.350-7.450) L 01/12/20 05:35 ABG pCO2 31.1 mm Hg 01/12/20 05:35 ABG pO2 128.6 mm Hg (80.0-90.0) H 01/12/20 05:35 ABG HCO3 15.7 mmol/L (20.0-26.0) L 01/12/20 05:35 ABG O2 Saturation 98.4 % (95.0-99.0) 01/12/20 05:35 ABG O2 Content 11.4 (0.0-44) 01/12/20 05:35 ABG Base Excess -9.5 mmol/L (-2.0-3.0) L 01/12/20 05:35 ABG Hemoglobin 8.2 gm/dl (12.0-16.0) L 01/12/20 05:35 ABG Carboxyhemoglobin 1.4 % (0.0-5.0) 01/12/20 05:35 ABG Methemoglobin 0.6 % (0.0-1.5) 01/12/20 05:35 Oxyhemoglobin 96.5 % (95.0-99.0) 01/12/20 05:35 FiO2 50 % 01/12/20 05:35 Sodium 138 mmol/L (137-145) 01/12/20 11:55 Potassium 5.3 mmol/L (3.6-5.0) H 01/12/20 11:55 Chloride 107.0 mmol/L (98-107) 01/12/20 11:55 Carbon Dioxide 17 mmol/L (22-30) L 01/12/20 11:55 Anion Gap 19 mmol/L 01/12/20 11:55 BUN 105 mg/dL (7-17) H 01/12/20 11:55 Creatinine 3.7 mg/dL (0.6-1.2) H 01/12/20 11:55 Estimated GFR 16 ml/min 01/12/20 11:55 BUN/Creatinine Ratio 28 % 01/12/20 11:55 Glucose 111 mg/dL (65-100) H 01/12/20 11:55 POC Glucose 108 (70-105) H 01/12/20 18:20 Lactic Acid 1.50 mmol/L (0.7-2.0) 01/10/20 16:43 Calcium 8.8 mg/dL (8.4-10.2) 01/12/20 11:55 Total Bilirubin 0.70 mg/dL (0.1-1.2) 01/09/20 16:59 AST 151 units/L (5-40) H 01/09/20 16:59 ALT 145 units/L (7-56) H 01/09/20 16:59 Alkaline Phosphatase 153 units/L (35-129) H 01/09/20 16:59 C-Reactive Protein 41.00 mg/dL (0.00-1.30) H 01/10/20 16:43 Total Protein 5.9 g/dL (6.3-8.2) L D 01/09/20 16:59 Albumin 2.2 g/dL (3.9-5) L 01/09/20 16:59 Albumin/Globulin Ratio 0.6 % 01/09/20 16:59 Procalcitonin 46.50 ng/mL (<0.15) 01/10/20 16:43 HCG, Qual Negative (Negative) 01/11/20 15:43 Urine Color Sheryl (Yellow) 01/09/20 15:30 Urine Turbidity Slightly-cloudy (Clear) 01/09/20 15:30 Urine pH 5.0 (5.0-7.0) 01/09/20 15:30 Ur Specific [place] 1.033 (1.003-1.030) H 01/09/20 15:30 Urine Protein 30 mg/dl mg/dL (Negative) 01/09/20 15:30 Urine Glucose (UA) Neg mg/dL (Negative) 01/09/20 15:30 Urine Ketones Neg mg/dL (Negative) 01/09/20 15:30 Urine Blood Neg (Negative) 01/09/20 15:30 Urine Nitrite Neg (Negative) 01/09/20 15:30 Urine Bilirubin Neg (Negative) 01/09/20 15:30 Urine Urobilinogen < 2.0 mg/dL (<2.0) 01/09/20 15:30 Ur Leukocyte Esterase Neg (Negative) 01/09/20 15:30 Urine WBC (Auto) 6.0 /HPF (0.0-6.0) 01/09/20 15:30 Urine RBC (Auto) 6.0 /HPF (0.0-6.0) 01/09/20 15:30 U Epithel Cells (Auto) 2.0 /HPF (0-13.0) 01/09/20 15:30 Granular Casts 7 /LPF 01/09/20 15:30 Urine Mucus Few /HPF 01/09/20 15:30 Urine Opiates Screen Presumptive negative 01/09/20 15:30 Urine Methadone Screen Presumptive negative 01/09/20 15:30 Ur Barbiturates Screen Presumptive negative 01/09/20 15:30 Ur Phencyclidine Scrn Presumptive negative 01/09/20 15:30 Ur Amphetamines Screen Presumptive negative 01/09/20 15:30 U Benzodiazepines Scrn Presumptive negative 01/09/20 15:30 Urine Cocaine Screen Presumptive positive 01/09/20 15:30 U Marijuana (THC) Screen Presumptive negative 01/09/20 15:30 Drugs of Abuse Note Disclamer 01/09/20 15:30 Blood Type O POSITIVE 01/11/20 15:00 Antibody Screen Negative 01/11/20 15:00 Microbiology: Microbiology 01/11/20 18:16 Tracheal Aspirate Sputum Culture - Preliminary 01/08/20 20:24 Peripheral/Venous Blood Culture - Preliminary NO GROWTH AFTER 72 HOURS 01/08/20 20:10 Peripheral/Venous Blood Culture - Preliminary NO GROWTH AFTER 72 HOURS Taylor/IV: Voiding Method Indwelling Catheter IV Catheter Type [Right Triple Lumen Cath Internal Jugular] IV Catheter Type [Right INT / Saline Lock Forearm] Active Medications - Current Medications Current Medications: Generic Name Dose Route Start Last Admin Trade Name Freq PRN Reason Stop Dose Admin Acetaminophen 650 mg 01/08/20 20:00 Tylenol PO Q4H PRN Pain MILD(1-3)/Fever >100.5/LOPEZ Aspirin 81 mg 01/09/20 10:00 Baby Aspirin PO QDAY [facility] Atorvastatin Calcium 40 mg 01/08/20 22:00 01/11/20 22:00 Lipitor PO Not Given QHS [facility] Carvedilol 6.25 mg 01/08/20 22:00 01/12/20 09:49 Coreg PO Not Given BID [facility] Famotidine 20 mg 01/12/20 10:00 01/12/20 09:46 Pepcid IV 20 mg DAILY TRI Administration Heparin Sodium (Porcine) 5,000 unit 01/10/20 22:00 01/12/20 09:46 Heparin SUB-Q 5,000 unit Q12HR [facility] Administration Hydralazine HCl 25 mg 01/08/20 22:00 01/12/20 15:05 Apresoline PO Not Given Q8HR [facility] Hydromorphone HCl 1 mg 01/08/20 21:26 01/11/20 08:19 Dilaudid IV 1 mg Q2H PRN Administration Pain , Severe (7-10) Norepinephrine 4 mg in 250 mls @ 7.5 mls/hr 01/08/20 23:45 01/12/20 17:20 Levophed Drip 4 Mg/Ns 250 Ml IV 8 mcg/min TITR TRI 30 mls/hr Titration Protocol 2 MCG/MIN Cefepime HCl 1 gm in 100 mls @ 200 mls/hr 01/09/20 22:00 01/11/20 22:00 Cefepime/Ns 1 Gm/100 Ml IV 200 mls/hr Q24H TRI Administration Sodium Chloride 1,000 mls @ 150 mls/hr 01/09/20 11:45 01/12/20 14:39 Nacl 0.9% 1000 Ml IV 150 mls/hr DIRECT TRI Administration Metronidazole 500 mg in 100 mls @ 100 mls/hr 01/10/20 15:00 01/12/20 14:37 Flagyl 500 Mg/100 Ml IV 100 mls/hr Q8H TRI Administration Protocol Propofol 1,000 mg in 100 mls @ 1.837 mls/hr 01/11/20 23:45 01/12/20 15:30 Diprivan 10 Mg/Ml IV 0 mcg/kg/min TITR TRI 0 mls/hr Titration Protocol 5 MCG/KG/MIN Fentanyl Citrate 2,000 mcg in 100 mls @ 3.062 mls/hr 01/12/20 08:00 01/12/20 15:03 Fentanyl Drip Premix IV 4 mcg/kg/hr TITR TRI 12.247 mls/hr Administration Protocol 1 MCG/KG/HR Lisinopril 20 mg 01/09/20 10:00 01/12/20 09:50 Zestril PO Not Given QDAY TRI Ondansetron HCl 4 mg 01/08/20 20:00 01/10/20 19:53 Zofran IV 4 mg Q8H PRN Administration Nausea And Vomiting Sodium Chloride 10 ml 01/08/20 22:00 01/12/20 09:51 Sodium Chloride Flush Syringe 10 Ml IV 10 ml BID TRI Administration Sodium Chloride 10 ml 01/08/20 20:00 Sodium Chloride Flush Syringe 10 Ml IV PRN PRN LINE FLUSH
[2020-01-12 20:12] LABS: Hemoglobin 9.2 gm/dl (10.1-14.3)
[2020-01-12 20:22] LABS: INR 1.66 (0.87-1.13); Partial Thromboplastin Time 38.7 Sec. (24.2-36.6)
[2020-01-12] MEDS: HEPARIN/ 0.45% NACL DRIP 25,000 UNIT/500 ML BAG IV SCH (20:57)
[2020-01-12] MEDS: CEFEPIME/NS 1 GM/100 ML 1 GM/100 ML BAG IV SCH (21:02)
[2020-01-13] MEDS: fentaNYL DRIP Premix 2,000 MCG/100 ML BAG IV SCH ×2 (04:29→22:38)
[2020-01-13 05:28] LABS: ABG Base Excess -9.1 mmol/L (-2.0-3.0); ABG HCO3 18.1 mmol/L (20.0-26.0); ABG Methemoglobin 0.4 % (0.0-1.5); ABG Oxygen Saturation 96.3 % (95.0-99.0); ABG PCO2 46.1 mm Hg; ABG PH 7.211 pH Units (7.350-7.450); ABG PO2 91.5 mm Hg (80.0-90.0)
[2020-01-13] MEDS: hydrALAZINE 25 MG TAB PO SCH ×3 (06:24→21:50)
[2020-01-13] MEDS: metroNIDAZOLE/NS 500 MG/100 ML 500 MG/100 ML BAG IV SCH ×3 (06:26→23:30)
[2020-01-13] MEDS: NORepinephrine/NS 4 MG-250 ML 4 MG/250 ML BAG IV SCH ×3 (06:48→21:55)
[2020-01-13] MEDS: FAMOTIDINE 20 MG/2 ML INJ IV SCH (09:30)
--- NOTE | 2020-01-13 10:09 | Progress Note ---
Assessment and Plan # Acute Kidney Injury, Non-Oliguric: suspect AVE in setting of tubular injury from sepsis, hypotension, bowel infarct. No immediate renal replacement indications with normal K, reasonable urine output, but suspect that renal function will continue to worsen given clinical setting. Creatinine now to 3.7. Reviewed surgical notes and likely no benefit to renal replacement therapy given severity of bowel infarct, and would not offer at this time unless goals of care change drastically - continue supportive measures as able, agree with goals of care discussion and potential comfort care measures - avoid nephrotoxins - IVF, pressors prn # Acidosis: Likely from AVE, lactic acidosis. IVF as able # Bowel Infarction: appreciate surgical input # Sepsis: appreciate ID input # Hypotension: pressors prn Thank you for involving us in the care of this critically ill patient. Please do not hesitate to reach out to our team with any questions or concerns. Subjective Date of service: 01/13/20 Principal diagnosis: Sepsis Interval history: No acute changes noted. Reviewed notes and information from chart in depth. Objective - Exam Narrative Exam: General appearance: intubated, sedated, ill appearing Eyes: anicteric sclerae HENT: ET tube in place, NG tube noted Lungs: mechanical breath sounds CV: tachycardic Abdomen: dressing noted Extremities: no edema, no cyanosis Skin: No rash noted Psych: sedated Neuro: sedated - Vital Signs Vital signs: Vital Signs - 12hr 01/12/20 01/12/20 01/12/20 22:15 22:30 22:35 Temperature Pulse Rate 84 85 84 Pulse Rate [ From Monitor] Respiratory 12 12 12 Rate Blood Pressure 96/60 100/57 100/57 O2 Sat by Pulse 96 96 99 Oximetry 01/12/20 01/12/20 01/12/20 22:45 23:00 23:15 Temperature Pulse Rate 85 89 87 Pulse Rate [ From Monitor] Respiratory 12 12 12 Rate Blood Pressure 100/58 99/63 99/57 O2 Sat by Pulse 96 95 96 Oximetry 01/12/20 01/12/20 01/12/20 23:30 23:39 23:45 Temperature 97.8 F Pulse Rate 86 88 Pulse Rate [ From Monitor] Respiratory 12 11 L Rate Blood Pressure 103/58 100/57 O2 Sat by Pulse 97 97 Oximetry 01/13/20 01/13/20 01/13/20 00:00 00:15 00:18 Temperature Pulse Rate 85 86 86 Pulse Rate [ From Monitor] Respiratory 15 12 Rate Blood Pressure 95/56 91/56 91/56 O2 Sat by Pulse 99 97 98 Oximetry 01/13/20 01/13/20 01/13/20 00:30 00:45 01:00 Temperature Pulse Rate 86 84 84 Pulse Rate [ From Monitor] Respiratory 12 12 12 Rate Blood Pressure 93/55 97/53 95/57 O2 Sat by Pulse 97 96 97 Oximetry 01/13/20 01/13/20 01/13/20 01:15 01:30 01:45 Temperature Pulse Rate 83 83 82 Pulse Rate [ From Monitor] Respiratory 12 12 12 Rate Blood Pressure 95/62 100/58 93/59 O2 Sat by Pulse 96 98 97 Oximetry 01/13/20 01/13/20 01/13/20 02:00 02:15 02:30 Temperature Pulse Rate 80 78 76 Pulse Rate [ From Monitor] Respiratory 11 L 12 12 Rate Blood Pressure 94/54 93/55 97/58 O2 Sat by Pulse 97 97 97 Oximetry 01/13/20 01/13/20 01/13/20 02:45 03:00 03:15 Temperature Pulse Rate 75 76 78 Pulse Rate [ From Monitor] Respiratory 12 11 L 12 Rate Blood Pressure 90/56 89/56 94/61 O2 Sat by Pulse 97 97 97 Oximetry 01/13/20 01/13/20 01/13/20 03:30 03:45 03:47 Temperature 97.2 F L Pulse Rate 72 76 Pulse Rate [ From Monitor] Respiratory 11 L 13 Rate Blood Pressure 89/54 94/54 O2 Sat by Pulse 97 97 Oximetry 01/13/20 01/13/20 01/13/20 04:00 04:15 04:30 Temperature Pulse Rate 74 72 70 Pulse Rate [ From Monitor] Respiratory 12 12 12 Rate Blood Pressure 97/57 97/56 92/56 O2 Sat by Pulse 97 100 98 Oximetry 01/13/20 01/13/20 01/13/20 04:45 05:00 05:15 Temperature Pulse Rate 70 72 74 Pulse Rate [ From Monitor] Respiratory 11 L 12 11 L Rate Blood Pressure 98/56 102/55 91/51 O2 Sat by Pulse 98 98 96 Oximetry 01/13/20 01/13/20 01/13/20 05:30 05:33 05:45 Temperature Pulse Rate 69 71 69 Pulse Rate [ From Monitor] Respiratory 12 12 Rate Blood Pressure 94/56 94/56 94/53 O2 Sat by Pulse 98 98 96 Oximetry 01/13/20 01/13/20 01/13/20 06:00 06:15 06:30 Temperature Pulse Rate 71 73 71 Pulse Rate [ From Monitor] Respiratory 12 12 12 Rate Blood Pressure 95/55 92/51 91/55 O2 Sat by Pulse 95 95 95 Oximetry 01/13/20 01/13/20 01/13/20 06:45 07:00 07:15 Temperature Pulse Rate 73 76 75 Pulse Rate [ From Monitor] Respiratory 12 12 12 Rate Blood Pressure 100/54 92/52 92/51 O2 Sat by Pulse 96 96 96 Oximetry 01/13/20 01/13/20 01/13/20 07:30 07:45 07:58 Temperature Pulse Rate 73 75 75 Pulse Rate [ From Monitor] Respiratory 12 12 Rate Blood Pressure 91/52 100/52 94/55 O2 Sat by Pulse 95 97 100 Oximetry 01/13/20 01/13/20 01/13/20 08:00 08:15 08:30 Temperature 97.9 F Pulse Rate 74 70 70 Pulse Rate [ 71 From Monitor] Respiratory 05 14 12 Rate Blood Pressure 94/55 89/51 91/51 O2 Sat by Pulse 100 98 98 Oximetry - Lab 01/12/20 18:50 01/12/20 11:55 Most recent lab results ABG pH 7.211 pH Units (7.350-7.450) L 01/13/20 05:10 ABG pCO2 46.1 mm Hg 01/13/20 05:10 ABG pO2 91.5 mm Hg (80.0-90.0) H 01/13/20 05:10 ABG HCO3 18.1 mmol/L (20.0-26.0) L 01/13/20 05:10 ABG O2 Saturation 96.3 % (95.0-99.0) 01/13/20 05:10 Calcium 8.8 mg/dL (8.4-10.2) 01/12/20 11:55 Medications & Allergies - Medications Allergies/Adverse Reactions: Allergies No Known Allergies Allergy (Verified 11/07/19 07:55) Home Medications: Home Medications Medication Instructions Recorded Confirmed Last Taken Type Aspirin [Aspirin BABY CHEW TAB] 81 mg PO QDAY #30 tab.chew 12/07/19 01/09/20 Unknown Rx AtorvaSTATin [Lipitor] 40 mg PO QHS #30 tablet 12/07/19 01/09/20 Unknown Rx Furosemide [Lasix TAB] 40 mg PO DAILY #30 tablet 12/07/19 01/09/20 Unknown Rx Potassium Chloride 10 meq PO DAILY #30 tablet.er 12/07/19 01/09/20 Unknown Rx carvediloL [Coreg] 6.25 mg PO BID #60 tablet 12/07/19 01/09/20 Unknown Rx hydrALAZINE [Apresoline TAB] 25 mg PO Q8HR #90 tablet 12/07/19 01/09/20 Unknown Rx lisinopriL [Zestril TAB] 20 mg PO QDAY #30 tablet 12/07/19 01/09/20 Unknown Rx Active Medications: Generic Name Dose Route Start Last Admin Trade Name Freq PRN Reason Stop Dose Admin Acetaminophen 650 mg 01/08/20 20:00 Tylenol PO Q4H PRN Pain MILD(1-3)/Fever >100.5/LOPEZ Aspirin 81 mg 01/09/20 10:00 Baby Aspirin PO QDAY [facility] Atorvastatin Calcium 40 mg 01/08/20 22:00 01/12/20 21:14 Lipitor PO Not Given QHS TRI Carvedilol 6.25 mg 01/08/20 22:00 01/12/20 21:14 Coreg PO Not Given BID TRI Famotidine 20 mg 01/12/20 10:00 01/13/20 09:30 Pepcid IV 20 mg DAILY TRI Administration Hydralazine HCl 25 mg 01/08/20 22:00 01/13/20 06:24 Apresoline PO Not Given Q8HR TRI Hydromorphone HCl 1 mg 01/08/20 21:26 01/11/20 08:19 Dilaudid IV 1 mg Q2H PRN Administration Pain , Severe (7-10) Norepinephrine 4 mg in 250 mls @ 7.5 mls/hr 01/08/20 23:45 01/13/20 09:05 Levophed Drip 4 Mg/Ns 250 Ml IV 10 mcg/min TITR TRI 37.5 mls/hr Titration Protocol 2 MCG/MIN Cefepime HCl 1 gm in 100 mls @ 200 mls/hr 01/09/20 22:00 08/11/20 21:02 Cefepime/Ns 1 Gm/100 Ml IV 200 mls/hr Q24H TRI Administration Metronidazole 500 mg in 100 mls @ 100 mls/hr 01/10/20 15:00 01/13/20 06:26 Flagyl 500 Mg/100 Ml IV 100 mls/hr Q8H TRI Administration Protocol Propofol 1,000 mg in 100 mls @ 1.837 mls/hr 01/11/20 23:45 01/12/20 15:30 Diprivan 10 Mg/Ml IV 0 mcg/kg/min TITR TRI 0 mls/hr Titration Protocol 5 MCG/KG/MIN Fentanyl Citrate 2,000 mcg in 100 mls @ 3.062 mls/hr 01/12/20 08:00 01/13/20 08:46 Fentanyl Drip Premix IV 2 mcg/kg/hr TITR TRI 6.124 mls/hr Titration Protocol 1 MCG/KG/HR Heparin Sodium/Sodium Chloride 25,000 unit in 500 mls @ 18 mls/hr 01/12/20 19:00 01/13/20 06:11 Heparin/ 0.45% Nacl-25,000 Unit/500 Ml IV 950 units/hr TITR TRI 19 mls/hr Titration Protocol 900 UNITS/HR Sodium Bicarbonate 150 meq/ 1,150 mls @ 150 mls/hr 01/13/20 10:00 Dextrose IV DIRECT [facility] Lisinopril 20 mg 01/09/20 10:00 01/12/20 09:50 Zestril PO Not Given QDAY [facility] Ondansetron HCl 4 mg 01/08/20 20:00 01/10/20 19:53 Zofran IV 4 mg Q8H PRN Administration Nausea And Vomiting Sodium Chloride 10 ml 01/08/20 22:00 01/12/20 21:14 Sodium Chloride Flush Syringe 10 Ml IV Not Given BID TRI Sodium Chloride 10 ml 01/08/20 20:00 Sodium Chloride Flush Syringe 10 Ml IV PRN PRN LINE FLUSH
[2020-01-13 10:28] LABS: Hematocrit 27.1 % (30.3-42.9); Hemoglobin 8.4 gm/dl (10.1-14.3); Mean Corpuscular HGB Conc 31 % (30-34); Mean Corpuscular Volume 77 fl (79-97); Platelet Count 143 K/mm3 (140-440); Red Blood Count 3.53 M/mm3 (3.65-5.03)
[2020-01-13 10:38] LABS: Calcium 8.6 mg/dL (8.4-10.2)
[2020-01-13] MEDS: SODIUM BICARBONATE 150 MEQ in DEXTROSE 5% IN WATER 1,000 ML IV SCH ×2 (10:45→20:00)
[2020-01-13] MEDS: LISINOPRIL 20 MG TAB PO SCH (10:47)
[2020-01-13] MEDS: carvediloL 6.25 MG TAB PO SCH ×2 (10:48→21:50)
--- NOTE | 2020-01-13 11:40 | Progress Note ---
Assessment and Plan -Severe sepsis with septic shock: present on admission with fever, tachycardia, hypotension, elevated lactate; source secondary to small bowel obstruction. 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 Change NSaline to 150meq bicarbonate infusion - Lung protective strategies - Bronchodilators with pulmonary hygiene per RT -CXR today -OGT to LIS, keep NPO - Wean supplemental oxygen for target O2 sats > 94% - higher pAO2 to help perfuse the bowel - Daily SAT and SBT assessment as tolerated - Wean per pulmonary driven protocols - Accuchecks q6h while NPO, avoid hypoglycemia - Avoid benzodiazepines, reduce the possibility of delirium - prn analgesia per CPOT score - Maintenance of sleep-wake cycle, avoid delirium -Avoid nephrotoxins, closely monitor renal function -Aspiration precautions, HOB >40 -Antibiotics per ID- Cefepime and Metronidazole -On therapeutic heparin infusions -Medical management and redistribution therpaies for hyperkalemia - Stress ulcer prophylaxis (Famotidine) -Mobility protocol, off loading and skin assessment for pressure ulcer prevention -Supportive transfusions as indicated to keep HgB >7g/dL -Taylor catheter-critically ill with unstable hemodynamics requiring accurate intake and output, and for urinary retention Discussed with the ICU team-RT,RN,CM In view of her prognosis and severity of illness, there is a need for goals of care discussions. The family are apparently not ready to make decision son her behalf, the patient apparently lived on the streets. Ethics consult is appropriate to determine code status and goals of care. Life threatening condition- Severe sepsis with septic shock; Acute renal failure; Pneumatosis intestinalis ischemic gut Mortality/Morbidity- High Complexity of medical decision making- High CONDITION: CRITICAL PROGNOSIS: GUARDED-GRAVE CODE STATUS: FULL CODE The high probability of a clinically significant, sudden or life-threatening deterioration of the [cardiovascular,neurology, GI ] system(s) required my full and direct attention, intervention and personal management. The aggregate critical care time was [33] minutes without overlap. Time includes spent on; [x] Data Review and interpretation [x] Patient assessment and monitoring of vital signs [x] Documentation Subjective Date of service: 01/13/20 Principal diagnosis: Sepsis Interval history: Patient is seen today for: Severe sepsis with septic shock; Pneumatosis intestinalis- ischemic gut- s/p ex lap, no surgical intervention; Cocaine abuse disorder; Acute renal failure; acute toxic-metabolic encephalopathy Seen and examined at bedside; 24hour events reviewed; nursing and respiratory care staff consulted; no adverse overnight events reported to me; resting peacefully in bed ; Orally intubated, sedated on Fentanyl at 2mcg Nsaline at 150ml/hour, on Norepinephrine at 10mcg, heparin infusion Objective - Exam Narrative Exam: itals reviewed General appearance: Present: mild distress, cachectic, disheveled, Not in any distress Appears older than her stated age, orally intubated, ETT to MVS No patient ventilator dys-synchrony ETT at 22 cm at the lip Settings AC-VC 450/12/6/25% - EENT Eyes: Present: PERRL ENT: RIJ CVC catheter NGT to LIS - Neck Neck: Present: supple, normal ROM - Respiratory Respiratory effort: normal Respiratory: bilateral: CTA - Cardiovascular Heart Sounds: Present: S1 & S2. Absent: rub, click - Extremities Extremities: pulses symmetrical, No edema Peripheral Pulses: within normal limits - Abdominal General gastrointestinal: Present: soft, tender, non-distended, hypoactive BS Midline surgical wound with dry dressing Female genitourinary: Present: normal Taylor catheter - Integumentary Integumentary: Present: clear, warm, dry - Psychiatric Psychiatric: Sedated - Neurologic Neurologic:Sedated Vital Signs - 12hr 01/12/20 01/12/20 01/13/20 23:39 23:45 00:00 Temperature 97.8 F Pulse Rate 88 85 Pulse Rate [ From Monitor] Respiratory 11 L 15 Rate Blood Pressure 100/57 95/56 O2 Sat by Pulse 97 99 Oximetry 01/13/20 01/13/20 01/13/20 00:15 00:18 00:30 Temperature Pulse Rate 86 86 86 Pulse Rate [ From Monitor] Respiratory 12 12 Rate Blood Pressure 91/56 91/56 93/55 O2 Sat by Pulse 97 98 97 Oximetry 01/13/20 01/13/20 01/13/20 00:45 01:00 01:15 Temperature Pulse Rate 84 84 83 Pulse Rate [ From Monitor] Respiratory 12 12 12 Rate Blood Pressure 97/53 95/57 95/62 O2 Sat by Pulse 96 97 96 Oximetry 01/13/20 01/13/20 01/13/20 01:30 01:45 02:00 Temperature Pulse Rate 83 82 80 Pulse Rate [ From Monitor] Respiratory 12 12 11 L Rate Blood Pressure 100/58 93/59 94/54 O2 Sat by Pulse 98 97 97 Oximetry 01/13/20 01/13/20 01/13/20 02:15 02:30 02:45 Temperature Pulse Rate 78 76 75 Pulse Rate [ From Monitor] Respiratory 12 12 12 Rate Blood Pressure 93/55 97/58 90/56 O2 Sat by Pulse 97 97 97 Oximetry 01/13/20 01/13/20 01/13/20 03:00 03:15 03:30 Temperature Pulse Rate 76 78 72 Pulse Rate [ From Monitor] Respiratory 11 L 12 11 L Rate Blood Pressure 89/56 94/61 89/54 O2 Sat by Pulse 97 97 97 Oximetry 01/13/20 01/13/20 01/13/20 03:45 03:47 04:00 Temperature 97.2 F L Pulse Rate 76 74 Pulse Rate [ From Monitor] Respiratory 13 12 Rate Blood Pressure 94/54 97/57 O2 Sat by Pulse 97 97 Oximetry 01/13/20 01/13/20 01/13/20 04:15 04:30 04:45 Temperature Pulse Rate 72 70 70 Pulse Rate [ From Monitor] Respiratory 12 12 11 L Rate Blood Pressure 97/56 92/56 98/56 O2 Sat by Pulse 100 98 98 Oximetry 01/13/20 01/13/20 01/13/20 05:00 05:15 05:30 Temperature Pulse Rate 72 74 69 Pulse Rate [ From Monitor] Respiratory 12 11 L 12 Rate Blood Pressure 102/55 91/51 94/56 O2 Sat by Pulse 98 96 98 Oximetry 01/13/20 01/13/20 01/13/20 05:33 05:45 06:00 Temperature Pulse Rate 71 69 71 Pulse Rate [ From Monitor] Respiratory 12 12 Rate Blood Pressure 94/56 94/53 95/55 O2 Sat by Pulse 98 96 95 Oximetry 01/13/20 01/13/20 01/13/20 06:15 06:30 06:45 Temperature Pulse Rate 73 71 73 Pulse Rate [ From Monitor] Respiratory 12 12 12 Rate Blood Pressure 92/51 91/55 100/54 O2 Sat by Pulse 95 95 96 Oximetry 01/13/20 01/13/20 01/13/20 07:00 07:15 07:30 Temperature Pulse Rate 76 75 73 Pulse Rate [ From Monitor] Respiratory 12 12 12 Rate Blood Pressure 92/52 92/51 91/52 O2 Sat by Pulse 96 96 95 Oximetry 01/13/20 01/13/20 01/13/20 07:45 07:58 08:00 Temperature 97.9 F Pulse Rate 75 75 74 Pulse Rate [ 71 From Monitor] Respiratory 12 12 Rate Blood Pressure 100/52 94/55 94/55 O2 Sat by Pulse 97 100 100 Oximetry 01/13/20 01/13/20 01/13/20 08:15 08:30 08:45 Temperature Pulse Rate 70 70 72 Pulse Rate [ From Monitor] Respiratory 12 12 12 Rate Blood Pressure 89/51 91/51 92/51 O2 Sat by Pulse 98 98 98 Oximetry 01/13/20 01/13/20 01/13/20 09:00 09:15 09:30 Temperature Pulse Rate 69 72 72 Pulse Rate [ From Monitor] Respiratory 12 12 12 Rate Blood Pressure 90/57 99/57 98/53 O2 Sat by Pulse 99 98 97 Oximetry 01/13/20 01/13/20 09:45 10:00 Temperature Pulse Rate 70 71 Pulse Rate [ From Monitor] Respiratory 16 16 Rate Blood Pressure 95/52 101/57 O2 Sat by Pulse 98 99 Oximetry CBC and BMP: 01/13/20 09:45 01/13/20 09:45 ABG, PT/INR, D-dimer: ABG ABG pH 7.211 pH Units (7.350-7.450) L 01/13/20 05:10 ABG pCO2 46.1 mm Hg 01/13/20 05:10 ABG pO2 91.5 mm Hg (80.0-90.0) H 01/13/20 05:10 ABG O2 Saturation 96.3 % (95.0-99.0) 01/13/20 05:10 PT/INR, D-dimer PT 20.0 Sec. (12.2-14.9) H 01/12/20 18:50 INR 1.66 (0.87-1.13) H 01/12/20 18:50 Abnormal lab findings: Abnormal Labs 01/08/20 01/08/2020 17:05 17:05 20:10 WBC 21.5 H RBC Hgb Hct MCV MCH 24 L RDW 22.1 H Seg Neuts % (Manual) 83.0 H Lymphocytes % (Manual) 5.0 L Monocytes % (Manual) 12.0 H Seg Neutrophils # Man 17.8 H Lymphocytes # (Manual) 1.1 L Monocytes # (Manual) 2.6 H PT INR APTT Heparin Anti-Xa Level ABG pH ABG pO2 ABG HCO3 ABG O2 Saturation ABG Base Excess ABG Hemoglobin Oxyhemoglobin Sodium 133 L Potassium 6.0 H D Chloride 95.1 L Carbon Dioxide BUN 46 H Creatinine 2.9 H D Glucose POC Glucose Lactic Acid 2.20 H* Calcium 8.1 L AST 159 H ALT 147 H Alkaline Phosphatase C-Reactive Protein Total Protein 4.6 L D Albumin 2.1 L Ur Specific [place] 01/09/20 01/09/20 01/09/20 15:30 16:59 16:59 WBC 28.5 H RBC 5.32 H Hgb Hct MCV 78 L MCH 24 L RDW 22.0 H Seg Neuts % (Manual) 94.0 H Lymphocytes % (Manual) 0 L Monocytes % (Manual) Seg Neutrophils # Man 26.8 H Lymphocytes # (Manual) 0.0 L Monocytes # (Manual) 1.1 H PT INR APTT Heparin Anti-Xa Level ABG pH ABG pO2 ABG HCO3 ABG O2 Saturation ABG Base Excess ABG Hemoglobin Oxyhemoglobin Sodium 132 L Potassium 5.8 H Chloride 96.1 L Carbon Dioxide 14 L D BUN 59 H Creatinine 2.8 H Glucose POC Glucose Lactic Acid Calcium 8.3 L AST 151 H ALT 145 H Alkaline Phosphatase 153 H C-Reactive Protein Total Protein 5.9 L D Albumin 2.2 L Ur Specific [place] 1.033 H 01/10/20 01/10/20 01/11/20 10:26 16:43 15:43 WBC RBC Hgb Hct MCV MCH RDW Seg Neuts % (Manual) Lymphocytes % (Manual) Monocytes % (Manual) Seg Neutrophils # Man Lymphocytes # (Manual) Monocytes # (Manual) PT INR APTT Heparin Anti-Xa Level ABG pH ABG pO2 ABG HCO3 ABG O2 Saturation ABG Base Excess ABG Hemoglobin Oxyhemoglobin Sodium Potassium 5.1 H Chloride 108.9 H Carbon Dioxide 17 L BUN 69 H 86 H Creatinine 2.9 H 3.4 H Glucose POC Glucose Lactic Acid Calcium 8.0 L AST ALT Alkaline Phosphatase C-Reactive Protein 41.00 H Total Protein Albumin Ur Specific [place] 01/11/20 01/11/20 01/12/20 18:12 21:00 05:35 WBC RBC Hgb Hct MCV MCH RDW Seg Neuts % (Manual) Lymphocytes % (Manual) Monocytes % (Manual) Seg Neutrophils # Man Lymphocytes # (Manual) Monocytes # (Manual) PT INR APTT Heparin Anti-Xa Level ABG pH 7.162 L* 7.267 L 7.320 L ABG pO2 72.8 L 280.6 H 128.6 H ABG HCO3 19.4 L 17.3 L 15.7 L ABG O2 Saturation 87.7 L 99.4 H ABG Base Excess -9.1 L -9.0 L -9.5 L ABG Hemoglobin 9.8 L 9.7 L 8.2 L Oxyhemoglobin 85.3 L Sodium Potassium Chloride Carbon Dioxide BUN Creatinine Glucose POC Glucose Lactic Acid Calcium AST ALT Alkaline Phosphatase C-Reactive Protein Total Protein Albumin Ur Specific [place] 01/12/20 01/12/20 01/12/20 10:18 11:51 11:55 WBC 22.9 H RBC Hgb 8.6 L D Hct 28.3 L D MCV 77 L MCH 24 L RDW 21.7 H Seg Neuts % (Manual) Lymphocytes % (Manual) Monocytes % (Manual) Seg Neutrophils # Man Lymphocytes # (Manual) Monocytes # (Manual) PT INR APTT Heparin Anti-Xa Level ABG pH ABG pO2 ABG HCO3 ABG O2 Saturation ABG Base Excess ABG Hemoglobin Oxyhemoglobin Sodium Potassium 5.3 H Chloride Carbon Dioxide 17 L BUN 105 H Creatinine 3.7 H Glucose 111 H POC Glucose 115 H Lactic Acid Calcium AST ALT Alkaline Phosphatase C-Reactive Protein Total Protein Albumin Ur Specific [place] 01/12/20 01/12/20 01/12/20 18:20 18:50 18:50 WBC RBC Hgb 9.2 L Hct 30.0 L MCV MCH RDW Seg Neuts % (Manual) Lymphocytes % (Manual) Monocytes % (Manual) Seg Neutrophils # Man Lymphocytes # (Manual) Monocytes # (Manual) PT 20.0 H INR 1.66 H APTT 38.7 H Heparin Anti-Xa Level ABG pH ABG pO2 ABG HCO3 ABG O2 Saturation ABG Base Excess ABG Hemoglobin Oxyhemoglobin Sodium Potassium Chloride Carbon Dioxide BUN Creatinine Glucose POC Glucose 108 H Lactic Acid Calcium AST ALT Alkaline Phosphatase C-Reactive Protein Total Protein Albumin Ur Specific [place] 01/13/20 01/13/20 01/13/20 03:02 05:10 09:45 WBC 26.2 H RBC 3.53 L Hgb 8.4 L Hct 27.1 L MCV 77 L MCH 24 L RDW 22.0 H Seg Neuts % (Manual) Lymphocytes % (Manual) Monocytes % (Manual) Seg Neutrophils # Man Lymphocytes # (Manual) Monocytes # (Manual) PT INR APTT Heparin Anti-Xa Level 0.23 L ABG pH 7.211 L ABG pO2 91.5 H ABG HCO3 18.1 L ABG O2 Saturation ABG Base Excess -9.1 L ABG Hemoglobin 7.3 L Oxyhemoglobin 94.0 L Sodium Potassium Chloride Carbon Dioxide BUN Creatinine Glucose POC Glucose Lactic Acid Calcium AST ALT Alkaline Phosphatase C-Reactive Protein Total Protein Albumin Ur Specific [place] 01/13/20 09:45 WBC RBC Hgb Hct MCV MCH RDW Seg Neuts % (Manual) Lymphocytes % (Manual) Monocytes % (Manual) Seg Neutrophils # Man Lymphocytes # (Manual) Monocytes # (Manual) PT INR APTT Heparin Anti-Xa Level ABG pH ABG pO2 ABG HCO3 ABG O2 Saturation ABG Base Excess ABG Hemoglobin Oxyhemoglobin Sodium Potassium 5.9 H Chloride 110.9 H Carbon Dioxide 17 L BUN 115 H Creatinine 4.2 H Glucose 101 H POC Glucose Lactic Acid Calcium AST ALT Alkaline Phosphatase C-Reactive Protein Total Protein Albumin Ur Specific [place] Chest x-ray: image reviewed (No new CXR) Allied health notes reviewed: RT
--- NOTE | 2020-01-13 12:48 | XRay Report ---
CHEST 1 VIEW 01/13/2020 11:41 AM INDICATION / CLINICAL INFORMATION: respiratory failure on MVS. COMPARISON: 01/09/2020 FINDINGS: SUPPORT DEVICES: Right IJ catheter tip projects at the SVC/right atrial junction. New nasogastric tub e in satisfactory position. HEART / MEDIASTINUM: Stable. LUNGS / PLEURA: There is new pleuroparenchymal disease in the right lower hemithorax. No pneumothorax . ADDITIONAL FINDINGS: No significant additional findings. IMPRESSION: 1. New pleural parenchymal disease in the right lower hemithorax. Signer Name: Raffaele Amezquita MD Signed: 01/13/2020 12:44 PM Workstation Name: [id number]
[2020-01-13] MEDS ORDERED: DEXTROSE 50% IN WATER (25GM) 50 ML SYRINGE IV ONE (13:00)
[2020-01-13] MEDS ORDERED: SODIUM BICARB 8.4% 50 MEQ/50 ML SYRINGE IV ONE (13:00)
[2020-01-13] MEDS ORDERED: INSULIN REGULAR, HUMAN 100 UNIT/ML 3ML VIAL IV ONE (13:00)
--- NOTE | 2020-01-13 13:26 | Progress Note ---
Assessment and Plan Cultures: Blood culture 01/09/2020 no growth today Sputum 01/11/2020 no growth Assessment: 49 years old female with history of hypertension, hyperlipidemia, osteoarthritis, CHF, homelessness, cocaine dependence, nicotine dependence, admitted on 01/09/2020 due to 24 hour history of acute rectal bleeding associated with generalized abdominal pain, nausea and vomiting: #Severe sepsis with septic shock: present on admission with fever, tachycardia, hypotension, elevated lactate; source secondary to small bowel obstruction. #Extensive bowel ischemia/pneumotosis intestinalis: No evidence of perforation or collection on CT. S/p exlab findings graham- SMA distribution necrosis. 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 CRP=41. Procal 46. #Urinary retention: Status post Taylor placement #Elevated LFTs: Possibly due to sepsis ? Viral hepatitis #Acute kidney injury: Likely due to sepsis. Worsening #Cocaine dependence: Urine drug screen positive Recommendations: -grim prognosis, no chance of a meaningful recovery, consider ethics committee for withdrawing care as family is not available/involved -Continue cefepime renally adjusted -Continue Flagyl 500 g IV every 8 hours Will follow. Bertha Junior MD Infectious Diseases [employer] [facility] ([facility]) M [phone] O [phone] Subjective Date of service: 01/13/20 Principal diagnosis: Sepsis Interval history: Patient remains intubated, on pressors Objective - Exam Narrative Exam: General appearance: intubated in NAD sedated Eyes: anicteric sclerae, moist conjunctivae; no lid-lag; PERRLA HENT: Atraumatic; oropharynx +ETT, +NGT Lungs: CTA CV: RRR no murmur Abdomen: soft midline surgical wound with dressinghs Extremities: no edema, no cyanosis Skin: No rash. Psych: sedated Neuro: sedated - Constitutional Vitals: Vital Signs Temp Pulse Resp BP Pulse Ox 97.9 F 72 16 102/58 98 01/13/20 08:00 01/13/20 12:40 01/13/20 12:15 01/13/20 12:40 01/13/20 12:40 Temperature -Last 24 Hours Temperature 97.9 F Temperature 97.2 F Temperature 97.8 F Temperature 98.0 F Temperature 97.6 F - Labs CBC & Chem 7: 01/13/20 09:45 01/13/20 09:45 Labs: Abnormal lab results 01/12/20 01/12/20 01/12/20 Range/Units 11:51 18:20 18:50 WBC (4.5-11.0) K/mm3 RBC (3.65-5.03) M/mm3 Hgb 9.2 L (10.1-14.3) gm/dl Hct 30.0 L (30.3-42.9) % MCV (79-97) fl MCH (28-32) pg RDW (13.2-15.2) % PT (12.2-14.9) Sec. INR (0.87-1.13) APTT (24.2-36.6) Sec. Heparin Anti-Xa Level (0.3-0.7) U.I./ml ABG pH (7.350-7.450) pH Units ABG pO2 (80.0-90.0) mm Hg ABG HCO3 (20.0-26.0) mmol/L ABG Base Excess (-2.0-3.0) mmol/L ABG Hemoglobin (12.0-16.0) gm/dl Oxyhemoglobin (95.0-99.0) % Potassium (3.6-5.0) mmol/L Chloride (98-107) mmol/L Carbon Dioxide (22-30) mmol/L BUN (7-17) mg/dL Creatinine (0.6-1.2) mg/dL Glucose (65-100) mg/dL POC Glucose 115 H 108 H (70-105) 01/12/20 01/13/20 01/13/20 Range/Units 18:50 03:02 05:10 WBC (4.5-11.0) K/mm3 RBC (3.65-5.03) M/mm3 Hgb (10.1-14.3) gm/dl Hct (30.3-42.9) % MCV (79-97) fl MCH (28-32) pg RDW (13.2-15.2) % PT 20.0 H (12.2-14.9) Sec. INR 1.66 H (0.87-1.13) APTT 38.7 H (24.2-36.6) Sec. Heparin Anti-Xa Level 0.23 L (0.3-0.7) U.I./ml ABG pH 7.211 L (7.350-7.450) pH Units ABG pO2 91.5 H (80.0-90.0) mm Hg ABG HCO3 18.1 L (20.0-26.0) mmol/L ABG Base Excess -9.1 L (-2.0-3.0) mmol/L ABG Hemoglobin 7.3 L (12.0-16.0) gm/dl Oxyhemoglobin 94.0 L (95.0-99.0) % Potassium (3.6-5.0) mmol/L Chloride (98-107) mmol/L Carbon Dioxide (22-30) mmol/L BUN (7-17) mg/dL Creatinine (0.6-1.2) mg/dL Glucose (65-100) mg/dL POC Glucose (70-105) 01/13/20 01/13/20 Range/Units 09:45 09:45 WBC 26.2 H (4.5-11.0) K/mm3 RBC 3.53 L (3.65-5.03) M/mm3 Hgb 8.4 L (10.1-14.3) gm/dl Hct 27.1 L (30.3-42.9) % MCV 77 L (79-97) fl MCH 24 L (28-32) pg RDW 22.0 H (13.2-15.2) % PT (12.2-14.9) Sec. INR (0.87-1.13) APTT (24.2-36.6) Sec. Heparin Anti-Xa Level (0.3-0.7) U.I./ml ABG pH (7.350-7.450) pH Units ABG pO2 (80.0-90.0) mm Hg ABG HCO3 (20.0-26.0) mmol/L ABG Base Excess (-2.0-3.0) mmol/L ABG Hemoglobin (12.0-16.0) gm/dl Oxyhemoglobin (95.0-99.0) % Potassium 5.9 H (3.6-5.0) mmol/L Chloride 110.9 H (98-107) mmol/L Carbon Dioxide 17 L (22-30) mmol/L BUN 115 H (7-17) mg/dL Creatinine 4.2 H (0.6-1.2) mg/dL Glucose 101 H (65-100) mg/dL POC Glucose (70-105)
--- NOTE | 2020-01-13 15:37 | Progress Note ---
Assessment and Plan Assessment and plan: 49 YO Female with with Sepsis currently on pressor support, GI Bleed,SBO, AVE, Severe Malnutrition, Homelessness, Acidosis, Cocaine Dependence, Nicotine Dependence. Pt lying in bed, No reported nursing events. No significant improvement overnight. Patient remains critically ill. Patient found to have p ersistent sepsis suspected secondary to necrotic bowel. Patient to be taken to the OR for reexploration as per surgical team today. Patient underwent surgical invtervention and was found near to complete infarction of the intestine, per surgery from the ligament of Treitz to the sigmoid colon. Almost the entire length of intestine was unsalvageable. There was no pulse in the superior mesenteric artery No resection was done. Patient has a nonsurvivable condition. Comfort care measures should be instituted. Paraoxysmal Atrial Fibrillation.- Will start on Heparin drip Anoxic Metabolic Encephalopathy Hyperkalemia-Nephrology following - Patient Problems (1) Acute bowel infarction Current Visit: Yes Status: Acute Plan to address problem: Pt in critical condition. Unfortunately, patient was found not to have a small bowel obstruction, but instead had near complete infarction of the intestine from which was probably the cause of this problem. - Patient Problems (1) Sepsis Current Visit: Yes Status: Acute Plan to address problem: Sepsis protocol: Admit to IMCU, CBC, CMP, chest x-ray, urinalysis, IV antibiotic therapy, monitor urine output every shift, IV fluid resuscitation therapy, maintain mean arterial blood pressure greater than 65. Serial lactic acid levels. 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 Ethics consult placed. No family member willing to discuss. (3) GI bleed Current Visit: Yes Status: Acute Qualifiers: GI bleed type/associated pathology: melena Qualified Code(s): K92.1 - Melena Plan to address problem: Bowel rest, IV PPI therapy, serial CBC, stool for occult blood, surgical team consulted. (4) Elevated liver function tests Current Visit: Yes Status: Acute Plan to address problem: Supportive care, IV fluid resuscitation therapy, repeat liver function test in a.m. (5) Hyponatremia Current Visit: Yes Status: Acute Plan to address problem: IV fluid resuscitation therapy, monitor urine output every shift, repeat BMP in a.m. (6) Cocaine abuse Current Visit: No Status: Chronic Plan to address problem: Supportive care, outpatient substance abuse/dependence follow-up. (7) HLD (hyperlipidemia) Current Visit: No Status: Chronic Qualifiers: Hyperlipidemia type: unspecified Qualified Code(s): E78.5 - Hyperlipidemia, unspecified Plan to address problem: Supportive care, statin therapy as clinically indicated, risk factor reduction therapy. (8) Uncontrolled hypertension Current Visit: No Status: Chronic Plan to address problem: Monitor blood pressure every shift, continue medical management. (9) Acute kidney injury (AVE) with acute tubular necrosis (ATN) Current Visit: Yes Status: Acute Plan to address problem: IV fluid resuscitation therapy, monitor urine output every shift, BMP, repeat BMP in a.m. to monitor serum creatinine. (10) DVT prophylaxis Current Visit: No Status: Acute Plan to address problem: SCD to bilateral lower extremities while in bed, hold anticoagulation due to GI bleed. case management trying to see if there is any other family as daughter is not willing to get involved in the care. Will also refer to Ethics team based on Surgery concern The high probability of a clinically significant, sudden or life threatening deterioration of the [GI] system(s) required my full and direct attention, intervention and personal management. The aggregate critical care time was [45] minutes. This time is in addition to time spent performing reported procedures but includes the following: [x] Data Review and interpretation [x] Patient assessment and monitoring of vital signs [x] Documentation [x] Medication orders and management History Interval history: Patient seen and examined, unfortunately remains on the vent, no new changes, except for intermittent rhythm changes Hospitalist Physical - Physical exam Narrative exam: General appearance: Present: mild distress, cachectic, disheveled, malodorous - Neck Neck: Present: supple - Respiratory Respiratory: bilateral: diminished - Cardiovascular Rhythm: regular Heart Sounds: Present: S1 & S2 - Extremities Extremities: no ischemia Peripheral Pulses: within normal limits - Abdominal General gastrointestinal: dressing in place, no bowel sound - Integumentary Integumentary: Present: clear, dry - Psychiatric Psychiatric: unresponsive - Neurologic Neurologic: CNII-XII intact - Constitutional Vitals: Temp Pulse Resp BP Pulse Ox 98.3 F 77 16 101/59 100 01/13/20 15:34 01/13/20 15:15 01/13/20 15:15 01/13/20 15:15 01/13/20 15:15 General appearance: Present: mild distress, cachectic, disheveled, malodorous Results - Labs CBC & Chem 7: 01/13/20 09:45 01/13/20 09:45 Labs: Laboratory Last Values WBC 26.2 K/mm3 (4.5-11.0) H 01/13/20 09:45 RBC 3.53 M/mm3 (3.65-5.03) L 01/13/20 09:45 Hgb 8.4 gm/dl (10.1-14.3) L 01/13/20 09:45 Hct 27.1 % (30.3-42.9) L 01/13/20 09:45 MCV 77 fl (79-97) L 01/13/20 09:45 MCH 24 pg (28-32) L 01/13/20 09:45 MCHC 31 % (30-34) 01/13/20 09:45 RDW 22.0 % (13.2-15.2) H 01/13/20 09:45 Plt Count 143 K/mm3 (140-440) 01/13/20 09:45 Add Manual Diff Complete 01/09/20 16:59 Total Counted 100 01/09/20 16:59 Seg Neutrophils % Corn Husk Baler 01/09/20 16:59 Seg Neuts % (Manual) 94.0 % (40.0-70.0) H 01/09/20 16:59 Band Neutrophils % 2.0 % 01/09/20 16:59 Lymphocytes % (Manual) 0 % (13.4-35.0) L 01/09/20 16:59 Reactive Lymphs % (Man) 0 % 01/09/20 16:59 Monocytes % (Manual) 4.0 % (0.0-7.3) 01/09/20 16:59 Eosinophils % (Manual) 0 % (0.0-4.3) 01/09/20 16:59 Basophils % (Manual) 0 % (0.0-1.8) 01/09/20 16:59 Metamyelocytes % 0 % 01/09/20 16:59 Myelocytes % 0 % 01/09/20 16:59 Promyelocytes % 0 % 01/09/20 16:59 Blast Cells % 0 % 01/09/20 16:59 Nucleated RBC % Not Reportable 01/09/20 16:59 Seg Neutrophils # Man 26.8 K/mm3 (1.8-7.7) H 01/09/20 16:59 Band Neutrophils # 0.6 K/mm3 01/09/20 16:59 Lymphocytes # (Manual) 0.0 K/mm3 (1.2-5.4) L 01/09/20 16:59 Abs React Lymphs (Man) 0.0 K/mm3 01/09/20 16:59 Monocytes # (Manual) 1.1 K/mm3 (0.0-0.8) H 01/09/20 16:59 Eosinophils # (Manual) 0.0 K/mm3 (0.0-0.4) 01/09/20 16:59 Basophils # (Manual) 0.0 K/mm3 (0.0-0.1) 01/09/20 16:59 Metamyelocytes # 0.0 K/mm3 01/09/20 16:59 Myelocytes # 0.0 K/mm3 01/09/20 16:59 Promyelocytes # 0.0 K/mm3 01/09/20 16:59 Blast Cells # 0.0 K/mm3 01/09/20 16:59 WBC Morphology Not Reportable 01/09/20 16:59 Hypersegmented Neuts Not Reportable 01/09/20 16:59 Hyposegmented Neuts Not Reportable 01/09/20 16:59 Hypogranular Neuts Not Reportable 01/09/20 16:59 Smudge Cells Not Reportable 01/09/20 16:59 Toxic Granulation Not Reportable 01/09/20 16:59 Toxic Vacuolation 1+ 01/09/20 16:59 Dohle Bodies Not Reportable 01/09/20 16:59 Pelger-Huet Anomaly Not Reportable 01/09/20 16:59 Ramses Rods Not Reportable 01/09/20 16:59 Platelet Estimate Consistent w auto 01/09/20 16:59 Clumped Platelets Not Reportable 01/09/20 16:59 Plt Clumps, EDTA Not Reportable 01/09/20 16:59 Large Platelets Not Reportable 01/09/20 16:59 Giant Platelets Not Reportable 01/09/20 16:59 Platelet Satelliting Not Reportable 01/09/20 16:59 Plt Morphology Comment Not Reportable 01/09/20 16:59 RBC Morphology Not Reportable 01/09/20 16:59 Dimorphic RBCs Not Reportable 01/09/20 16:59 Polychromasia Not Reportable 01/09/20 16:59 Hypochromasia 1+ 01/09/20 16:59 Poikilocytosis 2+ 01/09/20 16:59 Anisocytosis 1+ 01/09/20 16:59 Microcytosis Not Reportable 01/09/20 16:59 Macrocytosis Not Reportable 01/09/20 16:59 Spherocytes Not Reportable 01/09/20 16:59 Pappenheimer Bodies Not Reportable 01/09/20 16:59 Sickle Cells Not Reportable 01/09/20 16:59 Target Cells Not Reportable 01/09/20 16:59 Tear Drop Cells Not Reportable 01/09/20 16:59 Ovalocytes Not Reportable 01/09/20 16:59 Helmet Cells Not Reportable 01/09/20 16:59 Plata-Judsonia Bodies Not Reportable 01/09/20 16:59 Erie Rings Not Reportable 01/09/20 16:59 Lashaun Cells 2+ 01/09/20 16:59 Bite Cells Not Reportable 01/09/20 16:59 Crenated Cell Not Reportable 01/09/20 16:59 Elliptocytes Not Reportable 01/09/20 16:59 Acanthocytes (Spur) Not Reportable 01/09/20 16:59 Rouleaux Not Reportable 01/09/20 16:59 Hemoglobin C Crystals Not Reportable 01/09/20 16:59 Schistocytes Not Reportable 01/09/20 16:59 Malaria parasites Not Reportable 01/09/20 16:59 Laith Bodies Not Reportable 01/09/20 16:59 Hem Pathologist Commnt No 01/09/20 16:59 PT 20.0 Sec. (12.2-14.9) H 01/12/20 18:50 INR 1.66 (0.87-1.13) H 01/12/20 18:50 APTT 38.7 Sec. (24.2-36.6) H 01/12/20 18:50 Heparin Anti-Xa Level 0.23 U.I./ml (0.3-0.7) L 01/13/20 03:02 ABG pH 7.211 pH Units (7.350-7.450) L 01/13/20 05:10 ABG pCO2 46.1 mm Hg 01/13/20 05:10 ABG pO2 91.5 mm Hg (80.0-90.0) H 01/13/20 05:10 ABG HCO3 18.1 mmol/L (20.0-26.0) L 01/13/20 05:10 ABG O2 Saturation 96.3 % (95.0-99.0) 01/13/20 05:10 ABG O2 Content 9.8 (0.0-44) 01/13/20 05:10 ABG Base Excess -9.1 mmol/L (-2.0-3.0) L 01/13/20 05:10 ABG Hemoglobin 7.3 gm/dl (12.0-16.0) L 01/13/20 05:10 ABG Carboxyhemoglobin 1.9 % (0.0-5.0) 01/13/20 05:10 ABG Methemoglobin 0.4 % (0.0-1.5) 01/13/20 05:10 Oxyhemoglobin 94.0 % (95.0-99.0) L 01/13/20 05:10 FiO2 30 % 01/13/20 05:10 Sodium 142 mmol/L (137-145) 01/13/20 09:45 Potassium 5.9 mmol/L (3.6-5.0) H 01/13/20 09:45 Chloride 110.9 mmol/L (98-107) H 01/13/20 09:45 Carbon Dioxide 17 mmol/L (22-30) L 01/13/20 09:45 Anion Gap 20 mmol/L 01/13/20 09:45 BUN 115 mg/dL (7-17) H 01/13/20 09:45 Creatinine 4.2 mg/dL (0.6-1.2) H 01/13/20 09:45 Estimated GFR 14 ml/min 01/13/20 09:45 BUN/Creatinine Ratio 27 % 01/13/20 09:45 Glucose 101 mg/dL (65-100) H 01/13/20 09:45 POC Glucose 108 (70-105) H 01/12/20 18:20 Lactic Acid 1.50 mmol/L (0.7-2.0) 01/10/20 16:43 Calcium 8.6 mg/dL (8.4-10.2) 01/13/20 09:45 Total Bilirubin 0.70 mg/dL (0.1-1.2) 01/09/20 16:59 AST 151 units/L (5-40) H 01/09/20 16:59 ALT 145 units/L (7-56) H 01/09/20 16:59 Alkaline Phosphatase 153 units/L (35-129) H 01/09/20 16:59 C-Reactive Protein 41.00 mg/dL (0.00-1.30) H 01/10/20 16:43 Total Protein 5.9 g/dL (6.3-8.2) L D 01/09/20 16:59 Albumin 2.2 g/dL (3.9-5) L 01/09/20 16:59 Albumin/Globulin Ratio 0.6 % 01/09/20 16:59 Procalcitonin 46.50 ng/mL (<0.15) 01/10/20 16:43 HCG, Qual Negative (Negative) 01/11/20 15:43 Urine Color Sheryl (Yellow) 01/09/20 15:30 Urine Turbidity Slightly-cloudy (Clear) 01/09/20 15:30 Urine pH 5.0 (5.0-7.0) 01/09/20 15:30 Ur Specific [place] 1.033 (1.003-1.030) H 01/09/20 15:30 Urine Protein 30 mg/dl mg/dL (Negative) 01/09/20 15:30 Urine Glucose (UA) Neg mg/dL (Negative) 01/09/20 15:30 Urine Ketones Neg mg/dL (Negative) 01/09/20 15:30 Urine Blood Neg (Negative) 01/09/20 15:30 Urine Nitrite Neg (Negative) 01/09/20 15:30 Urine Bilirubin Neg (Negative) 01/09/20 15:30 Urine Urobilinogen < 2.0 mg/dL (<2.0) 01/09/20 15:30 Ur Leukocyte Esterase Neg (Negative) 01/09/20 15:30 Urine WBC (Auto) 6.0 /HPF (0.0-6.0) 01/09/20 15:30 Urine RBC (Auto) 6.0 /HPF (0.0-6.0) 01/09/20 15:30 U Epithel Cells (Auto) 2.0 /HPF (0-13.0) 01/09/20 15:30 Granular Casts 7 /LPF 01/09/20 15:30 Urine Mucus Few /HPF 01/09/20 15:30 Urine Opiates Screen Presumptive negative 01/09/20 15:30 Urine Methadone Screen Presumptive negative 01/09/20 15:30 Ur Barbiturates Screen Presumptive negative 01/09/20 15:30 Ur Phencyclidine Scrn Presumptive negative 01/09/20 15:30 Ur Amphetamines Screen Presumptive negative 01/09/20 15:30 U Benzodiazepines Scrn Presumptive negative 01/09/20 15:30 Urine Cocaine Screen Presumptive positive 01/09/20 15:30 U Marijuana (THC) Screen Presumptive negative 01/09/20 15:30 Drugs of Abuse Note Disclamer 01/09/20 15:30 Blood Type O POSITIVE 01/11/20 15:00 Antibody Screen Negative 01/11/20 15:00 Microbiology: Microbiology 01/11/20 18:16 Tracheal Aspirate Sputum Culture - Preliminary 01/08/20 20:24 Peripheral/Venous Blood Culture - Preliminary NO GROWTH AFTER 4 DAYS 01/08/20 20:10 Peripheral/Venous Blood Culture - Preliminary NO GROWTH AFTER 4 DAYS Taylor/IV: Voiding Method Indwelling Catheter IV Catheter Type [Right Triple Lumen Cath Internal Jugular] IV Catheter Type [Right INT / Saline Lock Forearm] Active Medications - Current Medications Current Medications: Generic Name Dose Route Start Last Admin Trade Name Freq PRN Reason Stop Dose Admin Acetaminophen 650 mg 01/08/20 20:00 Tylenol PO Q4H PRN Pain MILD(1-3)/Fever >100.5/LOPEZ Aspirin 81 mg 01/09/20 10:00 Baby Aspirin PO QDAY [facility] Atorvastatin Calcium 40 mg 01/08/20 22:00 01/12/20 21:14 Lipitor PO Not Given QHS [facility] Carvedilol 6.25 mg 01/08/20 22:00 01/13/20 10:48 Coreg PO Not Given BID [facility] Famotidine 20 mg 01/12/20 10:00 01/13/20 09:30 Pepcid IV 20 mg DAILY [facility] Administration Hydralazine HCl 25 mg 01/08/20 22:00 01/13/20 13:01 Apresoline PO Not Given Q8HR TRI Hydromorphone HCl 1 mg 01/08/20 21:26 01/11/20 08:19 Dilaudid IV 1 mg Q2H PRN Administration Pain , Severe (7-10) Norepinephrine 4 mg in 250 mls @ 7.5 mls/hr 01/08/20 23:45 01/13/20 13:02 Levophed Drip 4 Mg/Ns 250 Ml IV 8 mcg/min TITR TRI 30 mls/hr Titration Protocol 2 MCG/MIN Cefepime HCl 1 gm in 100 mls @ 200 mls/hr 01/09/20 22:00 01/12/20 21:02 Cefepime/Ns 1 Gm/100 Ml IV 200 mls/hr Q24H TRI Administration Metronidazole 500 mg in 100 mls @ 100 mls/hr 01/10/20 15:00 01/13/20 15:28 Flagyl 500 Mg/100 Ml IV 100 mls/hr Q8H TRI Administration Protocol Propofol 1,000 mg in 100 mls @ 1.837 mls/hr 01/11/20 23:45 01/12/20 15:30 Diprivan 10 Mg/Ml IV 0 mcg/kg/min TITR TRI 0 mls/hr Titration Protocol 5 MCG/KG/MIN Fentanyl Citrate 2,000 mcg in 100 mls @ 3.062 mls/hr 01/12/20 08:00 01/13/20 10:45 Fentanyl Drip Premix IV 1 mcg/kg/hr TITR TRI 3.062 mls/hr Titration Protocol 1 MCG/KG/HR Heparin Sodium/Sodium Chloride 25,000 unit in 500 mls @ 18 mls/hr 01/12/20 19:00 01/13/20 06:11 Heparin/ 0.45% Nacl-25,000 Unit/500 Ml IV 950 units/hr TITR TRI 19 mls/hr Titration Protocol 900 UNITS/HR Sodium Bicarbonate 150 meq/ 1,150 mls @ 150 mls/hr 01/13/20 10:00 01/13/20 10:45 Dextrose IV 150 mls/hr DIRECT TRI Administration Lisinopril 20 mg 01/09/20 10:00 01/13/20 10:47 Zestril PO Not Given QDAY TRI Ondansetron HCl 4 mg 01/08/20 20:00 01/10/20 19:53 Zofran IV 4 mg Q8H PRN Administration Nausea And Vomiting Sodium Chloride 10 ml 01/08/20 22:00 01/13/20 10:47 Sodium Chloride Flush Syringe 10 Ml IV 10 ml BID TRI Administration Sodium Chloride 10 ml 01/08/20 20:00 Sodium Chloride Flush Syringe 10 Ml IV PRN PRN LINE FLUSH Nutrition/Malnutrition Assess - Dietary Evaluation Nutrition/Malnutrition Findings: Nutrition Notes Start: 01/13/20 11:55 Freq: Status: Active Protocol: Document 01/13/20 11:55 LM (Rec: 01/13/20 12:05 LM [id number]) Nutrition Notes Need for Assessment generated from: continuous drier helper,MST Initial or Follow up Assessment Current Diagnosis Acute Kidney Injury,Sepsis, Hypertension,Heart Failure, Hyperlipidemia Other Pertinent Diagnosis pneumatosis intestinalis, GIB, bowel infarction, cocaine/ nicotine abuse Current Diet NPO Labs/Tests K 3 Pertinent Medications Levophed Height 5 ft 7 in Weight 61 kg [place] Body Weight (kg) 61.36 BMI 21.0 Weight Status Appropriate Subjective/Other Information RN screen for MST. Pt is on the vent. The majority of pt's intestine is necrotic and MD mentioned comfort care is a possibility for pt. Burn Absent Trauma Absent GI Symptoms Other Current % PO Negligible Minimum of two criteria No physical signs of malnutrition #1 Nutrition Diagnosis Altered GI function Etiology pneumatosis intestinalis, GIB, bowel infarction As Evidenced by Signs and Symptoms pt NPO Is patient on ventilator? Yes Is Patient Ambulatory and/or Out of Bed No REE-([facility]-confined to bed) 1519.224 Calculation Used for Recommendations [facility] Additional Notes Protein: 73-122g (1.2-2g/kg) Fluid: 1ml/kcal Nutrition Intervention Anticipated Discharge Needs: unable to determine Follow-Up By: 01/15/20 Additional Comments F/U for POC
[2020-01-13] MEDS ORDERED: SODIUM POLYSTYRENE 15 GM/60 ML ORAL LIQD PO ONE (16:36)
[2020-01-13] MEDS: CEFEPIME/NS 1 GM/100 ML 1 GM/100 ML BAG IV SCH (21:55)
[2020-01-13] MEDS: HEPARIN/ 0.45% NACL DRIP 25,000 UNIT/500 ML BAG IV SCH (22:39)
[2020-01-14] MEDS: SODIUM BICARBONATE 150 MEQ in DEXTROSE 5% IN WATER 1,000 ML IV SCH ×2 (04:45→14:56)
[2020-01-14 05:32] LABS: ABG Base Excess -4.2 mmol/L (-2.0-3.0); ABG HCO3 21.4 mmol/L (20.0-26.0); ABG Methemoglobin 0.5 % (0.0-1.5); ABG Oxygen Saturation 98.3 % (95.0-99.0); ABG PH 7.335 pH Units (7.350-7.450); ABG PO2 126.9 mm Hg (80.0-90.0)
[2020-01-14 05:35] LABS: Hematocrit 26.6 % (30.3-42.9); Hemoglobin 8.5 gm/dl (10.1-14.3); Mean Corpuscular HGB Conc 32 % (30-34); Mean Corpuscular Volume 74 fl (79-97); Platelet Count 134 K/mm3 (140-440); Red Blood Count 3.59 M/mm3 (3.65-5.03)
[2020-01-14 05:36] LABS: Calcium 8.4 mg/dL (8.4-10.2)
[2020-01-14 05:37] LABS: Red Cell Distribution Width 21.6 % (13.2-15.2)
[2020-01-14] MEDS: hydrALAZINE 25 MG TAB PO SCH (06:29)
--- NOTE | 2020-01-14 08:16 | Progress Note ---
Assessment and Plan Cultures: Blood culture 01/09/2020 no growth today Sputum 01/11/2020 no growth Assessment: 49 years old female with history of hypertension, hyperlipidemia, osteoarthritis, CHF, homelessness, cocaine dependence, nicotine dependence, admitted on 01/09/2020 due to 24 hour history of acute rectal bleeding associated with generalized abdominal pain, nausea and vomiting: #Severe sepsis with septic shock: present on admission with fever, tachycardia, hypotension, elevated lactate; source secondary to small bowel obstruction. #Extensive bowel ischemia/pneumotosis intestinalis: No evidence of perforation or collection on CT. S/p exlab findings graham- SMA distribution necrosis. 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 CRP=41. Procal 46. #Urinary retention: Status post Taylor placement #Elevated LFTs: Possibly due to sepsis ? Viral hepatitis #Acute kidney injury: Likely due to sepsis. Worsening #Cocaine dependence: Urine drug screen positive Recommendations: -grim prognosis, no chance of a meaningful recovery, consider ethics committee for withdrawing care as family is not available/involved -Continue cefepime renally adjusted -Continue Flagyl 500 g IV every 8 hours Will follow. Bertha Junior MD Infectious Diseases Media [employer] [facility] ([facility]) M [phone] O [phone] Subjective Date of service: 01/14/20 Principal diagnosis: Sepsis Interval history: Patient remains intubated, on pressors and heparin gtt Objective - Exam Narrative Exam: General appearance: intubated in NAD sedated Eyes: anicteric sclerae, moist conjunctivae; no lid-lag; PERRLA HENT: Atraumatic; oropharynx +ETT, +NGT Lungs: CTA CV: RRR no murmur Abdomen: soft midline surgical wound with dressinghs Extremities: no edema, no cyanosis Skin: No rash. Psych: sedated Neuro: sedated - Constitutional Vitals: Vital Signs Temp Pulse Resp BP Pulse Ox 97.8 F 92 H 23 106/64 100 01/14/20 04:00 01/14/20 08:00 01/14/20 08:00 01/14/20 08:00 01/14/20 08:00 Temperature -Last 24 Hours Temperature 97.8 F Temperature 97.6 F Temperature 98.0 F Temperature 98.3 F Temperature 98.3 F - Labs CBC & Chem 7: 01/14/20 05:09 01/14/20 04:00 Labs: Abnormal lab results 01/13/20 01/13/20 01/13/20 Range/Units 09:45 09:45 21:03 WBC 26.2 H (4.5-11.0) K/mm3 RBC 3.53 L (3.65-5.03) M/mm3 Hgb 8.4 L (10.1-14.3) gm/dl Hct 27.1 L (30.3-42.9) % MCV 77 L (79-97) fl MCH 24 L (28-32) pg RDW 22.0 H (13.2-15.2) % Plt Count (140-440) K/mm3 Heparin Anti-Xa Level 0.28 L (0.3-0.7) U.I./ml ABG pH (7.350-7.450) pH Units ABG pO2 (80.0-90.0) mm Hg ABG Base Excess (-2.0-3.0) mmol/L ABG Hemoglobin (12.0-16.0) gm/dl Potassium 5.9 H (3.6-5.0) mmol/L Chloride 110.9 H (98-107) mmol/L Carbon Dioxide 17 L (22-30) mmol/L BUN 115 H (7-17) mg/dL Creatinine 4.2 H (0.6-1.2) mg/dL Glucose 101 H (65-100) mg/dL 01/13/20 01/14/20 01/14/20 Range/Units 21:49 04:00 04:50 WBC (4.5-11.0) K/mm3 RBC (3.65-5.03) M/mm3 Hgb (10.1-14.3) gm/dl Hct (30.3-42.9) % MCV (79-97) fl MCH (28-32) pg RDW (13.2-15.2) % Plt Count (140-440) K/mm3 Heparin Anti-Xa Level 0.28 L (0.3-0.7) U.I./ml ABG pH 7.335 L (7.350-7.450) pH Units ABG pO2 126.9 H (80.0-90.0) mm Hg ABG Base Excess -4.2 L (-2.0-3.0) mmol/L ABG Hemoglobin 9.2 L (12.0-16.0) gm/dl Potassium (3.6-5.0) mmol/L Chloride 108.4 H (98-107) mmol/L Carbon Dioxide (22-30) mmol/L BUN 111 H (7-17) mg/dL Creatinine 3.7 H (0.6-1.2) mg/dL Glucose 119 H (65-100) mg/dL 01/14/20 Range/Units 05:09 WBC 26.6 H (4.5-11.0) K/mm3 RBC 3.59 L (3.65-5.03) M/mm3 Hgb 8.5 L (10.1-14.3) gm/dl Hct 26.6 L (30.3-42.9) % MCV 74 L (79-97) fl MCH 24 L (28-32) pg RDW 21.6 H (13.2-15.2) % Plt Count 134 L (140-440) K/mm3 Heparin Anti-Xa Level (0.3-0.7) U.I./ml ABG pH (7.350-7.450) pH Units ABG pO2 (80.0-90.0) mm Hg ABG Base Excess (-2.0-3.0) mmol/L ABG Hemoglobin (12.0-16.0) gm/dl Potassium (3.6-5.0) mmol/L Chloride (98-107) mmol/L Carbon Dioxide (22-30) mmol/L BUN (7-17) mg/dL Creatinine (0.6-1.2) mg/dL Glucose (65-100) mg/dL
[2020-01-14] MEDS: FAMOTIDINE 20 MG/2 ML INJ IV SCH (09:54)
[2020-01-14] MEDS: metroNIDAZOLE/NS 500 MG/100 ML 500 MG/100 ML BAG IV SCH ×3 (09:54→23:05)
--- NOTE | 2020-01-14 12:56 | Progress Note ---
Assessment and Plan Severe sepsis with shock. Partial small-bowel obstruction. 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 Reported gastrointestinal bleed. Elevated serum transaminases. Hyponatremia. Cocaine abuse. History of hyperlipidemia. History of hypertension. Acute kidney injury. Hyperkalemia. History of congestive heart failure. Urinary retention Elevated LFTs Acute kidney injury:Vasomotor nephropathy Acute toxic-metabolic encephalopathy (Discussed care plan and goals of care with her eldest daughter Nallely [place] who states she has two siblings and describes her mother as a fighter. All her quest ions were answered) - RT asked to advance ETT to 24 cm JACOB - get CXR post advancement - continue to rest on AC mode qhs - get ABG at 9 pm tonight and address - continue care as below otherwise; - Wean vasopresssor support for MAP> 65 - VAP bundle addressed - Adjust minute ventilation fro better gas-excahnge. Change NSaline to 150meq bicarbonate infusion - Lung protective strategies - Bronchodilators with pulmonary hygiene per RT - CXR today - OGT to LIS, keep NPO - Wean supplemental oxygen for target O2 sats > 94% - higher pAO2 to help perfuse the bowel - Daily SAT and SBT assessment as tolerated - Wean per pulmonary driven protocols - Accuchecks q6h while NPO, avoid hypoglycemia - Avoid benzodiazepines, reduce the possibility of delirium - prn analgesia per CPOT score - Maintenance of sleep-wake cycle, avoid delirium - Avoid nephrotoxins, closely monitor renal function - Aspiration precautions, HOB >40 - Antibiotics per ID- Cefepime and Metronidazole - On therapeutic heparin infusions - Medical management and redistribution therpaies for hyperkalemia - Stress ulcer prophylaxis (Famotidine) - Mobility protocol, off loading and skin assessment for pressure ulcer prevention - Supportive transfusions as indicated to keep HgB >7g/dL - Taylor catheter-critically ill with unstable hemodynamics requiring accurate intake and output, and for urinary retention Discussed with the ICU team-RT,RN,CM In view of her prognosis and severity of illness, there is a need for goals of care discussions. The family are apparently not ready to make decisions on her behalf, the patient apparently lived on the streets. Ethics consult is appropriate to determine code status and goals of care. Life threatening condition- Severe sepsis with septic shock; Acute renal failure; Pneumatosis intestinalis ischemic gut Mortality/Morbidity- High Complexity of medical decision making- High CONDITION: CRITICAL PROGNOSIS: GUARDED-GRAVE CODE STATUS: FULL CODE The high probability of a clinically significant, sudden or life-threatening deterioration of the [cardiovascular,neurology, GI ] system(s) required my full and direct attention, intervention and personal management. The aggregate critical care time was [33] minutes without overlap. 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; Cocaine abuse; Acute kidney injury; CHF; Urinary retention; Elevated LFTs; Acute toxic-metabolic encephalopathy Seen and examined at bedside; 24hour events reviewed; nursing and respiratory care staff consulted; no adverse overnight events reported to me; resting peacefully in bed; remains on MVS; on PSV trial and tolerating decently; no e mesis but NGT remains to LIS Objective Vital Signs - 12hr 01/14/20 01/14/20 01/14/20 01:00 01:15 01:30 Temperature Pulse Rate 85 84 85 Pulse Rate [ From Monitor] Pulse Rate [ Left Dorsalis Pedis] Pulse Rate [ Left Radial] Pulse Rate [ Right Dorsalis Pedis] Pulse Rate [ Right Radial] Respiratory 16 16 16 Rate Blood Pressure 101/67 100/66 101/67 O2 Sat by Pulse 97 Oximetry 01/14/20 01/14/20 01/14/20 01:45 02:00 02:15 Temperature Pulse Rate 82 82 81 Pulse Rate [ From Monitor] Pulse Rate [ Left Dorsalis Pedis] Pulse Rate [ Left Radial] Pulse Rate [ Right Dorsalis Pedis] Pulse Rate [ Right Radial] Respiratory 16 16 16 Rate Blood Pressure 109/69 105/68 101/67 O2 Sat by Pulse Oximetry 01/14/20 01/14/20 01/14/20 02:30 02:45 03:01 Temperature Pulse Rate 83 86 89 Pulse Rate [ From Monitor] Pulse Rate [ Left Dorsalis Pedis] Pulse Rate [ Left Radial] Pulse Rate [ Right Dorsalis Pedis] Pulse Rate [ Right Radial] Respiratory 15 16 19 Rate Blood Pressure 108/75 112/67 124/86 O2 Sat by Pulse Oximetry 01/14/20 01/14/20 01/14/20 03:15 03:30 03:45 Temperature Pulse Rate 86 87 85 Pulse Rate [ From Monitor] Pulse Rate [ Left Dorsalis Pedis] Pulse Rate [ Left Radial] Pulse Rate [ Right Dorsalis Pedis] Pulse Rate [ Right Radial] Respiratory 16 16 16 Rate Blood Pressure 104/71 111/66 104/68 O2 Sat by Pulse Oximetry 01/14/20 01/14/20 01/14/20 04:00 04:15 04:30 Temperature 97.8 F Pulse Rate 88 90 91 H Pulse Rate [ 89 From Monitor] Pulse Rate [ 89 Left Dorsalis Pedis] Pulse Rate [ 89 Left Radial] Pulse Rate [ 89 Right Dorsalis Pedis] Pulse Rate [ 89 Right Radial] Respiratory 16 17 18 Rate Blood Pressure 94/61 102/62 107/69 O2 Sat by Pulse 99 97 100 Oximetry 01/14/20 01/14/20 01/14/20 04:45 05:00 05:15 Temperature Pulse Rate 91 H 92 H 92 H Pulse Rate [ From Monitor] Pulse Rate [ Left Dorsalis Pedis] Pulse Rate [ Left Radial] Pulse Rate [ Right Dorsalis Pedis] Pulse Rate [ Right Radial] Respiratory 17 18 17 Rate Blood Pressure 103/64 102/62 105/64 O2 Sat by Pulse 100 100 100 Oximetry 01/14/20 01/14/20 01/14/20 05:30 05:45 06:00 Temperature Pulse Rate 92 H 96 H 92 H Pulse Rate [ From Monitor] Pulse Rate [ Left Dorsalis Pedis] Pulse Rate [ Left Radial] Pulse Rate [ Right Dorsalis Pedis] Pulse Rate [ Right Radial] Respiratory 17 17 18 Rate Blood Pressure 103/62 113/69 97/60 O2 Sat by Pulse 100 100 100 Oximetry 01/14/20 01/14/20 01/14/20 06:15 06:30 06:45 Temperature Pulse Rate 91 H 93 H 96 H Pulse Rate [ From Monitor] Pulse Rate [ Left Dorsalis Pedis] Pulse Rate [ Left Radial] Pulse Rate [ Right Dorsalis Pedis] Pulse Rate [ Right Radial] Respiratory 18 18 28 H Rate Blood Pressure 103/69 106/67 109/77 O2 Sat by Pulse 100 100 100 Oximetry 01/14/20 01/14/2001/13/20 07:00 07:15 07:30 Temperature Pulse Rate 93 H 92 H 91 H Pulse Rate [ From Monitor] Pulse Rate [ Left Dorsalis Pedis] Pulse Rate [ Left Radial] Pulse Rate [ Right Dorsalis Pedis] Pulse Rate [ Right Radial] Respiratory 17 17 18 Rate Blood Pressure 111/65 106/64 112/61 O2 Sat by Pulse 100 100 100 Oximetry 01/14/20 01/14/20 01/14/20 07:45 08:00 08:15 Temperature 98.6 F Pulse Rate 90 92 H 92 H Pulse Rate [ 94 H From Monitor] Pulse Rate [ Left Dorsalis Pedis] Pulse Rate [ Left Radial] Pulse Rate [ Right Dorsalis Pedis] Pulse Rate [ Right Radial] Respiratory 18 25 H 18 Rate Blood Pressure 110/64 111/73 113/66 O2 Sat by Pulse 100 100 100 Oximetry 01/14/20 01/14/20 01/14/20 08:30 08:45 09:01 Temperature Pulse Rate 91 H 92 H 93 H Pulse Rate [ From Monitor] Pulse Rate [ Left Dorsalis Pedis] Pulse Rate [ Left Radial] Pulse Rate [ Right Dorsalis Pedis] Pulse Rate [ Right Radial] Respiratory 20 19 22 Rate Blood Pressure 116/66 114/65 124/73 O2 Sat by Pulse 100 100 99 Oximetry 01/14/20 11:29 Temperature Pulse Rate 93 H Pulse Rate [ From Monitor] Pulse Rate [ Left Dorsalis Pedis] Pulse Rate [ Left Radial] Pulse Rate [ Right Dorsalis Pedis] Pulse Rate [ Right Radial] Respiratory 22 Rate Blood Pressure 124/73 O2 Sat by Pulse 99 Oximetry Constitutional: appears uncomfortable, other (middle aged thin female with mildly increased respiratory effort at rest) Eyes: non-icteric ENT: oropharynx moist, other (ETT 24 cm JACOB) Neck: supple, no lymphadenopathy, no JVD Effort: mildly labored Ascultation: Bilateral: diminished breath sounds, rhonchi Percussion: Bilateral: not dull Cardiovascular: regular rate and rhythm Gastrointestinal: hypoactive bowel sounds, soft, non-tender, non-distended Integumentary: other (poor turgor; post opp changes) Extremities: no cyanosis, no edema, pulses normal, no ischemia or petechiae Neurologic: non-focal exam (grossly), unable to assess Psychiatric: other (sedated) CBC and BMP: 01/14/20 05:09 01/14/20 04:00 ABG, PT/INR, D-dimer: ABG ABG pH 7.335 pH Units (7.350-7.450) L 01/14/20 04:50 ABG pCO2 41.0 mm Hg 01/14/20 04:50 ABG pO2 126.9 mm Hg (80.0-90.0) H 01/14/20 04:50 ABG O2 Saturation 98.3 % (95.0-99.0) 01/14/20 04:50 PT/INR, D-dimer PT 20.0 Sec. (12.2-14.9) H 01/12/20 18:50 INR 1.66 (0.87-1.13) H 01/12/20 18:50 Abnormal lab findings: Abnormal Labs 01/08/20 01/08/20 01/08/20 17:05 17:05 20:10 WBC 21.5 H RBC Hgb Hct MCV MCH 24 L RDW 22.1 H Plt Count Seg Neuts % (Manual) 83.0 H Lymphocytes % (Manual) 5.0 L Monocytes % (Manual) 12.0 H Seg Neutrophils # Man 17.8 H Lymphocytes # (Manual) 1.1 L Monocytes # (Manual) 2.6 H PT INR APTT Heparin Anti-Xa Level ABG pH ABG pO2 ABG HCO3 ABG O2 Saturation ABG Base Excess ABG Hemoglobin Oxyhemoglobin Sodium 133 L Potassium 6.0 H D Chloride 95.1 L Carbon Dioxide BUN 46 H Creatinine 2.9 H D Glucose POC Glucose Lactic Acid 2.20 H* Calcium 8.1 L AST 159 H ALT 147 H Alkaline Phosphatase C-Reactive Protein Total Protein 4.6 L D Albumin 2.1 L Ur Specific [place] 01/09/20 01/09/20 01/09/20 15:30 16:59 16:59 WBC 28.5 H RBC 5.32 H Hgb Hct MCV 78 L MCH 24 L RDW 22.0 H Plt Count Seg Neuts % (Manual) 94.0 H Lymphocytes % (Manual) 0 L Monocytes % (Manual) Seg Neutrophils # Man 26.8 H Lymphocytes # (Manual) 0.0 L Monocytes # (Manual) 1.1 H PT INR APTT Heparin Anti-Xa Level ABG pH ABG pO2 ABG HCO3 ABG O2 Saturation ABG Base Excess ABG Hemoglobin Oxyhemoglobin Sodium 132 L Potassium 5.8 H Chloride 96.1 L Carbon Dioxide 14 L D BUN 59 H Creatinine 2.8 H Glucose POC Glucose Lactic Acid Calcium 8.3 L AST 151 H ALT 145 H Alkaline Phosphatase 153 H C-Reactive Protein Total Protein 5.9 L D Albumin 2.2 L Ur Specific [place] 1.033 H 01/10/20 01/10/20 01/11/20 10:26 16:43 15:43 WBC RBC Hgb Hct MCV MCH RDW Plt Count Seg Neuts % (Manual) Lymphocytes % (Manual) Monocytes % (Manual) Seg Neutrophils # Man Lymphocytes # (Manual) Monocytes # (Manual) PT INR APTT Heparin Anti-Xa Level ABG pH ABG pO2 ABG HCO3 ABG O2 Saturation ABG Base Excess ABG Hemoglobin Oxyhemoglobin Sodium Potassium 5.1 H Chloride 108.9 H Carbon Dioxide 17 L BUN 69 H 86 H Creatinine 2.9 H 3.4 H Glucose POC Glucose Lactic Acid Calcium 8.0 L AST ALT Alkaline Phosphatase C-Reactive Protein 41.00 H Total Protein Albumin Ur Specific [place] 01/11/20 01/11/20 01/12/20 18:12 21:00 05:35 WBC RBC Hgb Hct MCV MCH RDW Plt Count Seg Neuts % (Manual) Lymphocytes % (Manual) Monocytes % (Manual) Seg Neutrophils # Man Lymphocytes # (Manual) Monocytes # (Manual) PT INR APTT Heparin Anti-Xa Level ABG pH 7.162 L* 7.267 L 7.320 L ABG pO2 72.8 L 280.6 H 128.6 H ABG HCO3 19.4 L 17.3 L 15.7 L ABG O2 Saturation 87.7 L 99.4 H ABG Base Excess -9.1 L -9.0 L -9.5 L ABG Hemoglobin 9.8 L 9.7 L 8.2 L Oxyhemoglobin 85.3 L Sodium Potassium Chloride Carbon Dioxide BUN Creatinine Glucose POC Glucose Lactic Acid Calcium AST ALT Alkaline Phosphatase C-Reactive Protein Total Protein Albumin Ur Specific [place] 01/12/20 01/12/20 01/12/20 10:18 11:51 11:55 WBC 22.9 H RBC Hgb 8.6 L D Hct 28.3 L D MCV 77 L MCH 24 L RDW 21.7 H Plt Count Seg Neuts % (Manual) Lymphocytes % (Manual) Monocytes % (Manual) Seg Neutrophils # Man Lymphocytes # (Manual) Monocytes # (Manual) PT INR APTT Heparin Anti-Xa Level ABG pH ABG pO2 ABG HCO3 ABG O2 Saturation ABG Base Excess ABG Hemoglobin Oxyhemoglobin Sodium Potassium 5.3 H Chloride Carbon Dioxide 17 L BUN 105 H Creatinine 3.7 H Glucose 111 H POC Glucose 115 H Lactic Acid Calcium AST ALT Alkaline Phosphatase C-Reactive Protein Total Protein Albumin Ur Specific [place] 01/12/20 01/12/20 01/12/20 18:20 18:50 18:50 WBC RBC Hgb 9.2 L Hct 30.0 L MCV MCH RDW Plt Count Seg Neuts % (Manual) Lymphocytes % (Manual) Monocytes % (Manual) Seg Neutrophils # Man Lymphocytes # (Manual) Monocytes # (Manual) PT 20.0 H INR 1.66 H APTT 38.7 H Heparin Anti-Xa Level ABG pH ABG pO2 ABG HCO3 ABG O2 Saturation ABG Base Excess ABG Hemoglobin Oxyhemoglobin Sodium Potassium Chloride Carbon Dioxide BUN Creatinine Glucose POC Glucose 108 H Lactic Acid Calcium AST ALT Alkaline Phosphatase C-Reactive Protein Total Protein Albumin Ur Specific [place] 01/13/20 01/13/20 01/13/20 03:02 05:10 09:45 WBC 26.2 H RBC 3.53 L Hgb 8.4 L Hct 27.1 L MCV 77 L MCH 24 L RDW 22.0 H Plt Count Seg Neuts % (Manual) Lymphocytes % (Manual) Monocytes % (Manual) Seg Neutrophils # Man Lymphocytes # (Manual) Monocytes # (Manual) PT INR APTT Heparin Anti-Xa Level 0.23 L ABG pH 7.211 L ABG pO2 91.5 H ABG HCO3 18.1 L ABG O2 Saturation ABG Base Excess -9.1 L ABG Hemoglobin 7.3 L Oxyhemoglobin 94.0 L Sodium Potassium Chloride Carbon Dioxide BUN Creatinine Glucose POC Glucose Lactic Acid Calcium AST ALT Alkaline Phosphatase C-Reactive Protein Total Protein Albumin Ur Specific [place] 01/13/20 01/13/20 01/13/20 09:45 21:03 21:49 WBC RBC Hgb Hct MCV MCH RDW Plt Count Seg Neuts % (Manual) Lymphocytes % (Manual) Monocytes % (Manual) Seg Neutrophils # Man Lymphocytes # (Manual) Monocytes # (Manual) PT INR APTT Heparin Anti-Xa Level 0.28 L 0.28 L ABG pH ABG pO2 ABG HCO3 ABG O2 Saturation ABG Base Excess ABG Hemoglobin Oxyhemoglobin Sodium Potassium 5.9 H Chloride 110.9 H Carbon Dioxide 17 L BUN 115 H Creatinine 4.2 H Glucose 101 H POC Glucose Lactic Acid Calcium AST ALT Alkaline Phosphatase C-Reactive Protein Total Protein Albumin Ur Specific [place] 01/14/20 01/14/20 01/14/20 04:00 04:50 05:09 WBC 26.6 H RBC 3.59 L Hgb 8.5 L Hct 26.6 L MCV 74 L MCH 24 L RDW 21.6 H Plt Count 134 L Seg Neuts % (Manual) Lymphocytes % (Manual) Monocytes % (Manual) Seg Neutrophils # Man Lymphocytes # (Manual) Monocytes # (Manual) PT INR APTT Heparin Anti-Xa Level ABG pH 7.335 L ABG pO2 126.9 H ABG HCO3 ABG O2 Saturation ABG Base Excess -4.2 L ABG Hemoglobin 9.2 L Oxyhemoglobin Sodium Potassium Chloride 108.4 H Carbon Dioxide BUN 111 H Creatinine 3.7 H Glucose 119 H POC Glucose Lactic Acid Calcium AST ALT Alkaline Phosphatase C-Reactive Protein Total Protein Albumin Ur Specific [place] Chest x-ray: image reviewed (ETT riding high) Allied health notes reviewed: RT
--- NOTE | 2020-01-14 13:25 | Progress Note ---
Assessment and Plan # Acute Kidney Injury, Non-Oliguric: suspect AVE in setting of tubular injury from sepsis, hypotension, bowel infarct. No immediate renal replacement indications with normal K, reasonable urine output, but suspect that renal function will continue to worsen given clinical setting. Creatinine fairly stable today at 3.7. Reviewed surgical notes and likely no benefit to renal replacement therapy given severity of bowel infarct, and would not offer at this time unless goals of care change drastically - continue supportive measures as able, agree with goals of care discussion and potential comfort care measures. Agree with ethics consult - Agree with HCO3 gtt, monitor for hypocalcemia - avoid nephrotoxins - IVF, pressors prn # Acidosis: Likely from AVE, lactic acidosis. Continue IVF as able # Bowel Infarction: appreciate surgical input # Sepsis: appreciate ID input # Hypotension: pressors prn Thank you for involving us in the care of this critically ill patient. Please do not hesitate to reach out to our team with any questions or concerns. Subjective Date of service: 01/14/20 Principal diagnosis: Septic shock; Pneumatosis intestinalis s/p ex lap; AVE; CHF; Ac Encephalopa Interval history: No acute changes noted. Reviewed notes and information from chart in depth. Objective - Exam Narrative Exam: General appearance: intubated, sedated, ill appearing Eyes: anicteric sclerae HENT: ET tube in place, NG tube noted Lungs: mechanical breath sounds CV: tachycardic Abdomen: dressing noted Extremities: no edema, no cyanosis Skin: No rash noted Psych: sedated Neuro: sedated - Vital Signs Vital signs: Vital Signs - 12hr 01/14/20 01/14/20 01/14/20 01:30 01:45 02:00 Temperature Pulse Rate 85 82 82 Pulse Rate [ From Monitor] Pulse Rate [ Left Dorsalis Pedis] Pulse Rate [ Left Radial] Pulse Rate [ Right Dorsalis Pedis] Pulse Rate [ Right Radial] Respiratory 16 16 16 Rate Blood Pressure 101/67 109/69 105/68 O2 Sat by Pulse Oximetry 01/14/20 01/14/20 01/14/20 02:15 02:30 02:45 Temperature Pulse Rate 81 83 86 Pulse Rate [ From Monitor] Pulse Rate [ Left Dorsalis Pedis] Pulse Rate [ Left Radial] Pulse Rate [ Right Dorsalis Pedis] Pulse Rate [ Right Radial] Respiratory 16 15 16 Rate Blood Pressure 101/67 108/75 112/67 O2 Sat by Pulse Oximetry 01/14/20 01/14/20 01/14/20 03:01 03:15 03:30 Temperature Pulse Rate 89 86 87 Pulse Rate [ From Monitor] Pulse Rate [ Left Dorsalis Pedis] Pulse Rate [ Left Radial] Pulse Rate [ Right Dorsalis Pedis] Pulse Rate [ Right Radial] Respiratory 19 16 16 Rate Blood Pressure 124/86 104/71 111/66 O2 Sat by Pulse Oximetry 01/14/20 01/14/20 01/14/20 03:45 04:00 04:15 Temperature 97.8 F Pulse Rate 85 88 90 Pulse Rate [ 89 From Monitor] Pulse Rate [ 89 Left Dorsalis Pedis] Pulse Rate [ 89 Left Radial] Pulse Rate [ 89 Right Dorsalis Pedis] Pulse Rate [ 89 Right Radial] Respiratory 16 16 17 Rate Blood Pressure 104/68 94/61 102/62 O2 Sat by Pulse 99 97 Oximetry 01/14/20 01/14/20 01/14/20 04:30 04:45 05:00 Temperature Pulse Rate 91 H 91 H 92 H Pulse Rate [ From Monitor] Pulse Rate [ Left Dorsalis Pedis] Pulse Rate [ Left Radial] Pulse Rate [ Right Dorsalis Pedis] Pulse Rate [ Right Radial] Respiratory 18 17 18 Rate Blood Pressure 107/69 103/64 102/62 O2 Sat by Pulse 100 100 100 Oximetry 01/14/20 01/14/20 01/14/20 05:15 05:30 05:45 Temperature Pulse Rate 92 H 92 H 96 H Pulse Rate [ From Monitor] Pulse Rate [ Left Dorsalis Pedis] Pulse Rate [ Left Radial] Pulse Rate [ Right Dorsalis Pedis] Pulse Rate [ Right Radial] Respiratory 17 17 17 Rate Blood Pressure 105/64 103/62 113/69 O2 Sat by Pulse 100 100 100 Oximetry 01/14/20 01/14/20 01/14/20 06:00 06:15 06:30 Temperature Pulse Rate 92 H 91 H 93 H Pulse Rate [ From Monitor] Pulse Rate [ Left Dorsalis Pedis] Pulse Rate [ Left Radial] Pulse Rate [ Right Dorsalis Pedis] Pulse Rate [ Right Radial] Respiratory 18 18 18 Rate Blood Pressure 97/60 103/69 106/67 O2 Sat by Pulse 100 100 100 Oximetry 01/14/20 01/14/20 01/14/20 06:45 07:00 07:15 Temperature Pulse Rate 96 H 93 H 92 H Pulse Rate [ From Monitor] Pulse Rate [ Left Dorsalis Pedis] Pulse Rate [ Left Radial] Pulse Rate [ Right Dorsalis Pedis] Pulse Rate [ Right Radial] Respiratory 28 H 17 17 Rate Blood Pressure 109/77 111/65 106/64 O2 Sat by Pulse 100 100 100 Oximetry 01/14/20 01/14/20 01/14/20 07:30 07:45 08:00 Temperature 98.6 F Pulse Rate 91 H 90 92 H Pulse Rate [ 94 H From Monitor] Pulse Rate [ Left Dorsalis Pedis] Pulse Rate [ Left Radial] Pulse Rate [ Right Dorsalis Pedis] Pulse Rate [ Right Radial] Respiratory 18 18 25 H Rate Blood Pressure 112/61 110/64 111/73 O2 Sat by Pulse 100 100 100 Oximetry 01/14/20 01/14/20 01/14/20 08:15 08:30 08:45 Temperature Pulse Rate 92 H 91 H 92 H Pulse Rate [ From Monitor] Pulse Rate [ Left Dorsalis Pedis] Pulse Rate [ Left Radial] Pulse Rate [ Right Dorsalis Pedis] Pulse Rate [ Right Radial] Respiratory 18 20 19 Rate Blood Pressure 113/66 116/66 114/65 O2 Sat by Pulse 100 100 100 Oximetry 01/14/20 01/14/20 09:01 11:29 Temperature Pulse Rate 93 H 93 H Pulse Rate [ From Monitor] Pulse Rate [ Left Dorsalis Pedis] Pulse Rate [ Left Radial] Pulse Rate [ Right Dorsalis Pedis] Pulse Rate [ Right Radial] Respiratory 22 22 Rate Blood Pressure 124/73 124/73 O2 Sat by Pulse 99 99 Oximetry - Lab 01/14/20 05:09 01/14/20 04:00 Most recent lab results ABG pH 7.335 pH Units (7.350-7.450) L 01/14/20 04:50 ABG pCO2 41.0 mm Hg 01/14/20 04:50 ABG pO2 126.9 mm Hg (80.0-90.0) H 01/14/20 04:50 ABG HCO3 21.4 mmol/L (20.0-26.0) 01/14/20 04:50 ABG O2 Saturation 98.3 % (95.0-99.0) 01/14/20 04:50 Calcium 8.4 mg/dL (8.4-10.2) 01/14/20 04:00 Medications & Allergies - Medications Allergies/Adverse Reactions: Allergies No Known Allergies Allergy (Verified 11/07/19 07:55) Home Medications: Home Medications Medication Instructions Recorded Confirmed Last Taken Type Aspirin [Aspirin BABY CHEW TAB] 81 mg PO QDAY #30 tab.chew 12/07/19 01/09/20 Unknown Rx AtorvaSTATin [Lipitor] 40 mg PO QHS #30 tablet 12/07/19 01/09/20 Unknown Rx Furosemide [Lasix TAB] 40 mg PO DAILY #30 tablet 12/07/19 01/09/20 Unknown Rx Potassium Chloride 10 meq PO DAILY #30 tablet.er 12/07/19 01/09/20 Unknown Rx carvediloL [Coreg] 6.25 mg PO BID #60 tablet 12/07/19 01/09/20 Unknown Rx hydrALAZINE [Apresoline TAB] 25 mg PO Q8HR #90 tablet 12/07/19 01/09/20 Unknown Rx lisinopriL [Zestril TAB] 20 mg PO QDAY #30 tablet 12/07/19 01/09/20 Unknown Rx Active Medications: Generic Name Dose Route Start Last Admin Trade Name Freq PRN Reason Stop Dose Admin Acetaminophen 650 mg 01/08/20 20:00 Tylenol PO Q4H PRN Pain MILD(1-3)/Fever >100.5/LOPEZ Famotidine 20 mg 01/12/20 10:00 01/14/20 09:54 Pepcid IV 20 mg DAILY TRI Administration Hydromorphone HCl 1 mg 01/08/20 21:26 01/11/20 08:19 Dilaudid IV 1 mg Q2H PRN Administration Pain , Severe (7-10) Norepinephrine 4 mg in 250 mls @ 7.5 mls/hr 01/08/20 23:45 01/14/20 10:46 Levophed Drip 4 Mg/Ns 250 Ml IV 0 mcg/min TITR TRI 0 mls/hr Titration Protocol 2 MCG/MIN Cefepime HCl 1 gm in 100 mls @ 200 mls/hr 01/09/20 22:00 01/13/20 21:55 Cefepime/Ns 1 Gm/100 Ml IV 200 mls/hr Q24H TRI Administration Metronidazole 500 mg in 100 mls @ 100 mls/hr 01/10/20 15:00 01/14/20 09:54 Flagyl 500 Mg/100 Ml IV 100 mls/hr Q8H TRI Administration Protocol Propofol 1,000 mg in 100 mls @ 1.837 mls/hr 01/11/20 23:45 01/12/20 15:30 Diprivan 10 Mg/Ml IV 0 mcg/kg/min TITR TRI 0 mls/hr Titration Protocol 5 MCG/KG/MIN Fentanyl Citrate 2,000 mcg in 100 mls @ 3.062 mls/hr 01/12/20 08:00 01/13/20 22:38 Fentanyl Drip Premix IV 1 mcg/kg/hr TITR TRI 3.062 mls/hr Administration Protocol 1 MCG/KG/HR Heparin Sodium/Sodium Chloride 25,000 unit in 500 mls @ 18 mls/hr 01/12/20 19:00 01/14/20 09:00 Heparin/ 0.45% Nacl-25,000 Unit/500 Ml IV 1,000 units/hr TITR TRI 20 mls/hr Titration Protocol 900 UNITS/HR Sodium Bicarbonate 150 meq/ 1,150 mls @ 150 mls/hr 01/13/20 10:00 01/14/20 04:45 Dextrose IV 150 mls/hr DIRECT TRI Administration Ondansetron HCl 4 mg 01/08/20 20:00 01/10/20 19:53 Zofran IV 4 mg Q8H PRN Administration Nausea And Vomiting Sodium Chloride 10 ml 01/08/20 22:00 01/14/20 09:54 Sodium Chloride Flush Syringe 10 Ml IV 10 ml BID TRI Administration Sodium Chloride 10 ml 01/08/20 20:00 Sodium Chloride Flush Syringe 10 Ml IV PRN PRN LINE FLUSH
--- NOTE | 2020-01-14 14:54 | Progress Note ---
Subjective Date of service: 01/14/20 Principal diagnosis: Septic shock; Pneumatosis intestinalis s/p ex lap; AVE; CHF; Ac Encephalopa Interval history: 49 YO Female with with Sepsis currently on pressor support, GI Bleed,SBO, AVE, Severe Malnutrition, Homelessness, Acidosis, Cocaine Dependence, Nicotine Dependence. Pt lying in bed, No reported nursing events. No significant improvement overnight. Patient remains critically ill. Patient found to have persistent sepsis suspected secondary to necrotic bowel. Patient to be taken to the OR for reexploration as per surgical team today. Patient underwent surgical invtervention and was found near to complete infarct ion of the intestine, per surgery from the ligament of Treitz to the sigmoid colon. Almost the entire length of intestine was unsalvageable. There was no pulse in the superior mesenteric artery No resection was done. Patient has a nonsurvivable condition. Comfort care measures should be instituted. Paraoxysmal Atrial Fibrillation.- Will start on Heparin drip Anoxic Metabolic Encephalopathy Hyperkalemia-Nephrology following - Patient Problems (1) Acute bowel infarction Current Visit: Yes Status: Acute Plan to address problem: Pt in critical condition. General surgery note reviewed Nonsalvageable intestine Called patient's son-in-law Mr. Amauri Castanon, the phone is ringing but nobody is answering the phone business information manager note reviewed - Patient Problems (1) Sepsis Current Visit: Yes Status: Acute Plan to address problem: ID note reviewed Continue cefepime and Flagyl IV Awaiting family to be contacted regarding decision to withdraw care Patient remains intubated, lethargic, sedated Lab results reviewed (3) GI bleed Current Visit: Yes Status: Acute Qualifiers: GI bleed type/associated pathology: melena Qualified Code(s): K92.1 - Melena Plan to address problem: Continue IV PPI Monitor H&H as the patient is full code (4) Elevated liver function tests Current Visit: Yes Status: Acute Plan to address problem: Supportive care, IV fluid resuscitation therapy Suspect secondary to sepsis (5) Hyponatremia Current Visit: Yes Status: Acute Plan to address problem: Improved (6) Cocaine abuse Current Visit: No Status: Chronic Plan to address problem: Supportive care (7) HLD (hyperlipidemia) Current Visit: No Status: Chronic None issue at this time (8) Uncontrolled hypertension Current Visit: No Status: Chronic Plan to address problem: continue medical management. BP is fair (9) Acute kidney injury (AVE) with acute tubular necrosis (ATN) Current Visit: Yes Status: Acute Plan to address problem: Nephrology note reviewed and appreciated Serum creatinine stable around 3.7 No need for renal replacement therapy at this time Monitor renal function and avoid nephrotoxins 10. Hyperkalemia Secondary to AVE Improved (11) DVT prophylaxis Current Visit: No Status: Acute Plan to address problem: SCD to bilateral lower extremities while in bed, hold anticoagulation due to GI bleed. Objective - Constitutional Vitals: Vital Signs - 12hr 01/14/20 01/14/20 01/14/20 03:01 03:15 03:30 Temperature Pulse Rate 89 86 87 Pulse Rate [ From Monitor] Pulse Rate [ Left Dorsalis Pedis] Pulse Rate [ Left Radial] Pulse Rate [ Right Dorsalis Pedis] Pulse Rate [ Right Radial] Respiratory 19 16 16 Rate Blood Pressure 124/86 104/71 111/66 O2 Sat by Pulse Oximetry 01/14/20 01/14/20 01/14/20 03:45 04:00 04:15 Temperature 97.8 F Pulse Rate 85 88 90 Pulse Rate [ 89 From Monitor] Pulse Rate [ 89 Left Dorsalis Pedis] Pulse Rate [ 89 Left Radial] Pulse Rate [ 89 Right Dorsalis Pedis] Pulse Rate [ 89 Right Radial] Respiratory 16 16 17 Rate Blood Pressure 104/68 94/61 102/62 O2 Sat by Pulse 99 97 Oximetry 01/14/20 01/14/20 01/14/20 04:30 04:45 05:00 Temperature Pulse Rate 91 H 91 H 92 H Pulse Rate [ From Monitor] Pulse Rate [ Left Dorsalis Pedis] Pulse Rate [ Left Radial] Pulse Rate [ Right Dorsalis Pedis] Pulse Rate [ Right Radial] Respiratory 18 17 18 Rate Blood Pressure 107/69 103/64 102/62 O2 Sat by Pulse 100 100 100 Oximetry 01/14/20 01/14/20 01/14/20 05:15 05:30 05:45 Temperature Pulse Rate 92 H 92 H 96 H Pulse Rate [ From Monitor] Pulse Rate [ Left Dorsalis Pedis] Pulse Rate [ Left Radial] Pulse Rate [ Right Dorsalis Pedis] Pulse Rate [ Right Radial] Respiratory 17 17 17 Rate Blood Pressure 105/64 103/62 113/69 O2 Sat by Pulse 100 100 100 Oximetry 01/14/20 01/14/20 01/14/20 06:00 06:15 06:30 Temperature Pulse Rate 92 H 91 H 93 H Pulse Rate [ From Monitor] Pulse Rate [ Left Dorsalis Pedis] Pulse Rate [ Left Radial] Pulse Rate [ Right Dorsalis Pedis] Pulse Rate [ Right Radial] Respiratory 18 18 18 Rate Blood Pressure 97/60 103/69 106/67 O2 Sat by Pulse 100 100 100 Oximetry 01/14/20 01/14/20 01/14/20 06:45 07:00 07:15 Temperature Pulse Rate 96 H 93 H 92 H Pulse Rate [ From Monitor] Pulse Rate [ Left Dorsalis Pedis] Pulse Rate [ Left Radial] Pulse Rate [ Right Dorsalis Pedis] Pulse Rate [ Right Radial] Respiratory 28 H 17 17 Rate Blood Pressure 109/77 111/65 106/64 O2 Sat by Pulse 100 100 100 Oximetry 01/14/20 01/14/20 01/14/20 07:30 07:45 08:00 Temperature 98.6 F Pulse Rate 91 H 90 92 H Pulse Rate [ 94 H From Monitor] Pulse Rate [ Left Dorsalis Pedis] Pulse Rate [ Left Radial] Pulse Rate [ Right Dorsalis Pedis] Pulse Rate [ Right Radial] Respiratory 18 18 25 H Rate Blood Pressure 112/61 110/64 111/73 O2 Sat by Pulse 100 100 100 Oximetry 01/14/20 01/14/20 01/14/20 08:15 08:30 08:45 Temperature Pulse Rate 92 H 91 H 92 H Pulse Rate [ From Monitor] Pulse Rate [ Left Dorsalis Pedis] Pulse Rate [ Left Radial] Pulse Rate [ Right Dorsalis Pedis] Pulse Rate [ Right Radial] Respiratory 18 20 19 Rate Blood Pressure 113/66 116/66 114/65 O2 Sat by Pulse 100 100 100 Oximetry 01/14/20 01/14/20 01/14/20 09:01 11:29 12:00 Temperature 97.8 F Pulse Rate 93 H 93 H Pulse Rate [ From Monitor] Pulse Rate [ Left Dorsalis Pedis] Pulse Rate [ Left Radial] Pulse Rate [ Right Dorsalis Pedis] Pulse Rate [ Right Radial] Respiratory 22 22 Rate Blood Pressure 124/73 124/73 O2 Sat by Pulse 99 99 Oximetry General appearance: Present: no acute distress, other (Remains on vent, lethargic, opens eyes to verbal stimulus) - EENT Eyes: PERRL - Neck Neck: supple - Respiratory Respiratory effort: normal Respiratory: bilateral: diminished (Coarse breath sounds) - Cardiovascular Rhythm: regular Heart Sounds: Present: S1 & S2 Extremities: No edema - Gastrointestinal General gastrointestinal: Present: soft, absent bowel sounds Rectal Exam: deferred - Neurologic Neurologic: other (Patient is sedated and intubated) - Labs CBC & Chem 7: 01/14/20 05:09 01/14/20 04:00 Labs: Abnormal lab results 01/13/20 01/13/20 01/14/20 Range/Units 21:03 21:49 04:00 WBC (4.5-11.0) K/mm3 RBC (3.65-5.03) M/mm3 Hgb (10.1-14.3) gm/dl Hct (30.3-42.9) % MCV (79-97) fl MCH (28-32) pg RDW (13.2-15.2) % Plt Count (140-440) K/mm3 Heparin Anti-Xa Level 0.28 L 0.28 L (0.3-0.7) U.I./ml ABG pH (7.350-7.450) pH Units ABG pO2 (80.0-90.0) mm Hg ABG Base Excess (-2.0-3.0) mmol/L ABG Hemoglobin (12.0-16.0) gm/dl Chloride 108.4 H (98-107) mmol/L BUN 111 H (7-17) mg/dL Creatinine 3.7 H (0.6-1.2) mg/dL Glucose 119 H (65-100) mg/dL POC Glucose (70-105) 01/14/20 01/14/20 01/14/20 Range/Units 04:50 05:09 13:07 WBC 26.6 H (4.5-11.0) K/mm3 RBC 3.59 L (3.65-5.03) M/mm3 Hgb 8.5 L (10.1-14.3) gm/dl Hct 26.6 L (30.3-42.9) % MCV 74 L (79-97) fl MCH 24 L (28-32) pg RDW 21.6 H (13.2-15.2) % Plt Count 134 L (140-440) K/mm3 Heparin Anti-Xa Level (0.3-0.7) U.I./ml ABG pH 7.335 L (7.350-7.450) pH Units ABG pO2 126.9 H (80.0-90.0) mm Hg ABG Base Excess -4.2 L (-2.0-3.0) mmol/L ABG Hemoglobin 9.2 L (12.0-16.0) gm/dl Chloride (98-107) mmol/L BUN (7-17) mg/dL Creatinine (0.6-1.2) mg/dL Glucose (65-100) mg/dL POC Glucose 160 H (70-105)
--- NOTE | 2020-01-14 15:50 | XRay Report ---
CHEST 1 VIEW 01/14/2020 2:34 PM INDICATION / CLINICAL INFORMATION: ETT position. COMPARISON: One day prior FINDINGS: SUPPORT DEVICES: Endotracheal tube tip is high at the level of the thoracic inlet, approximately 7-8 cm above the sheyla. This could be advanced approximately 4 cm. Right IJ catheter and esophagogastric tube are in satisfactory position. HEART / MEDIASTINUM: No significant abnormality. LUNGS / PLEURA: There is persistent pleuroparenchymal disease in the right lower hemithorax. No pneum othorax. ADDITIONAL FINDINGS: No significant additional findings. IMPRESSION: 1. Endotracheal tube tip is somewhat high, this could be advanced approximately 4 cm. Signer Name: Raffaele Amezquita MD Signed: 01/14/2020 3:45 PM Workstation Name: [id number]
--- NOTE | 2020-01-14 16:00 | XRay Report ---
CHEST - 1 VIEW 1534 hours INDICATION: Endotracheal tube placement COMPARISON: Earlier today at 1515 hours FINDINGS: Support devices: The endotracheal tube remains in similar position terminating approximately 10 cm s uperior to the sheyla. The nasogastric tube and right IJ venous catheter are unchanged. Heart: Stable cardiomediastinal silhouette. Lungs/pleura: Minor atelectatic changes at the right lung base are stable. Otherwise the lungs are c lear. Additional findings: None. IMPRESSION: Unchanged exam. The endotracheal tube still terminates superior to the clavicles. Please correlate wi th the image. Signer Name: Abram Burnett Jr, MD Signed: 01/14/2020 3:56 PM Workstation Name: [id number]
[2020-01-14] MEDS: fentaNYL DRIP Premix 2,000 MCG/100 ML BAG IV SCH (16:03)
--- NOTE | 2020-01-14 16:07 | Event Note ---
Date: 01/14/20 I was asked to contact the daughter, Nallely Talavera. I called her and spoke with her and her family as well. I explained our initial assessment and care when Ms. Oliveira first presented to the ED. I explained the need for the second CT and the actions that followed. 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 They were under the impression that she would eventually recover from this. Once they understood that she would not recover from this, they asked for some time to talk with other family members. They understand that I recommend comfort care be started. Once they have a chance to speak with the rest of the family, they will contact Nafisa again. They were appreciative of the care we offered Ms. Oliveira.
[2020-01-14] MEDS ORDERED: MIDAZOLAM 2 MG/2 ML INJ IV PRN (16:51)
[2020-01-14] MEDS ORDERED: fentaNYL 100 MCG/2 ML INJ IV PRN (16:51)
[2020-01-14] MEDS ORDERED: LIP THERAPY VASELINE TP PRN (16:51)
--- NOTE | 2020-01-14 16:56 | XRay Report ---
CHEST 1 VIEW 01/14/2020 4:27 PM INDICATION / CLINICAL INFORMATION: Tube Placement. COMPARISON: 3:34 PM FINDINGS: SUPPORT DEVICES: Endotracheal tube remains high with the tip 10.6 cm above the sheyla. Esophagogastri c tube and right jugular central line are unchanged. HEART / MEDIASTINUM: Stable. LUNGS / PLEURA: Right basilar atelectasis is unchanged. No pneumothorax. ADDITIONAL FINDINGS: No significant additional findings. IMPRESSION: 1. Endotracheal tube remains high in position. Signer Name: Ashley Stapleton MD Signed: 01/14/2020 4:51 PM Workstation Name: [id number]
[2020-01-14] MEDS ORDERED: fentaNYL DRIP Premix 2,000 MCG/100 ML BAG IV SCH (17:00)
--- NOTE | 2020-01-14 17:22 | XRay Report ---
CHEST 1 VIEW 01/14/2020 4:55 PM INDICATION / CLINICAL INFORMATION: Reintubation. COMPARISON: 4:27 PM FINDINGS: SUPPORT DEVICES: Endotracheal tube has been advanced with the tip 1.8 cm above the sheyla in expected position. Esophagogastric tube and right jugular central line are unchanged. HEART / MEDIASTINUM: Stable. LUNGS / PLEURA: Mild bibasilar atelectasis is unchanged. No pneumothorax. ADDITIONAL FINDINGS: No significant additional findings. IMPRESSION: 1. Endotracheal tube in expected position. Signer Name: Ashley Stapleton MD Signed: 01/14/2020 5:18 PM Workstation Name: [id number]
[2020-01-14] MEDS ORDERED: MIDAZOLAM 100 MG in SODIUM CHLORIDE 0.9% 80 ML IV SCH (18:00)
[2020-01-14] MEDS: NORepinephrine/NS 4 MG-250 ML 4 MG/250 ML BAG IV SCH (18:40)
[2020-01-14] MEDS: CEFEPIME/NS 1 GM/100 ML 1 GM/100 ML BAG IV SCH (21:24)
[2020-01-15 04:20] LABS: ABG Base Excess 4.5 mmol/L (-2.0-3.0); ABG Methemoglobin 0.4 % (0.0-1.5); ABG Oxygen Saturation 97.9 % (95.0-99.0); ABG PCO2 37.4 mm Hg; ABG PH 7.492 pH Units (7.350-7.450); ABG PO2 102.6 mm Hg (80.0-90.0)
[2020-01-15] MEDS: NORepinephrine/NS 4 MG-250 ML 4 MG/250 ML BAG IV SCH ×2 (04:33→22:30)
[2020-01-15] MEDS: HEPARIN/ 0.45% NACL DRIP 25,000 UNIT/500 ML BAG IV SCH (04:40)
[2020-01-15 05:16] LABS: Albumin 1.2 g/dL (3.9-5); Calcium 8.1 mg/dL (8.4-10.2)
[2020-01-15 05:25] LABS: Hematocrit 22.6 % (30.3-42.9); Hemoglobin 7.3 gm/dl (10.1-14.3); Mean Corpuscular Volume 72 fl (79-97)
[2020-01-15 05:26] LABS: Mean Corpuscular HGB Conc 32 % (30-34); Platelet Count 160 K/mm3 (140-440); Red Blood Count 3.13 M/mm3 (3.65-5.03); Red Cell Distribution Width 21.1 % (13.2-15.2)
[2020-01-15] MEDS: SODIUM BICARBONATE 150 MEQ in DEXTROSE 5% IN WATER 1,000 ML IV SCH ×4 (06:01→22:16)
[2020-01-15 06:37] LABS: Anisocytosis 1+; Basophils % (Manual) 0 % (0.0-1.8); Hypochromasia 1+; Total Cells Counted 100
[2020-01-15 06:38] LABS: Platelet Estimate Consistent w Auto; Target Cells Few
[2020-01-15] MEDS: FAMOTIDINE 20 MG/2 ML INJ IV SCH (09:22)
--- NOTE | 2020-01-15 10:51 | Progress Note ---
Assessment and Plan Cultures: Blood culture 01/09/2020 no growth today Sputum 01/11/2020 no growth Assessment: 49 years old female with history of hypertension, hyperlipidemia, osteoarthritis, CHF, homelessness, cocaine dependence, nicotine dependence, admitted on 01/09/2020 due to 24 hour history of acute rectal bleeding associated with generalized abdominal pain, nausea and vomiting: #Severe sepsis with septic shock: present on admission with fever, tachycardia, hypotension, elevated lactate; source secondary to small bowel obstruction. #Extensive bowel ischemia/pneumotosis intestinalis: No evidence of perforation or collection on CT. S/p exlab findings graham- SMA distribution necrosis. 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 CRP=41. Procal 46. #Urinary retention: Status post Taylor placement #Elevated LFTs: Possibly due to sepsis ? Viral hepatitis #Acute kidney injury: Likely due to sepsis. Worsening #Cocaine dependence: Urine drug screen positive Recommendations: -grim prognosis, no chance of a meaningful recovery, Dr Crockett spoke with family and family will consider withdrawing care -Continue cefepime renally adjusted -Continue Flagyl 500 g IV every 8 hours will sign off please call us with any question Bertha Junior MD Infectious Diseases [employer] [facility] ([facility]) M [phone] O [phone] Subjective Date of service: 01/15/20 Principal diagnosis: Septic shock; Pneumatosis intestinalis s/p ex lap; AVE; CHF; Ac Encephalopa Interval history: Patient remains intubated, on pressors and heparin gtt, sedated on Versed Objective - Exam Narrative Exam: General appearance: intubated in NAD sedated Eyes: anicteric sclerae, moist conjunctivae; no lid-lag; PERRLA HENT: Atraumatic; oropharynx +ETT, +NGT Lungs: CTA CV: RRR no murmur Abdomen: soft midline surgical wound with dressinghs Extremities: no edema, no cyanosis Skin: No rash. Psych: sedated Neuro: sedated - Constitutional Vitals: Vital Signs Temp Pulse Resp BP Pulse Ox 98.9 F 105 H 25 H 107/71 100 01/15/20 08:00 01/15/20 09:15 01/15/20 09:15 01/15/20 09:15 01/15/20 09:15 Temperature -Last 24 Hours Temperature 98.9 F Temperature 99.1 F Temperature 100.4 F Temperature 99.4 F Temperature 98.0 F Temperature 97.8 F - Labs CBC & Chem 7: 01/15/20 05:00 01/15/20 05:00 Labs: Abnormal lab results 01/14/20 01/14/20 01/14/20 Range/Units 13:07 17:34 23:32 WBC (4.5-11.0) K/mm3 RBC (3.65-5.03) M/mm3 Hgb (10.1-14.3) gm/dl Hct (30.3-42.9) % MCV (79-97) fl MCH (28-32) pg RDW (13.2-15.2) % Seg Neuts % (Manual) (40.0-70.0) % Lymphocytes % (Manual) (13.4-35.0) % Seg Neutrophils # Man (1.8-7.7) K/mm3 Monocytes # (Manual) (0.0-0.8) K/mm3 ABG pH (7.350-7.450) pH Units ABG pO2 (80.0-90.0) mm Hg ABG HCO3 (20.0-26.0) mmol/L ABG Base Excess (-2.0-3.0) mmol/L ABG Hemoglobin (12.0-16.0) gm/dl Sodium (137-145) mmol/L BUN (7-17) mg/dL Creatinine (0.6-1.2) mg/dL Glucose (65-100) mg/dL POC Glucose 160 H 170 H 174 H (70-105) Calcium (8.4-10.2) mg/dL Total Protein (6.3-8.2) g/dL Albumin (3.9-5) g/dL 01/15/20 01/15/20 01/15/20 Range/Units 03:45 05:00 05:00 WBC 27.3 H (4.5-11.0) K/mm3 RBC 3.13 L (3.65-5.03) M/mm3 Hgb 7.3 L (10.1-14.3) gm/dl Hct 22.6 L (30.3-42.9) % MCV 72 L (79-97) fl MCH 23 L (28-32) pg RDW 21.1 H (13.2-15.2) % Seg Neuts % (Manual) 90.0 H (40.0-70.0) % Lymphocytes % (Manual) 5.0 L (13.4-35.0) % Seg Neutrophils # Man 24.6 H (1.8-7.7) K/mm3 Monocytes # (Manual) 1.1 H (0.0-0.8) K/mm3 ABG pH 7.492 H (7.350-7.450) pH Units ABG pO2 102.6 H (80.0-90.0) mm Hg ABG HCO3 28.0 H (20.0-26.0) mmol/L ABG Base Excess 4.5 H (-2.0-3.0) mmol/L ABG Hemoglobin 10.1 L (12.0-16.0) gm/dl Sodium 146 H (137-145) mmol/L BUN 105 H (7-17) mg/dL Creatinine 3.1 H (0.6-1.2) mg/dL Glucose 188 H (65-100) mg/dL POC Glucose (70-105) Calcium 8.1 L (8.4-10.2) mg/dL Total Protein 6.0 L (6.3-8.2) g/dL Albumin 1.2 L (3.9-5) g/dL 01/15/20 Range/Units 05:31 WBC (4.5-11.0) K/mm3 RBC (3.65-5.03) M/mm3 Hgb (10.1-14.3) gm/dl Hct (30.3-42.9) % MCV (79-97) fl MCH (28-32) pg RDW (13.2-15.2) % Seg Neuts % (Manual) (40.0-70.0) % Lymphocytes % (Manual) (13.4-35.0) % Seg Neutrophils # Man (1.8-7.7) K/mm3 Monocytes # (Manual) (0.0-0.8) K/mm3 ABG pH (7.350-7.450) pH Units ABG pO2 (80.0-90.0) mm Hg ABG HCO3 (20.0-26.0) mmol/L ABG Base Excess (-2.0-3.0) mmol/L ABG Hemoglobin (12.0-16.0) gm/dl Sodium (137-145) mmol/L BUN (7-17) mg/dL Creatinine (0.6-1.2) mg/dL Glucose (65-100) mg/dL POC Glucose 206 H (70-105) Calcium (8.4-10.2) mg/dL Total Protein (6.3-8.2) g/dL Albumin (3.9-5) g/dL
--- NOTE | 2020-01-15 13:46 | Progress Note ---
Assessment and Plan Severe sepsis with shock. Partial small-bowel obstruction. 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 Reported gastrointestinal bleed. Elevated serum transaminases. Hyponatremia. Cocaine abuse. History of hyperlipidemia. History of hypertension. Acute kidney injury. Hyperkalemia. History of congestive heart failure. Urinary retention Elevated LFTs Acute kidney injury:Vasomotor nephropathy Acute toxic-metabolic encephalopathy (Discussed care plan and goals of care with her eldest daughter Nallely [place] who states she has two siblings and describes her mother as a fighter. All her quest ions were answered) - RT asked to pull ETT 2 cm - get CXR in am - trend H&H - PSVB trials as tolerated - TPN soon - continue care as below otherwise; - Wean vasopresssor support for MAP> 65 - VAP bundle addressed - Adjust minute ventilation fro better gas-excahnge. Change NSaline to 150meq bicarbonate infusion - Lung protective strategies - Bronchodilators with pulmonary hygiene per RT - CXR today - OGT to LIS, keep NPO - Wean supplemental oxygen for target O2 sats > 94% - higher pAO2 to help perfuse the bowel - Daily SAT and SBT assessment as tolerated - Wean per pulmonary driven protocols - Accuchecks q6h while NPO, avoid hypoglycemia - Avoid benzodiazepines, reduce the possibility of delirium - prn analgesia per CPOT score - Maintenance of sleep-wake cycle, avoid delirium - Avoid nephrotoxins, closely monitor renal function - Aspiration precautions, HOB >40 - Antibiotics per ID- Cefepime and Metronidazole - On therapeutic heparin infusions - Medical management and redistribution therpaies for hyperkalemia - Stress ulcer prophylaxis (Famotidine) - Mobility protocol, off loading and skin assessment for pressure ulcer prevention - Supportive transfusions as indicated to keep HgB >7g/dL - Taylor catheter-critically ill with unstable hemodynamics requiring accurate intake and output, and for urinary retention Discussed with the ICU team-RT,RN,CM In view of her prognosis and severity of illness, there is a need for goals of care discussions. The family are apparently not ready to make decisions on her behalf, the patient apparently lived on the streets. Ethics consult is appropriate to determine code status and goals of care. Life threatening condition- Severe sepsis with septic shock; Acute renal failure; Pneumatosis intestinalis ischemic gut Mortality/Morbidity- High Complexity of medical decision making- High CONDITION: CRITICAL PROGNOSIS: GUARDED-GRAVE CODE STATUS: FULL CODE The high probability of a clinically significant, sudden or life-threatening deterioration of the [cardiovascular,neurology, GI ] system(s) required my full and direct attention, intervention and personal management. The aggregate critical care time was [31] minutes without overlap. 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; Cocaine abuse; Acute kidney injury; CHF; Urinary retention; Elevated LFTs; Acute toxic-metabolic encephalopathy Seen and examined at bedside; 24hour events reviewed; nursing and respiratory care staff consulted; no adverse overnight events reported to me; resting peacefully in bed; remains on MVS; AMS is persistent but no overt hemodynamic decompensation; oliguric; nbo emesis opr overt aspiration; weaning slowly of vasopressors and no gross bleeding reported Objective Vital Signs - 12hr 01/15/20 01/15/20 01/15/20 02:00 02:15 02:30 Temperature Pulse Rate 119 H 114 H 116 H Pulse Rate [ From Monitor] Respiratory 24 21 22 Rate Blood Pressure 113/80 111/74 109/78 O2 Sat by Pulse 100 100 100 Oximetry 01/15/20 01/15/20 01/15/20 02:45 03:00 03:15 Temperature Pulse Rate 110 H 107 H 112 H Pulse Rate [ From Monitor] Respiratory 22 20 20 Rate Blood Pressure 111/69 116/71 98/77 O2 Sat by Pulse 100 100 100 Oximetry 01/15/20 01/15/20 01/15/20 03:30 03:31 03:45 Temperature 99.1 F Pulse Rate 109 H 112 H Pulse Rate [ From Monitor] Respiratory 23 22 Rate Blood Pressure 103/74 108/76 O2 Sat by Pulse 100 100 Oximetry 01/15/20 01/15/20 01/15/20 04:00 04:06 04:15 Temperature Pulse Rate 112 H 101 H 111 H Pulse Rate [ 112 H From Monitor] Respiratory 18 20 Rate Blood Pressure 107/71 107/71 112/67 O2 Sat by Pulse 100 100 100 Oximetry 01/15/20 01/15/20 01/15/20 04:30 04:45 05:00 Temperature Pulse Rate 100 H 107 H 110 H Pulse Rate [ From Monitor] Respiratory 18 19 19 Rate Blood Pressure 116/66 123/69 117/71 O2 Sat by Pulse 100 100 100 Oximetry 01/15/20 01/15/20 01/15/20 05:15 05:30 05:45 Temperature Pulse Rate 103 H 103 H 109 H Pulse Rate [ From Monitor] Respiratory 17 18 25 H Rate Blood Pressure 107/61 97/67 107/77 O2 Sat by Pulse 100 100 100 Oximetry 01/15/20 01/15/20 01/15/20 06:00 06:15 06:30 Temperature Pulse Rate 110 H 110 H 102 H Pulse Rate [ From Monitor] Respiratory 21 18 17 Rate Blood Pressure 114/84 109/41 118/75 O2 Sat by Pulse 100 100 100 Oximetry 01/15/20 01/15/20 01/15/20 06:45 07:00 07:15 Temperature Pulse Rate 111 H 102 H 109 H Pulse Rate [ From Monitor] Respiratory 25 H 17 16 Rate Blood Pressure 113/83 113/83 107/73 O2 Sat by Pulse 100 100 100 Oximetry 01/15/20 01/15/20 01/15/20 07:30 07:45 08:00 Temperature 98.9 F Pulse Rate 115 H 106 H 106 H Pulse Rate [ 117 H From Monitor] Respiratory 17 16 20 Rate Blood Pressure 100/71 112/65 117/82 O2 Sat by Pulse 100 100 Oximetry 01/15/20 01/15/20 01/15/20 08:15 08:30 08:45 Temperature Pulse Rate 116 H 114 H 117 H Pulse Rate [ From Monitor] Respiratory 25 H 24 20 Rate Blood Pressure 116/81 119/72 103/83 O2 Sat by Pulse 100 100 Oximetry 01/15/20 01/15/20 01/15/20 09:00 09:13 09:15 Temperature Pulse Rate 107 H 112 H 105 H Pulse Rate [ From Monitor] Respiratory 20 25 H Rate Blood Pressure 103/83 107/66 107/71 O2 Sat by Pulse 100 100 100 Oximetry 01/15/20 01/15/20 01/15/20 09:30 09:45 10:00 Temperature Pulse Rate 114 H 105 H 114 H Pulse Rate [ From Monitor] Respiratory 17 17 24 Rate Blood Pressure 111/75 102/69 113/74 O2 Sat by Pulse 100 100 100 Oximetry 01/15/20 01/15/20 01/15/20 10:15 10:30 10:46 Temperature Pulse Rate 103 H 112 H 117 H Pulse Rate [ From Monitor] Respiratory 21 20 21 Rate Blood Pressure 117/69 93/69 99/76 O2 Sat by Pulse 100 100 Oximetry 01/15/20 01/15/20 01/15/20 11:00 11:15 11:30 Temperature Pulse Rate 115 H 115 H 116 H Pulse Rate [ From Monitor] Respiratory 18 23 22 Rate Blood Pressure 106/79 110/74 121/70 O2 Sat by Pulse 100 100 Oximetry 01/15/20 01/15/20 01/15/20 11:45 12:00 12:15 Temperature 99.6 F Pulse Rate 106 H 115 H 114 H Pulse Rate [ 108 H From Monitor] Respiratory 16 19 20 Rate Blood Pressure 97/66 95/74 116/82 O2 Sat by Pulse 99 100 100 Oximetry 01/15/20 01/15/20 01/15/20 12:30 12:45 13:00 Temperature Pulse Rate 109 H 111 H 118 H Pulse Rate [ From Monitor] Respiratory 18 22 22 Rate Blood Pressure 109/74 111/70 115/82 O2 Sat by Pulse 99 100 100 Oximetry 01/15/20 13:16 Temperature Pulse Rate 110 H Pulse Rate [ From Monitor] Respiratory 20 Rate Blood Pressure 116/67 O2 Sat by Pulse 100 Oximetry Constitutional: appears uncomfortable, other (middle aged thin female with mildly increased respiratory effort at rest) Eyes: non-icteric ENT: oropharynx moist, other (ETT 24 cm JACOB) Neck: supple, no lymphadenopathy, no JVD Effort: mildly labored Ascultation: Bilateral: diminished breath sounds, rhonchi Percussion: Bilateral: not dull Cardiovascular: regular rate and rhythm Gastrointestinal: hypoactive bowel sounds, soft, non-tender, other (distended) Integumentary: other (poor turgor; post opp changes) Extremities: no cyanosis, no edema, pulses normal, no ischemia or petechiae Neurologic: pupils equal and round, unable to assess Psychiatric: other (sedated) CBC and BMP: 01/16/20 05:03 01/15/20 05:00 ABG, PT/INR, D-dimer: ABG ABG pH 7.492 pH Units (7.350-7.450) H 01/15/20 03:45 ABG pCO2 37.4 mm Hg 01/15/20 03:45 ABG pO2 102.6 mm Hg (80.0-90.0) H 01/15/20 03:45 ABG O2 Saturation 97.9 % (95.0-99.0) 01/15/20 03:45 PT/INR, D-dimer PT 20.0 Sec. (12.2-14.9) H 01/12/20 18:50 INR 1.66 (0.87-1.13) H 01/12/20 18:50 Abnormal lab findings: Abnormal Labs 01/08/20 01/08/20 01/08/20 17:05 17:05 20:10 WBC 21.5 H RBC Hgb Hct MCV MCH 24 L RDW 22.1 H Plt Count Seg Neuts % (Manual) 83.0 H Lymphocytes % (Manual) 5.0 L Monocytes % (Manual) 12.0 H Seg Neutrophils # Man 17.8 H Lymphocytes # (Manual) 1.1 L Monocytes # (Manual) 2.6 H PT INR APTT Heparin Anti-Xa Level ABG pH ABG pO2 ABG HCO3 ABG O2 Saturation ABG Base Excess ABG Hemoglobin Oxyhemoglobin Sodium 133 L Potassium 6.0 H D Chloride 95.1 L Carbon Dioxide BUN 46 H Creatinine 2.9 H D Glucose POC Glucose Lactic Acid 2.20 H* Calcium 8.1 L AST 159 H ALT 147 H Alkaline Phosphatase C-Reactive Protein Total Protein 4.6 L D Albumin 2.1 L Ur Specific [place] 01/09/20 01/09/20 01/09/20 15:30 16:59 16:59 WBC 28.5 H RBC 5.32 H Hgb Hct MCV 78 L MCH 24 L RDW 22.0 H Plt Count Seg Neuts % (Manual) 94.0 H Lymphocytes % (Manual) 0 L Monocytes % (Manual) Seg Neutrophils # Man 26.8 H Lymphocytes # (Manual) 0.0 L Monocytes # (Manual) 1.1 H PT INR APTT Heparin Anti-Xa Level ABG pH ABG pO2 ABG HCO3 ABG O2 Saturation ABG Base Excess ABG Hemoglobin Oxyhemoglobin Sodium 132 L Potassium 5.8 H Chloride 96.1 L Carbon Dioxide 14 L D BUN 59 H Creatinine 2.8 H Glucose POC Glucose Lactic Acid Calcium 8.3 L AST 151 H ALT 145 H Alkaline Phosphatase 153 H C-Reactive Protein Total Protein 5.9 L D Albumin 2.2 L Ur Specific [place] 1.033 H 01/10/20 01/10/20 01/11/20 10:26 16:43 15:43 WBC RBC Hgb Hct MCV MCH RDW Plt Count Seg Neuts % (Manual) Lymphocytes % (Manual) Monocytes % (Manual) Seg Neutrophils # Man Lymphocytes # (Manual) Monocytes # (Manual) PT INR APTT Heparin Anti-Xa Level ABG pH ABG pO2 ABG HCO3 ABG O2 Saturation ABG Base Excess ABG Hemoglobin Oxyhemoglobin Sodium Potassium 5.1 H Chloride 108.9 H Carbon Dioxide 17 L BUN 69 H 86 H Creatinine 2.9 H 3.4 H Glucose POC Glucose Lactic Acid Calcium 8.0 L AST ALT Alkaline Phosphatase C-Reactive Protein 41.00 H Total Protein Albumin Ur Specific [place] 01/11/20 01/11/20 01/12/20 18:12 21:00 05:35 WBC RBC Hgb Hct MCV MCH RDW Plt Count Seg Neuts % (Manual) Lymphocytes % (Manual) Monocytes % (Manual) Seg Neutrophils # Man Lymphocytes # (Manual) Monocytes # (Manual) PT INR APTT Heparin Anti-Xa Level ABG pH 7.162 L* 7.267 L 7.320 L ABG pO2 72.8 L 280.6 H 128.6 H ABG HCO3 19.4 L 17.3 L 15.7 L ABG O2 Saturation 87.7 L 99.4 H ABG Base Excess -9.1 L -9.0 L -9.5 L ABG Hemoglobin 9.8 L 9.7 L 8.2 L Oxyhemoglobin 85.3 L Sodium Potassium Chloride Carbon Dioxide BUN Creatinine Glucose POC Glucose Lactic Acid Calcium AST ALT Alkaline Phosphatase C-Reactive Protein Total Protein Albumin Ur Specific [place] 01/12/20 01/12/20 01/12/20 10:18 11:51 11:55 WBC 22.9 H RBC Hgb 8.6 L D Hct 28.3 L D MCV 77 L MCH 24 L RDW 21.7 H Plt Count Seg Neuts % (Manual) Lymphocytes % (Manual) Monocytes % (Manual) Seg Neutrophils # Man Lymphocytes # (Manual) Monocytes # (Manual) PT INR APTT Heparin Anti-Xa Level ABG pH ABG pO2 ABG HCO3 ABG O2 Saturation ABG Base Excess ABG Hemoglobin Oxyhemoglobin Sodium Potassium 5.3 H Chloride Carbon Dioxide 17 L BUN 105 H Creatinine 3.7 H Glucose 111 H POC Glucose 115 H Lactic Acid Calcium AST ALT Alkaline Phosphatase C-Reactive Protein Total Protein Albumin Ur Specific [place] 01/12/20 01/12/20 01/12/20 18:20 18:50 18:50 WBC RBC Hgb 9.2 L Hct 30.0 L MCV MCH RDW Plt Count Seg Neuts % (Manual) Lymphocytes % (Manual) Monocytes % (Manual) Seg Neutrophils # Man Lymphocytes # (Manual) Monocytes # (Manual) PT 20.0 H INR 1.66 H APTT 38.7 H Heparin Anti-Xa Level ABG pH ABG pO2 ABG HCO3 ABG O2 Saturation ABG Base Excess ABG Hemoglobin Oxyhemoglobin Sodium Potassium Chloride Carbon Dioxide BUN Creatinine Glucose POC Glucose 108 H Lactic Acid Calcium AST ALT Alkaline Phosphatase C-Reactive Protein Total Protein Albumin Ur Specific [place] 01/13/20 01/13/20 01/13/20 03:02 05:10 09:45 WBC 26.2 H RBC 3.53 L Hgb 8.4 L Hct 27.1 L MCV 77 L MCH 24 L RDW 22.0 H Plt Count Seg Neuts % (Manual) Lymphocytes % (Manual) Monocytes % (Manual) Seg Neutrophils # Man Lymphocytes # (Manual) Monocytes # (Manual) PT INR APTT Heparin Anti-Xa Level 0.23 L ABG pH 7.211 L ABG pO2 91.5 H ABG HCO3 18.1 L ABG O2 Saturation ABG Base Excess -9.1 L ABG Hemoglobin 7.3 L Oxyhemoglobin 94.0 L Sodium Potassium Chloride Carbon Dioxide BUN Creatinine Glucose POC Glucose Lactic Acid Calcium AST ALT Alkaline Phosphatase C-Reactive Protein Total Protein Albumin Ur Specific [place] 01/13/20 01/13/20 01/13/20 09:45 21:03 21:49 WBC RBC Hgb Hct MCV MCH RDW Plt Count Seg Neuts % (Manual) Lymphocytes % (Manual) Monocytes % (Manual) Seg Neutrophils # Man Lymphocytes # (Manual) Monocytes # (Manual) PT INR APTT Heparin Anti-Xa Level 0.28 L 0.28 L ABG pH ABG pO2 ABG HCO3 ABG O2 Saturation ABG Base Excess ABG Hemoglobin Oxyhemoglobin Sodium Potassium 5.9 H Chloride 110.9 H Carbon Dioxide 17 L BUN 115 H Creatinine 4.2 H Glucose 101 H POC Glucose Lactic Acid Calcium AST ALT Alkaline Phosphatase C-Reactive Protein Total Protein Albumin Ur Specific [place] 01/14/20 01/14/20 01/14/20 04:00 04:50 05:09 WBC 26.6 H RBC 3.59 L Hgb 8.5 L Hct 26.6 L MCV 74 L MCH 24 L RDW 21.6 H Plt Count 134 L Seg Neuts % (Manual) Lymphocytes % (Manual) Monocytes % (Manual) Seg Neutrophils # Man Lymphocytes # (Manual) Monocytes # (Manual) PT INR APTT Heparin Anti-Xa Level ABG pH 7.335 L ABG pO2 126.9 H ABG HCO3 ABG O2 Saturation ABG Base Excess -4.2 L ABG Hemoglobin 9.2 L Oxyhemoglobin Sodium Potassium Chloride 108.4 H Carbon Dioxide BUN 111 H Creatinine 3.7 H Glucose 119 H POC Glucose Lactic Acid Calcium AST ALT Alkaline Phosphatase C-Reactive Protein Total Protein Albumin Ur Specific [place] 01/14/20 01/14/20 01/14/20 13:07 17:34 23:32 WBC RBC Hgb Hct MCV MCH RDW Plt Count Seg Neuts % (Manual) Lymphocytes % (Manual) Monocytes % (Manual) Seg Neutrophils # Man Lymphocytes # (Manual) Monocytes # (Manual) PT INR APTT Heparin Anti-Xa Level ABG pH ABG pO2 ABG HCO3 ABG O2 Saturation ABG Base Excess ABG Hemoglobin Oxyhemoglobin Sodium Potassium Chloride Carbon Dioxide BUN Creatinine Glucose POC Glucose 160 H 170 H 174 H Lactic Acid Calcium AST ALT Alkaline Phosphatase C-Reactive Protein Total Protein Albumin Ur Specific [place] 01/15/20 01/15/20 01/15/20 03:45 05:00 05:00 WBC 27.3 H RBC 3.13 L Hgb 7.3 L Hct 22.6 L MCV 72 L MCH 23 L RDW 21.1 H Plt Count Seg Neuts % (Manual) 90.0 H Lymphocytes % (Manual) 5.0 L Monocytes % (Manual) Seg Neutrophils # Man 24.6 H Lymphocytes # (Manual) Monocytes # (Manual) 1.1 H PT INR APTT Heparin Anti-Xa Level ABG pH 7.492 H ABG pO2 102.6 H ABG HCO3 28.0 H ABG O2 Saturation ABG Base Excess 4.5 H ABG Hemoglobin 10.1 L Oxyhemoglobin Sodium 146 H Potassium Chloride Carbon Dioxide BUN 105 H Creatinine 3.1 H Glucose 188 H POC Glucose Lactic Acid Calcium 8.1 L AST ALT Alkaline Phosphatase C-Reactive Protein Total Protein 6.0 L Albumin 1.2 L Ur Specific [place] 01/15/20 01/15/20 05:31 11:40 WBC RBC Hgb Hct MCV MCH RDW Plt Count Seg Neuts % (Manual) Lymphocytes % (Manual) Monocytes % (Manual) Seg Neutrophils # Man Lymphocytes # (Manual) Monocytes # (Manual) PT INR APTT Heparin Anti-Xa Level ABG pH ABG pO2 ABG HCO3 ABG O2 Saturation ABG Base Excess ABG Hemoglobin Oxyhemoglobin Sodium Potassium Chloride Carbon Dioxide BUN Creatinine Glucose POC Glucose 206 H 201 H Lactic Acid Calcium AST ALT Alkaline Phosphatase C-Reactive Protein Total Protein Albumin Ur Specific [place] Chest x-ray: image reviewed (ETT tip close to right maintem) Allied health notes reviewed: RT
[2020-01-15] MEDS: metroNIDAZOLE/NS 500 MG/100 ML 500 MG/100 ML BAG IV SCH ×3 (14:42→23:15)
--- NOTE | 2020-01-15 16:33 | Progress Note ---
Assessment and Plan # Acute Kidney Injury, Non-Oliguric: suspect AVE in setting of tubular injury from sepsis, hypotension, bowel infarct. No immediate renal replacement indications with normal K, reasonable urine output, but suspect that renal function will continue to worsen given clinical setting. Creatinine fairly stable today at 3.1. Reviewed surgical notes and likely no benefit to renal replacement therapy given severity of bowel infarct, and would not offer at this time unless goals of care change drastically - continue supportive measures as able, agree with goals of care discussion and potential comfort care measures. Agree with ethics consult. Appreciate Dr. Crockett discussing prognosis with family - avoid nephrotoxins - IVF, pressors prn - currently non-oliguric # Acidosis: Likely from AVE, lactic acidosis. Continue IVF as able # Bowel Infarction: appreciate surgical input # Sepsis: appreciate ID input # Hypotension: pressors prn Thank you for involving us in the care of this critically ill patient. Please do not hesitate to reach out to our team with any questions or concerns. Subjective Date of service: 01/15/20 Principal diagnosis: Septic shock; Pneumatosis intestinalis s/p ex lap; AVE; CHF; Ac Encephalopa Interval history: No acute changes noted. Reviewed notes and information from chart in depth. Objective - Exam Narrative Exam: General appearance: intubated, sedated, ill appearing Eyes: anicteric sclerae HENT: ET tube in place, NG tube noted Lungs: mechanical breath sounds CV: tachycardic Abdomen: dressing noted Extremities: no edema, no cyanosis Skin: No rash noted Psych: sedated Neuro: sedated - Vital Signs Vital signs: Vital Signs - 12hr 01/15/20 01/15/20 01/15/20 04:45 05:00 05:15 Temperature Pulse Rate 107 H 110 H 103 H Pulse Rate [ From Monitor] Respiratory 19 19 17 Rate Blood Pressure 123/69 117/71 107/61 O2 Sat by Pulse 100 100 100 Oximetry 01/15/20 01/15/20 01/15/20 05:30 05:45 06:00 Temperature Pulse Rate 103 H 109 H 110 H Pulse Rate [ From Monitor] Respiratory 18 25 H 21 Rate Blood Pressure 97/67 107/77 114/84 O2 Sat by Pulse 100 100 100 Oximetry 01/15/20 01/15/20 01/15/20 06:15 06:30 06:45 Temperature Pulse Rate 110 H 102 H 111 H Pulse Rate [ From Monitor] Respiratory 18 17 25 H Rate Blood Pressure 109/41 118/75 113/83 O2 Sat by Pulse 100 100 100 Oximetry 01/15/20 01/15/20 01/15/20 07:00 07:15 07:30 Temperature Pulse Rate 102 H 109 H 115 H Pulse Rate [ From Monitor] Respiratory 17 16 17 Rate Blood Pressure 113/83 107/73 100/71 O2 Sat by Pulse 100 100 Oximetry 01/15/20 01/15/20 01/15/20 07:45 08:00 08:15 Temperature 98.9 F Pulse Rate 106 H 106 H 116 H Pulse Rate [ 117 H From Monitor] Respiratory 16 20 25 H Rate Blood Pressure 112/65 117/82 116/81 O2 Sat by Pulse 100 100 Oximetry 01/15/20 01/15/20 01/15/20 08:30 08:45 09:00 Temperature Pulse Rate 114 H 117 H 107 H Pulse Rate [ From Monitor] Respiratory 24 20 20 Rate Blood Pressure 119/72 103/83 103/83 O2 Sat by Pulse 100 100 100 Oximetry 01/15/20 01/15/20 01/15/20 09:13 09:15 09:30 Temperature Pulse Rate 112 H 105 H 114 H Pulse Rate [ From Monitor] Respiratory 25 H 17 Rate Blood Pressure 107/66 107/71 111/75 O2 Sat by Pulse 100 100 100 Oximetry 01/15/20 01/15/20 01/15/20 09:45 10:00 10:15 Temperature Pulse Rate 105 H 114 H 103 H Pulse Rate [ From Monitor] Respiratory 17 24 21 Rate Blood Pressure 102/69 113/74 117/69 O2 Sat by Pulse 100 100 100 Oximetry 01/15/20 01/15/20 01/15/20 10:30 10:46 11:00 Temperature Pulse Rate 112 H 117 H 115 H Pulse Rate [ From Monitor] Respiratory 20 21 18 Rate Blood Pressure 93/69 99/76 106/79 O2 Sat by Pulse 100 100 Oximetry 01/15/20 01/15/20 01/15/20 11:15 11:30 11:45 Temperature Pulse Rate 115 H 116 H 106 H Pulse Rate [ From Monitor] Respiratory 23 22 16 Rate Blood Pressure 110/74 121/70 97/66 O2 Sat by Pulse 100 99 Oximetry 01/15/20 01/15/20 01/15/20 12:00 12:15 12:30 Temperature 99.6 F Pulse Rate 115 H 114 H 109 H Pulse Rate [ 108 H From Monitor] Respiratory 19 20 18 Rate Blood Pressure 95/74 116/82 109/74 O2 Sat by Pulse 100 100 99 Oximetry 01/15/20 01/15/20 01/15/20 12:45 13:00 13:16 Temperature Pulse Rate 111 H 118 H 110 H Pulse Rate [ From Monitor] Respiratory 22 22 20 Rate Blood Pressure 111/70 115/82 116/67 O2 Sat by Pulse 100 100 100 Oximetry 01/15/20 01/15/20 01/15/20 13:30 13:45 14:00 Temperature Pulse Rate 115 H 119 H 118 H Pulse Rate [ From Monitor] Respiratory 18 29 H 20 Rate Blood Pressure 111/60 119/90 114/83 O2 Sat by Pulse 100 100 100 Oximetry 01/15/20 01/15/20 01/15/20 14:08 14:15 14:30 Temperature Pulse Rate 120 H 110 H Pulse Rate [ From Monitor] Respiratory 25 H 21 Rate Blood Pressure 113/81 111/88 O2 Sat by Pulse 100 100 100 Oximetry 01/15/20 01/15/20 01/15/20 14:45 15:00 15:15 Temperature Pulse Rate 120 H 114 H 110 H Pulse Rate [ From Monitor] Respiratory 23 19 19 Rate Blood Pressure 112/71 107/79 115/69 O2 Sat by Pulse 100 100 100 Oximetry 01/15/20 15:30 Temperature Pulse Rate 122 H Pulse Rate [ From Monitor] Respiratory 25 H Rate Blood Pressure 123/86 O2 Sat by Pulse 100 Oximetry - Lab 01/15/20 05:00 01/15/20 05:00 Most recent lab results ABG pH 7.492 pH Units (7.350-7.450) H 01/15/20 03:45 ABG pCO2 37.4 mm Hg 01/15/20 03:45 ABG pO2 102.6 mm Hg (80.0-90.0) H 01/15/20 03:45 ABG HCO3 28.0 mmol/L (20.0-26.0) H 01/15/20 03:45 ABG O2 Saturation 97.9 % (95.0-99.0) 01/15/20 03:45 Calcium 8.1 mg/dL (8.4-10.2) L 01/15/20 05:00 Medications & Allergies - Medications Allergies/Adverse Reactions: Allergies No Known Allergies Allergy (Verified 11/07/19 07:55) Home Medications: Home Medications Medication Instructions Recorded Confirmed Last Taken Type Aspirin [Aspirin BABY CHEW TAB] 81 mg PO QDAY #30 tab.chew 12/07/19 01/09/20 Unknown Rx AtorvaSTATin [Lipitor] 40 mg PO QHS #30 tablet 12/07/19 01/09/20 Unknown Rx Furosemide [Lasix TAB] 40 mg PO DAILY #30 tablet 12/07/19 01/09/20 Unknown Rx Potassium Chloride 10 meq PO DAILY #30 tablet.er 12/07/19 01/09/20 Unknown Rx carvediloL [Coreg] 6.25 mg PO BID #60 tablet 12/07/19 01/09/20 Unknown Rx hydrALAZINE [Apresoline TAB] 25 mg PO Q8HR #90 tablet 12/07/19 01/09/20 Unknown Rx lisinopriL [Zestril TAB] 20 mg PO QDAY #30 tablet 12/07/19 01/09/20 Unknown Rx Active Medications: Generic Name Dose Route Start Last Admin Trade Name Freq PRN Reason Stop Dose Admin Acetaminophen 650 mg 01/08/20 20:00 Tylenol PO Q4H PRN Pain MILD(1-3)/Fever >100.5/LOPEZ Famotidine 20 mg 01/12/20 10:00 01/15/20 09:22 Pepcid IV 20 mg DAILY TRI Administration Fentanyl 50 mcg 01/14/20 16:51 Sublimaze IV Q10MIN PRN ANALGESIA Hydromorphone HCl 1 mg 01/08/20 21:26 01/11/20 08:19 Dilaudid IV 1 mg Q2H PRN Administration Pain , Severe (7-10) Hydrophilic Ointment 1 applic 01/14/20 16:51 Vaseline Lip Therapy TP Q2HR PRN Dry Lips Norepinephrine 4 mg in 250 mls @ 7.5 mls/hr 01/08/20 23:45 01/15/20 04:33 Levophed Drip 4 Mg/Ns 250 Ml IV 4 mcg/min TITR TRI 15 mls/hr Administration Protocol 2 MCG/MIN Cefepime HCl 1 gm in 100 mls @ 200 mls/hr 01/09/20 22:00 01/14/20 21:24 Cefepime/Ns 1 Gm/100 Ml IV 200 mls/hr Q24H RTI Administration Metronidazole 500 mg in 100 mls @ 100 mls/hr 01/10/20 15:00 01/15/20 14:42 Flagyl 500 Mg/100 Ml IV 100 mls/hr Q8H TRI Administration Protocol Propofol 1,000 mg in 100 mls @ 1.837 mls/hr 01/11/20 23:45 01/12/20 15:30 Diprivan 10 Mg/Ml IV 0 mcg/kg/min TITR TRI 0 mls/hr Titration Protocol 5 MCG/KG/MIN Heparin Sodium/Sodium Chloride 25,000 unit in 500 mls @ 18 mls/hr 01/12/20 19:00 01/15/20 04:40 Heparin/ 0.45% Nacl-25,000 Unit/500 Ml IV 1,000 units/hr TITR TRI 20 mls/hr Administration Protocol 900 UNITS/HR Sodium Bicarbonate 150 meq/ 1,150 mls @ 150 mls/hr 01/13/20 10:00 01/15/20 14:25 Dextrose IV 150 mls/hr DIRECT TRI Administration Fentanyl Citrate 2,000 mcg in 100 mls @ 3.05 mls/hr 01/14/20 17:00 Fentanyl Drip Premix IV TITR TRI Protocol 1 MCG/KG/HR Midazolam HCl 100 mg/ Sodium 100 mls @ 2 mls/hr 01/14/20 18:00 01/15/20 01:00 Chloride IV 2 mg/hr TITR TRI 2 mls/hr Titration Protocol 2 MG/HR Midazolam HCl 2 mg 01/14/20 16:51 Versed IV Q10MIN PRN Sedation Ondansetron HCl 4 mg 01/08/20 20:00 01/10/20 19:53 Zofran IV 4 mg Q8H PRN Administration Nausea And Vomiting Sodium Chloride 10 ml 01/08/20 22:00 01/15/20 09:21 Sodium Chloride Flush Syringe 10 Ml IV 10 ml BID TRI Administration Sodium Chloride 10 ml 01/08/20 20:00 Sodium Chloride Flush Syringe 10 Ml IV PRN PRN LINE FLUSH
--- NOTE | 2020-01-15 18:24 | Progress Note ---
Assessment and Plan Assessment and plan: 49 YO Female with with Sepsis currently on pressor support, GI Bleed,SBO, AVE, Severe Malnutrition, Homelessness, Acidosis, Cocaine Dependence, Nicotine Dependence. Pt lying in bed, No reported nursing events. No significant improvement overnight. Patient remains critically ill. Patient found to have persistent sepsis suspected secondary to necrotic bowel. Patient to be taken to the OR for reexploration as per surgical team today. Patient underwent surgical invtervention and was found near to complete infarction of the intestine, per surgery from the ligament of Treitz to the sigmoid colon. Almost the entire length of intestine was unsalvageable. There was no pulse in the superior mesenteric artery No resection was done. Patient has a nonsurvivable condition. Comfort care measures should be instituted. Paraoxysmal Atrial Fibrillation.- Will start on Heparin drip Anoxic Metabolic Encephalopathy Hyperkalemia-Nephrology following 01/14: Remains in full ventilatory. No changes, Discussed with Family mariajosesi alisha.Advised of poor prognosis. They will like GI opinion - Patient Problems (1) Acute bowel infarction Current Visit: Yes Status: Acute Plan to address problem: Pt in critical condition. General surgery note reviewed Nonsalvageable intestine Called patient's son-in-law Mr. Amauri Castanon, the phone is ringing but nobody is answering the phone medical claims manager note reviewed - Patient Problems (1) Sepsis Current Visit: Yes Status: Acute Plan to address problem: ID note reviewed Continue cefepime and Flagyl IV Awaiting family to be contacted regarding decision to withdraw care Patient remains intubated, lethargic, sedated Lab results reviewed (3) GI bleed Current Visit: Yes Status: Acute Qualifiers: GI bleed type/associated pathology: melena Qualified Code(s): K92.1 - Melena Plan to address problem: Continue IV PPI Monitor H&H as the patient is full code (4) Elevated liver function tests Current Visit: Yes Status: Acute Plan to address problem: Supportive care, IV fluid resuscitation therapy Suspect secondary to sepsis (5) Hyponatremia Current Visit: Yes Status: Acute Plan to address problem: Improved (6) Cocaine abuse Current Visit: No Status: Chronic Plan to address problem: Supportive care (7) HLD (hyperlipidemia) Current Visit: No Status: Chronic None issue at this time (8) Uncontrolled hypertension Current Visit: No Status: Chronic Plan to address problem: continue medical management. BP is fair (9) Acute kidney injury (AVE) with acute tubular necrosis (ATN) Current Visit: Yes Status: Acute Plan to address problem: Nephrology note reviewed and appreciated Serum creatinine stable around 3.7 No need for renal replacement therapy at this time Monitor renal function and avoid nephrotoxins 10. Hyperkalemia Secondary to AVE Improved (11) DVT prophylaxis Current Visit: No Status: Acute Plan to address problem: SCD to bilateral lower extremities while in bed, hold anticoagulation due to GI bleed. 35 mins conversation with family The high probability of a clinically significant, sudden or life threatening deterioration of the [gi, PULMONARY] system(s) required my full and direct attention, intervention and personal management. The aggregate critical care time was [35] minutes. This time is in addition to time spent performing reported procedures but includes the following: [x] Data Review and interpretation [x] Patient assessment and monitoring of vital signs [x] Documentation [x] Medication orders and management History Interval history: Patient seen and examined, unfortunately remains on the vent, no new changes, except for intermittent rhythm changes. Not following Commands. Hospitalist Physical - Physical exam Narrative exam: General appearance: Present: mild distress, cachectic, disheveled, malodorous - Neck Neck: Present: supple - Respiratory Respiratory: bilateral: diminished - Cardiovascular Rhythm: regular Heart Sounds: Present: S1 & S2 - Extremities Extremities: no ischemia Peripheral Pulses: within normal limits - Abdominal General gastrointestinal: dressing in place, no bowel sound - Integumentary Integumentary: Present: clear, dry - Psychiatric Psychiatric: unresponsive - Neurologic Neurologic: CNII-XII intact - Constitutional Vitals: Temp Pulse Resp BP Pulse Ox 99.2 F 110 H 21 107/79 100 01/15/20 16:00 01/15/20 17:39 01/15/20 17:00 01/15/20 17:39 01/15/20 17:39 General appearance: Present: no acute distress, other (Remains on vent, lethargic, opens eyes to verbal stimulus) Results - Labs CBC & Chem 7: 01/16/20 05:03 01/15/20 05:00 Labs: Laboratory Last Values WBC 27.3 K/mm3 (4.5-11.0) H 01/15/20 05:00 RBC 3.13 M/mm3 (3.65-5.03) L 01/15/20 05:00 Hgb 7.3 gm/dl (10.1-14.3) L 01/15/20 05:00 Hct 22.6 % (30.3-42.9) L 01/15/20 05:00 MCV 72 fl (79-97) L 01/15/20 05:00 MCH 23 pg (28-32) L 01/15/20 05:00 MCHC 32 % (30-34) 01/15/20 05:00 RDW 21.1 % (13.2-15.2) H 01/15/20 05:00 Plt Count 160 K/mm3 (140-440) 01/15/20 05:00 Lymph % (Auto) Dispatch Machine Runner 01/15/20 05:00 [place] % (Auto) Dispatch Machine Runner 01/15/20 05:00 Eos % (Auto) Dispatch Machine Runner 01/15/20 05:00 Baso % (Auto) Dispatch Machine Runner 01/15/20 05:00 Lymph # Dispatch Machine Runner 01/15/20 05:00 [place] # Dispatch Machine Runner 01/15/20 05:00 Eos # Dispatch Machine Runner 01/15/20 05:00 Baso # Dispatch Machine Runner 01/15/20 05:00 Add Manual Diff Complete 01/15/20 05:00 Total Counted 100 01/15/20 05:00 Seg Neutrophils % Dispatch Machine Runner 01/15/20 05:00 Seg Neuts % (Manual) 90.0 % (40.0-70.0) H 01/15/20 05:00 Band Neutrophils % 0 % 01/15/20 05:00 Lymphocytes % (Manual) 5.0 % (13.4-35.0) L 01/15/20 05:00 Reactive Lymphs % (Man) 0 % 01/15/20 05:00 Monocytes % (Manual) 4.0 % (0.0-7.3) 01/15/20 05:00 Eosinophils % (Manual) 1.0 % (0.0-4.3) 01/15/20 05:00 Basophils % (Manual) 0 % (0.0-1.8) 01/15/20 05:00 Metamyelocytes % 0 % 01/15/20 05:00 Myelocytes % 0 % 01/15/20 05:00 Promyelocytes % 0 % 01/15/20 05:00 Blast Cells % 0 % 01/15/20 05:00 Nucleated RBC % Not Reportable 01/15/20 05:00 Seg Neutrophils # Dispatch Machine Runner 01/15/20 05:00 Seg Neutrophils # Man 24.6 K/mm3 (1.8-7.7) H 01/15/20 05:00 Band Neutrophils # 0.0 K/mm3 01/15/20 05:00 Lymphocytes # (Manual) 1.4 K/mm3 (1.2-5.4) 01/15/20 05:00 Abs React Lymphs (Man) 0.0 K/mm3 01/15/20 05:00 Monocytes # (Manual) 1.1 K/mm3 (0.0-0.8) H 01/15/20 05:00 Eosinophils # (Manual) 0.3 K/mm3 (0.0-0.4) 01/15/20 05:00 Basophils # (Manual) 0.0 K/mm3 (0.0-0.1) 01/15/20 05:00 Metamyelocytes # 0.0 K/mm3 01/15/20 05:00 Myelocytes # 0.0 K/mm3 01/15/20 05:00 Promyelocytes # 0.0 K/mm3 01/15/20 05:00 Blast Cells # 0.0 K/mm3 01/15/20 05:00 WBC Morphology Not Reportable 01/15/20 05:00 Hypersegmented Neuts Not Reportable 01/15/20 05:00 Hyposegmented Neuts Not Reportable 01/15/20 05:00 Hypogranular Neuts Not Reportable 01/15/20 05:00 Smudge Cells Not Reportable 01/15/20 05:00 Toxic Granulation Not Reportable 01/15/20 05:00 Toxic Vacuolation Not Reportable 01/15/20 05:00 Dohle Bodies Not Reportable 01/15/20 05:00 Pelger-Huet Anomaly Not Reportable 01/15/20 05:00 Ramses Rods Not Reportable 01/15/20 05:00 Platelet Estimate Consistent w auto 01/15/20 05:00 Clumped Platelets Not Reportable 01/15/20 05:00 Plt Clumps, EDTA Not Reportable 01/15/20 05:00 Large Platelets Not Reportable 01/15/20 05:00 Giant Platelets Not Reportable 01/15/20 05:00 Platelet Satelliting Not Reportable 01/15/20 05:00 Plt Morphology Comment Not Reportable 01/15/20 05:00 RBC Morphology Not Reportable 01/15/20 05:00 Dimorphic RBCs Not Reportable 01/15/20 05:00 Polychromasia Not Reportable 01/15/20 05:00 Hypochromasia 1+ 01/15/20 05:00 Poikilocytosis Not Reportable 01/15/20 05:00 Anisocytosis 1+ 01/15/20 05:00 Microcytosis Not Reportable 01/15/20 05:00 Macrocytosis Not Reportable 01/15/20 05:00 Spherocytes Not Reportable 01/15/20 05:00 Pappenheimer Bodies Not Reportable 01/15/20 05:00 Sickle Cells Not Reportable 01/15/20 05:00 Target Cells Few 01/15/20 05:00 Tear Drop Cells Not Reportable 01/15/20 05:00 Ovalocytes Not Reportable 01/15/20 05:00 Helmet Cells Not Reportable 01/15/20 05:00 [employer] Bodies Not Reportable 01/15/20 05:00 [place] Rings Not Reportable 01/15/20 05:00 [place] Cells Not Reportable 01/15/20 05:00 Bite Cells Not Reportable 01/15/20 05:00 Crenated Cell Not Reportable 01/15/20 05:00 Elliptocytes Not Reportable 01/15/20 05:00 Acanthocytes (Spur) Not Reportable 01/15/20 05:00 Rouleaux Not Reportable 01/15/20 05:00 Hemoglobin C Crystals Not Reportable 01/15/20 05:00 Schistocytes Not Reportable 01/15/20 05:00 Malaria parasites Not Reportable 01/15/20 05:00 Laith Bodies Not Reportable 01/15/20 05:00 Hem Pathologist Commnt No 01/15/20 05:00 PT 20.0 Sec. (12.2-14.9) H 01/12/20 18:50 INR 1.66 (0.87-1.13) H 01/12/20 18:50 APTT 38.7 Sec. (24.2-36.6) H 01/12/20 18:50 Heparin Anti-Xa Level 0.55 U.I./ml (0.3-0.7) 01/15/20 14:29 ABG pH 7.492 pH Units (7.350-7.450) H 01/15/20 03:45 ABG pCO2 37.4 mm Hg 01/15/20 03:45 ABG pO2 102.6 mm Hg (80.0-90.0) H 01/15/20 03:45 ABG HCO3 28.0 mmol/L (20.0-26.0) H 01/15/20 03:45 ABG O2 Saturation 97.9 % (95.0-99.0) 01/15/20 03:45 ABG O2 Content 13.7 (0.0-44) 01/15/20 03:45 ABG Base Excess 4.5 mmol/L (-2.0-3.0) H 01/15/20 03:45 ABG Hemoglobin 10.1 gm/dl (12.0-16.0) L 01/15/20 03:45 ABG Carboxyhemoglobin 1.9 % (0.0-5.0) 01/15/20 03:45 ABG Methemoglobin 0.4 % (0.0-1.5) 01/15/20 03:45 Oxyhemoglobin 95.6 % (95.0-99.0) 01/15/20 03:45 FiO2 25 % 01/15/20 03:45 Sodium 146 mmol/L (137-145) H 01/15/20 05:00 Potassium 4.3 mmol/L (3.6-5.0) 01/15/20 05:00 Chloride 103.8 mmol/L (98-107) 01/15/20 05:00 Carbon Dioxide 27 mmol/L (22-30) 01/15/20 05:00 Anion Gap 20 mmol/L 01/15/20 05:00 BUN 105 mg/dL (7-17) H 01/15/20 05:00 Creatinine 3.1 mg/dL (0.6-1.2) H 01/15/20 05:00 Estimated GFR 19 ml/min 01/15/20 05:00 BUN/Creatinine Ratio 34 % 01/15/20 05:00 Glucose 188 mg/dL (65-100) H 01/15/20 05:00 POC Glucose 196 (70-105) H 01/15/20 17:10 Lactic Acid 1.50 mmol/L (0.7-2.0) 01/10/20 16:43 Calcium 8.1 mg/dL (8.4-10.2) L 01/15/20 05:00 Total Bilirubin 0.50 mg/dL (0.1-1.2) 01/15/20 05:00 AST 28 units/L (5-40) 01/15/20 05:00 ALT 15 units/L (7-56) 01/15/20 05:00 Alkaline Phosphatase 102 units/L (35-129) 01/15/20 05:00 C-Reactive Protein 41.00 mg/dL (0.00-1.30) H 01/10/20 16:43 Total Protein 6.0 g/dL (6.3-8.2) L 01/15/20 05:00 Albumin 1.2 g/dL (3.9-5) L 01/15/20 05:00 Albumin/Globulin Ratio 0.3 % 01/15/20 05:00 Procalcitonin 46.50 ng/mL (<0.15) 01/10/20 16:43 HCG, Qual Negative (Negative) 01/11/20 15:43 Urine Color Sheryl (Yellow) 01/09/20 15:30 Urine Turbidity Slightly-cloudy (Clear) 01/09/20 15:30 Urine pH 5.0 (5.0-7.0) 01/09/20 15:30 Ur Specific [place] 1.033 (1.003-1.030) H 01/09/20 15:30 Urine Protein 30 mg/dl mg/dL (Negative) 01/09/20 15:30 Urine Glucose (UA) Neg mg/dL (Negative) 01/09/20 15:30 Urine Ketones Neg mg/dL (Negative) 01/09/20 15:30 Urine Blood Neg (Negative) 01/09/20 15:30 Urine Nitrite Neg (Negative) 01/09/20 15:30 Urine Bilirubin Neg (Negative) 01/09/20 15:30 Urine Urobilinogen < 2.0 mg/dL (<2.0) 01/09/20 15:30 Ur Leukocyte Esterase Neg (Negative) 01/09/20 15:30 Urine WBC (Auto) 6.0 /HPF (0.0-6.0) 01/09/20 15:30 Urine RBC (Auto) 6.0 /HPF (0.0-6.0) 01/09/20 15:30 U Epithel Cells (Auto) 2.0 /HPF (0-13.0) 01/09/20 15:30 Granular Casts 7 /LPF 01/09/20 15:30 Urine Mucus Few /HPF 01/09/20 15:30 Urine Opiates Screen Presumptive negative 01/09/20 15:30 Urine Methadone Screen Presumptive negative 01/09/20 15:30 Ur Barbiturates Screen Presumptive negative 01/09/20 15:30 Ur Phencyclidine Scrn Presumptive negative 01/09/20 15:30 Ur Amphetamines Screen Presumptive negative 01/09/20 15:30 U Benzodiazepines Scrn Presumptive negative 01/09/20 15:30 Urine Cocaine Screen Presumptive positive 01/09/20 15:30 U Marijuana (THC) Screen Presumptive negative 01/09/20 15:30 Drugs of Abuse Note Disclamer 01/09/20 15:30 Blood Type O POSITIVE 01/11/20 15:00 Antibody Screen Negative 01/11/20 15:00 Microbiology: Microbiology 01/11/20 18:16 Tracheal Aspirate Sputum Culture - Final Taylor/IV: Voiding Method Indwelling Catheter IV Catheter Type [Right Triple Lumen Cath Internal Jugular] IV Catheter Type [Right INT / Saline Lock Forearm] Active Medications - Current Medications Current Medications: Generic Name Dose Route Start Last Admin Trade Name Freq PRN Reason Stop Dose Admin Acetaminophen 650 mg 01/08/20 20:00 Tylenol PO Q4H PRN Pain MILD(1-3)/Fever >100.5/LOPEZ Famotidine 20 mg 01/12/20 10:00 01/15/20 09:22 Pepcid IV 20 mg DAILY TRI Administration Fentanyl 50 mcg 01/14/20 16:51 Sublimaze IV Q10MIN PRN ANALGESIA Hydromorphone HCl 1 mg 01/08/20 21:26 01/11/20 08:19 Dilaudid IV 1 mg Q2H PRN Administration Pain , Severe (7-10) Hydrophilic Ointment 1 applic 01/14/20 16:51 Vaseline Lip Therapy TP Q2HR PRN Dry Lips Norepinephrine 4 mg in 250 mls @ 7.5 mls/hr 01/08/20 23:45 01/15/20 04:33 Levophed Drip 4 Mg/Ns 250 Ml IV 4 mcg/min TITR TRI 15 mls/hr Administration Protocol 2 MCG/MIN Cefepime HCl 1 gm in 100 mls @ 200 mls/hr 01/09/20 22:00 01/14/20 21:24 Cefepime/Ns 1 Gm/100 Ml IV 200 mls/hr Q24H TRI Administration Metronidazole 500 mg in 100 mls @ 100 mls/hr 01/10/20 15:00 01/15/20 14:42 Flagyl 500 Mg/100 Ml IV 100 mls/hr Q8H TRI Administration Protocol Propofol 1,000 mg in 100 mls @ 1.837 mls/hr 01/11/20 23:45 01/12/20 15:30 Diprivan 10 Mg/Ml IV 0 mcg/kg/min TITR TRI 0 mls/hr Titration Protocol 5 MCG/KG/MIN Heparin Sodium/Sodium Chloride 25,000 unit in 500 mls @ 18 mls/hr 01/12/20 19:00 01/15/20 04:40 Heparin/ 0.45% Nacl-25,000 Unit/500 Ml IV 1,000 units/hr TITR TRI 20 mls/hr Administration Protocol 900 UNITS/HR Sodium Bicarbonate 150 meq/ 1,150 mls @ 150 mls/hr 01/13/20 10:00 01/15/20 14:25 Dextrose IV 150 mls/hr DIRECT TRI Administration Fentanyl Citrate 2,000 mcg in 100 mls @ 3.05 mls/hr 01/14/20 17:00 Fentanyl Drip Premix IV TITR TRI Protocol 1 MCG/KG/HR Midazolam HCl 100 mg/ Sodium 100 mls @ 2 mls/hr 01/14/20 18:00 01/15/20 01:00 Chloride IV 2 mg/hr TITR TRI 2 mls/hr Titration Protocol 2 MG/HR Midazolam HCl 2 mg 01/14/20 16:51 Versed IV Q10MIN PRN Sedation Ondansetron HCl 4 mg 01/08/20 20:00 01/10/20 19:53 Zofran IV 4 mg Q8H PRN Administration Nausea And Vomiting Sodium Chloride 10 ml 01/08/20 22:00 01/15/20 09:21 Sodium Chloride Flush Syringe 10 Ml IV 10 ml BID TRI Administration Sodium Chloride 10 ml 01/08/20 20:00 Sodium Chloride Flush Syringe 10 Ml IV PRN PRN LINE FLUSH Nutrition/Malnutrition Assess - Dietary Evaluation Nutrition/Malnutrition Findings: Nutrition Notes Start: 01/13/20 11:55 Freq: Status: Active Protocol: Document 01/13/20 11:55 LM (Rec: 01/13/20 12:05 LM [id number]) Nutrition Notes 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 Pt is on the vent. The majority of pt's intestine is necrotic and MD mentioned comfort care is a possibility for pt. Burn Absent Trauma Absent GI Symptoms Other Current % PO Negligible Minimum of two criteria No physical signs of malnutrition #1 Nutrition Diagnosis Altered GI function Etiology pneumatosis intestinalis, GIB, bowel infarction As Evidenced by Signs and Symptoms pt NPO Is patient on ventilator? Yes Is Patient Ambulatory and/or Out of Bed No REE-([facility]-confined to bed) 4029.542 Calculation Used for Recommendations [facility] Additional Notes Protein: 73-122g (1.2-2g/kg) Fluid: 1ml/kcal Nutrition Intervention Anticipated Discharge Needs: unable to determine Follow-Up By: 01/20/20 Additional Comments F/U for POC
[2020-01-15] MEDS: CEFEPIME/NS 1 GM/100 ML 1 GM/100 ML BAG IV SCH (22:37)
[2020-01-16 04:27] LABS: ABG Base Excess 5.8 mmol/L (-2.0-3.0); ABG HCO3 29.1 mmol/L (20.0-26.0); ABG Methemoglobin 0.4 % (0.0-1.5); ABG PCO2 36.3 mm Hg; ABG PH 7.523 pH Units (7.350-7.450); ABG PO2 102.3 mm Hg (80.0-90.0)
[2020-01-16] MEDS: HEPARIN/ 0.45% NACL DRIP 25,000 UNIT/500 ML BAG IV SCH (04:56)
[2020-01-16 06:10] LABS: Hematocrit 18.7 % (30.3-42.9)
[2020-01-16] MEDS ORDERED: SODIUM CHLORIDE 0.9% 500 ML 500 ML IV ONE (06:27)
[2020-01-16] MEDS: SODIUM BICARBONATE 150 MEQ in DEXTROSE 5% IN WATER 1,000 ML IV SCH ×2 (07:00→16:07)
[2020-01-16] MEDS: metroNIDAZOLE/NS 500 MG/100 ML 500 MG/100 ML BAG IV SCH ×3 (09:05→23:33)
--- NOTE | 2020-01-16 10:11 | Progress Note ---
Assessment and Plan Assessment and plan: 49 YO Female with with Sepsis currently on pressor support, GI Bleed,SBO, AVE, Severe Malnutrition, Homelessness, Acidosis, Cocaine Dependence, Nicotine Dependence. Pt lying in bed, No reported nursing events. No significant improvement overnight. Patient remains critically ill. Patient found to have persistent sepsis suspected secondary to necrotic bowel. Patient to be taken to the OR for reexploration as per surgical team today. Patient underwent surgical invtervention and was found near to complete infarction of the intestine, per surgery from the ligament of Treitz to the sigmoid colon. Almost the entire length of intestine was unsalvageable. There was no pulse in the superior mesenteric artery No resection was done. Patient has a nonsurvivable condition. Comfort care measures should be instituted. Paraoxysmal Atrial Fibrillation.- Will start on Heparin drip Anoxic Metabolic Encephalopathy Hyperkalemia-Nephrology following 01/14: Remains in full ventilatory. No changes, Discussed with Family [email or web address] brito.Advised of poor prognosis. They will like GI opinion 01/15: Extremely sad case. Still awaiting family. Noted to be anemic today we will give 2 unit packed red blood cells discontinue heparin as this is causing more harm than good. GI per family request opinion pending. Poor prognosis - Patient Problems (1) Acute bowel infarction Current Visit: Yes Status: Acute Plan to address problem: Pt in critical condition. General surgery note reviewed Nonsalvageable intestine Called patient's son-in-law Mr. Amauri Castanon, the phone is ringing but nobody is answering the phone health policy manager note reviewed - Patient Problems (1) Sepsis Current Visit: Yes Status: Acute Plan to address problem: ID note reviewed Continue cefepime and Flagyl IV Awaiting family to be contacted regarding decision to withdraw care Patient remains intubated, lethargic, sedated Lab results reviewed (3) GI bleed Current Visit: Yes Status: Acute Qualifiers: GI bleed type/associated pathology: melena Qualified Code(s): K92.1 - Melena Plan to address problem: Continue IV PPI Monitor H&H as the patient is full code (4) Elevated liver function tests Current Visit: Yes Status: Acute Plan to address problem: Supportive care, IV fluid resuscitation therapy Suspect secondary to sepsis (5) Hyponatremia Current Visit: Yes Status: Acute Plan to address problem: Improved (6) Cocaine abuse Current Visit: No Status: Chronic Plan to address problem: Supportive care (7) HLD (hyperlipidemia) Current Visit: No Status: Chronic None issue at this time (8) Uncontrolled hypertension Current Visit: No Status: Chronic Plan to address problem: continue medical management. BP is fair (9) Acute kidney injury (AVE) with acute tubular necrosis (ATN) Current Visit: Yes Status: Acute Plan to address problem: Nephrology note reviewed and appreciated Serum creatinine stable around 3.7 No need for renal replacement therapy at this time Monitor renal function and avoid nephrotoxins 10. Hyperkalemia Secondary to AVE Improved (11) DVT prophylaxis Current Visit: No Status: Acute Plan to address problem: SCD to bilateral lower extremities while in bed, hold anticoagulation due to GI bleed. 35 mins conversation with family The high probability of a clinically significant, sudden or life threatening deterioration of the [gi, PULMONARY] system(s) required my full and direct attention, intervention and personal management. The aggregate critical care ti me was [35] minutes. This time is in addition to time spent performing reported procedures but includes the following: [x] Data Review and interpretation [x] Patient assessment and monitoring of vital signs [x] Documentation [x] Medication orders and management History Interval history: Patient seen and examined, unfortunately remains on the vent, and unresponsive no new changes, except for intermittent rhythm changes. Not following Commands. Hospitalist Physical - Physical exam Narrative exam: General appearance: Present: mild distress, cachectic, remains on full ventilatory support unresponsive - Neck Neck: Present: supple - Respiratory Respiratory: bilateral: diminished. ET tube noted - Cardiovascular Rhythm: regular Heart Sounds: Present: S1 & S2 - Extremities Extremities: no ischemia Peripheral Pulses: within normal limits - Abdominal General gastrointestinal: dressing in place, no bowel sound - Integumentary Integumentary: Present: clear, dry - Psychiatric Psychiatric: unresponsive - Neurologic Neurologic: Unresponsive - Constitutional Vitals: Temp Pulse Resp BP Pulse Ox 98.5 F 114 H 26 H 123/72 99 01/16/20 03:24 01/16/20 09:30 01/16/20 09:30 01/16/20 09:30 01/16/20 09:30 General appearance: Present: no acute distress, other (Remains on vent, lethargic, opens eyes to verbal stimulus) Results - Labs CBC & Chem 7: 01/16/20 05:03 01/15/20 05:00 Labs: Laboratory Last Values WBC 27.3 K/mm3 (4.5-11.0) H 01/15/20 05:00 RBC 3.13 M/mm3 (3.65-5.03) L 01/15/20 05:00 Hgb 6.0 gm/dl (10.1-14.3) L 01/16/20 05:03 Hct 18.7 % (30.3-42.9) L* 01/16/20 05:03 MCV 72 fl (79-97) L 01/15/20 05:00 MCH 23 pg (28-32) L 01/15/20 05:00 MCHC 32 % (30-34) 01/15/20 05:00 RDW 21.1 % (13.2-15.2) H 01/15/20 05:00 Plt Count 170 K/mm3 (140-440) 01/16/20 05:03 Lymph % (Auto) Assistant Professor Of Anthropology 01/15/20 05:00 Ogle % (Auto) Assistant Professor Of Anthropology 01/15/20 05:00 Eos % (Auto) Assistant Professor Of Anthropology 01/15/20 05:00 Baso % (Auto) Assistant Professor Of Anthropology 01/15/20 05:00 Lymph # Assistant Professor Of Anthropology 01/15/20 05:00 Ogle # Assistant Professor Of Anthropology 01/15/20 05:00 Eos # Assistant Professor Of Anthropology 01/15/20 05:00 Baso # Assistant Professor Of Anthropology 01/15/20 05:00 Add Manual Diff Complete 01/15/20 05:00 Total Counted 100 01/15/20 05:00 Seg Neutrophils % Assistant Professor Of Anthropology 01/15/20 05:00 Seg Neuts % (Manual) 90.0 % (40.0-70.0) H 01/15/20 05:00 Band Neutrophils % 0 % 01/15/20 05:00 Lymphocytes % (Manual) 5.0 % (13.4-35.0) L 01/15/20 05:00 Reactive Lymphs % (Man) 0 % 01/15/20 05:00 Monocytes % (Manual) 4.0 % (0.0-7.3) 01/15/20 05:00 Eosinophils % (Manual) 1.0 % (0.0-4.3) 01/15/20 05:00 Basophils % (Manual) 0 % (0.0-1.8) 01/15/20 05:00 Metamyelocytes % 0 % 01/15/20 05:00 Myelocytes % 0 % 01/15/20 05:00 Promyelocytes % 0 % 01/15/20 05:00 Blast Cells % 0 % 01/15/20 05:00 Nucleated RBC % Not Reportable 01/15/20 05:00 Seg Neutrophils # Assistant Professor Of Anthropology 01/15/20 05:00 Seg Neutrophils # Man 24.6 K/mm3 (1.8-7.7) H 01/15/20 05:00 Band Neutrophils # 0.0 K/mm3 01/15/20 05:00 Lymphocytes # (Manual) 1.4 K/mm3 (1.2-5.4) 01/15/20 05:00 Abs React Lymphs (Man) 0.0 K/mm3 01/15/20 05:00 Monocytes # (Manual) 1.1 K/mm3 (0.0-0.8) H 01/15/20 05:00 Eosinophils # (Manual) 0.3 K/mm3 (0.0-0.4) 01/15/20 05:00 Basophils # (Manual) 0.0 K/mm3 (0.0-0.1) 01/15/20 05:00 Metamyelocytes # 0.0 K/mm3 01/15/20 05:00 Myelocytes # 0.0 K/mm3 01/15/20 05:00 Promyelocytes # 0.0 K/mm3 01/15/20 05:00 Blast Cells # 0.0 K/mm3 01/15/20 05:00 WBC Morphology Not Reportable 01/15/20 05:00 Hypersegmented Neuts Not Reportable 01/15/20 05:00 Hyposegmented Neuts Not Reportable 01/15/20 05:00 Hypogranular Neuts Not Reportable 01/15/20 05:00 Smudge Cells Not Reportable 01/15/20 05:00 Toxic Granulation Not Reportable 01/15/20 05:00 Toxic Vacuolation Not Reportable 01/15/20 05:00 Dohle Bodies Not Reportable 01/15/20 05:00 Pelger-Huet Anomaly Not Reportable 01/15/20 05:00 Ramses Rods Not Reportable 01/15/20 05:00 Platelet Estimate Consistent w auto 01/15/20 05:00 Clumped Platelets Not Reportable 01/15/20 05:00 Plt Clumps, EDTA Not Reportable 01/15/20 05:00 Large Platelets Not Reportable 01/15/20 05:00 Giant Platelets Not Reportable 01/15/20 05:00 Platelet Satelliting Not Reportable 01/15/20 05:00 Plt Morphology Comment Not Reportable 01/15/20 05:00 RBC Morphology Not Reportable 01/15/20 05:00 Dimorphic RBCs Not Reportable 01/15/20 05:00 Polychromasia Not Reportable 01/15/20 05:00 Hypochromasia 1+ 01/15/20 05:00 Poikilocytosis Not Reportable 01/15/20 05:00 Anisocytosis 1+ 01/15/20 05:00 Microcytosis Not Reportable 01/15/20 05:00 Macrocytosis Not Reportable 01/15/20 05:00 Spherocytes Not Reportable 01/15/20 05:00 Pappenheimer Bodies Not Reportable 01/15/20 05:00 Sickle Cells Not Reportable 01/15/20 05:00 Target Cells Few 01/15/20 05:00 Tear Drop Cells Not Reportable 01/15/20 05:00 Ovalocytes Not Reportable 01/15/20 05:00 Helmet Cells Not Reportable 01/15/20 05:00 [place] Bodies Not Reportable 01/15/20 05:00 [place] Rings Not Reportable 01/15/20 05:00 [place] Cells Not Reportable 01/15/20 05:00 Bite Cells Not Reportable 01/15/20 05:00 Crenated Cell Not Reportable 01/15/20 05:00 Elliptocytes Not Reportable 01/15/20 05:00 Acanthocytes (Spur) Not Reportable 01/15/20 05:00 Rouleaux Not Reportable 01/15/20 05:00 Hemoglobin C Crystals Not Reportable 01/15/20 05:00 Schistocytes Not Reportable 01/15/20 05:00 Malaria parasites Not Reportable 01/15/20 05:00 [place]ith Bodies Not Reportable 01/15/20 05:00 Hem Pathologist Commnt No 01/15/20 05:00 PT 20.0 Sec. (12.2-14.9) H 01/12/20 18:50 INR 1.66 (0.87-1.13) H 01/12/20 18:50 APTT 38.7 Sec. (24.2-36.6) H 01/12/20 18:50 Heparin Anti-Xa Level 0.55 U.I./ml (0.3-0.7) 01/15/20 14:29 ABG pH 7.523 pH Units (7.350-7.450) H 01/16/20 03:50 ABG pCO2 36.3 mm Hg 01/16/20 03:50 ABG pO2 102.3 mm Hg (80.0-90.0) H 01/16/20 03:50 ABG HCO3 29.1 mmol/L (20.0-26.0) H 01/16/20 03:50 ABG O2 Saturation 98.0 % (95.0-99.0) 01/16/20 03:50 ABG O2 Content 9.0 (0.0-44) 01/16/20 03:50 ABG Base Excess 5.8 mmol/L (-2.0-3.0) H 01/16/20 03:50 ABG Hemoglobin 6.6 gm/dl (12.0-16.0) L 01/16/20 03:50 ABG Carboxyhemoglobin 2.2 % (0.0-5.0) 01/16/20 03:50 ABG Methemoglobin 0.4 % (0.0-1.5) 01/16/20 03:50 Oxyhemoglobin 95.5 % (95.0-99.0) 01/16/20 03:50 FiO2 25 % 01/16/20 03:50 Sodium 146 mmol/L (137-145) H 01/15/20 05:00 Potassium 4.3 mmol/L (3.6-5.0) 01/15/20 05:00 Chloride 103.8 mmol/L (98-107) 01/15/20 05:00 Carbon Dioxide 27 mmol/L (22-30) 01/15/20 05:00 Anion Gap 20 mmol/L 01/15/20 05:00 BUN 105 mg/dL (7-17) H 01/15/20 05:00 Creatinine 3.1 mg/dL (0.6-1.2) H 01/15/20 05:00 Estimated GFR 19 ml/min 01/15/20 05:00 BUN/Creatinine Ratio 34 % 01/15/20 05:00 Glucose 188 mg/dL (65-100) H 01/15/20 05:00 POC Glucose 174 (70-105) H 01/16/20 05:39 Lactic Acid 1.50 mmol/L (0.7-2.0) 01/10/20 16:43 Calcium 8.1 mg/dL (8.4-10.2) L 01/15/20 05:00 Total Bilirubin 0.50 mg/dL (0.1-1.2) 01/15/20 05:00 AST 28 units/L (5-40) 01/15/20 05:00 ALT 15 units/L (7-56) 01/15/20 05:00 Alkaline Phosphatase 102 units/L (35-129) 01/15/20 05:00 C-Reactive Protein 41.00 mg/dL (0.00-1.30) H 01/10/20 16:43 Total Protein 6.0 g/dL (6.3-8.2) L 01/15/20 05:00 Albumin 1.2 g/dL (3.9-5) L 01/15/20 05:00 Albumin/Globulin Ratio 0.3 % 01/15/20 05:00 Procalcitonin 46.50 ng/mL (<0.15) 01/10/20 16:43 HCG, Qual Negative (Negative) 01/11/20 15:43 Urine Color Sheryl (Yellow) 01/09/20 15:30 Urine Turbidity Slightly-cloudy (Clear) 01/09/20 15:30 Urine pH 5.0 (5.0-7.0) 01/09/20 15:30 Ur Specific [place] 1.033 (1.003-1.030) H 01/09/20 15:30 Urine Protein 30 mg/dl mg/dL (Negative) 01/09/20 15:30 Urine Glucose (UA) Neg mg/dL (Negative) 01/09/20 15:30 Urine Ketones Neg mg/dL (Negative) 01/09/20 15:30 Urine Blood Neg (Negative) 01/09/20 15:30 Urine Nitrite Neg (Negative) 01/09/20 15:30 Urine Bilirubin Neg (Negative) 01/09/20 15:30 Urine Urobilinogen < 2.0 mg/dL (<2.0) 01/09/20 15:30 Ur Leukocyte Esterase Neg (Negative) 01/09/20 15:30 Urine WBC (Auto) 6.0 /HPF (0.0-6.0) 01/09/20 15:30 Urine RBC (Auto) 6.0 /HPF (0.0-6.0) 01/09/20 15:30 U Epithel Cells (Auto) 2.0 /HPF (0-13.0) 01/09/20 15:30 Granular Casts 7 /LPF 01/09/20 15:30 Urine Mucus Few /HPF 01/09/20 15:30 Urine Opiates Screen Presumptive negative 01/09/20 15:30 Urine Methadone Screen Presumptive negative 01/09/20 15:30 Ur Barbiturates Screen Presumptive negative 01/09/20 15:30 Ur Phencyclidine Scrn Presumptive negative 01/09/20 15:30 Ur Amphetamines Screen Presumptive negative 01/09/20 15:30 U Benzodiazepines Scrn Presumptive negative 01/09/20 15:30 Urine Cocaine Screen Presumptive positive 01/09/20 15:30 U Marijuana (THC) Screen Presumptive negative 01/09/20 15:30 Drugs of Abuse Note Disclamer 01/09/20 15:30 Blood Type O POSITIVE 01/16/20 07:43 Antibody Screen Negative 01/16/20 07:43 Crossmatch See Detail 01/16/20 07:43 Taylor/IV: Voiding Method Indwelling Catheter IV Catheter Type [Right Triple Lumen Cath Internal Jugular] IV Catheter Type [Right INT / Saline Lock Forearm] Active Medications - Current Medications Current Medications: Generic Name Dose Route Start Last Admin Trade Name Freq PRN Reason Stop Dose Admin Acetaminophen 650 mg 01/08/20 20:00 Tylenol PO Q4H PRN Pain MILD(1-3)/Fever >100.5/LOPEZ Famotidine 20 mg 01/12/20 10:00 01/15/20 09:22 Pepcid IV 20 mg DAILY TRI Administration Fentanyl 50 mcg 01/14/20 16:51 Sublimaze IV Q10MIN PRN ANALGESIA Hydromorphone HCl 1 mg 01/08/20 21:26 01/11/20 08:19 Dilaudid IV 1 mg Q2H PRN Administration Pain , Severe (7-10) Hydrophilic Ointment 1 applic 01/14/20 16:51 Vaseline Lip Therapy TP Q2HR PRN Dry Lips Norepinephrine 4 mg in 250 mls @ 7.5 mls/hr 01/08/20 23:45 01/16/20 09:05 Levophed Drip 4 Mg/Ns 250 Ml IV 0 mcg/min TITR TRI 0 mls/hr Titration Protocol 2 MCG/MIN Cefepime HCl 1 gm in 100 mls @ 200 mls/hr 01/09/20 22:00 01/15/20 22:37 Cefepime/Ns 1 Gm/100 Ml IV 200 mls/hr Q24H TRI Administration Metronidazole 500 mg in 100 mls @ 100 mls/hr 01/10/20 15:00 01/16/20 09:05 Flagyl 500 Mg/100 Ml IV 100 mls/hr Q8H TRI Administration Protocol Propofol 1,000 mg in 100 mls @ 1.837 mls/hr 01/11/20 23:45 01/12/20 15:30 Diprivan 10 Mg/Ml IV 0 mcg/kg/min TITR TRI 0 mls/hr Titration Protocol 5 MCG/KG/MIN Heparin Sodium/Sodium Chloride 25,000 unit in 500 mls @ 18 mls/hr 01/12/20 19:00 01/16/20 07:12 Heparin/ 0.45% Nacl-25,000 Unit/500 Ml IV 0 units/hr TITR TRI 0 mls/hr Titration Protocol 900 UNITS/HR Sodium Bicarbonate 150 meq/ 1,150 mls @ 150 mls/hr 01/13/20 10:00 01/16/20 07:00 Dextrose IV 150 mls/hr DIRECT TRI Administration Fentanyl Citrate 2,000 mcg in 100 mls @ 3.05 mls/hr 01/14/20 17:00 Fentanyl Drip Premix IV TITR TRI Protocol 1 MCG/KG/HR Midazolam HCl 100 mg/ Sodium 100 mls @ 2 mls/hr 01/14/20 18:00 01/16/20 08:45 Chloride IV 0 mg/hr TITR TRI 0 mls/hr Titration Protocol 2 MG/HR Midazolam HCl 2 mg 01/14/20 16:51 Versed IV Q10MIN PRN Sedation Ondansetron HCl 4 mg 01/08/20 20:00 01/10/20 19:53 Zofran IV 4 mg Q8H PRN Administration Nausea And Vomiting Sodium Chloride 10 ml 01/08/20 22:00 01/15/20 22:43 Sodium Chloride Flush Syringe 10 Ml IV 10 ml BID TRI Administration Sodium Chloride 10 ml 01/08/20 20:00 Sodium Chloride Flush Syringe 10 Ml IV PRN PRN LINE FLUSH Nutrition/Malnutrition Assess - Dietary Evaluation Nutrition/Malnutrition Findings: Nutrition Notes Start: 01/13/20 11:55 Freq: Status: Active Protocol: Document 01/13/20 11:55 LM (Rec: 01/13/20 12:05 LM [id number]) Nutrition Notes Need for Assessment generated from: fuse coiler,MST Initial or Follow up Assessment Current Diagnosis Acute Kidney Injury,Sepsis, Hypertension,Heart Failure, Hyperlipidemia Other Pertinent Diagnosis pneumatosis intestinalis, GIB, bowel infarction, cocaine/ nicotine abuse Current Diet NPO Labs/Tests K 3 Pertinent Medications Levophed Height 5 ft 7 in Weight 61 kg [place] Body Weight (kg) 61.36 BMI 21.0 Weight Status Appropriate Subjective/Other Information RN screen for MST. Pt is on the vent. The majority of pt's intestine is necrotic and MD mentioned comfort care is a possibility for pt. Burn Absent Trauma Absent GI Symptoms Other Current % PO Negligible Minimum of two criteria No physical signs of malnutrition #1 Nutrition Diagnosis Altered GI function Etiology pneumatosis intestinalis, GIB, bowel infarction As Evidenced by Signs and Symptoms pt NPO Is patient on ventilator? Yes Is Patient Ambulatory and/or Out of Bed No REE-([facility]-confined to bed) [phone] Calculation Used for Recommendations [facility] Additional Notes Protein: 73-122g (1.2-2g/kg) Fluid: 1ml/kcal Nutrition Intervention Anticipated Discharge Needs: unable to determine Follow-Up By: 01/20/20 Additional Comments F/U for POC
[2020-01-16] MEDS: FAMOTIDINE 20 MG/2 ML INJ IV SCH (10:58)
[2020-01-16] MEDS ORDERED: SODIUM CHLORIDE 0.9% 500 ML 500 ML ONE (11:35)
--- NOTE | 2020-01-16 11:57 | Progress Note ---
Assessment and Plan Severe sepsis with shock. Partial small-bowel obstruction. 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 Reported gastrointestinal bleed. Elevated serum transaminases. Hyponatremia. Cocaine abuse. History of hyperlipidemia. History of hypertension. Acute kidney injury. Hyperkalemia. History of congestive heart failure. Urinary retention Elevated LFTs Acute kidney injury:Vasomotor nephropathy Acute toxic-metabolic encephalopathy (Discussed care plan and goals of care with her eldest daughter Nallely [place] who states she has two siblings and describes her mother as a fighter. All her quest ions were answered) - TPN ordered - transfuse 1 unit PRBC - family to come visit - reduced set rate to 12/min - continue care as below otherwise; - Wean vasopresssor support for MAP> 65 - VAP bundle addressed - Adjust minute ventilation fro better gas-excahnge. Change NSaline to 150meq bicarbonate infusion - Lung protective strategies - Bronchodilators with pulmonary hygiene per RT - CXR today - OGT to LIS, keep NPO - Wean supplemental oxygen for target O2 sats > 94% - higher pAO2 to help per fuse the bowel - Daily SAT and SBT assessment as tolerated - Wean per pulmonary driven protocols - Accuchecks q6h while NPO, avoid hypoglycemia - Avoid benzodiazepines, reduce the possibility of delirium - prn analgesia per CPOT score - Maintenance of sleep-wake cycle, avoid delirium - Avoid nephrotoxins, closely monitor renal function - Aspiration precautions, HOB >40 - Antibiotics per ID- Cefepime and Metronidazole - On therapeutic heparin infusions - Medical management and redistribution therpaies for hyperkalemia - Stress ulcer prophylaxis (Famotidine) - Mobility protocol, off loading and skin assessment for pressure ulcer prevention - Supportive transfusions as indicated to keep HgB >7g/dL - Taylor catheter-critically ill with unstable hemodynamics requiring accurate intake and output, and for urinary retention Discussed with the ICU team-RT,RN,CM In view of her prognosis and severity of illness, there is a need for goals of care discussions. The family are apparently not ready to make decisions on her behalf, the patient apparently lived on the streets. Ethics consult is appropriate to determine code status and goals of care. Life threatening condition- Severe sepsis with septic shock; Acute renal failure; Pneumatosis intestinalis ischemic gut Mortality/Morbidity- High Complexity of medical decision making- High CONDITION: CRITICAL PROGNOSIS: GUARDED-GRAVE CODE STATUS: FULL CODE The high probability of a clinically significant, sudden or life-threatening deterioration of the [cardiovascular,neurology, GI ] system(s) required my full and direct attention, intervention and personal management. The aggregate critical care time was [35] minutes without overlap. 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; Cocaine abuse; Acute kidney injury; CHF; Urinary retention; Elevated LFTs; Acute toxic-metabolic encephalopathy Seen and examined at bedside; 24hour events reviewed; nursing and respiratory care staff consulted; no adverse overnight events reported to me; resting peacefully in bed; Objective Vital Signs - 12hr 01/16/20 01/16/20 01/16/20 00:00 00:16 00:30 Temperature Pulse Rate 115 H 114 H 118 H Respiratory 22 22 25 H Rate Blood Pressure 98/73 124/88 113/89 O2 Sat by Pulse 98 98 98 Oximetry 01/16/20 01/16/20 01/16/20 00:44 00:45 01:00 Temperature Pulse Rate 109 H 108 H 109 H Respiratory 22 25 H Rate Blood Pressure 97/68 97/68 95/65 O2 Sat by Pulse 98 98 97 Oximetry 01/16/20 01/16/20 01/16/20 01:15 01:30 01:45 Temperature Pulse Rate 109 H 107 H 106 H Respiratory 22 22 19 Rate Blood Pressure 103/63 98/57 96/60 O2 Sat by Pulse 96 98 98 Oximetry 01/16/20 01/16/20 01/16/20 02:00 02:15 02:30 Temperature Pulse Rate 106 H 107 H 107 H Respiratory 18 18 18 Rate Blood Pressure 104/59 104/60 103/59 O2 Sat by Pulse 98 99 98 Oximetry 01/16/20 01/16/20 01/16/20 02:45 03:00 03:15 Temperature Pulse Rate 112 H 112 H 110 H Respiratory 22 23 17 Rate Blood Pressure 108/63 107/72 114/64 O2 Sat by Pulse 100 100 99 Oximetry 01/16/20 01/16/20 01/16/20 03:24 03:30 03:45 Temperature 98.5 F Pulse Rate 107 H 107 H Respiratory 19 20 Rate Blood Pressure 95/67 99/60 O2 Sat by Pulse 99 98 Oximetry 01/16/20 01/16/20 01/16/20 04:00 04:15 04:30 Temperature Pulse Rate 107 H 112 H 109 H Respiratory 21 20 18 Rate Blood Pressure 103/67 112/73 91/67 O2 Sat by Pulse 98 98 100 Oximetry 01/16/20 01/16/20 01/16/20 04:45 05:00 05:15 Temperature Pulse Rate 111 H 116 H 109 H Respiratory 23 21 17 Rate Blood Pressure 104/61 108/64 105/66 O2 Sat by Pulse 97 98 99 Oximetry 01/16/20 01/16/20 01/16/20 05:30 05:45 06:00 Temperature Pulse Rate 114 H 109 H 109 H Respiratory 24 18 20 Rate Blood Pressure 104/71 91/64 113/68 O2 Sat by Pulse 97 98 98 Oximetry 01/16/20 01/16/20 01/16/20 06:15 06:30 06:45 Temperature Pulse Rate 116 H 108 H 115 H Respiratory 28 H 27 H 27 H Rate Blood Pressure 111/73 110/63 105/72 O2 Sat by Pulse 99 99 98 Oximetry 01/16/20 01/16/20 01/16/20 07:00 07:15 07:30 Temperature Pulse Rate 110 H 115 H 108 H Respiratory 22 26 H 20 Rate Blood Pressure 115/74 119/84 113/81 O2 Sat by Pulse 98 99 100 Oximetry 01/16/20 01/16/20 01/16/20 07:45 08:00 08:06 Temperature Pulse Rate 114 H 115 H 105 H Respiratory 25 H 25 H Rate Blood Pressure 117/80 113/77 113/77 O2 Sat by Pulse 99 100 100 Oximetry 01/16/20 01/16/20 01/16/20 08:15 08:30 08:45 Temperature Pulse Rate 114 H 106 H 108 H Respiratory 25 H 19 21 Rate Blood Pressure 105/75 121/70 116/62 O2 Sat by Pulse 99 99 98 Oximetry 01/16/20 01/16/20 01/16/20 09:00 09:15 09:30 Temperature Pulse Rate 114 H 113 H 114 H Respiratory 26 H 22 26 H Rate Blood Pressure 117/69 109/77 123/72 O2 Sat by Pulse 99 100 99 Oximetry 01/16/20 11:45 Temperature 99 F Pulse Rate 109 H Respiratory 25 H Rate Blood Pressure 97/59 O2 Sat by Pulse 100 Oximetry Constitutional: appears uncomfortable, other (middle aged thin female with mi ldly increased respiratory effort at rest) Eyes: non-icteric ENT: oropharynx moist, other (ETT 24 cm JACOB) Neck: supple, no lymphadenopathy, no JVD Effort: mildly labored Ascultation: Bilateral: diminished breath sounds, rhonchi Percussion: Bilateral: not dull Cardiovascular: regular rate and rhythm Gastrointestinal: hypoactive bowel sounds, soft, non-tender, other (distended) Integumentary: other (poor turgor; post opp changes) Extremities: no cyanosis, no edema, pulses normal, no ischemia or petechiae Neurologic: pupils equal and round, unable to assess Psychiatric: other (sedated) CBC and BMP: 01/16/20 05:03 01/15/20 05:00 ABG, PT/INR, D-dimer: ABG ABG pH 7.523 pH Units (7.350-7.450) H 01/16/20 03:50 ABG pCO2 36.3 mm Hg 01/16/20 03:50 ABG pO2 102.3 mm Hg (80.0-90.0) H 01/16/20 03:50 ABG O2 Saturation 98.0 % (95.0-99.0) 01/16/20 03:50 PT/INR, D-dimer PT 20.0 Sec. (12.2-14.9) H 01/12/20 18:50 INR 1.66 (0.87-1.13) H 01/12/20 18:50 Abnormal lab findings: Abnormal Labs 01/08/20 01/08/20 01/08/20 17:05 17:05 20:10 WBC 21.5 H RBC Hgb Hct MCV MCH 24 L RDW 22.1 H Plt Count Seg Neuts % (Manual) 83.0 H Lymphocytes % (Manual) 5.0 L Monocytes % (Manual) 12.0 H Seg Neutrophils # Man 17.8 H Lymphocytes # (Manual) 1.1 L Monocytes # (Manual) 2.6 H PT INR APTT Heparin Anti-Xa Level ABG pH ABG pO2 ABG HCO3 ABG O2 Saturation ABG Base Excess ABG Hemoglobin Oxyhemoglobin Sodium 133 L Potassium 6.0 H D Chloride 95.1 L Carbon Dioxide BUN 46 H Creatinine 2.9 H D Glucose POC Glucose Lactic Acid 2.20 H* Calcium 8.1 L AST 159 H ALT 147 H Alkaline Phosphatase C-Reactive Protein Total Protein 4.6 L D Albumin 2.1 L Ur Specific [place] Crossmatch 01/09/20 01/09/20 01/09/20 15:30 16:59 16:59 WBC 28.5 H RBC 5.32 H Hgb Hct MCV 78 L MCH 24 L RDW 22.0 H Plt Count Seg Neuts % (Manual) 94.0 H Lymphocytes % (Manual) 0 L Monocytes % (Manual) Seg Neutrophils # Man 26.8 H Lymphocytes # (Manual) 0.0 L Monocytes # (Manual) 1.1 H PT INR APTT Heparin Anti-Xa Level ABG pH ABG pO2 ABG HCO3 ABG O2 Saturation ABG Base Excess ABG Hemoglobin Oxyhemoglobin Sodium 132 L Potassium 5.8 H Chloride 96.1 L Carbon Dioxide 14 L D BUN 59 H Creatinine 2.8 H Glucose POC Glucose Lactic Acid Calcium 8.3 L AST 151 H ALT 145 H Alkaline Phosphatase 153 H C-Reactive Protein Total Protein 5.9 L D Albumin 2.2 L Ur Specific [place] 1.033 H Crossmatch 01/10/20 01/10/20 01/11/20 10:26 16:43 15:43 WBC RBC Hgb Hct MCV MCH RDW Plt Count Seg Neuts % (Manual) Lymphocytes % (Manual) Monocytes % (Manual) Seg Neutrophils # Man Lymphocytes # (Manual) Monocytes # (Manual) PT INR APTT Heparin Anti-Xa Level ABG pH ABG pO2 ABG HCO3 ABG O2 Saturation ABG Base Excess ABG Hemoglobin Oxyhemoglobin Sodium Potassium 5.1 H Chloride 108.9 H Carbon Dioxide 17 L BUN 69 H 86 H Creatinine 2.9 H 3.4 H Glucose POC Glucose Lactic Acid Calcium 8.0 L AST ALT Alkaline Phosphatase C-Reactive Protein 41.00 H Total Protein Albumin Ur Specific [place] Crossmatch 01/11/20 01/11/20 01/12/20 18:12 21:00 05:35 WBC RBC Hgb Hct MCV MCH RDW Plt Count Seg Neuts % (Manual) Lymphocytes % (Manual) Monocytes % (Manual) Seg Neutrophils # Man Lymphocytes # (Manual) Monocytes # (Manual) PT INR APTT Heparin Anti-Xa Level ABG pH 7.162 L* 7.267 L 7.320 L ABG pO2 72.8 L 280.6 H 128.6 H ABG HCO3 19.4 L 17.3 L 15.7 L ABG O2 Saturation 87.7 L 99.4 H ABG Base Excess -9.1 L -9.0 L -9.5 L ABG Hemoglobin 9.8 L 9.7 L 8.2 L Oxyhemoglobin 85.3 L Sodium Potassium Chloride Carbon Dioxide BUN Creatinine Glucose POC Glucose Lactic Acid Calcium AST ALT Alkaline Phosphatase C-Reactive Protein Total Protein Albumin Ur Specific [place] Crossmatch 01/12/20 01/12/20 01/12/20 10:18 11:51 11:55 WBC 22.9 H RBC Hgb 8.6 L D Hct 28.3 L D MCV 77 L MCH 24 L RDW 21.7 H Plt Count Seg Neuts % (Manual) Lymphocytes % (Manual) Monocytes % (Manual) Seg Neutrophils # Man Lymphocytes # (Manual) Monocytes # (Manual) PT INR APTT Heparin Anti-Xa Level ABG pH ABG pO2 ABG HCO3 ABG O2 Saturation ABG Base Excess ABG Hemoglobin Oxyhemoglobin Sodium Potassium 5.3 H Chloride Carbon Dioxide 17 L BUN 105 H Creatinine 3.7 H Glucose 111 H POC Glucose 115 H Lactic Acid Calcium AST ALT Alkaline Phosphatase C-Reactive Protein Total Protein Albumin Ur Specific [place] Crossmatch 01/12/20 01/12/20 01/12/20 18:20 18:50 18:50 WBC RBC Hgb 9.2 L Hct 30.0 L MCV MCH RDW Plt Count Seg Neuts % (Manual) Lymphocytes % (Manual) Monocytes % (Manual) Seg Neutrophils # Man Lymphocytes # (Manual) Monocytes # (Manual) PT 20.0 H INR 1.66 H APTT 38.7 H Heparin Anti-Xa Level ABG pH ABG pO2 ABG HCO3 ABG O2 Saturation ABG Base Excess ABG Hemoglobin Oxyhemoglobin Sodium Potassium Chloride Carbon Dioxide BUN Creatinine Glucose POC Glucose 108 H Lactic Acid Calcium AST ALT Alkaline Phosphatase C-Reactive Protein Total Protein Albumin Ur Specific [place] Crossmatch 08/05/2201/13/20 01/13/20 03:02 05:10 09:45 WBC 26.2 H RBC 3.53 L Hgb 8.4 L Hct 27.1 L MCV 77 L MCH 24 L RDW 22.0 H Plt Count Seg Neuts % (Manual) Lymphocytes % (Manual) Monocytes % (Manual) Seg Neutrophils # Man Lymphocytes # (Manual) Monocytes # (Manual) PT INR APTT Heparin Anti-Xa Level 0.23 L ABG pH 7.211 L ABG pO2 91.5 H ABG HCO3 18.1 L ABG O2 Saturation ABG Base Excess -9.1 L ABG Hemoglobin 7.3 L Oxyhemoglobin 94.0 L Sodium Potassium Chloride Carbon Dioxide BUN Creatinine Glucose POC Glucose Lactic Acid Calcium AST ALT Alkaline Phosphatase C-Reactive Protein Total Protein Albumin Ur Specific [place] Crossmatch 01/13/20 01/13/20 01/13/20 09:45 21:03 21:49 WBC RBC Hgb Hct MCV MCH RDW Plt Count Seg Neuts % (Manual) Lymphocytes % (Manual) Monocytes % (Manual) Seg Neutrophils # Man Lymphocytes # (Manual) Monocytes # (Manual) PT INR APTT Heparin Anti-Xa Level 0.28 L 0.28 L ABG pH ABG pO2 ABG HCO3 ABG O2 Saturation ABG Base Excess ABG Hemoglobin Oxyhemoglobin Sodium Potassium 5.9 H Chloride 110.9 H Carbon Dioxide 17 L BUN 115 H Creatinine 4.2 H Glucose 101 H POC Glucose Lactic Acid Calcium AST ALT Alkaline Phosphatase C-Reactive Protein Total Protein Albumin Ur Specific [place] Crossmatch 01/14/20 01/14/20 01/14/20 04:00 04:50 05:09 WBC 26.6 H RBC 3.59 L Hgb 8.5 L Hct 26.6 L MCV 74 L MCH 24 L RDW 21.6 H Plt Count 134 L Seg Neuts % (Manual) Lymphocytes % (Manual) Monocytes % (Manual) Seg Neutrophils # Man Lymphocytes # (Manual) Monocytes # (Manual) PT INR APTT Heparin Anti-Xa Level ABG pH 7.335 L ABG pO2 126.9 H ABG HCO3 ABG O2 Saturation ABG Base Excess -4.2 L ABG Hemoglobin 9.2 L Oxyhemoglobin Sodium Potassium Chloride 108.4 H Carbon Dioxide BUN 111 H Creatinine 3.7 H Glucose 119 H POC Glucose Lactic Acid Calcium AST ALT Alkaline Phosphatase C-Reactive Protein Total Protein Albumin Ur Specific [place] Crossmatch 01/14/20 01/14/20 01/14/20 13:07 17:34 23:32 WBC RBC Hgb Hct MCV MCH RDW Plt Count Seg Neuts % (Manual) Lymphocytes % (Manual) Monocytes % (Manual) Seg Neutrophils # Man Lymphocytes # (Manual) Monocytes # (Manual) PT INR APTT Heparin Anti-Xa Level ABG pH ABG pO2 ABG HCO3 ABG O2 Saturation ABG Base Excess ABG Hemoglobin Oxyhemoglobin Sodium Potassium Chloride Carbon Dioxide BUN Creatinine Glucose POC Glucose 160 H 170 H 174 H Lactic Acid Calcium AST ALT Alkaline Phosphatase C-Reactive Protein Total Protein Albumin Ur Specific [place] Crossmatch 01/15/20 01/15/20 01/15/20 03:45 05:00 05:00 WBC 27.3 H RBC 3.13 L Hgb 7.3 L Hct 22.6 L MCV 72 L MCH 23 L RDW 21.1 H Plt Count Seg Neuts % (Manual) 90.0 H Lymphocytes % (Manual) 5.0 L Monocytes % (Manual) Seg Neutrophils # Man 24.6 H Lymphocytes # (Manual) Monocytes # (Manual) 1.1 H PT INR APTT Heparin Anti-Xa Level ABG pH 7.492 H ABG pO2 102.6 H ABG HCO3 28.0 H ABG O2 Saturation ABG Base Excess 4.5 H ABG Hemoglobin 10.1 L Oxyhemoglobin Sodium 146 H Potassium Chloride Carbon Dioxide BUN 105 H Creatinine 3.1 H Glucose 188 H POC Glucose Lactic Acid Calcium 8.1 L AST ALT Alkaline Phosphatase C-Reactive Protein Total Protein 6.0 L Albumin 1.2 L Ur Specific [place] Crossmatch 01/15/20 01/15/20 01/15/20 05:31 11:40 17:10 WBC RBC Hgb Hct MCV MCH RDW Plt Count Seg Neuts % (Manual) Lymphocytes % (Manual) Monocytes % (Manual) Seg Neutrophils # Man Lymphocytes # (Manual) Monocytes # (Manual) PT INR APTT Heparin Anti-Xa Level ABG pH ABG pO2 ABG HCO3 ABG O2 Saturation ABG Base Excess ABG Hemoglobin Oxyhemoglobin Sodium Potassium Chloride Carbon Dioxide BUN Creatinine Glucose POC Glucose 206 H 201 H 196 H Lactic Acid Calcium AST ALT Alkaline Phosphatase C-Reactive Protein Total Protein Albumin Ur Specific [place] Crossmatch 01/15/20 01/16/20 01/16/20 23:43 03:50 05:03 WBC RBC Hgb 6.0 L Hct 18.7 L* MCV MCH RDW Plt Count Seg Neuts % (Manual) Lymphocytes % (Manual) Monocytes % (Manual) Seg Neutrophils # Man Lymphocytes # (Manual) Monocytes # (Manual) PT INR APTT Heparin Anti-Xa Level ABG pH 7.523 H ABG pO2 102.3 H ABG HCO3 29.1 H ABG O2 Saturation ABG Base Excess 5.8 H ABG Hemoglobin 6.6 L Oxyhemoglobin Sodium Potassium Chloride Carbon Dioxide BUN Creatinine Glucose POC Glucose 200 H Lactic Acid Calcium AST ALT Alkaline Phosphatase C-Reactive Protein Total Protein Albumin Ur Specific [place] Crossmatch 01/16/20 01/16/20 05:39 07:43 WBC RBC Hgb Hct MCV MCH RDW Plt Count Seg Neuts % (Manual) Lymphocytes % (Manual) Monocytes % (Manual) Seg Neutrophils # Man Lymphocytes # (Manual) Monocytes # (Manual) PT INR APTT Heparin Anti-Xa Level ABG pH ABG pO2 ABG HCO3 ABG O2 Saturation ABG Base Excess ABG Hemoglobin Oxyhemoglobin Sodium Potassium Chloride Carbon Dioxide BUN Creatinine Glucose POC Glucose 174 H Lactic Acid Calcium AST ALT Alkaline Phosphatase C-Reactive Protein Total Protein Albumin Ur Specific [place] Crossmatch See Detail Allied health notes reviewed: RT
--- NOTE | 2020-01-16 15:47 | Progress Note ---
Assessment and Plan # Acute Kidney Injury, Non-Oliguric: suspect AVE in setting of tubular injury from sepsis, hypotension, bowel infarct. No immediate renal replacement indications with normal K, reasonable urine output, but suspect that renal function will continue to worsen given clinical setting. Creatinine fairly stable at 3.1, no labs for review today. Reviewed surgical notes and likely no benefit to renal replacement therapy given severity of bowel infarct, and would not offer at this time unless goals of care change drastically - continue supportive measures as able, agree with goals of care discussion and potential comfort care measures. Agree with ethics consult. Appreciate Dr. Crockett discussing prognosis with family, awaiting final decision - avoid nephrotoxins - IVF, pressors prn - currently non-oliguric # Acidosis: Likely from AVE, lactic acidosis. Continue IVF as able # Anemia: PRBCs per primary prn, hemoglobin 6.0 # Bowel Infarction: appreciate surgical input # Sepsis: appreciate ID input # Hypotension: pressors prn Thank you for involving us in the care of this critically ill patient. Please do not hesitate to reach out to our team with any questions or concerns. Subjective Date of service: 01/16/20 Principal diagnosis: Septic shock; Pneumatosis intestinalis s/p ex lap; AVE; CHF; Ac Encephalopa Interval history: No acute changes noted. Reviewed notes and information from chart in depth. Objective - Exam Narrative Exam: General appearance: intubated, sedated, ill appearing Eyes: anicteric sclerae HENT: ET tube in place, NG tube noted Lungs: mechanical breath sounds CV: tachycardic Abdomen: dressing noted Extremities: no edema, no cyanosis Skin: No rash noted Psych: sedated Neuro: sedated - Vital Signs Vital signs: Vital Signs - 12hr 01/16/20 01/16/20 01/16/20 04:00 04:15 04:30 Temperature Pulse Rate 107 H 112 H 109 H Respiratory 21 20 18 Rate Blood Pressure 103/67 112/73 91/67 O2 Sat by Pulse 98 98 100 Oximetry 01/16/20 01/16/20 01/16/20 04:45 05:00 05:15 Temperature Pulse Rate 111 H 116 H 109 H Respiratory 23 21 17 Rate Blood Pressure 104/61 108/64 105/66 O2 Sat by Pulse 97 98 99 Oximetry 01/16/20 01/16/20 01/16/20 05:30 05:45 06:00 Temperature Pulse Rate 114 H 109 H 109 H Respiratory 24 18 20 Rate Blood Pressure 104/71 91/64 113/68 O2 Sat by Pulse 97 98 98 Oximetry 01/16/20 01/16/20 01/16/20 06:15 06:30 06:45 Temperature Pulse Rate 116 H 108 H 115 H Respiratory 28 H 27 H 27 H Rate Blood Pressure 111/73 110/63 105/72 O2 Sat by Pulse 99 99 98 Oximetry 01/16/20 01/16/20 01/16/20 07:00 07:15 07:30 Temperature Pulse Rate 110 H 115 H 108 H Respiratory 22 26 H 20 Rate Blood Pressure 115/74 119/84 113/81 O2 Sat by Pulse 98 99 100 Oximetry 01/16/20 01/16/20 01/16/20 07:45 08:00 08:06 Temperature 98.8 F Pulse Rate 114 H 115 H 105 H Respiratory 25 H 25 H Rate Blood Pressure 117/80 113/77 113/77 O2 Sat by Pulse 99 100 100 Oximetry 01/16/20 01/16/20 01/16/20 08:15 08:30 08:45 Temperature Pulse Rate 114 H 106 H 108 H Respiratory 25 H 19 21 Rate Blood Pressure 105/75 121/70 116/62 O2 Sat by Pulse 99 99 98 Oximetry 01/16/20 01/16/20 01/16/20 09:00 09:15 09:30 Temperature Pulse Rate 114 H 113 H 114 H Respiratory 26 H 22 26 H Rate Blood Pressure 117/69 109/77 123/72 O2 Sat by Pulse 99 100 99 Oximetry 01/16/20 01/16/20 01/16/20 09:45 10:00 10:15 Temperature Pulse Rate 106 H 113 H 112 H Respiratory 24 24 31 H Rate Blood Pressure 109/64 102/72 111/72 O2 Sat by Pulse 98 100 100 Oximetry 01/16/20 01/16/20 01/16/20 10:30 10:45 11:00 Temperature Pulse Rate 105 H 112 H 108 H Respiratory 28 H 32 H 25 H Rate Blood Pressure 104/67 99/58 107/62 O2 Sat by Pulse 99 100 100 Oximetry 01/16/20 01/16/20 01/16/20 11:15 11:25 11:30 Temperature Pulse Rate 107 H 109 H 105 H Respiratory 25 H 28 H Rate Blood Pressure 99/57 97/59 97/59 O2 Sat by Pulse 100 100 100 Oximetry 01/16/20 01/16/20 01/16/20 11:45 12:00 12:15 Temperature 99 F 99 F Pulse Rate 106 H 102 H 105 H Respiratory 30 H 26 H 31 H Rate Blood Pressure 94/56 93/50 90/60 O2 Sat by Pulse 100 99 100 Oximetry 01/16/20 01/16/20 01/16/20 12:30 12:45 13:00 Temperature 99 F 98.6 F Pulse Rate 106 H 104 H 105 H Respiratory 30 H 28 H 25 H Rate Blood Pressure 95/47 96/62 91/55 O2 Sat by Pulse 100 100 100 Oximetry 01/16/20 01/16/20 01/16/20 13:15 13:30 13:46 Temperature Pulse Rate 102 H 105 H 97 H Respiratory 28 H 24 30 H Rate Blood Pressure 91/55 88/63 91/55 O2 Sat by Pulse 100 100 87 Oximetry 01/16/20 01/16/20 01/16/20 14:00 14:16 14:30 Temperature Pulse Rate 94 H 109 H 98 H Respiratory 28 H 28 H 28 H Rate Blood Pressure 93/63 91/58 91/58 O2 Sat by Pulse 99 96 100 Oximetry 01/16/20 01/16/20 14:40 14:45 Temperature 99.3 F Pulse Rate 98 H 98 H Respiratory 29 H 26 H Rate Blood Pressure 112/69 104/68 O2 Sat by Pulse 100 100 Oximetry - Lab 01/16/20 05:03 01/15/20 05:00 Most recent lab results ABG pH 7.523 pH Units (7.350-7.450) H 01/16/20 03:50 ABG pCO2 36.3 mm Hg 01/16/20 03:50 ABG pO2 102.3 mm Hg (80.0-90.0) H 01/16/20 03:50 ABG HCO3 29.1 mmol/L (20.0-26.0) H 01/16/20 03:50 ABG O2 Saturation 98.0 % (95.0-99.0) 01/16/20 03:50 Calcium 8.1 mg/dL (8.4-10.2) L 01/15/20 05:00 Medications & Allergies - Medications Allergies/Adverse Reactions: Allergies No Known Allergies Allergy (Verified 11/07/19 07:55) Home Medications: Home Medications Medication Instructions Recorded Confirmed Last Taken Type Aspirin [Aspirin BABY CHEW TAB] 81 mg PO QDAY #30 tab.chew 12/07/19 01/09/20 Unknown Rx AtorvaSTATin [Lipitor] 40 mg PO QHS #30 tablet 12/07/19 01/09/20 Unknown Rx Furosemide [Lasix TAB] 40 mg PO DAILY #30 tablet 12/07/19 01/09/20 Unknown Rx Potassium Chloride 10 meq PO DAILY #30 tablet.er 12/07/19 01/09/20 Unknown Rx carvediloL [Coreg] 6.25 mg PO BID #60 tablet 12/07/19 01/09/20 Unknown Rx hydrALAZINE [Apresoline TAB] 25 mg PO Q8HR #90 tablet 12/07/19 01/09/20 Unknown Rx lisinopriL [Zestril TAB] 20 mg PO QDAY #30 tablet 12/07/19 01/09/20 Unknown Rx Active Medications: Generic Name Dose Route Start Last Admin Trade Name Freq PRN Reason Stop Dose Admin Acetaminophen 650 mg 01/08/20 20:00 Tylenol PO Q4H PRN Pain MILD(1-3)/Fever >100.5/LOPEZ Famotidine 20 mg 01/12/20 10:00 01/16/20 10:58 Pepcid IV 20 mg DAILY TRI Administration Fentanyl 50 mcg 01/14/20 16:51 Sublimaze IV Q10MIN PRN ANALGESIA Hydromorphone HCl 1 mg 01/08/20 21:26 01/11/20 08:19 Dilaudid IV 1 mg Q2H PRN Administration Pain , Severe (7-10) Hydrophilic Ointment 1 applic 01/14/20 16:51 Vaseline Lip Therapy TP Q2HR PRN Dry Lips Norepinephrine 4 mg in 250 mls @ 7.5 mls/hr 01/08/20 23:45 01/16/20 12:33 Levophed Drip 4 Mg/Ns 250 Ml IV 2 mcg/min TITR TRI 7.5 mls/hr Titration Protocol 2 MCG/MIN Cefepime HCl 1 gm in 100 mls @ 200 mls/hr 01/09/20 22:00 01/15/20 22:37 Cefepime/Ns 1 Gm/100 Ml IV 200 mls/hr Q24H TRI Administration Metronidazole 500 mg in 100 mls @ 100 mls/hr 01/10/20 15:00 01/16/20 09:05 Flagyl 500 Mg/100 Ml IV 100 mls/hr Q8H TRI Administration Protocol Propofol 1,000 mg in 100 mls @ 1.837 mls/hr 01/11/20 23:45 01/12/20 15:30 Diprivan 10 Mg/Ml IV 0 mcg/kg/min TITR TRI 0 mls/hr Titration Protocol 5 MCG/KG/MIN Sodium Bicarbonate 150 meq/ 1,150 mls @ 150 mls/hr 01/13/20 10:00 01/16/20 07:00 Dextrose IV 150 mls/hr DIRECT TRI Administration Fentanyl Citrate 2,000 mcg in 100 mls @ 3.05 mls/hr 01/14/20 17:00 Fentanyl Drip Premix IV TITR TRI Protocol 1 MCG/KG/HR Midazolam HCl 100 mg/ Sodium 100 mls @ 2 mls/hr 01/14/20 18:00 01/16/20 08:45 Chloride IV 0 mg/hr TITR TRI 0 mls/hr Titration Protocol 2 MG/HR Amino Acids 2,000 mls @ 83.33 mls/hr 01/16/20 20:00 Clinimix 4.25%-10% Solution IV 01/17/20 19:59 Q24H TRI Midazolam HCl 2 mg 01/14/20 16:51 Versed IV Q10MIN PRN Sedation Ondansetron HCl 4 mg 01/08/20 20:00 01/10/20 19:53 Zofran IV 4 mg Q8H PRN Administration Nausea And Vomiting Sodium Chloride 10 ml 01/08/20 22:00 01/16/20 10:59 Sodium Chloride Flush Syringe 10 Ml IV 10 ml BID TRI Administration Sodium Chloride 10 ml 01/08/20 20:00 Sodium Chloride Flush Syringe 10 Ml IV PRN PRN LINE FLUSH
[2020-01-16] MEDS: NORepinephrine/NS 4 MG-250 ML 4 MG/250 ML BAG IV SCH ×2 (16:09→23:37)
[2020-01-16] MEDS ORDERED: AMINO ACIDS 4.25%/DEXTROSE 10% 2,000 ML IV SCH (20:00)
[2020-01-16] MEDS: CEFEPIME/NS 1 GM/100 ML 1 GM/100 ML BAG IV SCH (22:28)
[2020-01-17] MEDS: SODIUM BICARBONATE 150 MEQ in DEXTROSE 5% IN WATER 1,000 ML IV SCH ×2 (03:41→10:16)
[2020-01-17 06:15] LABS: Calcium 8.5 mg/dL (8.4-10.2)
[2020-01-17] MEDS: NORepinephrine/NS 4 MG-250 ML 4 MG/250 ML BAG IV SCH ×3 (06:15→10:47)
[2020-01-17] MEDS: metroNIDAZOLE/NS 500 MG/100 ML 500 MG/100 ML BAG IV SCH (06:38)
[2020-01-17] MEDS ORDERED: SODIUM BICARB 8.4% 50 MEQ/50 ML SYRINGE IV ONE ×2 (06:43→16:03)
[2020-01-17] MEDS ORDERED: DEXTROSE 50% IN WATER (25GM) 50 ML SYRINGE IV ONE (06:44)
[2020-01-17] MEDS ORDERED: CALCIUM CHLORIDE 1,000 MG/10 ML SYRINGE IV ONE (06:44)
[2020-01-17] MEDS ORDERED: SODIUM CHLORIDE 0.9% 500 ML 500 ML IV ONE ×2 (06:46→08:00)
[2020-01-17 06:50] LABS: ABG Base Excess -12.8 mmol/L (-2.0-3.0); ABG HCO3 12.4 mmol/L (20.0-26.0); ABG Methemoglobin 0.3 % (0.0-1.5); ABG Oxygen Saturation 98.1 % (95.0-99.0); ABG PCO2 25.9 mm Hg; ABG PH 7.296 pH Units (7.350-7.450); ABG PO2 119.4 mm Hg (80.0-90.0)
[2020-01-17] MEDS ORDERED: AMIODARONE 150 MG in DEXTROSE 5% IN WATER 97 ML IV ONE (09:36)
[2020-01-17] MEDS ORDERED: VASOPRESSIN 20 UNIT in SODIUM CHLORIDE 0.9% 100 ML IV SCH (10:00)
[2020-01-17] MEDS ORDERED: AMIODARONE 900 MG in DEXTROSE 5% IN WATER 482 ML IV SCH (10:00)
[2020-01-17] MEDS: FAMOTIDINE 20 MG/2 ML INJ IV SCH (10:16)
--- NOTE | 2020-01-17 10:45 | Progress Note ---
Assessment and Plan # Acute Kidney Injury, Non-Oliguric: suspect AVE in setting of tubular injury from sepsis, hypotension, bowel infarct. Creatinine has worsened from 3.1->5.3 with K 6.6 this AM, likely related to hypotension. Given poor prognosis, would not be a candidate for renal replacement therapy, medically management of hyperkalemia with continued supportive measures including IVF, pressors prn. Urine output decreasing. Reviewed surgical notes and likely no benefit to renal replacement therapy given severity of bowel infarct, and would not offer at this time unless goals of care change drastically - continue supportive measures as able, agree with goals of care discussion and potential comfort care measures. Agree with ethics consult. Appreciate Dr. Crockett discussing prognosis with family, awaiting final decision - avoid nephrotoxins - IVF, pressors prn - currently non-oliguric # Acidosis: Likely from AVE, lactic acidosis. Continue IVF as able # Anemia: PRBCs per primary prn, hemoglobin 6.0 most recently # Bowel Infarction: appreciate surgical input # Sepsis: appreciate ID input # Hypotension: pressors prn Thank you for involving us in the care of this critically ill patient. Please do not hesitate to reach out to our team with any questions or concerns. Subjective Date of service: 01/17/20 Principal diagnosis: Septic shock; Pneumatosis intestinalis s/p ex lap; AVE; CHF; Ac Encephalopa Interval history: K 6.6 this AM, BPs very low over past 24 hours, restarted on Levophed. Reviewed notes and information from chart in depth. Objective - Exam Narrative Exam: General appearance: intubated, sedated, ill appearing Eyes: anicteric sclerae HENT: ET tube in place, NG tube noted Lungs: mechanical breath sounds CV: tachycardic Abdomen: dressing noted Extremities: no edema, no cyanosis Skin: No rash noted Psych: sedated Neuro: sedated - Vital Signs Vital signs: Vital Signs - 12hr 01/16/20 01/16/20 01/16/20 22:45 23:00 23:12 Temperature Pulse Rate 114 H 114 H 106 H Pulse Rate [ From Monitor] Respiratory 29 H 32 H 34 H Rate Blood Pressure 108/69 122/66 122/66 O2 Sat by Pulse 100 100 Oximetry 01/16/20 01/16/20 01/16/20 23:16 23:30 23:43 Temperature 97.6 F Pulse Rate 102 H 108 H Pulse Rate [ From Monitor] Respiratory 30 H 29 H Rate Blood Pressure 103/58 97/58 O2 Sat by Pulse 98 97 Oximetry 01/16/20 01/17/20 01/17/20 23:45 00:00 00:15 Temperature Pulse Rate 117 H 113 H 115 H Pulse Rate [ 120 H From Monitor] Respiratory 32 H 28 H 37 H Rate Blood Pressure 102/54 105/48 106/51 O2 Sat by Pulse 99 98 95 Oximetry 01/17/20 01/17/20 01/17/20 00:30 00:34 00:45 Temperature Pulse Rate 103 H 101 H 113 H Pulse Rate [ From Monitor] Respiratory 36 H 33 H Rate Blood Pressure 110/56 110/56 126/68 O2 Sat by Pulse 99 98 91 Oximetry 01/17/20 01/17/20 01/17/20 01:00 01:15 01:30 Temperature Pulse Rate 107 H 148 H 108 H Pulse Rate [ From Monitor] Respiratory 34 H 34 H 35 H Rate Blood Pressure 110/56 111/62 103/61 O2 Sat by Pulse 85 Oximetry 01/17/20 01/17/20 01/17/20 01:45 02:00 02:15 Temperature Pulse Rate 100 H 145 H 108 H Pulse Rate [ From Monitor] Respiratory 37 H 32 H 35 H Rate Blood Pressure 97/48 104/68 101/53 O2 Sat by Pulse 84 97 Oximetry 01/17/20 01/17/20 01/17/20 02:30 02:45 03:00 Temperature Pulse Rate 108 H 107 H 111 H Pulse Rate [ From Monitor] Respiratory 34 H 35 H 38 H Rate Blood Pressure 100/49 84/54 84/54 O2 Sat by Pulse 97 96 97 Oximetry 01/17/20 01/17/20 01/17/20 03:16 03:30 03:32 Temperature 98.4 F Pulse Rate 90 136 H Pulse Rate [ From Monitor] Respiratory 32 H 38 H Rate Blood Pressure 84/58 89/47 O2 Sat by Pulse 100 Oximetry 01/17/20 01/17/20 01/17/20 03:46 04:00 04:15 Temperature Pulse Rate 113 H 105 H 93 H Pulse Rate [ 110 H From Monitor] Respiratory 35 H 34 H 37 H Rate Blood Pressure 77/56 157/138 109/55 O2 Sat by Pulse 100 100 100 Oximetry 0801/17/20 01/17/20 04:20 04:30 04:45 Temperature Pulse Rate 144 H 151 H 95 H Pulse Rate [ From Monitor] Respiratory 38 H 35 H Rate Blood Pressure 109/55 109/55 105/46 O2 Sat by Pulse 100 100 100 Oximetry 01/17/20 01/17/20 01/17/20 05:00 05:16 05:30 Temperature Pulse Rate 107 H 91 H 106 H Pulse Rate [ From Monitor] Respiratory 36 H 37 H 39 H Rate Blood Pressure 91/59 93/55 93/55 O2 Sat by Pulse 100 100 100 Oximetry 01/17/20 01/17/20 01/17/20 05:46 06:00 06:16 Temperature Pulse Rate 99 H 90 91 H Pulse Rate [ From Monitor] Respiratory 37 H 36 H 37 H Rate Blood Pressure 93/55 93/55 93/55 O2 Sat by Pulse 100 100 100 Oximetry 01/17/20 01/17/20 01/17/20 06:30 06:46 07:00 Temperature Pulse Rate 147 H 143 H 140 H Pulse Rate [ From Monitor] Respiratory 37 H 37 H 37 H Rate Blood Pressure 93/55 63/39 153/59 O2 Sat by Pulse 100 100 100 Oximetry 01/17/20 01/17/20 01/17/20 07:16 07:30 07:46 Temperature Pulse Rate 114 H 140 H 95 H Pulse Rate [ From Monitor] Respiratory 34 H 35 H 35 H Rate Blood Pressure 92/50 92/50 65/37 O2 Sat by Pulse 100 100 100 Oximetry 01/17/20 01/17/20 01/17/20 07:49 08:00 08:16 Temperature 97.5 F L Pulse Rate 147 H 149 H 153 H Pulse Rate [ From Monitor] Respiratory 35 H 37 H Rate Blood Pressure 65/37 159/78 O2 Sat by Pulse 100 100 100 Oximetry 01/17/20 01/17/20 01/17/20 08:30 08:46 09:00 Temperature Pulse Rate 149 H 144 H 144 H Pulse Rate [ From Monitor] Respiratory 35 H 33 H 37 H Rate Blood Pressure 159/78 67/42 132/109 O2 Sat by Pulse 100 100 100 Oximetry 01/17/20 09:16 Temperature Pulse Rate 145 H Pulse Rate [ From Monitor] Respiratory 36 H Rate Blood Pressure 72/22 O2 Sat by Pulse 100 Oximetry - Lab 01/16/20 05:03 01/17/20 05:00 Most recent lab results ABG pH 7.296 pH Units (7.350-7.450) L 01/17/20 06:40 ABG pCO2 25.9 mm Hg 01/17/20 06:40 ABG pO2 119.4 mm Hg (80.0-90.0) H 01/17/20 06:40 ABG HCO3 12.4 mmol/L (20.0-26.0) L 01/17/20 06:40 ABG O2 Saturation 98.1 % (95.0-99.0) 01/17/20 06:40 Calcium 8.5 mg/dL (8.4-10.2) 01/17/20 05:00 Phosphorus 13.00 mg/dL (2.5-4.5) H 01/17/20 05:00 Magnesium 2.60 mg/dL (1.7-2.3) H 01/17/20 05:00 Medications & Allergies - Medications Allergies/Adverse Reactions: Allergies No Known Allergies Allergy (Verified 11/07/19 07:55) Home Medications: Home Medications Medication Instructions Recorded Confirmed Last Taken Type Aspirin [Aspirin BABY CHEW TAB] 81 mg PO QDAY #30 tab.chew 12/07/19 01/09/20 Unknown Rx AtorvaSTATin [Lipitor] 40 mg PO QHS #30 tablet 12/07/19 01/09/20 Unknown Rx Furosemide [Lasix TAB] 40 mg PO DAILY #30 tablet 12/07/19 01/09/20 Unknown Rx Potassium Chloride 10 meq PO DAILY #30 tablet.er 12/07/19 01/09/20 Unknown Rx carvediloL [Coreg] 6.25 mg PO BID #60 tablet 12/07/19 01/09/20 Unknown Rx hydrALAZINE [Apresoline TAB] 25 mg PO Q8HR #90 tablet 12/07/19 01/09/20 Unknown Rx lisinopriL [Zestril TAB] 20 mg PO QDAY #30 tablet 12/07/19 01/09/20 Unknown Rx Active Medications: Generic Name Dose Route Start Last Admin Trade Name Freq PRN Reason Stop Dose Admin Acetaminophen 650 mg 01/08/20 20:00 Tylenol PO Q4H PRN Pain MILD(1-3)/Fever >100.5/LOPEZ Famotidine 20 mg 01/12/20 10:00 01/17/20 10:16 Pepcid IV 20 mg DAILY TRI Administration Fentanyl 50 mcg 01/14/20 16:51 Sublimaze IV Q10MIN PRN ANALGESIA Hydromorphone HCl 1 mg 01/08/20 21:26 01/11/20 08:19 Dilaudid IV 1 mg Q2H PRN Administration Pain , Severe (7-10) Hydrophilic Ointment 1 applic 01/14/20 16:51 Vaseline Lip Therapy TP Q2HR PRN Dry Lips Norepinephrine 4 mg in 250 mls @ 7.5 mls/hr 01/08/20 23:45 01/17/20 09:30 Levophed Drip 4 Mg/Ns 250 Ml IV 30 mcg/min TITR TRI 112.5 mls/hr Administration Protocol 2 MCG/MIN Cefepime HCl 1 gm in 100 mls @ 200 mls/hr 01/09/20 22:00 01/16/20 22:28 Cefepime/Ns 1 Gm/100 Ml IV 200 mls/hr Q24H TRI Administration Metronidazole 500 mg in 100 mls @ 100 mls/hr 01/10/20 15:00 01/17/20 06:38 Flagyl 500 Mg/100 Ml IV 100 mls/hr Q8H TRI Administration Protocol Propofol 1,000 mg in 100 mls @ 1.837 mls/hr 01/11/20 23:45 01/12/20 15:30 Diprivan 10 Mg/Ml IV 0 mcg/kg/min TITR TRI 0 mls/hr Titration Protocol 5 MCG/KG/MIN Sodium Bicarbonate 150 meq/ 1,150 mls @ 150 mls/hr 01/13/20 10:00 01/17/20 10:16 Dextrose IV 150 mls/hr DIRECT TRI Administration Fentanyl Citrate 2,000 mcg in 100 mls @ 3.05 mls/hr 01/14/20 17:00 Fentanyl Drip Premix IV TITR TRI Protocol 1 MCG/KG/HR Midazolam HCl 100 mg/ Sodium 100 mls @ 2 mls/hr 01/14/20 18:00 01/16/20 15:00 Chloride IV 0 mg/hr TITR TRI 0 mls/hr Titration Protocol 2 MG/HR Amino Acids 2,000 mls @ 83.33 mls/hr 01/16/20 20:00 01/16/20 22:27 Clinimix 4.25%-10% Solution IV 01/17/20 19:59 83.33 mls/hr Q24H TRI Administration Vasopressin 20 unit/ Sodium 101 mls @ 9.09 mls/hr 01/17/20 10:00 Chloride IV TITR TRI Protocol 0.03 UNITS/MIN Amiodarone HCl 900 mg/ 500 mls @ 33.333 mls/hr 01/17/20 10:00 01/17/20 10:14 Dextrose IV 1 mg/min DIRECT TRI 33.333 mls/hr Administration Protocol 1 MG/MIN Midazolam HCl 2 mg 01/14/20 16:51 Versed IV Q10MIN PRN Sedation Ondansetron HCl 4 mg 01/08/20 20:00 01/10/20 19:53 Zofran IV 4 mg Q8H PRN Administration Nausea And Vomiting Sodium Chloride 10 ml 01/08/20 22:00 01/16/20 22:28 Sodium Chloride Flush Syringe 10 Ml IV 10 ml BID TRI Administration Sodium Chloride 10 ml 01/08/20 20:00 Sodium Chloride Flush Syringe 10 Ml IV PRN PRN LINE FLUSH
[2020-01-17] MEDS ORDERED: NORepinephrine 8 MG in SODIUM CHLORIDE 0.9% 250ML 242 ML IV SCH (12:00)
--- NOTE | 2020-01-17 13:25 | Progress Note ---
Assessment and Plan Severe sepsis with shock. Partial small-bowel obstruction. 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 Reported gastrointestinal bleed. Elevated serum transaminases. Hyponatremia. Cocaine abuse. History of hyperlipidemia. History of hypertension. Acute kidney injury. Hyperkalemia. History of congestive heart failure. Urinary retention Elevated LFTs Acute kidney injury:Vasomotor nephropathy Acute toxic-metabolic encephalopathy (Discussed care plan and goals of care with her eldest daughter Nallely [place] who states she has two siblings and describes her mother as a fighter. All her quest ions were answered) - repeat H&H in am - begin neosynephrine for MAP of 55 - continue TPN - hyperkalemia addressed by mental health counselor - family visited yesterday - continue care as below otherwise; - Wean vasopresssor support for MAP> 65 - VAP bundle addressed - Adjust minute ventilation fro better gas-excahnge. Change NSaline to 150meq bicarbonate infusion - Lung protective strategies - Bronchodilators with pulmonary hygiene per RT - CXR today - OGT to LIS, keep NPO - Wean supplemental oxygen for target O2 sats > 94% - higher pAO2 to help perfuse the bowel - Daily SAT and SBT assessment as tolerated - Wean per pulmonary driven protocols - Accuchecks q6h while NPO, avoid hypoglycemia - Avoid benzodiazepines, reduce the possibility of delirium - prn analgesia per CPOT score - Maintenance of sleep-wake cycle, avoid delirium - Avoid nephrotoxins, closely monitor renal function - Aspiration precautions, HOB >40 - Antibiotics per ID- Cefepime and Metronidazole - On therapeutic heparin infusions - Medical management and redistribution therpaies for hyperkalemia - Stress ulcer prophylaxis (Famotidine) - Mobility protocol, off loading and skin assessment for pressure ulcer prevention - Supportive transfusions as indicated to keep HgB >7g/dL - Taylor catheter-critically ill with unstable hemodynamics requiring accurate intake and output, and for urinary retention Discussed with the ICU team-RT,RN,CM In view of her prognosis and severity of illness, there is a need for goals of care discussions. The family are apparently not ready to make decisions on her behalf, the patient apparently lived on the streets. Ethics consult is appropriate to determine code status and goals of care. Life threatening condition- Severe sepsis with septic shock; Acute renal failure; Pneumatosis intestinalis ischemic gut Mortality/Morbidity- High Complexity of medical decision making- High CONDITION: CRITICAL PROGNOSIS: GUARDED-GRAVE CODE STATUS: FULL CODE The high probability of a clinically significant, sudden or life-threatening deterioration of the [cardiovascular,neurology, GI ] system(s) required my full and direct attention, intervention and personal management. The aggregate critical care time was [32] minutes without overlap. 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; Cocaine abuse; Acute kidney injury; CHF; Urinary retention; Elevated LFTs; Acute toxic-metabolic encephalopathy Seen and examined at bedside; 24hour events reviewed; nursing and respiratory care staff consulted; no adverse overnight events reported to me; resting peacefully in bed; AMS is persistent; still with melena-type stools; vasopressin added after episode of SVT yesterday and also started on Amiodarone Objective Vital Signs - 12hr 01/17/20 01/17/20 01/17/20 01:30 01:45 02:00 Temperature Pulse Rate 108 H 100 H 145 H Pulse Rate [ From Monitor] Respiratory 35 H 37 H 32 H Rate Blood Pressure 103/61 97/48 104/68 O2 Sat by Pulse 84 Oximetry 01/17/20 01/17/20 01/17/20 02:15 02:30 02:45 Temperature Pulse Rate 108 H 108 H 107 H Pulse Rate [ From Monitor] Respiratory 35 H 34 H 35 H Rate Blood Pressure 101/53 100/49 84/54 O2 Sat by Pulse 97 97 96 Oximetry 01/17/20 01/17/20 01/17/20 03:00 03:16 03:30 Temperature Pulse Rate 111 H 90 136 H Pulse Rate [ From Monitor] Respiratory 38 H 32 H 38 H Rate Blood Pressure 84/54 84/58 89/47 O2 Sat by Pulse 97 100 Oximetry 01/17/20 01/17/20 01/17/20 03:32 03:46 04:00 Temperature 98.4 F Pulse Rate 113 H 105 H Pulse Rate [ 110 H From Monitor] Respiratory 35 H 34 H Rate Blood Pressure 77/56 157/138 O2 Sat by Pulse 100 100 Oximetry 01/17/20 01/17/20 01/17/20 04:15 04:20 04:30 Temperature Pulse Rate 93 H 144 H 151 H Pulse Rate [ From Monitor] Respiratory 37 H 38 H Rate Blood Pressure 109/55 109/55 109/55 O2 Sat by Pulse 100 100 100 Oximetry 01/17/20 01/17/20 01/17/20 04:45 05:00 05:16 Temperature Pulse Rate 95 H 107 H 91 H Pulse Rate [ From Monitor] Respiratory 35 H 36 H 37 H Rate Blood Pressure 105/46 91/59 93/55 O2 Sat by Pulse 100 100 100 Oximetry 01/17/20 01/17/20 01/17/20 05:30 05:46 06:00 Temperature Pulse Rate 106 H 99 H 90 Pulse Rate [ From Monitor] Respiratory 39 H 37 H 36 H Rate Blood Pressure 93/55 93/55 93/55 O2 Sat by Pulse 100 100 100 Oximetry 01/17/20 01/17/20 01/17/20 06:16 06:30 06:46 Temperature Pulse Rate 91 H 147 H 143 H Pulse Rate [ From Monitor] Respiratory 37 H 37 H 37 H Rate Blood Pressure 93/55 93/55 63/39 O2 Sat by Pulse 100 100 100 Oximetry 01/17/20 01/17/20 01/17/20 07:00 07:16 07:30 Temperature Pulse Rate 140 H 114 H 140 H Pulse Rate [ From Monitor] Respiratory 37 H 34 H 35 H Rate Blood Pressure 153/59 92/50 92/50 O2 Sat by Pulse 100 100 100 Oximetry 01/17/20 01/17/20 01/17/20 07:46 07:49 08:00 Temperature 97.5 F L Pulse Rate 95 H 147 H 149 H Pulse Rate [ 165 H From Monitor] Respiratory 35 H 35 H Rate Blood Pressure 65/37 65/37 O2 Sat by Pulse 100 100 100 Oximetry 01/17/20 01/17/20 01/17/20 08:16 08:30 08:46 Temperature Pulse Rate 153 H 149 H 144 H Pulse Rate [ From Monitor] Respiratory 37 H 35 H 33 H Rate Blood Pressure 159/78 159/78 67/42 O2 Sat by Pulse 100 100 100 Oximetry 01/17/20 01/17/2020 09:00 09:16 09:30 Temperature Pulse Rate 144 H 145 H 146 H Pulse Rate [ From Monitor] Respiratory 37 H 36 H 33 H Rate Blood Pressure 132/109 72/22 75/49 O2 Sat by Pulse 100 100 100 Oximetry 01/17/20 01/17/20 01/17/20 09:46 10:00 10:16 Temperature Pulse Rate 152 H 145 H 148 H Pulse Rate [ From Monitor] Respiratory 36 H 32 H 33 H Rate Blood Pressure 85/50 85/50 103/77 O2 Sat by Pulse 100 100 100 Oximetry 01/17/20 01/17/20 01/17/20 10:30 10:46 11:00 Temperature Pulse Rate 159 H 125 H 118 H Pulse Rate [ From Monitor] Respiratory 35 H 26 H 30 H Rate Blood Pressure 94/46 60/34 128/61 O2 Sat by Pulse 100 100 100 Oximetry 01/17/20 01/17/20 11:16 11:33 Temperature Pulse Rate 84 82 Pulse Rate [ From Monitor] Respiratory 20 Rate Blood Pressure 133/37 126/26 O2 Sat by Pulse 100 100 Oximetry Constitutional: appears uncomfortable, other (middle aged thin female with mildly increased respiratory effort at rest) Eyes: non-icteric ENT: oropharynx moist, other (ETT 24 cm JACOB) Neck: supple, no lymphadenopathy, no JVD Effort: mildly labored Ascultation: Bilateral: diminished breath sounds, rhonchi Percussion: Bilateral: not dull Cardiovascular: regular rate and rhythm Gastrointestinal: hypoactive bowel sounds, soft, non-tender, other (distended) Integumentary: other (poor turgor; post opp changes) Extremities: no cyanosis, no edema, pulses normal, no ischemia or petechiae Neurologic: pupils equal and round, unable to assess Psychiatric: other (sedated) CBC and BMP: 01/16/20 05:03 01/17/20 05:00 ABG, PT/INR, D-dimer: ABG ABG pH 7.296 pH Units (7.350-7.450) L 01/17/20 06:40 ABG pCO2 25.9 mm Hg 01/17/20 06:40 ABG pO2 119.4 mm Hg (80.0-90.0) H 01/17/20 06:40 ABG O2 Saturation 98.1 % (95.0-99.0) 01/17/20 06:40 PT/INR, D-dimer PT 20.0 Sec. (12.2-14.9) H 01/12/20 18:50 INR 1.66 (0.87-1.13) H 01/12/20 18:50 Abnormal lab findings: Abnormal Labs 01/08/20 01/08/20 01/08/20 17:05 17:05 20:10 WBC 21.5 H RBC Hgb Hct MCV MCH 24 L RDW 22.1 H Plt Count Seg Neuts % (Manual) 83.0 H Lymphocytes % (Manual) 5.0 L Monocytes % (Manual) 12.0 H Seg Neutrophils # Man 17.8 H Lymphocytes # (Manual) 1.1 L Monocytes # (Manual) 2.6 H PT INR APTT Heparin Anti-Xa Level ABG pH ABG pO2 ABG HCO3 ABG O2 Saturation ABG Base Excess ABG Hemoglobin Oxyhemoglobin Sodium 133 L Potassium 6.0 H D Chloride 95.1 L Carbon Dioxide BUN 46 H Creatinine 2.9 H D Glucose POC Glucose Lactic Acid 2.20 H* Calcium 8.1 L Phosphorus Magnesium AST 159 H ALT 147 H Alkaline Phosphatase C-Reactive Protein Total Protein 4.6 L D Albumin 2.1 L Ur Specific [place] Crossmatch 01/09/20 01/09/20 01/09/20 15:30 16:59 16:59 WBC 28.5 H RBC 5.32 H Hgb Hct MCV 78 L MCH 24 L RDW 22.0 H Plt Count Seg Neuts % (Manual) 94.0 H Lymphocytes % (Manual) 0 L Monocytes % (Manual) Seg Neutrophils # Man 26.8 H Lymphocytes # (Manual) 0.0 L Monocytes # (Manual) 1.1 H PT INR APTT Heparin Anti-Xa Level ABG pH ABG pO2 ABG HCO3 ABG O2 Saturation ABG Base Excess ABG Hemoglobin Oxyhemoglobin Sodium 132 L Potassium 5.8 H Chloride 96.1 L Carbon Dioxide 14 L D BUN 59 H Creatinine 2.8 H Glucose POC Glucose Lactic Acid Calcium 8.3 L Phosphorus Magnesium AST 151 H ALT 145 H Alkaline Phosphatase 153 H C-Reactive Protein Total Protein 5.9 L D Albumin 2.2 L Ur Specific [place] 1.033 H Crossmatch 01/10/20 01/10/20 01/11/20 10:26 16:43 15:43 WBC RBC Hgb Hct MCV MCH RDW Plt Count Seg Neuts % (Manual) Lymphocytes % (Manual) Monocytes % (Manual) Seg Neutrophils # Man Lymphocytes # (Manual) Monocytes # (Manual) PT INR APTT Heparin Anti-Xa Level ABG pH ABG pO2 ABG HCO3 ABG O2 Saturation ABG Base Excess ABG Hemoglobin Oxyhemoglobin Sodium Potassium 5.1 H Chloride 108.9 H Carbon Dioxide 17 L BUN 69 H 86 H Creatinine 2.9 H 3.4 H Glucose POC Glucose Lactic Acid Calcium 8.0 L Phosphorus Magnesium AST ALT Alkaline Phosphatase C-Reactive Protein 41.00 H Total Protein Albumin Ur Specific [place] Crossmatch 01/11/20 01/11/20 01/12/20 18:12 21:00 05:35 WBC RBC Hgb Hct MCV MCH RDW Plt Count Seg Neuts % (Manual) Lymphocytes % (Manual) Monocytes % (Manual) Seg Neutrophils # Man Lymphocytes # (Manual) Monocytes # (Manual) PT INR APTT Heparin Anti-Xa Level ABG pH 7.162 L* 7.267 L 7.320 L ABG pO2 72.8 L 280.6 H 128.6 H ABG HCO3 19.4 L 17.3 L 15.7 L ABG O2 Saturation 87.7 L 99.4 H ABG Base Excess -9.1 L -9.0 L -9.5 L ABG Hemoglobin 9.8 L 9.7 L 8.2 L Oxyhemoglobin 85.3 L Sodium Potassium Chloride Carbon Dioxide BUN Creatinine Glucose POC Glucose Lactic Acid Calcium Phosphorus Magnesium AST ALT Alkaline Phosphatase C-Reactive Protein Total Protein Albumin Ur Specific [place] Crossmatch 01/12/20 01/12/20 01/12/20 10:18 11:51 11:55 WBC 22.9 H RBC Hgb 8.6 L D Hct 28.3 L D MCV 77 L MCH 24 L RDW 21.7 H Plt Count Seg Neuts % (Manual) Lymphocytes % (Manual) Monocytes % (Manual) Seg Neutrophils # Man Lymphocytes # (Manual) Monocytes # (Manual) PT INR APTT Heparin Anti-Xa Level ABG pH ABG pO2 ABG HCO3 ABG O2 Saturation ABG Base Excess ABG Hemoglobin Oxyhemoglobin Sodium Potassium 5.3 H Chloride Carbon Dioxide 17 L BUN 105 H Creatinine 3.7 H Glucose 111 H POC Glucose 115 H Lactic Acid Calcium Phosphorus Magnesium AST ALT Alkaline Phosphatase C-Reactive Protein Total Protein Albumin Ur Specific [place] Crossmatch 01/12/20 01/12/20 01/12/20 18:20 18:50 18:50 WBC RBC Hgb 9.2 L Hct 30.0 L MCV MCH RDW Plt Count Seg Neuts % (Manual) Lymphocytes % (Manual) Monocytes % (Manual) Seg Neutrophils # Man Lymphocytes # (Manual) Monocytes # (Manual) PT 20.0 H INR 1.66 H APTT 38.7 H Heparin Anti-Xa Level ABG pH ABG pO2 ABG HCO3 ABG O2 Saturation ABG Base Excess ABG Hemoglobin Oxyhemoglobin Sodium Potassium Chloride Carbon Dioxide BUN Creatinine Glucose POC Glucose 108 H Lactic Acid Calcium Phosphorus Magnesium AST ALT Alkaline Phosphatase C-Reactive Protein Total Protein Albumin Ur Specific [place] Crossmatch 01/13/20 01/13/20 01/13/20 03:02 05:10 09:45 WBC 26.2 H RBC 3.53 L Hgb 8.4 L Hct 27.1 L MCV 77 L MCH 24 L RDW 22.0 H Plt Count Seg Neuts % (Manual) Lymphocytes % (Manual) Monocytes % (Manual) Seg Neutrophils # Man Lymphocytes # (Manual) Monocytes # (Manual) PT INR APTT Heparin Anti-Xa Level 0.23 L ABG pH 7.211 L ABG pO2 91.5 H ABG HCO3 18.1 L ABG O2 Saturation ABG Base Excess -9.1 L ABG Hemoglobin 7.3 L Oxyhemoglobin 94.0 L Sodium Potassium Chloride Carbon Dioxide BUN Creatinine Glucose POC Glucose Lactic Acid Calcium Phosphorus Magnesium AST ALT Alkaline Phosphatase C-Reactive Protein Total Protein Albumin Ur Specific [place] Crossmatch 01/13/20 01/13/20 01/13/20 09:45 21:03 21:49 WBC RBC Hgb Hct MCV MCH RDW Plt Count Seg Neuts % (Manual) Lymphocytes % (Manual) Monocytes % (Manual) Seg Neutrophils # Man Lymphocytes # (Manual) Monocytes # (Manual) PT INR APTT Heparin Anti-Xa Level 0.28 L 0.28 L ABG pH ABG pO2 ABG HCO3 ABG O2 Saturation ABG Base Excess ABG Hemoglobin Oxyhemoglobin Sodium Potassium 5.9 H Chloride 110.9 H Carbon Dioxide 17 L BUN 115 H Creatinine 4.2 H Glucose 101 H POC Glucose Lactic Acid Calcium Phosphorus Magnesium AST ALT Alkaline Phosphatase C-Reactive Protein Total Protein Albumin Ur Specific [place] Crossmatch 01/14/20 01/14/20 01/14/20 04:00 04:50 05:09 WBC 26.6 H RBC 3.59 L Hgb 8.5 L Hct 26.6 L MCV 74 L MCH 24 L RDW 21.6 H Plt Count 134 L Seg Neuts % (Manual) Lymphocytes % (Manual) Monocytes % (Manual) Seg Neutrophils # Man Lymphocytes # (Manual) Monocytes # (Manual) PT INR APTT Heparin Anti-Xa Level ABG pH 7.335 L ABG pO2 126.9 H ABG HCO3 ABG O2 Saturation ABG Base Excess -4.2 L ABG Hemoglobin 9.2 L Oxyhemoglobin Sodium Potassium Chloride 108.4 H Carbon Dioxide BUN 111 H Creatinine 3.7 H Glucose 119 H POC Glucose Lactic Acid Calcium Phosphorus Magnesium AST ALT Alkaline Phosphatase C-Reactive Protein Total Protein Albumin Ur Specific [place] Crossmatch 01/14/20 01/14/20 01/14/20 13:07 17:34 23:32 WBC RBC Hgb Hct MCV MCH RDW Plt Count Seg Neuts % (Manual) Lymphocytes % (Manual) Monocytes % (Manual) Seg Neutrophils # Man Lymphocytes # (Manual) Monocytes # (Manual) PT INR APTT Heparin Anti-Xa Level ABG pH ABG pO2 ABG HCO3 ABG O2 Saturation ABG Base Excess ABG Hemoglobin Oxyhemoglobin Sodium Potassium Chloride Carbon Dioxide BUN Creatinine Glucose POC Glucose 160 H 170 H 174 H Lactic Acid Calcium Phosphorus Magnesium AST ALT Alkaline Phosphatase C-Reactive Protein Total Protein Albumin Ur Specific [place] Crossmatch 01/15/20 01/15/20 01/15/20 03:45 05:00 05:00 WBC 27.3 H RBC 3.13 L Hgb 7.3 L Hct 22.6 L MCV 72 L MCH 23 L RDW 21.1 H Plt Count Seg Neuts % (Manual) 90.0 H Lymphocytes % (Manual) 5.0 L Monocytes % (Manual) Seg Neutrophils # Man 24.6 H Lymphocytes # (Manual) Monocytes # (Manual) 1.1 H PT INR APTT Heparin Anti-Xa Level ABG pH 7.492 H ABG pO2 102.6 H ABG HCO3 28.0 H ABG O2 Saturation ABG Base Excess 4.5 H ABG Hemoglobin 10.1 L Oxyhemoglobin Sodium 146 H Potassium Chloride Carbon Dioxide BUN 105 H Creatinine 3.1 H Glucose 188 H POC Glucose Lactic Acid Calcium 8.1 L Phosphorus Magnesium AST ALT Alkaline Phosphatase C-Reactive Protein Total Protein 6.0 L Albumin 1.2 L Ur Specific [place] Crossmatch 01/15/20 01/15/20 01/15/20 05:31 11:40 17:10 WBC RBC Hgb Hct MCV MCH RDW Plt Count Seg Neuts % (Manual) Lymphocytes % (Manual) Monocytes % (Manual) Seg Neutrophils # Man Lymphocytes # (Manual) Monocytes # (Manual) PT INR APTT Heparin Anti-Xa Level ABG pH ABG pO2 ABG HCO3 ABG O2 Saturation ABG Base Excess ABG Hemoglobin Oxyhemoglobin Sodium Potassium Chloride Carbon Dioxide BUN Creatinine Glucose POC Glucose 206 H 201 H 196 H Lactic Acid Calcium Phosphorus Magnesium AST ALT Alkaline Phosphatase C-Reactive Protein Total Protein Albumin Ur Specific [place] Crossmatch 01/15/20 01/16/20 01/16/20 23:43 03:50 05:03 WBC RBC Hgb 6.0 L Hct 18.7 L* MCV MCH RDW Plt Count Seg Neuts % (Manual) Lymphocytes % (Manual) Monocytes % (Manual) Seg Neutrophils # Man Lymphocytes # (Manual) Monocytes # (Manual) PT INR APTT Heparin Anti-Xa Level ABG pH 7.523 H ABG pO2 102.3 H ABG HCO3 29.1 H ABG O2 Saturation ABG Base Excess 5.8 H ABG Hemoglobin 6.6 L Oxyhemoglobin Sodium Potassium Chloride Carbon Dioxide BUN Creatinine Glucose POC Glucose 200 H Lactic Acid Calcium Phosphorus Magnesium AST ALT Alkaline Phosphatase C-Reactive Protein Total Protein Albumin Ur Specific [place] Crossmatch 01/16/20 01/16/20 01/16/20 05:39 07:43 12:09 WBC RBC Hgb Hct MCV MCH RDW Plt Count Seg Neuts % (Manual) Lymphocytes % (Manual) Monocytes % (Manual) Seg Neutrophils # Man Lymphocytes # (Manual) Monocytes # (Manual) PT INR APTT Heparin Anti-Xa Level ABG pH ABG pO2 ABG HCO3 ABG O2 Saturation ABG Base Excess ABG Hemoglobin Oxyhemoglobin Sodium Potassium Chloride Carbon Dioxide BUN Creatinine Glucose POC Glucose 174 H 184 H Lactic Acid Calcium Phosphorus Magnesium AST ALT Alkaline Phosphatase C-Reactive Protein Total Protein Albumin Ur Specific [place] Crossmatch See Detail 01/17/20 01/17/20 01/17/20 05:00 05:23 06:40 WBC RBC Hgb Hct MCV MCH RDW Plt Count Seg Neuts % (Manual) Lymphocytes % (Manual) Monocytes % (Manual) Seg Neutrophils # Man Lymphocytes # (Manual) Monocytes # (Manual) PT INR APTT Heparin Anti-Xa Level ABG pH 7.296 L ABG pO2 119.4 H ABG HCO3 12.4 L ABG O2 Saturation ABG Base Excess -12.8 L ABG Hemoglobin 7.7 L Oxyhemoglobin Sodium Potassium 6.6 H* D Chloride 90.7 L Carbon Dioxide 14 L D BUN 129 H Creatinine 5.3 H D Glucose 139 H POC Glucose 114 H Lactic Acid Calcium Phosphorus 13.00 H Magnesium 2.60 H AST ALT Alkaline Phosphatase C-Reactive Protein Total Protein Albumin Ur Specific [place] Crossmatch Allied health notes reviewed: RT
[2020-01-17] MEDS ORDERED: PHENYLEPHRINE 100 MG in SODIUM CHLORIDE 0.9% 90 ML IV SCH (14:15)
[2020-01-17 14:42] VITALS: BP 49/21
--- NOTE | 2020-01-17 14:46 | Progress Note ---
Assessment and Plan Assessment and plan: 49 YO Female with with Sepsis currently on pressor support, GI Bleed,SBO, AVE, Severe Malnutrition, Homelessness, Acidosis, Cocaine Dependence, Nicotine Dependence. Pt lying in bed, No reported nursing events. No significant improvement overnight. Patient remains critically ill. Patient found to have persistent sepsis suspected secondary to necrotic bowel. Patient to be taken to the OR for reexploration as per surgical team today. Patient underwent surgical invtervention and was found near to complete infarction of the intestine, per surgery from the ligament of Treitz to the sigmoid colon. Almost the entire length of intestine was unsalvageable. There was no pulse in the superior mesenteric artery No resection was done. Patient has a nonsurvivable condition. Comfort care measures should be instituted. Paraoxysmal Atrial Fibrillation.- Will start on Heparin drip Anoxic Metabolic Encephalopathy Hyperkalemia-Nephrology following 01/14: Remains in full ventilatory. No changes, Discussed with Family jeremy brito.Advised of poor prognosis. They will like GI opinion 01/15: Extremely sad case. Still awaiting family. Noted to be anemic today we will give 2 unit packed red blood cells discontinue heparin as this is causing more harm than good. GI per family request opinion pending. Poor prognosis 01/16: Patient unfortunately now with worsening condition, now with septic shock, Hypotensive despite multiple Pressors, Hgb still decreased, I will give 2 additional units of PRBC. Discussed with side stitching machine operator. Discussed extensively with the family yesterday, clearly informed them of the patients clinicall status and they also came to see the patient. Her conditions getting worse today and the family informed - Patient Problems (1) Acute bowel infarction Current Visit: Yes Status: Acute Plan to address problem: Pt in critical condition. General surgery note reviewed Nonsalvageable intestine Called patient's son-in-law Mr. Amauri Castanon, the phone is ringing but nobody is answering the phone manager center note reviewed - Patient Problems (1) Sepsis with septic Shock Current Visit: Yes Status: Acute Plan to address problem: ID note reviewed Continue cefepime and Flagyl IV Awaiting family to be contacted regarding decision to withdraw care Patient remains intubated, lethargic, sedated Lab results reviewed (3) GI bleed Current Visit: Yes Status: Acute Qualifiers: GI bleed type/associated pathology: melena Qualified Code(s): K92.1 - Melena Plan to address problem: Continue IV PPI Monitor H&H as the patient is full code (4) Elevated liver function tests Current Visit: Yes Status: Acute Plan to address problem: Supportive care, IV fluid resuscitation therapy Suspect secondary to sepsis (5) Hyponatremia Current Visit: Yes Status: Acute Plan to address problem: Improved (6) Cocaine abuse Current Visit: No Status: Chronic Plan to address problem: Supportive care (7) HLD (hyperlipidemia) Current Visit: No Status: Chronic None issue at this time (8) Uncontrolled hypertension Current Visit: No Status: Chronic Plan to address problem: continue medical management. BP is fair (9) Acute kidney injury (AVE) with acute tubular necrosis (ATN) Current Visit: Yes Status: Acute Plan to address problem: Nephrology note reviewed and appreciated Serum creatinine stable around 3.7 No need for renal replacement therapy at this time Monitor renal function and avoid nephrotoxins 10. Hyperkalemia Secondary to AVE Improved (11) Hyperkalemia Renal following (12) DVT prophylaxis Current Visit: No Status: Acute Plan to address problem: SCD to bilateral lower extremities while in bed, hold anticoagulation due to GI bleed. 35 mins conversation with family The high probability of a clinically significant, sudden or life threatening deterioration of the [gi, PULMONARY] system(s) required my full and direct attention, intervention and personal management. The aggregate critical care time was [35] minutes. This time is in addition to time spent performing reported procedures but includes the following: [x] Data Review and interpretation [x] Patient assessment and monitoring of vital signs [x] Documentation [x] Medication orders and management Hospitalist Physical - Constitutional Vitals: Temp Pulse Resp BP Pulse Ox 97.5 F L 71 30 H 96/81 100 01/17/20 08:00 01/17/20 13:30 01/17/20 13:30 01/17/20 13:30 01/17/20 13:30 General appearance: Present: no acute distress, other (Remains on vent, lethargic, opens eyes to verbal stimulus) Results - Labs CBC & Chem 7: 01/16/20 05:03 01/17/20 05:00 Labs: Laboratory Last Values WBC 27.3 K/mm3 (4.5-11.0) H 01/15/20 05:00 RBC 3.13 M/mm3 (3.65-5.03) L 01/15/20 05:00 Hgb 6.0 gm/dl (10.1-14.3) L 01/16/20 05:03 Hct 18.7 % (30.3-42.9) L* 01/16/20 05:03 MCV 72 fl (79-97) L 01/15/20 05:00 MCH 23 pg (28-32) L 01/15/20 05:00 MCHC 32 % (30-34) 01/15/20 05:00 RDW 21.1 % (13.2-15.2) H 01/15/20 05:00 Plt Count 170 K/mm3 (140-440) 01/16/20 05:03 Lymph % (Auto) Outgoing Inspector 01/15/20 05:00 Beadle % (Auto) Outgoing Inspector 01/15/20 05:00 Eos % (Auto) Outgoing Inspector 01/15/20 05:00 Baso % (Auto) Outgoing Inspector 01/15/20 05:00 Lymph # Outgoing Inspector 01/15/20 05:00 Beadle # Outgoing Inspector 01/15/20 05:00 Eos # Outgoing Inspector 01/15/20 05:00 Baso # Outgoing Inspector 01/15/20 05:00 Add Manual Diff Complete 01/15/20 05:00 Total Counted 100 01/15/20 05:00 Seg Neutrophils % Outgoing Inspector 01/15/20 05:00 Seg Neuts % (Manual) 90.0 % (40.0-70.0) H 01/15/20 05:00 Band Neutrophils % 0 % 01/15/20 05:00 Lymphocytes % (Manual) 5.0 % (13.4-35.0) L 01/15/20 05:00 Reactive Lymphs % (Man) 0 % 01/15/20 05:00 Monocytes % (Manual) 4.0 % (0.0-7.3) 01/15/20 05:00 Eosinophils % (Manual) 1.0 % (0.0-4.3) 01/15/20 05:00 Basophils % (Manual) 0 % (0.0-1.8) 01/15/20 05:00 Metamyelocytes % 0 % 01/15/20 05:00 Myelocytes % 0 % 01/15/20 05:00 Promyelocytes % 0 % 01/15/20 05:00 Blast Cells % 0 % 01/15/20 05:00 Nucleated RBC % Not Reportable 01/15/20 05:00 Seg Neutrophils # Outgoing Inspector 01/15/20 05:00 Seg Neutrophils # Man 24.6 K/mm3 (1.8-7.7) H 01/15/20 05:00 Band Neutrophils # 0.0 K/mm3 01/15/20 05:00 Lymphocytes # (Manual) 1.4 K/mm3 (1.2-5.4) 01/15/20 05:00 Abs React Lymphs (Man) 0.0 K/mm3 01/15/20 05:00 Monocytes # (Manual) 1.1 K/mm3 (0.0-0.8) H 01/15/20 05:00 Eosinophils # (Manual) 0.3 K/mm3 (0.0-0.4) 01/15/20 05:00 Basophils # (Manual) 0.0 K/mm3 (0.0-0.1) 01/15/20 05:00 Metamyelocytes # 0.0 K/mm3 01/15/20 05:00 Myelocytes # 0.0 K/mm3 01/15/20 05:00 Promyelocytes # 0.0 K/mm3 01/15/20 05:00 Blast Cells # 0.0 K/mm3 01/15/20 05:00 WBC Morphology Not Reportable 01/15/20 05:00 Hypersegmented Neuts Not Reportable 01/15/20 05:00 Hyposegmented Neuts Not Reportable 01/15/20 05:00 Hypogranular Neuts Not Reportable 01/15/20 05:00 Smudge Cells Not Reportable 01/15/20 05:00 Toxic Granulation Not Reportable 01/15/20 05:00 Toxic Vacuolation Not Reportable 01/15/20 05:00 Dohle Bodies Not Reportable 01/15/20 05:00 Pelger-Huet Anomaly Not Reportable 01/15/20 05:00 Ramses Rods Not Reportable 01/15/20 05:00 Platelet Estimate Consistent w auto 01/15/20 05:00 Clumped Platelets Not Reportable 01/15/20 05:00 Plt Clumps, EDTA Not Reportable 01/15/20 05:00 Large Platelets Not Reportable 01/15/20 05:00 Giant Platelets Not Reportable 01/15/20 05:00 Platelet Satelliting Not Reportable 01/15/20 05:00 Plt Morphology Comment Not Reportable 01/15/20 05:00 RBC Morphology Not Reportable 01/15/20 05:00 Dimorphic RBCs Not Reportable 01/15/20 05:00 Polychromasia Not Reportable 01/15/20 05:00 Hypochromasia 1+ 01/15/20 05:00 Poikilocytosis Not Reportable 01/15/20 05:00 Anisocytosis 1+ 01/15/20 05:00 Microcytosis Not Reportable 01/15/20 05:00 Macrocytosis Not Reportable 01/15/20 05:00 Spherocytes Not Reportable 01/15/20 05:00 Pappenheimer Bodies Not Reportable 01/15/20 05:00 Sickle Cells Not Reportable 01/15/20 05:00 Target Cells Few 01/15/20 05:00 Tear Drop Cells Not Reportable 01/15/20 05:00 Ovalocytes Not Reportable 01/15/20 05:00 Helmet Cells Not Reportable 01/15/20 05:00 Plata-Sartell Bodies Not Reportable 01/15/20 05:00 [place] Rings Not Reportable 01/15/20 05:00 Solgohachia Cells Not Reportable 01/15/20 05:00 Bite Cells Not Reportable 01/15/20 05:00 Crenated Cell Not Reportable 01/15/20 05:00 Elliptocytes Not Reportable 01/15/20 05:00 Acanthocytes (Spur) Not Reportable 01/15/20 05:00 Rouleaux Not Reportable 01/15/20 05:00 Hemoglobin C Crystals Not Reportable 01/15/20 05:00 Schistocytes Not Reportable 01/15/20 05:00 Malaria parasites Not Reportable 01/15/20 05:00 Laith Bodies Not Reportable 01/15/20 05:00 Hem Pathologist Commnt No 01/15/20 05:00 PT 20.0 Sec. (12.2-14.9) H 01/12/20 18:50 INR 1.66 (0.87-1.13) H 01/12/20 18:50 APTT 38.7 Sec. (24.2-36.6) H 01/12/20 18:50 Heparin Anti-Xa Level 0.55 U.I./ml (0.3-0.7) 01/15/20 14:29 ABG pH 7.296 pH Units (7.350-7.450) L 01/17/20 06:40 ABG pCO2 25.9 mm Hg 01/17/20 06:40 ABG pO2 119.4 mm Hg (80.0-90.0) H 01/17/20 06:40 ABG HCO3 12.4 mmol/L (20.0-26.0) L 01/17/20 06:40 ABG O2 Saturation 98.1 % (95.0-99.0) 01/17/20 06:40 ABG O2 Content 10.6 (0.0-44) 01/17/20 06:40 ABG Base Excess -12.8 mmol/L (-2.0-3.0) L 01/17/20 06:40 ABG Hemoglobin 7.7 gm/dl (12.0-16.0) L 01/17/20 06:40 ABG Carboxyhemoglobin 1.6 % (0.0-5.0) 01/17/20 06:40 ABG Methemoglobin 0.3 % (0.0-1.5) 01/17/20 06:40 Oxyhemoglobin 96.3 % (95.0-99.0) 01/17/20 06:40 FiO2 25 % 01/17/20 06:40 Sodium 143 mmol/L (137-145) 01/17/20 05:00 Potassium 6.6 mmol/L (3.6-5.0) H* D 01/17/20 05:00 Chloride 90.7 mmol/L (98-107) L 01/17/20 05:00 Carbon Dioxide 14 mmol/L (22-30) L D 01/17/20 05:00 Anion Gap 45 mmol/L 01/17/20 05:00 BUN 129 mg/dL (7-17) H 01/17/20 05:00 Creatinine 5.3 mg/dL (0.6-1.2) H D 01/17/20 05:00 Estimated GFR 10 ml/min 01/17/20 05:00 BUN/Creatinine Ratio 24 % 01/17/20 05:00 Glucose 139 mg/dL (65-100) H 01/17/20 05:00 POC Glucose 114 (70-105) H 01/17/20 05:23 Lactic Acid 1.50 mmol/L (0.7-2.0) 01/10/20 16:43 Calcium 8.5 mg/dL (8.4-10.2) 01/17/20 05:00 Phosphorus 13.00 mg/dL (2.5-4.5) H 01/17/20 05:00 Magnesium 2.60 mg/dL (1.7-2.3) H 01/17/20 05:00 Total Bilirubin 0.50 mg/dL (0.1-1.2) 01/15/20 05:00 AST 28 units/L (5-40) 01/15/20 05:00 ALT 15 units/L (7-56) 01/15/20 05:00 Alkaline Phosphatase 102 units/L (35-129) 01/15/20 05:00 C-Reactive Protein 41.00 mg/dL (0.00-1.30) H 01/10/20 16:43 Total Protein 6.0 g/dL (6.3-8.2) L 01/15/20 05:00 Albumin 1.2 g/dL (3.9-5) L 01/15/20 05:00 Albumin/Globulin Ratio 0.3 % 01/15/20 05:00 Procalcitonin 46.50 ng/mL (<0.15) 01/10/20 16:43 HCG, Qual Negative (Negative) 01/11/20 15:43 Urine Color Sheryl (Yellow) 01/09/20 15:30 Urine Turbidity Slightly-cloudy (Clear) 01/09/20 15:30 Urine pH 5.0 (5.0-7.0) 01/09/20 15:30 Ur Specific Jar[place] 1.033 (1.003-1.030) H 01/09/20 15:30 Urine Protein 30 mg/dl mg/dL (Negative) 01/09/20 15:30 Urine Glucose (UA) Neg mg/dL (Negative) 01/09/20 15:30 Urine Ketones Neg mg/dL (Negative) 01/09/20 15:30 Urine Blood Neg (Negative) 01/09/20 15:30 Urine Nitrite Neg (Negative) 01/09/20 15:30 Urine Bilirubin Neg (Negative) 01/09/20 15:30 Urine Urobilinogen < 2.0 mg/dL (<2.0) 01/09/20 15:30 Ur Leukocyte Esterase Neg (Negative) 01/09/20 15:30 Urine WBC (Auto) 6.0 /HPF (0.0-6.0) 01/09/20 15:30 Urine RBC (Auto) 6.0 /HPF (0.0-6.0) 01/09/20 15:30 U Epithel Cells (Auto) 2.0 /HPF (0-13.0) 01/09/20 15:30 Granular Casts 7 /LPF 01/09/20 15:30 Urine Mucus Few /HPF 01/09/20 15:30 Urine Opiates Screen Presumptive negative 01/09/20 15:30 Urine Methadone Screen Presumptive negative 01/09/20 15:30 Ur Barbiturates Screen Presumptive negative 01/09/20 15:30 Ur Phencyclidine Scrn Presumptive negative 01/09/20 15:30 Ur Amphetamines Screen Presumptive negative 01/09/20 15:30 U Benzodiazepines Scrn Presumptive negative 01/09/20 15:30 Urine Cocaine Screen Presumptive positive 01/09/20 15:30 U Marijuana (THC) Screen Presumptive negative 01/09/20 15:30 Drugs of Abuse Note Disclamer 01/09/20 15:30 Blood Type O POSITIVE 01/16/20 07:43 Antibody Screen Negative 01/16/20 07:43 Crossmatch See Detail 01/16/20 07:43 Taylor/IV: Voiding Method Indwelling Catheter IV Catheter Type [Right Triple Lumen Cath Internal Jugular] IV Catheter Type [Right INT / Saline Lock Forearm] Active Medications - Current Medications Current Medications: Generic Name Dose Route Start Last Admin Trade Name Freq PRN Reason Stop Dose Admin Acetaminophen 650 mg 01/08/20 20:00 Tylenol PO Q4H PRN Pain MILD(1-3)/Fever >100.5/LOPEZ Famotidine 20 mg 01/12/20 10:00 01/17/20 10:16 Pepcid IV 20 mg DAILY TRI Administration Fentanyl 50 mcg 01/14/20 16:51 Sublimaze IV Q10MIN PRN ANALGESIA Hydromorphone HCl 1 mg 01/08/20 21:26 08/10/20 08:19 Dilaudid IV 1 mg Q2H PRN Administration Pain , Severe (7-10) Hydrophilic Ointment 1 applic 01/14/20 16:51 Vaseline Lip Therapy TP Q2HR PRN Dry Lips Cefepime HCl 1 gm in 100 mls @ 200 mls/hr 01/09/20 22:00 01/16/20 22:28 Cefepime/Ns 1 Gm/100 Ml IV 200 mls/hr Q24H TRI Administration Metronidazole 500 mg in 100 mls @ 100 mls/hr 01/10/20 15:00 01/17/20 06:38 Flagyl 500 Mg/100 Ml IV 100 mls/hr Q8H TRI Administration Protocol Propofol 1,000 mg in 100 mls @ 1.837 mls/hr 01/11/20 23:45 01/12/20 15:30 Diprivan 10 Mg/Ml IV 0 mcg/kg/min TITR TRI 0 mls/hr Titration Protocol 5 MCG/KG/MIN Sodium Bicarbonate 150 meq/ 1,150 mls @ 150 mls/hr 01/13/20 10:00 01/17/20 10:16 Dextrose IV 150 mls/hr DIRECT TRI Administration Fentanyl Citrate 2,000 mcg in 100 mls @ 3.05 mls/hr 01/14/20 17:00 Fentanyl Drip Premix IV TITR TRI Protocol 1 MCG/KG/HR Midazolam HCl 100 mg/ Sodium 100 mls @ 2 mls/hr 01/14/20 18:00 01/16/20 15:00 Chloride IV 0 mg/hr TITR TRI 0 mls/hr Titration Protocol 2 MG/HR Amino Acids 2,000 mls @ 83.33 mls/hr 01/16/20 20:00 01/16/20 22:27 Clinimix 4.25%-10% Solution IV 01/17/20 19:59 83.33 mls/hr Q24H TRI Administration Vasopressin 20 unit/ Sodium 101 mls @ 9.09 mls/hr 01/17/20 10:00 01/17/20 12:24 Chloride IV 0.03 units/min TITR TRI 9.09 mls/hr Administration Protocol 0.03 UNITS/MIN Amiodarone HCl 900 mg/ 500 mls @ 33.333 mls/hr 01/17/20 10:00 01/17/20 10:14 Dextrose IV 1 mg/min DIRECT TRI 33.333 mls/hr Administration Protocol 1 MG/MIN Amino Acids 2,000 mls @ 83.33 mls/hr 01/17/20 20:00 Clinimix 4.25%-10% Solution IV 01/18/20 19:59 Q24H TRI Norepinephrine 8 mg/ Sodium 250 mls @ 3.75 mls/hr 01/17/20 12:00 01/17/20 13:05 Chloride IV 30 mcg/min TITR TRI 56.25 mls/hr Administration Protocol 2 MCG/MIN Phenylephrine HCl 100 mg/ 100 mls @ 3 mls/hr 01/17/20 14:15 01/17/20 14:35 Sodium Chloride IV 60 mcg/min TITR TRI 3.6 mls/hr Titration Protocol 50 MCG/MIN Midazolam HCl 2 mg 01/14/20 16:51 Versed IV Q10MIN PRN Sedation Ondansetron HCl 4 mg 01/08/20 20:00 01/10/20 19:53 Zofran IV 4 mg Q8H PRN Administration Nausea And Vomiting Sodium Chloride 10 ml 01/08/20 22:00 01/16/20 22:28 Sodium Chloride Flush Syringe 10 Ml IV 10 ml BID TRI Administration Sodium Chloride 10 ml 01/08/20 20:00 Sodium Chloride Flush Syringe 10 Ml IV PRN PRN LINE FLUSH Nutrition/Malnutrition Assess - Dietary Evaluation Nutrition/Malnutrition Findings: Nutrition Notes Start: 01/13/20 11:55 Freq: Status: Active Protocol: Document 01/17/20 10:47 AJAY (Rec: 01/17/20 10:52 AJAY [id number] [email or web address]) Nutrition Notes Initial or Follow up Reassessment Current Diagnosis Acute Kidney Injury,Sepsis, Hypertension,Heart Failure, Hyperlipidemia Other Pertinent Diagnosis pneumatosis intestinalis, GIB, bowel infarction, cocaine/ nicotine abuse Current Diet Clinimix 4.25%/10% at 83.33ml/ hr Labs/Tests K 6.6 Cl 90.7 CO2 - 14 BUN 129 Cr 5.3 Phos 13 Mg 2.6 Pertinent Medications Amiodarone gtt, Levophed gtt, Vasopressin gtt Height 5 ft 7 in Weight 61 kg [place] Body Weight (kg) 61.36 BMI 21.0 Weight Status Appropriate Subjective/Other Information Spoke with RN at 10:30. Pt not doing well. She is currently receiving Clinimix, which is meeting at least 50% of energy and pro needs. Pt with electrolyte imbalance; has not rounded yet; unsure of POC at this time. Pt remains on vent support. Percent of energy/protein needs met: 67% energy 100% pro Burn Absent Trauma Absent #1 Nutrition Diagnosis Altered GI function Diagnosis Progress(for reassessment Continues documentation) Is patient on ventilator? Yes Is Patient Ambulatory and/or Out of Bed No REE-([facility]-confined to bed) 1519.224 Calculation Used for Recommendations [facility] Additional Notes Protein: 73-122g (1.2-2g/kg) Fluid: 1ml/kcal Nutrition Intervention Nutrition Support: Continue Clinimix 4.25% amino acids and 10% dextrose at 75ml /hr. Kcal 1,020 Protein (gm) 85 Carbohydrates (gm) 200 Fat (gm) 0 Fluid (mL) 2,000 Fiber (gm) 0 Goal #1 PN to meet energy and pro needs as best possible Follow-Up By: 01/18/20 Additional Comments Labs in am: BMP, Mg, Phos F/U: POC
[2020-01-17] MEDS ORDERED: EPINEPHrine 1 MG/10 ML SYRINGE ONE (16:03)
--- NOTE | 2020-01-17 16:58 | Event Note ---
Date: 01/17/20 1625 hrs. [facility] [place] was called around CPR and ACLS protocol was done Patient could not be revived Time of expiration as 1607 hrs. Transferring physician is Dr. Simmons And certifying physician is going to be Dr. Alfonso
[2020-01-17] MEDS ORDERED: AMINO ACIDS 4.25%/DEXTROSE 10% 2,000 ML IV SCH (20:00)
--- NOTE | 2020-01-18 16:03 | Death Summary ---
Summary - Providers Date of service: 01/17/20 Consults: 01/08/20 17:49 Consult to Physician [CONS] Routine Comment: Consulting Provider: WALE RAO Physician Instructions: Reason For Exam: CCU 01/10/20 14:46 Consult to Physician [CONS] Routine Comment: Consulting Provider: MARIA DE JESUS MYERS Physician Instructions: Reason For Exam: Severe Sepsis; Leucocytosis 01/11/20 10:31 Occupational Therapy Evaluate and Treat [CONS] Routine Comment: Reason For Exam: Debility Physical Therapy Evaluation and Treat [CONS] Routine Comment: Reason For Exam: Debility 01/12/20 13:54 Consult to Physician [CONS] Stat Comment: Consulting Provider: KAYLEE BEST Physician Instructions: Reason For Exam: Renal failure 01/13/20 16:28 Consult to Ethics Committee [CONS] Routine Reason For Exam: futility of care 01/15/20 18:26 Consult to Physician [CONS] Routine Comment: Consulting Provider: MERLYN APARICIO Physician Instructions: Reason For Exam: family request. bowel ischemia 01/16/20 11:57 Consult to Dietitian/Nutrition [CONS] Routine Physician Instructions: Reason For Exam: Reason for Consult: Write/Manage TPN/PPN Consult to Dietitian/Nutrition [CONS] Stat Physician Instructions: Reason For Exam: Reason for Consult: Write/Manage TPN/PPN Attending: RIZWANA ELENA MD - summary Date of admission: 01/08/20 20:00 Date of : 01/17/20 Significant findings: 49 YO Female with with Sepsis currently on pressor support, GI Bleed,SBO, AVE, Severe Malnutrition, Homelessness, Acidosis, Cocaine Dependence, Nicotine Dependence. Pt lying in bed, No reported nursing events. No significant improvement overnight. Patient remains critically ill. Patient found to have persistent sepsis suspected secondary to necrotic bowel. Patient to be taken to the OR for reexploration as per surgical team today. Patient underwent surgical invtervention and was found near to complete inf arction of the intestine, per surgery from the ligament of Treitz to the sigmoid colon. Almost the entire length of intestine was unsalvageable. There was no pulse in the superior mesenteric artery No resection was done. Patient has a nonsurvivable condition. Comfort care measures should be instituted. Paraoxysmal Atrial Fibrillation.- Will start on Heparin drip Anoxic Metabolic Encephalopathy Hyperkalemia-Nephrology following 01/14: Remains in full ventilatory. No changes, Discussed with Family extensively.Advised of poor prognosis. They will like GI opinion 01/15: Extremely sad case. Still awaiting family. Noted to be anemic today we will give 2 unit packed red blood cells discontinue heparin as this is causing more harm than good. GI per family request opinion pending. Poor prognosis 01/16: Patient unfortunately now with worsening condition, now with septic shock, Hypotensive despite multiple Pressors, Hgb still decreased, I will give 2 additional units of PRBC. Discussed with surtass analyst. Discussed extensively with the family yesterday, clearly informed them of the patients clinicall status and they also came to see the patient. Her conditions getting worse today and the family informed Patient unfortunately and was pronounced by my colleague. Family was notified (1) Acute bowel infarction (2) Sepsis with septic Shock (3) GI bleed (4) Elevated liver function tests (5) Hyponatremia (6) Cocaine abuse (7) HLD (hyperlipidemia) (8) Uncontrolled hypertension (9) Acute kidney injury (AVE) with acute tubular necrosis (ATN) 10. Hyperkalemia
== END 2020-01-17 18:40 | DRG 853 ==
LOC: ED 15:56 → 3A 20:00 → IMCU 20:21 → CC1 01-09 17:24
PROVIDERS: ADMIT Internal Medicine; ATTEND Internal Medicine
PROC: 05HY33Z Insertion of Infusion Device into Upper Vein, Percutaneous Approach (ICD-10-PCS; 2020-01-08)
PROC: B543ZZA Ultrasonography of Right Jugular Veins, Guidance (ICD-10-PCS; 2020-01-08)
PROC: 0DJ00ZZ Inspection of Upper Intestinal Tract, Open Approach (ICD-10-PCS; principal; 2020-01-11)
PROC: 5A1955Z Respiratory Ventilation, Greater than 96 Consecutive Hours (ICD-10-PCS; 2020-01-11)
PROC: 0BH17EZ Insertion of Endotracheal Airway into Trachea, Via Natural or Artificial Opening (ICD-10-PCS; 2020-01-11)
PROC: 4A033R1 Measurement of Arterial Saturation, Peripheral, Percutaneous Approach (ICD-10-PCS; 2020-01-11)
PROC: 30233N1 Transfusion of Nonautologous Red Blood Cells into Peripheral Vein, Percutaneous Approach (ICD-10-PCS; 2020-01-16)
PROC: 5A12012 Performance of Cardiac Output, Single, Manual (ICD-10-PCS; 2020-01-17)
DX: A41.9 Sepsis, unspecified organism (principal); N17.0 Acute kidney failure with tubular necrosis; E43 Unspecified severe protein-calorie malnutrition; G93.41 Metabolic encephalopathy; R65.21 Severe sepsis with septic shock; F14.20 Cocaine dependence, uncomplicated; E87.1 Hypo-osmolality and hyponatremia; K92.2 Gastrointestinal hemorrhage, unspecified; K56.600 Partial intestinal obstruction, unspecified as to cause; E87.5 Hyperkalemia; F17.200 Nicotine dependence, unspecified, uncomplicated; I48.0 Paroxysmal atrial fibrillation; E78.5 Hyperlipidemia, unspecified; M19.90 Unspecified osteoarthritis, unspecified site; I11.0 Hypertensive heart disease with heart failure; K63.89 Other specified diseases of intestine; R33.9 Retention of urine, unspecified; I50.9 Heart failure, unspecified; Z82.49 Family history of ischemic heart disease and other diseases of the circulatory system; Z68.21 Body mass index [BMI] 21.0-21.9, adult; Z83.3 Family history of diabetes mellitus; Z79.82 Long term (current) use of aspirin; Z79.899 Other long term (current) drug therapy
CPT/HCPCS: 36415; 36600; 71045; 74018; 74019; 74176; 74177; 80048; 80053; 80307; 81001; 82140; 82803; 82962; 83735; 84100; 84145; 84703; 85007; 85014; 85018; 85025; 85027; 85049; 85520; 85610; 85730; 86140; 86850; 86900; 86901; 86920; 87040; 87070; 87205; 93005; 94002; 94003; G0378; A9270-GY; C9113; J0171; J0282; J0330; J0692; J1100; J1170; J1644; J1815; J1940; J2060; J2250; J2370; J2405; J2543; J2704; J3010; J7030; J7040; J7050; J7060; J7070; P9016; Q9967